=== PATIENT | female | born 1940 | race Caucasian/White ===

== ENCOUNTER 2016-06-07 08:44 | Emergency (ER) | payer MEDICARE, BC ==
[2016-06-07 08:53] VITALS: BP 198/69
[2016-06-07] MEDS ORDERED: HYDROmorphone 1 MG/ML Syringe IM ONE (09:35)
[2016-06-07] MEDS ORDERED: Albuterol/Ipratropium 3.0-0.5 MG/3 ML Neb Soln NEB ONE (09:35)
--- NOTE | 2016-06-07 10:24 | CR ---
Chest: Two views of the chest were obtained. Comparison: Previous chest x-ray of 03/21/16. Heart size has a slight left ventricular configuration. Mild tortuosity of the thoracic aorta is seen. Lungs are clear with no acute infiltrates. Mild degenerative change is noted within the spine. Surgical clips are seen from prior cholecystectomy. Previous right shoulder surgery is seen. Impression: 1. Incidental findings as described above. Nothing acute is identified on two-view chest x-ray. Diagnostic code #2
--- NOTE | 2016-06-07 10:25 | EDM.PDOC ---
ED HISTORY OF PRESENT ILLNESS - General Chief Complaint: Respiratory Problem Stated Complaint: CHEST PAIN/TROUBLE BREATHING Time Seen by Provider: 06/07/16 09:27 Source of Information: Reports: Patient History Limitations: Reports: No limitations - History of Present Illness INITIAL COMMENTS - FREE TEXT/NARRATIVE: The patient presents with shortness of breath and some chest pain. The patient has had shortness of breath for about 3 weeks and burning chest pain. Dixie Olsen did a CT angio of her chest and there was no PE but she did have some signs of asbestosis exposure. She had an older sister that of asbestos and cancer. She is worried this may be the case. They grew up in the same house that had it. She denies any fever or cough. She has no abdominal pain. She does have some nausea at times. She is scheduled to see the cutting machine offbearer next week on the . Timing/Duration: Reports: Week(s): Severity: moderate Location, General: Reports: chest Quality: Reports: Burning Improves with: Reports: None Worsens with: Reports: None Context, General: Reports: Activity Associated Symptoms (General): Reports: chest pain, nausea/vomiting, shortness of breath. Denies: cough, fever/chills - Related Data Allergies/ADRs: Allergies Allergy/AdvReac Type Severity Reaction Status Date / Time cephalexin monohydrate Allergy Hives Verified 06/07/16 08:53 [From Keflex] doxycycline Allergy Hives Verified 06/07/16 08:53 fluconazole Allergy Hives Verified 06/07/16 08:53 hyoscyamine Allergy Vaginitis Verified 06/07/16 08:53 levofloxacin [From Levaquin] Allergy Hives Verified 06/07/16 08:53 sulfamethoxazole Allergy Hives Verified 06/07/16 08:53 amlodipine AdvReac Body Aches Verified 06/07/16 08:53 atorvastatin calcium AdvReac Muscle Verified 06/07/16 08:53 [From Lipitor] Aches bupropion HCl AdvReac Other Verified 06/07/16 08:53 [From Wellbutrin] colesevelam HCl AdvReac Muscle Verified 06/07/16 08:53 [From WelChol] Aches ezetimibe [From Zetia] AdvReac Muscle Verified 06/07/16 08:53 Aches gabapentin AdvReac Blurred Verified 06/07/16 08:53 Vision ibandronate sodium AdvReac Shortness Verified 06/07/16 08:53 [From Boniva] of Breath levothyroxine sodium AdvReac Other Verified 06/07/16 08:53 lisinopril AdvReac Cough Verified 06/07/16 08:53 mannitol [From Reclast] AdvReac Confusion Verified 06/07/16 08:53 metoclopramide HCl AdvReac Tremors Verified 06/07/16 08:53 [From Reglan] morphine AdvReac Other Verified 06/07/16 08:53 niacin AdvReac Muscle Verified 06/07/16 08:53 Aches phenobarbital AdvReac Other Verified 06/07/16 08:53 pravastatin sodium AdvReac Muscle Verified 06/07/16 08:53 [From Pravachol] Aches prochlorperazine edisylate AdvReac Tremors Verified 06/07/16 08:53 [From Compazine] prochlorperazine maleate AdvReac Tremors Verified 06/07/16 08:53 [From Compazine] promethazine HCl AdvReac Other Verified 06/07/16 08:53 [From Phenergan] rosuvastatin calcium AdvReac Body Aches Verified 06/07/16 08:53 [From Crestor] sertraline HCl [From Zoloft] AdvReac Other Verified 06/07/16 08:53 simvastatin [From Zocor] AdvReac Muscle Verified 06/07/16 08:53 Aches trazodone AdvReac Other Verified 06/07/16 08:53 water for injection,sterile AdvReac Confusion Verified 06/07/16 08:53 [From Reclast] zoledronic acid AdvReac Confusion Verified 06/07/16 08:53 [From Reclast] zolpidem tartrate AdvReac Other Verified 06/07/16 08:53 [From Ambien] Home Meds: Home Meds Krill/[place]-3/Dha/Epa/Lipids [Krill Oil 300 mg Softgel] 300 mg PO DAILY [History] Levothyroxine Sodium [Synthroid] 112 mcg PO DAILY 01/30/14 [History] Nitroglycerin 0.4 mg SL TID PRN 01/30/14 [History] Dextran 70/Hypromellose [Artificial Tears] 1 drop EYEBOTH BEDTIME PRN 05/05/14 [ History] HYDROmorphone HCl [Dilaudid] 4 mg PO Q4HR PRN 02/23/15 [History] Furosemide 20 mg PO DAILY PRN 03/27/15 [History] quiNINE Sulfate [Quinine Sulfate] 324 mg PO BID PRN 03/27/15 [History] Carvedilol [Coreg] 25 mg PO BID 03/17/16 [History] Cholecalciferol (Vitamin D3) [Vitamin D3] 1,000 unit PO DAILY 03/17/16 [History] Hydrochlorothiazide 12.5 mg PO DAILY 03/17/16 [History] Potassium Chloride [Klor-Con 10] 10 meq PO DAILY 03/17/16 [History] Temazepam [Restoril] 15 mg PO BEDTIME PRN 03/17/16 [History] Ipratropium/Albuterol Sulfate [Combivent Respimat Inhal Darling] 2 inh IH Q6HR PRN #1 aer.w.adap 06/07/16 [Rx] Past Medical History HEENT History: Reports: Impaired vision Other HEENT History: Wears glasses Cardiovascular History: Reports: High cholesterol, Hypertension, Stents, Other ( see below) Other Cardiovascular 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 Patient reported No. 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: Musculoskeletal History: Reports: Osteoporosis Other Musculoskeletal History: polymyalgia Neurological History: Reports: Concussion, Seizure Endocrine/Metabolic History: Reports: Hypothyroidism Hematologic History: Reports: Other (see below) Other Hematologic History: Vitamin D deficiency Oncologic (Cancer) History: Reports: None - Infectious Disease History Infectious Disease History: Reports: Chicken pox - Past Surgical History HEENT Surgical History: Reports: Cataract surgery GI Surgical History: Reports: Appendectomy, Cholecystectomy, Colonoscopy, EGD, Lysis of adhesions Female Surgical History: Reports: Breast reduction, D&C, Hysterectomy, Tubal ligation Neurological Surgical History: Reports: Laminectomy Other Musculoskeletal Surgeries/Procedures:: Foot surgery, lumbar laminectomy, spinal fusion Oncologic Surgical History: Reports: None, Other (see below) Other Oncologic Surgeries/Procedures: BACK WINDER inquired if Patient had PMHx of Cancer /Radiation or Chemotherapy: Patient reported None. Social & Family History - Family History Family Medical History: Noncontributory Cardiac: Reports: ND Other Cardiac Family History: [place], Bro, Bro - Heart disease Neurological: Reports: Alzheimers disease Oncologic: Reports: Lung Other Oncologic Family History: FA - Cancer, Sis - lung cancer - Tobacco Use Smoking Status *Q: Never Smoker Second Hand Smoke Exposure: No - Caffeine Use Caffeine Use: Reports: None - Alcohol Use Days Per Week of Alcohol Use: 0 Number of Drinks Per Day: 0 Total Drinks Per Week: 0 - Recreational Drug Use Recreational Drug Use: No Drug Use in Last 12 Months: No - Living Situation & Occupation Living situation: Reports: single Occupation: retired ED ROS GENERAL - Review of Systems Review Of Systems: See Below Constitutional: Reports: no symptoms HEENT: Reports: No symptoms Respiratory: Reports: Shortness of Breath Cardiovascular: Reports: Chest pain Endocrine: Reports: no symptoms GI/Abdominal: Reports: Nausea. Denies: Abdominal pain, Vomiting : Reports: no symptoms Musculoskeletal: Reports: no symptoms Skin: Reports: no symptoms ED EXAM, GENERAL - Physical Exam Exam: See Below Exam Limited By: No limitations General Appearance: alert, no apparent distress Ears: normal external exam Nose: normal inspection Head: atraumatic, normocephalic Neck: normal inspection Respiratory/Chest: no respiratory distress, lungs clear, normal breath sounds Cardiovascular: regular rate, rhythm, no edema, no murmur GI/Abdominal: soft, non tender, no organomegaly, no mass Back Exam: normal inspection Extremities: normal inspection Neurological: alert, oriented, no motor/sensory deficits EKG INTERPRETATION EKG Date: 06/07/16 Time: 08:48 Rhythm: other (sinus bradycardia) Rate (beats/min): 59 [place]: LAD-left axis deviation P-wave: present QRS: normal ST-T: normal QT: normal DC/PQ Interval: 1st degree HB Course - Vital Signs Last Recorded V/S: Last Vital Signs Temp 97.8 F 06/07/16 08:50 Pulse 57 L 06/07/16 08:50 Resp 20 06/07/16 08:50 BP 198/69 H 06/07/16 08:50 Pulse Ox 99 06/07/16 09:35 - Orders/Labs/Meds Orders: Active Orders 24 hr Category Date Time Status EKG 12 Lead [EKG Documentation Completion] [RC] STAT Care 06/07/16 09:34 Active RT Aerosol Therapy [RC] ASDIRECTED Care 06/07/16 09:35 Active Labs: Laboratory Tests 06/07/16 06/07/16 Range/Units 09:55 09:55 WBC 9.40 (3.98-10.04) K/mm3 RBC 4.38 (3.98-5.22) M/mm3 Hgb 13.5 (11.2-15.7) gm/L Hct 39.9 (34.1-44.9) % MCV 91.1 (79.4-94.8) fl MCH 30.8 (25.6-32.2) pg MCHC 33.8 (32.2-35.5) g/dl RDW Std Deviation 42.0 (36.4-46.3) fL Plt Count 189 (182-369) K/mm3 MPV 9.2 L (9.4-12.3) fl Neutrophils % (Manual) 81 H (40-60) % Band Neutrophils % 0 (0-10) % Lymphocytes % (Manual) 15 L (20-40) % Atypical Lymphs % 0 % Monocytes % (Manual) 4 (2-10) % Eosinophils % (Manual) 0 L (0.7-5.8) % Basophils % (Manual) 0 L (0.1-1.2) Platelet Estimate Adequate RBC Morph Comment Normal Sodium 140 (136-145) mEq/L Potassium 3.9 (3.5-5.1) mEq/L Chloride 105 (98-107) mEq/L Carbon Dioxide 24 (21-32) mEq/L Anion Gap 14.9 (5-15) BUN 13 (7-18) mg/dL Creatinine 0.7 (0.55-1.02) mg/dL Est Cr Clr Drug Dosing TNP Estimated GFR (MDRD) > 60 (>60) mL/min BUN/Creatinine Ratio 18.6 H (14-18) Glucose 105 (83-115) mg/dL Calcium 9.4 (8.5-10.1) mg/dL Total Bilirubin 0.6 (0.2-1.0) mg/dL AST 23 (15-37) U/L ALT 35 (14-59) U/L Alkaline Phosphatase 110 (46-116) U/L Troponin I < 0.017 (0.00-0.056) ng/mL Total Protein 7.1 (6.4-8.2) g/dl Albumin 3.6 (3.4-5.0) g/dl Globulin 3.5 gm/dL Albumin/Globulin Ratio 1.0 (1-2) Meds: Medications Discontinued Medications Generic Name Dose Route Start Last Admin Trade Name Litzy PRN Reason Stop Dose Admin Albuterol/Ipratropium 3 ml 06/07/16 09:35 06/07/16 09:54 Duoneb 3.0-0.5 Mg/3 Ml NEB 06/07/16 09:36 3 ml ONETIME ONE Administration Hydromorphone HCl 1 mg 06/07/16 09:35 06/07/16 09:50 Dilaudid IM 06/07/16 09:36 1 mg ONETIME ONE Administration - Re-Assessments/Exams Free Text/Narrative Re-Assessment/Exam: 06/07/16 10:31 I ordered an EKG that showed a 1st degree HB with no acute changes. Her CXR looks good. I ordered a duoneb and dilaudid 1mg IM and labs. Her CBC is back and it looks good. I am waiting on the CMP and troponin. 06/07/16 10:39 She is still having some pain so I ordered some fentanyl 100mcg IM and her CMP and troponin are negative. She said the duoneb treatment did help with her breathing so I will send a prescription to her pharmacy. Departure - Departure Time of Disposition: 10:40 Disposition: Home, Self-Care 01 Clinical Impression: Shortness of breath Chest pain Qualifiers: Chest pain type: unspecified Qualified Code(s): R07.9 - Chest pain, unspecified Prescriptions: Ipratropium/Albuterol Sulfate [Combivent Respimat Inhal Darling] 2 inh IH Q6HR PRN #1 aer.w.adap PRN Reason: Shortness Of Breath Referrals: Kathryn Olsen NP [Primary Care Provider] - Forms: ED Department Discharge Additional Instructions: Take your other medication as prescribed. Use the inhaler 2 puffs every 6 hours as needed for shortness of breath. Follow up with your cutting machine offbearer. Please return if you are worse. - My Orders Last 24 Hours: My Active Orders 06/07/16 09:34 EKG 12 Lead [EKG Documentation Completion] [RC] STAT 06/07/16 09:35 RT Aerosol Therapy [RC] ASDIRECTED - Assessment/Plan Last 24 Hours: My Active Orders 06/07/16 09:34 EKG 12 Lead [EKG Documentation Completion] [RC] STAT 06/07/16 09:35 RT Aerosol Therapy [RC] ASDIRECTED
[2016-06-07] MEDS ORDERED: fentaNYL 100 MCG/2 ML SDV IM ONE (10:40)
== END 2016-06-07 11:00 | disposition home or self-care (01) ==
LOC: JD.ED 08:44
DX: R07.9 Chest pain, unspecified (principal); I10 Essential (primary) hypertension; E78.00 Pure hypercholesterolemia, unspecified; M81.0 Age-related osteoporosis without current pathological fracture; E03.9 Hypothyroidism, unspecified; Z98.49 Cataract extraction status, unspecified eye; Z90.710 Acquired absence of both cervix and uterus; Z98.890 Other specified postprocedural states; Z79.899 Other long term (current) drug therapy; Z88.1 Allergy status to other antibiotic agents; Z88.2 Allergy status to sulfonamides; Z88.5 Allergy status to narcotic agent; Z88.8 Allergy status to other drugs, medicaments and biological substances
CPT/HCPCS: 36415; 71020; 80053; 84484; 85025; 93005; 94664; 96372; 99285; J1170; J3010

== ENCOUNTER 2016-10-06 11:40 | Emergency (ER) | payer MEDICARE, BC ==
[2016-10-06] MEDS ORDERED: Sodium Chloride 0.9% 10 ML Syringe FLUSH PRN (11:48)
[2016-10-06 11:57] VITALS: BP 179/84
[2016-10-06] MEDS ORDERED: Ondansetron 4 MG/2 ML SDV IVPUSH ONE (12:01)
[2016-10-06] MEDS ORDERED: LORazepam 2 MG/ML MDV IVPUSH ONE (12:01)
[2016-10-06] MEDS ORDERED: Sodium Chloride 0.9% 1,000 ML IV SCH (12:15)
--- NOTE | 2016-10-06 13:43 | CR ---
Chest: Frontal view of the chest was obtained. Comparison: Previous chest x-ray 06/07/16 and 06/18/15. Heart size appears within normal limits. Tortuous thoracic aorta is seen. Slightly prominent paratracheal soft tissues are noted which appear stable. Lungs are clear. Bony structures are grossly intact. Previous lumbar spine surgery is noted as well as right shoulder surgery. Previous gallbladder surgery is also noted. Impression: 1. Incidental findings. Nothing acute is appreciated on frontal chest x-ray. Diagnostic code #2
--- NOTE | 2016-10-06 14:03 | EDM.PDOC ---
ED HPI GENERAL MEDICAL PROBLEM - General Chief Complaint: Chest Pain Stated Complaint: CHEST PAIN Time Seen by Provider: 10/06/16 11:48 Source of Information: Reports: Patient, RN Notes Reviewed - History of Present Illness INITIAL COMMENTS - FREE TEXT/NARRATIVE: 76-year-old lady comes in with anterior chest discomfort with radiation to left shoulder and left arm. So does have pain radiating to her back, she had onset this discomfort about 5 AM this past morning about 6 hours ago. She does feel mildly short of breath. She's not been coughing. No recent fever or chills. She does have some mild upper mid abdominal discomfort as well. Slight nausea, no vomiting. She does have history of hypertension. She does have history of polymyalgia rheumatica. Today she does feel "achy all over". Treatments HEALTH INFORMATICS SPECIALIST: Reports: Aspirin, Other (see below) Other Treatments HEALTH INFORMATICS SPECIALIST: dilaudid 4 mg Chest Pain Score (Numeric/FACES): 10 - Related Data Allergies Allergy/AdvReac Type Severity Reaction Status Date / Time cephalexin monohydrate Allergy Hives Verified 10/06/16 11:57 [From Keflex] doxycycline Allergy Hives Verified 10/06/16 11:57 fluconazole Allergy Hives Verified 10/06/16 11:57 hyoscyamine Allergy Vaginitis Verified 10/06/16 11:57 levofloxacin [From Levaquin] Allergy Hives Verified 10/06/16 11:57 sulfamethoxazole Allergy Hives Verified 10/06/16 11:57 amlodipine AdvReac Body Aches Verified 10/06/16 11:57 atorvastatin calcium AdvReac Muscle Verified 10/06/16 11:57 [From Lipitor] Aches bupropion HCl AdvReac Other Verified 10/06/16 11:57 [From Wellbutrin] colesevelam HCl AdvReac Muscle Verified 10/06/16 11:57 [From WelChol] Aches ezetimibe [From Zetia] AdvReac Muscle Verified 10/06/16 11:57 Aches gabapentin AdvReac Blurred Verified 10/06/16 11:57 Vision ibandronate sodium AdvReac Shortness Verified 10/06/16 11:57 [From Boniva] of Breath levothyroxine sodium AdvReac Other Verified 10/06/16 11:57 lisinopril AdvReac Cough Verified 10/06/16 11:57 mannitol [From Reclast] AdvReac Confusion Verified 10/06/16 11:57 metoclopramide HCl AdvReac Tremors Verified 10/06/16 11:57 [From Reglan] morphine AdvReac Other Verified 10/06/16 11:57 niacin AdvReac Muscle Verified 10/06/16 11:57 Aches phenobarbital AdvReac Other Verified 10/06/16 11:57 pravastatin sodium AdvReac Muscle Verified 10/06/16 11:57 [From Pravachol] Aches prochlorperazine edisylate AdvReac Tremors Verified 10/06/16 11:57 [From Compazine] prochlorperazine maleate AdvReac Tremors Verified 10/06/16 11:57 [From Compazine] promethazine HCl AdvReac Other Verified 10/06/16 11:57 [From Phenergan] rosuvastatin calcium AdvReac Body Aches Verified 10/06/16 11:57 [From Crestor] sertraline HCl [From Zoloft] AdvReac Other Verified 10/06/16 11:57 simvastatin [From Zocor] AdvReac Muscle Verified 10/06/16 11:57 Aches trazodone AdvReac Other Verified 10/06/16 11:57 water for injection,sterile AdvReac Confusion Verified 10/06/16 11:57 [From Reclast] zoledronic acid AdvReac Confusion Verified 10/06/16 11:57 [From Reclast] zolpidem tartrate AdvReac Other Verified 10/06/16 11:57 [From Ambien] Home Meds: Home Meds Krill/Viburnum-3/Dha/Epa/Lipids [Krill Oil 300 mg Softgel] 300 mg PO DAILY [History] Levothyroxine Sodium [Synthroid] 112 mcg PO DAILY 01/30/14 [History] Nitroglycerin 0.4 mg SL TID PRN 01/30/14 [History] Dextran 70/Hypromellose [Artificial Tears] 1 drop EYEBOTH BEDTIME PRN 05/05/14 [ History] HYDROmorphone HCl [Dilaudid] 4 mg PO Q4HR PRN 02/23/15 [History] Furosemide 20 mg PO DAILY PRN 03/27/15 [History] quiNINE Sulfate [Quinine Sulfate] 324 mg PO BID PRN 03/27/15 [History] Carvedilol [Coreg] 25 mg PO BID 03/17/16 [History] Cholecalciferol (Vitamin D3) [Vitamin D3] 1,000 unit PO DAILY 03/17/16 [History] Hydrochlorothiazide 12.5 mg PO DAILY 03/17/16 [History] Potassium Chloride [Klor-Con 10] 10 meq PO DAILY 03/17/16 [History] Temazepam [Restoril] 15 mg PO BEDTIME PRN 03/17/16 [History] Ipratropium/Albuterol Sulfate [Combivent Respimat Inhal [place]] 2 inh IH Q6HR PRN #1 aer.w.adap 06/07/16 [Rx] Past Medical History HEENT History: Reports: Impaired Vision Other HEENT History: Wears glasses Cardiovascular History: Reports: High Cholesterol, Hypertension, Stents, Other ( See Below) Other Cardiovascular History: [employer]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 Patient reported No. Respiratory History: Reports: Pneumonia, Recurrent Gastrointestinal History: Reports: Bowel Obstruction, Colon Polyp Other Gastrointestinal History: states esophagus doesn't work like it normally should Genitourinary History: Reports: Pyelonephritis, UTI, Recurrent COMPANY ACCOUNTANT History: Reports: Musculoskeletal History: Reports: Osteoporosis Other Musculoskeletal History: polymyalgia Neurological History: Reports: Concussion, Seizure Psychiatric History: Reports: Anxiety Endocrine/Metabolic History: Reports: Hypothyroidism Hematologic History: Reports: Other (See Below) Other Hematologic History: Vitamin D deficiency Oncologic (Cancer) History: Reports: None - Infectious Disease History Infectious Disease History: Reports: Chicken Pox - Past Surgical History HEENT Surgical History: Reports: Cataract Surgery Cardiovascular Surgical History: Reports: Coronary Artery Stent GI Surgical History: Reports: Appendectomy, Cholecystectomy, Colonoscopy, EGD, Lysis of Adhesions Female Surgical History: Reports: Breast Reduction, D&C, Hysterectomy, Tubal Ligation Neurological Surgical History: Reports: Laminectomy Musculoskeletal Surgical History: Reports: Other (See Below) Oncologic Surgical History: Reports: None, Other (See Below) Social & Family History - Family History Family Medical History: Noncontributory Cardiac: Reports: [place] Other Cardiac Family History: [place], Bro, Bro - Heart disease Neurological: Reports: Alzheimers Disease Oncologic: Reports: Lung Other Oncologic Family History: FA - Cancer, Sis - lung cancer - Tobacco Use Smoking Status *Q: Never Smoker Second Hand Smoke Exposure: No - Caffeine Use Caffeine Use: Reports: Coffee - Alcohol Use Days Per Week of Alcohol Use: 0 Number of Drinks Per Day: 0 Total Drinks Per Week: 0 - Recreational Drug Use Recreational Drug Use: No Drug Use in Last 12 Months: No - Living Situation & Occupation Living situation: Reports: Single Occupation: Retired ED ROS GENERAL - Review of Systems Review Of Systems: See Below Constitutional: Denies: Fever, Chills, Diaphoresis HEENT: Reports: No Symptoms. Denies: Throat Pain Respiratory: Reports: Shortness of Breath. Denies: Pleuritic Chest Pain Cardiovascular: Reports: Chest Pain, Lightheadedness Endocrine: Reports: Fatigue GI/Abdominal: Reports: Abdominal Pain, Nausea. Denies: Diarrhea, Vomiting Musculoskeletal: Reports: Shoulder Pain, Arm Pain Neurological: Reports: Dizziness. Denies: Numbness, Tingling, Trouble Speaking ED EXAM, GENERAL - Physical Exam Exam: See Below Exam Limited By: No Limitations General Appearance: Alert, Anxious, Mild Distress Eye Exam: Bilateral Eye: PERRL Throat/Mouth: Normal Inspection, Normal Oropharynx Head: Atraumatic Neck: Supple Respiratory/Chest: No Respiratory Distress, Lungs Clear, Normal Breath Sounds Cardiovascular: Regular Rate, Rhythm GI/Abdominal: Soft, Non-Tender Back Exam: No: CVA Tenderness (L), CVA Tenderness (R) Extremities: Normal Inspection. No: Pedal Edema, Leg Pain Neurological: Alert, Oriented, No Motor/Sensory Deficits Skin Exam: Warm, Dry, Normal Color EKG INTERPRETATION EKG Date: 10/06/16 Rhythm: NSR Conde: Normal P-Wave: Present ST-T: Depressed (T-wave inversion V2) Course - Vital Signs Last Recorded V/S: Last Vital Signs Temp 97.0 F 10/06/16 11:53 Pulse 73 10/06/16 11:53 Resp 16 10/06/16 11:53 BP 179/84 H 10/06/16 11:53 Pulse Ox 97 10/06/16 11:53 - Orders/Labs/Meds Orders: Active Orders 24 hr Category Date Time Status EKG 12 Lead [EKG Documentation Completion] [RC] STAT Care 10/06/16 11:49 Active Peripheral IV Care [RC] . DIRECTED Care 10/06/16 11:49 Active Sodium Chloride 0.9% [Normal Saline] 1,000 ml Med 10/06/16 12:15 Active IV ASDIRECTED Sodium Chloride 0.9% [Saline Flush] Med 10/06/16 11:48 Active 10 ml FLUSH ASDIRECTED PRN Peripheral IV Insertion Adult [OM.PC] Stat Oth 10/06/16 11:49 Ordered Medication Orders Sodium Chloride (Normal Saline) 1,000 mls @ 75 mls/hr IV ASDIRECTED IRVIN Last Admin: 10/06/16 12:22 Dose: 75 mls/hr Sodium Chloride (Saline Flush) 10 ml FLUSH ASDIRECTED PRN PRN Reason: Keep Vein Open Last Admin: 10/06/16 12:23 Dose: 10 ml Labs: Laboratory Tests 10/06/16 10/06/16 10/06/16 Range/Units 12:17 12:17 14:25 WBC 9.82 (3.98-10.04) K/mm3 RBC 4.02 (3.98-5.22) M/mm3 Hgb 12.6 (11.2-15.7) gm/L Hct 37.1 (34.1-44.9) % MCV 92.3 (79.4-94.8) fl MCH 31.3 (25.6-32.2) pg MCHC 34.0 (32.2-35.5) g/dl RDW Std Deviation 42.7 (36.4-46.3) fL Plt Count 246 (182-369) K/mm3 MPV 9.0 L (9.4-12.3) fl Neut % (Auto) 72.9 H (34.0-71.1) % Lymph % (Auto) 20.7 (19.3-51.7) % [place] % (Auto) 5.7 (4.7-12.5) % Eos % (Auto) 0.3 L (0.7-5.8) Baso % (Auto) 0.2 (0.1-1.2) % Neut # (Auto) 7.16 H (1.56-6.13) K/mm3 Lymph # (Auto) 2.03 (1.18-3.74) K/mm3 Titus # (Auto) 0.56 H (0.24-0.36) K/mm3 Eos # (Auto) 0.03 L (0.04-0.36) K/mm3 Baso # (Auto) 0.02 (0.01-0.08) K/mm3 Sodium 140 (136-145) mEq/L Potassium 3.0 L (3.5-5.1) mEq/L Chloride 102 (98-107) mEq/L Carbon Dioxide 27 (21-32) mEq/L Anion Gap 14.0 (5-15) BUN 13 (7-18) mg/dL Creatinine 0.9 (0.55-1.02) mg/dL Est Cr Clr Drug Dosing 38.87 mL/min Estimated GFR (MDRD) > 60 (>60) mL/min BUN/Creatinine Ratio 14.4 (14-18) Glucose 126 H (83-115) mg/dL Calcium 9.9 (8.5-10.1) mg/dL Total Bilirubin 0.4 (0.2-1.0) mg/dL AST 16 (15-37) U/L ALT 20 (14-59) U/L Alkaline Phosphatase 81 (46-116) U/L Troponin I < 0.017 < 0.017 (0.00-0.056) ng/mL Total Protein 7.7 (6.4-8.2) g/dl Albumin 4.0 (3.4-5.0) g/dl Globulin 3.7 gm/dL Albumin/Globulin Ratio 1.1 (1-2) Meds: Medications Generic Name Dose Route Start Last Admin Trade Name Freq PRN Reason Stop Dose Admin Sodium Chloride 1,000 mls @ 75 mls/hr 10/06/16 12:15 10/06/16 12:22 Normal Saline IV 75 mls/hr ASDIRECTED IRVIN Administration Sodium Chloride 10 ml 10/06/16 11:48 10/06/16 12:23 Saline Flush FLUSH 10 ml ASDIRECTED PRN Administration Keep Vein Open Discontinued Medications Generic Name Dose Route Start Last Admin Trade Name Freq PRN Reason Stop Dose Admin Lorazepam 0.5 mg 10/06/16 12:01 10/06/16 12:22 Ativan IVPUSH 10/06/16 12:02 0.5 mg ONETIME ONE Administration Ondansetron HCl 4 mg 10/06/16 12:01 10/06/16 12:22 Zofran IVPUSH 10/06/16 12:02 4 mg ONETIME ONE Administration Potassium Chloride 40 meq 10/06/16 14:12 10/06/16 14:32 Klor-Con M20 PO 10/06/16 14:13 40 meq ONETIME ONE Administration - Re-Assessments/Exams Free Text/Narrative Re-Assessment/Exam: 10/06/16 14:16. Patient was sleeping when I checked on her short time ago. He is awake, feels much better after Ativan 0.5 mg IV. Take an oral Dilaudid prior to arrival. She states her chest discomfort is gone. Potassium is come back low at 3.0. We'll give a dose of oral potassium. Troponin was normal. We'll do a repeat 2+ hour troponin to make sure that does not start going up. Chest x-ray was normal. 10/06/16 15:15. Repeat troponin did come back negative. Discharge instructions as documented Departure - Departure Time of Disposition: 15:15 Disposition: Home, Self-Care 01 Clinical Impression: Chest pain, atypical, Hypokalemia Referrals: Kathryn Olsen NP [Primary Care Provider] - Forms: ED Department Discharge Additional Instructions: Increase potassium to your prescribed dose each twice daily for 5 days and then go back to once daily, bananas, fruit and vegetables which are all a good source of potassium prednisone as prescribed. Continue other medications as prescribed. Follow up clinic as needed. Return to ED if symptoms worsening in any way - My Orders Last 24 Hours: My Active Orders 10/06/16 11:48 Sodium Chloride 0.9% [Saline Flush] 10 ml FLUSH ASDIRECTED PRN 10/06/16 11:49 EKG 12 Lead [EKG Documentation Completion] [RC] STAT Peripheral IV Care [RC] . DIRECTED Peripheral IV Insertion Adult [OM.PC] Stat 10/06/16 12:15 Sodium Chloride 0.9% [Normal Saline] 1,000 ml IV ASDIRECTED - Assessment/Plan Last 24 Hours: My Active Orders 10/06/16 11:48 Sodium Chloride 0.9% [Saline Flush] 10 ml FLUSH ASDIRECTED PRN 10/06/16 11:49 EKG 12 Lead [EKG Documentation Completion] [RC] STAT Peripheral IV Care [RC] . DIRECTED Peripheral IV Insertion Adult [OM.PC] Stat 10/06/16 12:15 Sodium Chloride 0.9% [Normal Saline] 1,000 ml IV ASDIRECTED
[2016-10-06] MEDS ORDERED: Potassium Chloride 20 MEQ Tab.ER PO ONE (14:12)
== END 2016-10-06 15:48 | disposition home or self-care (01) ==
LOC: JD.ED 11:40
DX: R07.89 Other chest pain (principal); E87.6 Hypokalemia; E78.00 Pure hypercholesterolemia, unspecified; I10 Essential (primary) hypertension; E03.9 Hypothyroidism, unspecified; F41.9 Anxiety disorder, unspecified; Z98.49 Cataract extraction status, unspecified eye; Z88.1 Allergy status to other antibiotic agents; Z88.6 Allergy status to analgesic agent; Z88.8 Allergy status to other drugs, medicaments and biological substances; Z88.5 Allergy status to narcotic agent; Z87.01 Personal history of pneumonia (recurrent); Z79.899 Other long term (current) drug therapy; Z87.440 Personal history of urinary (tract) infections; Z90.49 Acquired absence of other specified parts of digestive tract; Z90.710 Acquired absence of both cervix and uterus
CPT/HCPCS: 36415; 71010; 80053; 84484; 85025; 93005; 96361; 96374; 96375; 99285; A9270; J2060; J2405; J7040; J7050

== ENCOUNTER 2017-01-23 15:34 | Emergency (ER) | payer MEDICARE, BC ==
[2017-01-23 15:58] VITALS: BP 149/48
[2017-01-23] MEDS ORDERED: methylPREDNISolone Sodium Succinate 125 MG/2 ML SDV IVPUSH ONE (16:12)
[2017-01-23] MEDS ORDERED: Sodium Chloride 0.9% 10 ML Syringe FLUSH PRN (16:12)
[2017-01-23] MEDS ORDERED: Ondansetron 4 MG/2 ML SDV IVPUSH ONE (16:12)
[2017-01-23] MEDS ORDERED: LORazepam 2 MG/ML MDV IVPUSH ONE (16:12)
[2017-01-23] MEDS ORDERED: Sodium Chloride 0.9% 1,000 ML IV SCH (17:00)
[2017-01-23] MEDS ORDERED: Meclizine 12.5 MG Tab PO ONE (17:39)
--- NOTE | 2017-01-23 17:49 | EDM.PDOC ---
ED HPI GENERAL MEDICAL PROBLEM - General Chief Complaint: Gastrointestinal Problem Stated Complaint: DIZZY SPELLS W/NAUSEA AND DIARRHEA Time Seen by Provider: 01/23/17 15:52 Source of Information: Reports: Patient, RN Notes Reviewed - History of Present Illness INITIAL COMMENTS - FREE TEXT/NARRATIVE: 76-year-old female is been having difficulty with intermittent vertigo for several months. This has been more severe the last 2 or 3 days. The vertigo is worse with any type of sudden motion of her head. She also does feel somewhat weak, lightheaded and dizzy when standing or walking. She's had no chest pain or difficulty breathing. No abdominal pain or cramping. she has had some nausea but no vomiting. She also did have one episode of what started out as constipation and then turned into diarrhea earlier today. No headache or visual difficulty. - Related Data Allergies Allergy/AdvReac Type Severity Reaction Status Date / Time cephalexin monohydrate Allergy Hives Verified 10/06/16 11:57 [From Keflex] doxycycline Allergy Hives Verified 10/06/16 11:57 fluconazole Allergy Hives Verified 10/06/16 11:57 hyoscyamine Allergy Vaginitis Verified 10/06/16 11:57 levofloxacin [From Levaquin] Allergy Hives Verified 10/06/16 11:57 sulfamethoxazole Allergy Hives Verified 10/06/16 11:57 amlodipine AdvReac Body Aches Verified 10/06/16 11:57 atorvastatin calcium AdvReac Muscle Verified 10/06/16 11:57 [From Lipitor] Aches bupropion HCl AdvReac Other Verified 10/06/16 11:57 [From Wellbutrin] colesevelam HCl AdvReac Muscle Verified 10/06/16 11:57 [From WelChol] Aches ezetimibe [From Zetia] AdvReac Muscle Verified 10/06/16 11:57 Aches gabapentin AdvReac Blurred Verified 10/06/16 11:57 Vision ibandronate sodium AdvReac Shortness Verified 10/06/16 11:57 [From Boniva] of Breath levothyroxine sodium AdvReac Other Verified 10/06/16 11:57 lisinopril AdvReac Cough Verified 10/06/16 11:57 mannitol [From Reclast] AdvReac Confusion Verified 10/06/16 11:57 metoclopramide HCl AdvReac Tremors Verified 10/06/16 11:57 [From Reglan] morphine AdvReac Other Verified 10/06/16 11:57 niacin AdvReac Muscle Verified 10/06/16 11:57 Aches phenobarbital AdvReac Other Verified 10/06/16 11:57 pravastatin sodium AdvReac Muscle Verified 10/06/16 11:57 [From Pravachol] Aches prochlorperazine edisylate AdvReac Tremors Verified 10/06/16 11:57 [From Compazine] prochlorperazine maleate AdvReac Tremors Verified 10/06/16 11:57 [From Compazine] promethazine HCl AdvReac Other Verified 10/06/16 11:57 [From Phenergan] rosuvastatin calcium AdvReac Body Aches Verified 10/06/16 11:57 [From Crestor] sertraline HCl [From Zoloft] AdvReac Other Verified 10/06/16 11:57 simvastatin [From Zocor] AdvReac Muscle Verified 10/06/16 11:57 Aches trazodone AdvReac Other Verified 10/06/16 11:57 water for injection,sterile AdvReac Confusion Verified 10/06/16 11:57 [From Reclast] zoledronic acid AdvReac Confusion Verified 10/06/16 11:57 [From Reclast] zolpidem tartrate AdvReac Other Verified 10/06/16 11:57 [From Ambien] Home Meds: Home Meds Krill/[place]-3/Dha/Epa/Lipids [Krill Oil 300 mg Softgel] 300 mg PO DAILY [History] Levothyroxine Sodium [Synthroid] 112 mcg PO DAILY 01/30/14 [History] Nitroglycerin 0.4 mg SL TID PRN 01/30/14 [History] Dextran 70/Hypromellose [Artificial Tears] 1 drop EYEBOTH BEDTIME PRN 05/05/14 [ History] HYDROmorphone HCl [Dilaudid] 4 mg PO Q4HR PRN 02/23/15 [History] Furosemide 20 mg PO DAILY PRN 03/27/15 [History] quiNINE Sulfate [Quinine Sulfate] 324 mg PO BID PRN 03/27/15 [History] Carvedilol [Coreg] 25 mg PO BID 03/17/16 [History] Cholecalciferol (Vitamin D3) [Vitamin D3] 1,000 unit PO DAILY 03/17/16 [History] Hydrochlorothiazide 12.5 mg PO DAILY 03/17/16 [History] Potassium Chloride [Klor-Con 10] 10 meq PO DAILY 03/17/16 [History] Temazepam [Restoril] 15 mg PO BEDTIME PRN 03/17/16 [History] Ipratropium/Albuterol Sulfate [Combivent Respimat Inhal [place]] 2 inh IH Q6HR PRN #1 aer.w.adap 06/07/16 [Rx] Nitrofurantoin Monohyd/M-Cryst [Macrobid 100 mg Capsule] 100 mg PO Q12HR #14 capsule 01/23/17 [Rx] Past Medical History HEENT History: Reports: Impaired Vision Other HEENT History: Wears glasses Cardiovascular History: Reports: High Cholesterol, Hypertension, Stents, Other ( See Below) Other Cardiovascular History: [employer] inquired if Patient has PMHx of pacemaker/ afibrillation. Patient reported No. Respiratory History: Reports: Pneumonia, Recurrent Gastrointestinal History: Reports: Bowel Obstruction, Colon Polyp Other Gastrointestinal History: states esophagus doesn't work like it normally should Genitourinary History: Reports: Pyelonephritis, UTI, Recurrent [employer]ENTICE History: Reports: Musculoskeletal History: Reports: Osteoporosis Other Musculoskeletal History: polymyalgia Neurological History: Reports: Concussion, Seizure Psychiatric History: Reports: Anxiety Endocrine/Metabolic History: Reports: Hypothyroidism Hematologic History: Reports: Other (See Below) Other Hematologic History: Vitamin D deficiency Oncologic (Cancer) History: Reports: None - Infectious Disease History Infectious Disease History: Reports: Chicken Pox - Past Surgical History HEENT Surgical History: Reports: Cataract Surgery Cardiovascular Surgical History: Reports: Coronary Artery Stent GI Surgical History: Reports: Appendectomy, Cholecystectomy, Colonoscopy, EGD, Lysis of Adhesions Female Surgical History: Reports: Breast Reduction, D&C, Hysterectomy, Tubal Ligation Neurological Surgical History: Reports: Laminectomy Musculoskeletal Surgical History: Reports: Other (See Below) Oncologic Surgical History: Reports: None, Other (See Below) Social & Family History - Family History Family Medical History: Noncontributory Cardiac: Reports: [place] Other Cardiac Family History: [place], Bro, Bro - Heart disease Neurological: Reports: Alzheimers Disease Oncologic: Reports: Lung Other Oncologic Family History: FA - Cancer, Sis - lung cancer - Tobacco Use Smoking Status *Q: Never Smoker Second Hand Smoke Exposure: No - Caffeine Use Caffeine Use: Reports: Coffee - Alcohol Use Days Per Week of Alcohol Use: 0 Number of Drinks Per Day: 0 Total Drinks Per Week: 0 - Recreational Drug Use Recreational Drug Use: No Drug Use in Last 12 Months: No - Living Situation & Occupation Living situation: Reports: Single Occupation: Retired ED ROS GENERAL - Review of Systems Review Of Systems: See Below Constitutional: Denies: Fever, Chills, Diaphoresis HEENT: Denies: Sinus Problem, Throat Pain Respiratory: Denies: Shortness of Breath, Pleuritic Chest Pain Cardiovascular: Denies: Chest Pain GI/Abdominal: Reports: Nausea. Denies: Abdominal Pain, Vomiting : Reports: Frequency (Mild) Musculoskeletal: Reports: Other (There has been some generalized achiness) Skin: Reports: No Symptoms Neurological: Reports: Dizziness (Vertigo type dizziness worse with motion as well as lightheadedness when standing and walking), Weakness. Denies: Headache , Numbness, Tingling, Trouble Speaking (Mild generalized) ED EXAM, DIZZINESS - Physical Exam Exam: See Below General Appearance: Alert, Anxious (Mild) Eye Exam: Bilateral Eye: PERRL Ears: Normal External Exam, Normal Canal Nose: Normal Inspection Throat/Mouth: Normal Inspection, Normal Oropharynx Head Exam: Atraumatic. No: Facial Swelling Vertigo: reproducible Neck: Supple, Full Range of Motion Respiratory/Chest: No Respiratory Distress, Lungs Clear, Normal Breath Sounds Cardiovascular: Regular Rate, Rhythm GI/Abdominal: Soft, Non-Tender. No: Guarding Neurological: Alert, No Motor/Sensory Deficits, Oriented x 3, Other (Finger to nose testing normal) Extremities: Normal Inspection, Normal Range of Motion Psychiatric: Normal Affect, Normal Mood Skin Exam: Warm, Dry, Normal Color, No Rash EKG INTERPRETATION EKG Date: 01/23/17 Rhythm: NSR [place]: Normal QRS: Normal ST-T: Normal Course - Vital Signs Last Recorded V/S: Last Vital Signs Temp 97.8 F 01/23/17 15:56 Pulse 68 01/23/17 15:56 Resp 22 H 01/23/17 15:56 BP 149/48 H 01/23/17 15:56 Pulse Ox 99 01/23/17 15:56 - Orders/Labs/Meds Orders: Active Orders 24 hr Category Date Time Status Peripheral IV Care [RC] . DIRECTED Care 01/23/17 16:12 Active CULTURE URINE [RM] Stat Lab 01/23/17 18:59 Uncollected Sodium Chloride 0.9% [Normal Saline] 1,000 ml Med 01/23/17 17:00 Active IV ASDIRECTED Sodium Chloride 0.9% [Saline Flush] Med 01/23/17 16:12 Active 10 ml FLUSH ASDIRECTED PRN Peripheral IV Insertion Adult [OM.PC] Stat Oth 01/23/17 16:12 Ordered Medication Orders Sodium Chloride (Normal Saline) 1,000 mls @ 150 mls/hr IV ASDIRECTED IRVIN Last Admin: 01/23/17 17:05 Dose: 150 mls/hr Sodium Chloride (Saline Flush) 10 ml FLUSH ASDIRECTED PRN PRN Reason: Keep Vein Open Last Admin: 01/23/17 16:36 Dose: 10 ml Labs: Laboratory Tests 01/23/17 01/23/17 01/23/17 Range/Units 16:55 17:24 17:24 WBC 6.31 (3.98-10.04) K/mm3 RBC 4.13 (3.98-5.22) M/mm3 Hgb 13.0 (11.2-15.7) gm/L Hct 39.3 (34.1-44.9) % MCV 95.2 H (79.4-94.8) fl MCH 31.5 (25.6-32.2) pg MCHC 33.1 (32.2-35.5) g/dl RDW Std Deviation 43.1 (36.4-46.3) fL Plt Count 65 L (182-369) K/mm3 MPV 9.9 (9.4-12.3) fl Neut % (Auto) 72.0 H (34.0-71.1) % Lymph % (Auto) 20.0 (19.3-51.7) % [place] % (Auto) 4.3 L (4.7-12.5) % Eos % (Auto) 3.0 (0.7-5.8) Baso % (Auto) 0.2 (0.1-1.2) % Neut # (Auto) 4.55 (1.56-6.13) K/mm3 Lymph # (Auto) 1.26 (1.18-3.74) K/mm3 [place] # (Auto) 0.27 (0.24-0.36) K/mm3 Eos # (Auto) 0.19 (0.04-0.36) K/mm3 Baso # (Auto) 0.01 (0.01-0.08) K/mm3 Manual Slide Review Abnormal smear Sodium 138 (136-145) mEq/L Potassium 4.1 (3.5-5.1) mEq/L Chloride 103 (98-107) mEq/L Carbon Dioxide 27 (21-32) mEq/L Anion Gap 12.1 (5-15) BUN 14 (7-18) mg/dL Creatinine 0.8 (0.55-1.02) mg/dL Est Cr Clr Drug Dosing 45.84 mL/min Estimated GFR (MDRD) > 60 (>60) mL/min BUN/Creatinine Ratio 17.5 (14-18) Glucose 135 H (83-115) mg/dL Calcium 9.5 (8.5-10.1) mg/dL Total Bilirubin 0.6 (0.2-1.0) mg/dL AST 15 (15-37) U/L ALT 20 (14-59) U/L Alkaline Phosphatase 81 (46-116) U/L Total Protein 7.3 (6.4-8.2) g/dl Albumin 3.6 (3.4-5.0) g/dl Globulin 3.7 gm/dL Albumin/Globulin Ratio 1.0 (1-2) Urine Color Yellow (Yellow) Urine Appearance Clear (Clear) Urine pH 7.0 (5.0-8.0) Ur Specific [place] 1.015 (1.005-1.030) Urine Protein Negative (Negative) Urine Glucose (UA) Negative (Negative) Urine Ketones Negative (Negative) Urine Occult Blood 1+ H (Negative) Urine Nitrite Positive H (Negative) Urine Bilirubin Negative (Negative) Urine Urobilinogen 0.2 (0.2-1.0) Ur Leukocyte Esterase Trace H (Negative) Urine RBC 0-5 (0-5) /hpf Urine WBC 0-5 (0-5) /hpf Ur Epithelial Cells 0-5 (0-5) /hpf Urine Bacteria Many H (FEW) /hpf Urine Mucus Few (FEW) /hpf Meds: Medications Generic Name Dose Route Start Last Admin Trade Name Freq PRN Reason Stop Dose Admin Sodium Chloride 1,000 mls @ 150 mls/hr 01/23/17 17:00 01/23/17 17:05 Normal Saline IV 150 mls/hr ASDIRECTED IRVIN Administration Sodium Chloride 10 ml 01/23/17 16:12 01/23/17 16:36 Saline Flush FLUSH 10 ml ASDIRECTED PRN Administration Keep Vein Open Discontinued Medications Generic Name Dose Route Start Last Admin Trade Name Freq PRN Reason Stop Dose Admin Lorazepam 0.25 mg 01/23/17 16:12 01/23/17 16:36 Ativan IVPUSH 01/23/17 16:13 0.25 mg ONETIME ONE Administration Meclizine HCl 12.5 mg 01/23/17 17:39 01/23/17 17:57 Antivert PO 01/23/17 17:40 12.5 mg ONETIME ONE Administration Methylprednisolone Sodium Succinate 125 mg 01/23/17 16:12 01/23/17 16:34 Solu-Medrol IVPUSH 01/23/17 16:13 125 mg ONETIME ONE Administration Nitrofurantoin Macrocrystals 100 mg 01/23/17 19:03 01/23/17 19:50 Macrobid PO 01/23/17 19:04 100 mg ONETIME ONE Administration Ondansetron HCl 4 mg 01/23/17 16:12 01/23/17 16:30 Zofran IVPUSH 01/23/17 16:13 4 mg ONETIME ONE Administration - Re-Assessments/Exams Free Text/Narrative Re-Assessment/Exam: 01/23/17 18:35. Feeling better after IV meds and fluid, she does have a UTI, first dose macrobid given here in the ED, urine culture ordered, she also does have labyrinthitis, discharge instr. as documented. Departure - Departure Time of Disposition: 19:07 Disposition: Home, Self-Care 01 Condition: Fair Clinical Impression: UTI, Urinary tract infectious disease Labyrinthitis Qualifiers: Laterality: unspecified laterality Qualified Code(s): H83.09 - Labyrinthitis, unspecified ear - Discharge Information Prescriptions: Nitrofurantoin Monohyd/M-Cryst [Macrobid 100 mg Capsule] 100 mg PO Q12HR #14 capsule Instructions: Labyrinthitis, [id number], Urinary Tract Infection, Adult, Easy -to-Read Referrals: Kathryn Olsen NP [Primary Care Provider] - Forms: ED Department Discharge Additional Instructions: Rest, drink plenty of water to maintain hydration, moves slowly and carefully, macrobid antibiotic, 100 mg twice daily for 1 week, you have been given your first dose here in the ED, next dose tomorrow morning. Continue that twice daily until gone. Antivert 12.5 mg or one half of a 25 mg tablet twice daily for the next 3 days or until vertigo gets much better, then take that in the future if needed for severe vertigo. Follow-up clinic in about one week for recheck, call in the morning for appointment. Return to ED as needed if symptoms worsening in any way. - My Orders Last 24 Hours: My Active Orders 01/23/17 16:12 Peripheral IV Care [RC] . DIRECTED Sodium Chloride 0.9% [Saline Flush] 10 ml FLUSH ASDIRECTED PRN Peripheral IV Insertion Adult [OM.PC] Stat 01/23/17 17:00 Sodium Chloride 0.9% [Normal Saline] 1,000 ml IV ASDIRECTED 01/23/17 18:59 CULTURE URINE [RM] Stat - Assessment/Plan Last 24 Hours: My Active Orders 01/23/17 16:12 Peripheral IV Care [RC] . DIRECTED Sodium Chloride 0.9% [Saline Flush] 10 ml FLUSH ASDIRECTED PRN Peripheral IV Insertion Adult [OM.PC] Stat 01/23/17 17:00 Sodium Chloride 0.9% [Normal Saline] 1,000 ml IV ASDIRECTED 01/23/17 18:59 CULTURE URINE [RM] Stat
[2017-01-23] MEDS ORDERED: Nitrofurantoin Monohydrate/Macrocrystalline 100 MG Cap PO ONE (19:03)
== END 2017-01-23 19:55 | disposition home or self-care (01) ==
LOC: JD.ED 15:34
DX: H83.09 Labyrinthitis, unspecified ear (principal); N39.0 Urinary tract infection, site not specified; I10 Essential (primary) hypertension; E78.00 Pure hypercholesterolemia, unspecified; E03.9 Hypothyroidism, unspecified; Z79.899 Other long term (current) drug therapy; Z88.1 Allergy status to other antibiotic agents; Z88.2 Allergy status to sulfonamides; Z88.8 Allergy status to other drugs, medicaments and biological substances
CPT/HCPCS: 36415; 80053; 81001; 85025; 87086; 96361; 96374; 96375; 99284; A9270; J2060; J2405; J2930; J7040; J7050; 87088; 87186; 93010

== ENCOUNTER 2018-02-16 20:57 | Emergency (ER) | payer MEDICARE, BC ==
[2018-02-16 21:12] VITALS: BP 167/101
--- NOTE | 2018-02-16 22:22 | EDM.PDOC ---
ED HPI GENERAL MEDICAL PROBLEM - General Chief Complaint: Cardiovascular Problem Stated Complaint: BP UP/HEART BEATING FAST Time Seen by Provider: 02/16/18 21:44 Source of Information: Reports: Patient, RN Notes Reviewed History Limitations: Reports: No Limitations - History of Present Illness INITIAL COMMENTS - FREE TEXT/NARRATIVE: The patient states that she developed dyspnea around 17:00 this evening. She took a single inhalation of her Combivent. She then checked her blood pressure four times around 18:00, finding it to be elevated, and the machine told her that her heart rate was irregular. After the machine told her that, the patient states that she developed the sensation of a "fluttering" sensation in her chest , dyspnea, and dizziness. She took 4 mg oral Dilaudid around 18:30, because, she states, that often calms her down, then her usual dose of hydralazine 5 mg and Coreg 25 mg, around 19:00. When she continued to feel poorly, she came to the ED. The patient states that she has had similar symptoms in the past, but they are brief, nonsustained. Here in the ED, the patient states that she feels fine, so long as she remains supine. She reports feeling chest pressure and dyspneic if she is upright. The patient oxygen saturation is 99% on 3 L. The patient states that she takes supplemental oxygen, 3 L continuously. She states that she has a history of asbestos exposure, but that her Tallow Maker, Dr. Vikram Downey, did not put her on oxygen, rather, that was ordered by her PCP, Kathryn Olsen, for shortness of breath. - Related Data Allergies Allergy/AdvReac Type Severity Reaction Status Date / Time cephalexin monohydrate Allergy Hives Verified 01/23/18 13:09 [From Keflex] doxycycline Allergy Hives Verified 01/23/18 13:09 fluconazole Allergy Hives Verified 01/23/18 13:09 hyoscyamine Allergy Vaginitis Verified 01/23/18 13:09 levofloxacin [From Levaquin] Allergy Hives Verified 01/23/18 13:09 sulfamethoxazole Allergy Hives Verified 01/23/18 13:09 amlodipine AdvReac Body Aches Verified 01/23/18 13:09 atorvastatin calcium AdvReac Muscle Verified 01/23/18 13:09 [From Lipitor] Aches bupropion HCl AdvReac Other Verified 01/23/18 13:09 [From Wellbutrin] colesevelam HCl AdvReac Muscle Verified 01/23/18 13:09 [From WelChol] Aches ezetimibe [From Zetia] AdvReac Muscle Verified 01/23/18 13:09 Aches gabapentin AdvReac Blurred Verified 01/23/18 13:09 Vision ibandronate sodium AdvReac Shortness Verified 01/23/18 13:09 [From Boniva] of Breath levothyroxine sodium AdvReac Other Verified 01/23/18 13:09 lisinopril AdvReac Cough Verified 01/23/18 13:09 mannitol [From Reclast] AdvReac Confusion Verified 01/23/18 13:09 metoclopramide HCl AdvReac Tremors Verified 01/23/18 13:09 [From Reglan] morphine AdvReac Other Verified 01/23/18 13:09 niacin AdvReac Muscle Verified 01/23/18 13:09 Aches phenobarbital AdvReac Other Verified 01/23/18 13:09 pravastatin sodium AdvReac Muscle Verified 01/23/18 13:09 [From Pravachol] Aches prochlorperazine edisylate AdvReac Tremors Verified 01/23/18 13:09 [From Compazine] prochlorperazine maleate AdvReac Tremors Verified 01/23/18 13:09 [From Compazine] promethazine HCl AdvReac Other Verified 01/23/18 13:09 [From Phenergan] rosuvastatin calcium AdvReac Body Aches Verified 01/23/18 13:09 [From Crestor] sertraline HCl [From Zoloft] AdvReac Other Verified 01/23/18 13:09 simvastatin [From Zocor] AdvReac Muscle Verified 01/23/18 13:09 Aches trazodone AdvReac Other Verified 01/23/18 13:09 water for injection,sterile AdvReac Confusion Verified 01/23/18 13:09 [From Reclast] zoledronic acid AdvReac Confusion Verified 01/23/18 13:09 [From Reclast] zolpidem tartrate AdvReac Other Verified 01/23/18 13:09 [From Ambien] Home Meds: Home Meds Krill/Mulberry-3/Dha/Epa/Lipids [Krill Oil 300 mg Softgel] 300 mg PO DAILY [History] Levothyroxine Sodium [Synthroid] 112 mcg PO DAILY 01/30/14 [History] Nitroglycerin 0.4 mg SL TID PRN 01/30/14 [History] Dextran 70/Hypromellose [Artificial Tears] 1 drop EYEBOTH BEDTIME PRN 05/05/14 [ History] HYDROmorphone HCl [Dilaudid] 4 mg PO Q4HR PRN 02/23/15 [History] Furosemide 40 mg PO DAILY PRN 03/27/15 [History] quiNINE sulfate [Quinine Sulfate] 324 mg PO BID PRN 03/27/15 [History] Carvedilol [Coreg] 25 mg PO BID 03/17/16 [History] Potassium Chloride [Klor-Con 10] 10 meq PO DAILY 03/17/16 [History] Temazepam [Restoril] 15 mg PO BEDTIME PRN 03/17/16 [History] hydroCHLOROthiazide [Hydrochlorothiazide] 12.5 mg PO DAILY 03/17/16 [History] Ipratropium/Albuterol Sulfate [Combivent Respimat Inhal [place]] 2 inh IH Q6HR PRN #1 aer.w.adap 06/07/16 [Rx] hydrALAZINE HCl [Hydralazine HCl] 5 mg PO Q8H PRN 02/16/18 [History] Past Medical History HEENT History: Reports: Impaired Vision Other HEENT History: Wears glasses Cardiovascular History: Reports: CAD, High Cholesterol, Hypertension. 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: Musculoskeletal History: Reports: Arthritis, Osteoporosis Neurological History: Reports: Seizure (prior to age 12) Psychiatric History: Reports: Anxiety, Depression, Other (See Below) ( Fibromyalgia) Endocrine/Metabolic History: Reports: Hypothyroidism, Vitamin D Deficiency - Infectious Disease History Infectious Disease History: Reports: Chicken Pox - Past Surgical History HEENT Surgical History: Reports: Cataract Surgery, Oral Surgery (wisdom teeth extraction), Other (See Below) (Right salivary gland removal) Cardiovascular Surgical History: Reports: Coronary Artery Stent (x 2) GI Surgical History: Reports: Appendectomy, Cholecystectomy (1981), Colonoscopy , EGD, Lysis of Adhesions (x around 5) Female Surgical History: Reports: Breast Reduction, D&C, Hysterectomy, Salpingo-Oophorectomy, Tubal Ligation Neurological Surgical History: Reports: Lumbar Spine (3 laminectomies, 2 fusions ) Musculoskeletal Surgical History: Reports: Shoulder Surgery (right, open), Other (See Below) (Right foot surgery x 2) Oncologic Surgical History: Reports: None, Other (See Below) Social & Family History - Family History Family Medical History: Noncontributory Cardiac: Reports: [place] Other Cardiac Family History: [place], Bro, Bro - Heart disease Neurological: Reports: Alzheimers Disease Oncologic: Reports: Lung Other Oncologic Family History: FA - Cancer, Sis - lung cancer - Tobacco Use Smoking Status *Q: Never Smoker - Caffeine Use Caffeine Use: Reports: None - Alcohol Use Alcohol Use History: No - Recreational Drug Use Recreational Drug Use: No - Living Situation & Occupation Living situation: Reports: , Alone Occupation: Retired ED ROS GENERAL - Review of Systems Review Of Systems: ROS reveals no pertinent complaints other than HPI. ED EXAM, GENERAL - Physical Exam Exam: See Below Exam Limited By: No Limitations General Appearance: Alert, WD/WN, No Apparent Distress Eye Exam: Bilateral Eye: EOMI, Normal Inspection Ears: Normal External Exam Nose: Normal Inspection Throat/Mouth: Normal Inspection, Normal Lips, Normal Voice, No Airway Compromise Head: Atraumatic, Normocephalic Neck: Normal Inspection Respiratory/Chest: No Respiratory Distress, Lungs Clear, Normal Breath Sounds, No Accessory Muscle Use Cardiovascular: Normal Peripheral Pulses, Regular Rate, Rhythm, No Gallop, No JVD, No Murmur, No Rub Peripheral Pulses: 4+: Radial (L), Radial (R) GI/Abdominal: Normal Bowel Sounds, Soft, Non-Tender, No Organomegaly, No Distention, No Abnormal Bruit, No Mass (Female) Exam: Deferred Rectal (Female) Exam: Deferred Back Exam: Normal Inspection, Full Range of Motion, NT Extremities: Normal Inspection, Normal Range of Motion, Normal Capillary Refill Neurological: Alert, Oriented, Normal Cognition, No Motor/Sensory Deficits Psychiatric: Anxious Skin Exam: Warm, Dry, Intact, Normal Color, No Rash EKG INTERPRETATION EKG Date: 02/16/18 Time: 21:07 Rhythm: NSR (with several PVCs) Rate (Beats/Min): 83 [place]: Normal P-Wave: Present QRS: Normal ST-T: Normal (Late transition) QT: Normal Comparison: No Change (other than PVCs, from 01/23/2018) Course - Vital Signs Last Recorded V/S: Last Vital Signs Temp 36.0 C 02/16/18 21:03 Pulse 85 02/16/18 21:03 Resp 18 02/16/18 21:03 BP 167/101 H 02/16/18 21:03 Pulse Ox 99 02/16/18 21:03 - Orders/Labs/Meds Orders: Active Orders 24 hr Category Date Time Status EKG Documentation Completion [RC] STAT Care 02/16/18 22:16 Active Chest 2V [CR] Stat Exams 02/16/18 22:16 Taken Labs: Laboratory Tests 02/16/18 02/16/18 02/16/18 Range/Units 22:35 22:35 22:35 WBC 7.89 (3.98-10.04) K/mm3 RBC 4.26 (3.98-5.22) M/mm3 Hgb 13.3 (11.2-15.7) gm/L Hct 39.8 (34.1-44.9) % MCV 93.4 (79.4-94.8) fl MCH 31.2 (25.6-32.2) pg MCHC 33.4 (32.2-35.5) g/dl RDW Std Deviation 42.5 (36.4-46.3) fL Plt Count 217 (182-369) K/mm3 MPV 9.3 L (9.4-12.3) fl Neutrophils % (Manual) 71 H (40-60) % Band Neutrophils % 0 (0-10) % Lymphocytes % (Manual) 26 (20-40) % Atypical Lymphs % 0 % Monocytes % (Manual) 3 (2-10) % Eosinophils % (Manual) 0 L (0.7-5.8) % Basophils % (Manual) 0 L (0.1-1.2) Toxic Granulation 1+ slight Platelet Estimate Adequate Plt Morphology Comment Normal RBC Morph Comment Normal D-Dimer, Quantitative 0.32 (0.19-0.50) mg/L Sodium 140 (136-145) mEq/L Potassium 4.0 (3.5-5.1) mEq/L Chloride 102 (98-107) mEq/L Carbon Dioxide 26 (21-32) mEq/L Anion Gap 16.0 H (5-15) BUN 15 (7-18) mg/dL Creatinine 0.8 (0.55-1.02) mg/dL Est Cr Clr Drug Dosing 43.03 mL/min Estimated GFR (MDRD) > 60 (>60) mL/min BUN/Creatinine Ratio 18.8 H (14-18) Glucose 116 H (83-115) mg/dL Calcium 9.6 (8.5-10.1) mg/dL Magnesium 2.0 (1.8-2.4) mg/dl Total Bilirubin 0.3 (0.2-1.0) mg/dL AST 17 (15-37) U/L ALT 23 (14-59) U/L Alkaline Phosphatase 82 (46-116) U/L Troponin I < 0.017 (0.00-0.056) ng/mL Total Protein 7.6 (6.4-8.2) g/dl Albumin 3.9 (3.4-5.0) g/dl Globulin 3.7 gm/dL Albumin/Globulin Ratio 1.1 (1-2) - Re-Assessments/Exams Free Text/Narrative Re-Assessment/Exam: 02/16/18 22:21 As above, the patient did not actually feel palpitations until after her blood pressure machine told her that her heartbeat was irregular. It appears that most of the patient's symptoms are due to anxiety. Her oxygen saturation is 99% on 3 L per nasal canula. I turned her oxygen off, and she continues to saturate 96-98% on room air. The patient's ECG demonstrates several PVCs, but no ischemic changes. I have ordered a workup that includes bloodwork and a chest x- ray. 02/16/18 22:57 2-view chest radiograph reviewed. The cardiac silhouette is within normal limits. No pulmonary vascular congestion. No pleural effusions. No focal infiltrate. No pneumothorax. 3 surgical anchors noted in the head of the right humerus. 2 surgical clips noted in the right upper quadrant. Fusion hardware noted in the lumbar spine. Formal read per the Radiologist pending. 02/16/18 23:23 Test results discussed with the patient. Other than PVCs noted on the patient's ECG, haleigh's workup is entirely unremarkable. The troponin, drawn four-and-a- half hours after the onset of her symptoms, is negative, and her ECG shows no ischemic changes, indicating that she has not suffered recent cardiac damage. 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 The patient may safely be discharged home. Departure - Departure Time of Disposition: 23:26 Disposition: Home, Self-Care 01 Condition: Good Clinical Impression: Heart palpitations, PVCs (premature ventricular contractions) - Discharge Information *PRESCRIPTION DRUG MONITORING PROGRAM REVIEWED*: Not Applicable *COPY OF PRESCRIPTION DRUG MONITORING REPORT IN PATIENT EMMETT: Not Applicable Instructions: Premature Ventricular Contraction, Palpitations, [id number] Referrals: Kathryn Olsen MICROSYSTEMS ENGINEER [Primary Care Provider] - Forms: ED Department Discharge Additional Instructions: You were seen in the emergency room for the sensation of "fluttering" in your chest, and chest pressure. Workup in the ER included blood work, a chest x-ray, and an ECG. Your ECG showed several PVCs = premature ventricular contractions. While abnormal, these are common, and not dangerous. Current guidelines do not recommend treatment of PVCs themselves. The remainder of your workup was unremarkable. You are not anemic. You do not have pneumonia. Your electrolytes were within normal limits. You have not suffered a heart attack. You do not have a blood clot in your lungs. Follow-up with your PCP, Kathryn Olsen, as needed. If any other problems, please do not hesitate to return to the ER. - My Orders Last 24 Hours: My Active Orders 02/16/18 22:16 EKG Documentation Completion [RC] STAT Chest 2V [CR] Stat - Assessment/Plan Last 24 Hours: My Active Orders 02/16/18 22:16 EKG Documentation Completion [RC] STAT Chest 2V [CR] Stat
--- NOTE | 2018-02-17 14:34 | CR ---
Chest: Two views of the chest were obtained. Comparison: Prior chest x-ray of 01/23/18. Heart size is normal. Tortuous thoracic aorta is seen. Lungs are clear with no acute parenchymal change. Minimal degenerative change is scattered within the spine. Previous lumbar spine surgery is noted. Surgical clips are seen from prior cholecystectomy. Previous right shoulder surgery is also noted. Impression: 1. Incidental findings. Nothing acute is seen. Diagnostic code #2
== END 2018-02-16 23:36 | disposition home or self-care (01) ==
LOC: JD.ED 20:57
DX: I49.3 Ventricular premature depolarization (principal); R00.2 Palpitations; I10 Essential (primary) hypertension; Z88.8 Allergy status to other drugs, medicaments and biological substances; Z88.1 Allergy status to other antibiotic agents; Z79.899 Other long term (current) drug therapy
CPT/HCPCS: 36415; 71046; 71046-26; 80053; 83735; 84484; 85007; 85027; 85379; 93005; 99285-25

== ENCOUNTER 2018-02-27 08:18 | Emergency (ER) | payer MEDICARE, BC ==
[2018-02-27] MEDS ORDERED: Ondansetron 4 MG/2 ML SDV IVPUSH ONE (08:53)
[2018-02-27] MEDS ORDERED: Sodium Chloride 0.9% 1,000 ML IV SCH (09:00)
--- NOTE | 2018-02-27 09:07 | EDM.PDOC ---
ED HPI GENERAL MEDICAL PROBLEM - General Chief Complaint: Chest Pain Stated Complaint: HEART PALPITATIONS/NAUSEA Time Seen by Provider: 02/27/18 08:30 Source of Information: Reports: Patient, RN Notes Reviewed History Limitations: Reports: No Limitations - History of Present Illness INITIAL COMMENTS - FREE TEXT/NARRATIVE: The patient states that she develops a fluttering sensation in her chest any time she does anything physical, including walking. She states that the sensation resolves if she sits or lies down. She states that this has been going on for a "long time". She is also complaining of a left-sided headache, burning in character, all day yesterday. She has generalized abdominal cramps that are chronic for many years, but worse over the past 2 days, and made worse whenever she has a bowel movement. She has had nausea, but no emesis, today. She also reports a pinching pain to her left scapular area on and off for years. She states that she felt generally weak this morning. She was diaphoretic this morning. She states that she has been feeling dyspneic ever since her last emergency department visit on 02/16/2018. No recent fever. No recent chest pain or urinary symptoms. The patient states that she called her PCP, Kathryn Olsen, and was instructed to go to the ER. Chest Pain Score (Numeric/FACES): 5 - Related Data Allergies Allergy/AdvReac Type Severity Reaction Status Date / Time cephalexin monohydrate Allergy Hives Verified 02/27/18 08:29 [From Keflex] doxycycline Allergy Hives Verified 02/27/18 08:29 fluconazole Allergy Hives Verified 02/27/18 08:29 hyoscyamine Allergy Vaginitis Verified 02/27/18 08:29 levofloxacin [From Levaquin] Allergy Hives Verified 02/27/18 08:29 sulfamethoxazole Allergy Hives Verified 02/27/18 08:29 amlodipine AdvReac Body Aches Verified 02/27/18 08:29 atorvastatin calcium AdvReac Muscle Verified 02/27/18 08:29 [From Lipitor] Aches bupropion HCl AdvReac Other Verified 02/27/18 08:29 [From Wellbutrin] colesevelam HCl AdvReac Muscle Verified 02/27/18 08:29 [From WelChol] Aches ezetimibe [From Zetia] AdvReac Muscle Verified 02/27/18 08:29 Aches gabapentin AdvReac Blurred Verified 02/27/18 08:29 Vision ibandronate sodium AdvReac Shortness Verified 02/27/18 08:29 [From Boniva] of Breath levothyroxine sodium AdvReac Other Verified 02/27/18 08:29 lisinopril AdvReac Cough Verified 02/27/18 08:29 mannitol [From Reclast] AdvReac Confusion Verified 02/27/18 08:29 metoclopramide HCl AdvReac Tremors Verified 02/27/18 08:29 [From Reglan] morphine AdvReac Other Verified 02/27/18 08:29 niacin AdvReac Muscle Verified 02/27/18 08:29 Aches phenobarbital AdvReac Other Verified 02/27/18 08:29 pravastatin sodium AdvReac Muscle Verified 02/27/18 08:29 [From Pravachol] Aches prochlorperazine edisylate AdvReac Tremors Verified 02/27/18 08:29 [From Compazine] prochlorperazine maleate AdvReac Tremors Verified 02/27/18 08:29 [From Compazine] promethazine HCl AdvReac Other Verified 02/27/18 08:29 [From Phenergan] rosuvastatin calcium AdvReac Body Aches Verified 02/27/18 08:29 [From Crestor] sertraline HCl [From Zoloft] AdvReac Other Verified 02/27/18 08:29 simvastatin [From Zocor] AdvReac Muscle Verified 02/27/18 08:29 Aches trazodone AdvReac Other Verified 02/27/18 08:29 water for injection,sterile AdvReac Confusion Verified 02/27/18 08:29 [From Reclast] zoledronic acid AdvReac Confusion Verified 02/27/18 08:29 [From Reclast] zolpidem tartrate AdvReac Other Verified 02/27/18 08:29 [From Ambien] Home Meds: Home Meds Krill/[place]-3/Dha/Epa/Lipids [Krill Oil 300 mg Softgel] 300 mg PO DAILY [History] Levothyroxine Sodium [Synthroid] 112 mcg PO DAILY 01/30/14 [History] Nitroglycerin 0.4 mg SL ASDIRECTED PRN 01/30/14 [History] Dextran 70/Hypromellose [Artificial Tears] 1 drop EYEBOTH BEDTIME PRN 05/05/14 [ History] HYDROmorphone HCl [Dilaudid] 4 mg PO Q4HR PRN 02/23/15 [History] Furosemide 40 mg PO DAILY 03/27/15 [History] quiNINE sulfate [Quinine Sulfate] 324 mg PO DAILY PRN 03/27/15 [History] Carvedilol [Coreg] 25 mg PO BID 03/17/16 [History] Potassium Chloride [Klor-Con 10] 10 meq PO BID 03/17/16 [History] Albuterol/Ipratropium [DuoNeb 3.0-0.5 MG/3 ML] 1 unit NEB BID 02/27/18 [History] Aspirin [Halfprin] 81 mg PO DAILY 02/27/18 [History] Famotidine 20 mg PO BID 02/27/18 [History] LORazepam [Ativan] 0.5 mg PO BEDTIME PRN 02/27/18 [History] Ondansetron HCl [Zofran] 8 mg PO TID PRN 02/27/18 [History] Polyethylene Glycol 3350 [MiraLAX] 1 scoop PO DAILY PRN 02/27/18 [History] Trimethoprim 100 mg PO DAILY 02/27/18 [History] Zolpidem Tartrate [Ambien] 5 mg PO BEDTIME PRN 02/27/18 [History] Past Medical History HEENT History: Reports: Impaired Vision Other HEENT History: Wears glasses Cardiovascular History: Reports: CAD, High Cholesterol, Hypertension Respiratory History: Reports: Other (See Below) (Asbestos exposure) Gastrointestinal History: Reports: Bowel Obstruction (x around 8), 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: Musculoskeletal History: Reports: Arthritis, Osteoporosis Neurological History: Reports: Seizure (prior to age 12) Psychiatric History: Reports: Anxiety (untreated), Depression (untreated), Other (See Below) (Fibromyalgia, untreated) Endocrine/Metabolic History: Reports: Hypothyroidism, Vitamin D Deficiency - Infectious Disease History Infectious Disease History: Reports: Chicken Pox - Past Surgical History HEENT Surgical History: Reports: Cataract Surgery, Oral Surgery (wisdom teeth extraction), Other (See Below) (Right salivary gland removal) Cardiovascular Surgical History: Reports: Coronary Artery Stent (x 2) GI Surgical History: Reports: Appendectomy, Cholecystectomy (1981), Colonoscopy , EGD, Lysis of Adhesions (x around 3) Female Surgical History: Reports: Breast Reduction, D&C, Hysterectomy, Salpingo-Oophorectomy, Tubal Ligation Neurological Surgical History: Reports: Lumbar Spine (3 laminectomies, 2 fusions ) Musculoskeletal Surgical History: Reports: Shoulder Surgery (right, open), Other (See Below) (Right foot surgery x 2) Social & Family History - Family History Family Medical History: Noncontributory Cardiac: Reports: OR Other Cardiac Family History: MO, Bro, Bro - Heart disease Neurological: Reports: Alzheimers Disease Oncologic: Reports: Lung Other Oncologic Family History: FA - Cancer, Sis - lung cancer - Tobacco Use Smoking Status *Q: Never Smoker Second Hand Smoke Exposure: No - Caffeine Use Caffeine Use: Reports: None - Alcohol Use Alcohol Use History: No - Recreational Drug Use Recreational Drug Use: No - Living Situation & Occupation Living situation: Reports: , Alone Occupation: Retired ED ROS GENERAL - Review of Systems Review Of Systems: ROS reveals no pertinent complaints other than HPI. ED EXAM, GENERAL - Physical Exam Exam: See Below Exam Limited By: No Limitations General Appearance: Alert, WD/WN, No Apparent Distress, Anxious Eye Exam: Bilateral Eye: EOMI, Normal Inspection Ears: Normal External Exam, Hearing Grossly Normal Nose: Normal Inspection Throat/Mouth: Normal Inspection, Normal Lips, Normal Voice, No Airway Compromise Head: Atraumatic, Normocephalic Neck: Normal Inspection, Full Range of Motion Respiratory/Chest: No Respiratory Distress, Lungs Clear, Normal Breath Sounds, No Accessory Muscle Use Cardiovascular: Normal Peripheral Pulses, Regular Rate, Rhythm, No Gallop, No JVD, No Murmur, No Rub Peripheral Pulses: 4+: Radial (L), Radial (R) GI/Abdominal: Normal Bowel Sounds, Soft, No Organomegaly, No Distention, No Abnormal Bruit, No Mass, Tender (Generalized, non-focal), Other (Obese) (Female) Exam: Deferred Rectal (Female) Exam: Deferred Back Exam: Normal Inspection, Full Range of Motion, NT Extremities: Normal Inspection, Normal Range of Motion, Normal Capillary Refill , Pedal Edema (trace bilaterally) Neurological: Alert, Oriented, Normal Cognition, No Motor/Sensory Deficits Psychiatric: Anxious Skin Exam: Warm, Dry, Intact, Normal Color, No Rash EKG INTERPRETATION EKG Date: 02/27/18 Time: 08:25 Rhythm: NSR Rate (Beats/Min): 76 [place]: Normal P-Wave: Present (LAE) QRS: Normal (Late transition) ST-T: Normal QT: Normal Comparison: No Change (02/16/2018) Course - Vital Signs Last Recorded V/S: Last Vital Signs Temp 36.5 C 02/27/18 12:30 Pulse 80 02/27/18 12:30 Resp 16 02/27/18 12:30 BP 160/69 H 02/27/18 12:30 Pulse Ox 99 02/27/18 12:30 Orthostatic Blood Pressure [ 143/69 Standing] Orthostatic Blood Pressure [ 160/60 Sitting] Orthostatic Blood Pressure [ 149/54 Supine] - Orders/Labs/Meds Labs: Laboratory Tests 02/27/18 02/27/18 02/27/18 Range/Units 09:26 09:26 09:26 WBC 7.60 (3.98-10.04) K/mm3 RBC 4.31 (3.98-5.22) M/mm3 Hgb 13.5 (11.2-15.7) gm/L Hct 39.4 (34.1-44.9) % MCV 91.4 (79.4-94.8) fl MCH 31.3 (25.6-32.2) pg MCHC 34.3 (32.2-35.5) g/dl RDW Std Deviation 41.3 (36.4-46.3) fL Plt Count 216 (182-369) K/mm3 MPV 9.5 (9.4-12.3) fl Neutrophils % (Manual) 70 H (40-60) % Band Neutrophils % 1 (0-10) % Lymphocytes % (Manual) 23 (20-40) % Atypical Lymphs % 0 % Monocytes % (Manual) 4 (2-10) % Eosinophils % (Manual) 2 (0.7-5.8) % Basophils % (Manual) 0 L (0.1-1.2) Platelet Estimate Adequate RBC Morph Comment Normal D-Dimer, Quantitative 0.71 H (0.19-0.50) mg/L Puncture Site ABG pH (7.35-7.45) ABG pCO2 (35.0-45.0) mmHg ABG pO2 (80.0-100.0) mmHg ABG HCO3 (22.0-26.0) meq/L ABG O2 Saturation (96.0-97.0) % ABG Base Excess (-2-2.0) Mauriec Test A-a Gradient mmHg Oxygen Flow Rate FiO2 (21.00-100.00) % Sodium (136-145) mEq/L Potassium (3.5-5.1) mEq/L Chloride (98-107) mEq/L Carbon Dioxide (21-32) mEq/L Anion Gap (5-15) BUN (7-18) mg/dL Creatinine (0.55-1.02) mg/dL Est Cr Clr Drug Dosing mL/min Estimated GFR (MDRD) (>60) mL/min BUN/Creatinine Ratio (14-18) Glucose (83-115) mg/dL Lactic Acid 1.6 (0.4-2.0) mmol/L Calcium (8.5-10.1) mg/dL Magnesium (1.8-2.4) mg/dl Total Bilirubin (0.2-1.0) mg/dL AST (15-37) U/L ALT (14-59) U/L Alkaline Phosphatase (46-116) U/L Troponin I (0.00-0.056) ng/mL Total Protein (6.4-8.2) g/dl Albumin (3.4-5.0) g/dl Globulin gm/dL Albumin/Globulin Ratio (1-2) Lipase (73-393) U/L TSH 3rd Generation (0.358-3.74) uIU/mL Urine Color (Yellow) Urine Appearance (Clear) Urine pH (5.0-8.0) Ur Specific [place] (1.005-1.030) Urine Protein (Negative) Urine Glucose (UA) (Negative) Urine Ketones (Negative) Urine Occult Blood (Negative) Urine Nitrite (Negative) Urine Bilirubin (Negative) Urine Urobilinogen (0.2-1.0) Ur Leukocyte Esterase (Negative) Urine RBC (0-5) /hpf Urine WBC (0-5) /hpf Ur Epithelial Cells (0-5) /hpf Urine Bacteria (FEW) /hpf Urine Mucus (FEW) /hpf 02/27/18 02/27/18 02/27/18 Range/Units 09:55 10:31 11:00 WBC (3.98-10.04) K/mm3 RBC (3.98-5.22) M/mm3 Hgb (11.2-15.7) gm/L Hct (34.1-44.9) % MCV (79.4-94.8) fl MCH (25.6-32.2) pg MCHC (32.2-35.5) g/dl RDW Std Deviation (36.4-46.3) fL Plt Count (182-369) K/mm3 MPV (9.4-12.3) fl Neutrophils % (Manual) (40-60) % Band Neutrophils % (0-10) % Lymphocytes % (Manual) (20-40) % Atypical Lymphs % % Monocytes % (Manual) (2-10) % Eosinophils % (Manual) (0.7-5.8) % Basophils % (Manual) (0.1-1.2) Platelet Estimate RBC Morph Comment D-Dimer, Quantitative (0.19-0.50) mg/L Puncture Site Rt radial ABG pH 7.40 (7.35-7.45) ABG pCO2 36.5 (35.0-45.0) mmHg ABG pO2 82.0 (80.0-100.0) mmHg ABG HCO3 22.2 (22.0-26.0) meq/L ABG O2 Saturation 96.8 (96.0-97.0) % ABG Base Excess -1.6 (-2-2.0) Maurice Test Positive A-a Gradient 7 mmHg Oxygen Flow Rate 0.0 FiO2 0.00 L (21.00-100.00) % Sodium 140 (136-145) mEq/L Potassium 4.0 (3.5-5.1) mEq/L Chloride 105 (98-107) mEq/L Carbon Dioxide 24 (21-32) mEq/L Anion Gap 15.0 (5-15) BUN 14 (7-18) mg/dL Creatinine 0.7 (0.55-1.02) mg/dL Est Cr Clr Drug Dosing 49.18 mL/min Estimated GFR (MDRD) > 60 (>60) mL/min BUN/Creatinine Ratio 20.0 H (14-18) Glucose 108 (83-115) mg/dL Lactic Acid (0.4-2.0) mmol/L Calcium 9.6 (8.5-10.1) mg/dL Magnesium 1.9 (1.8-2.4) mg/dl Total Bilirubin 0.6 (0.2-1.0) mg/dL AST 25 (15-37) U/L ALT 26 (14-59) U/L Alkaline Phosphatase 88 (46-116) U/L Troponin I < 0.017 (0.00-0.056) ng/mL Total Protein 7.5 (6.4-8.2) g/dl Albumin 3.6 (3.4-5.0) g/dl Globulin 3.9 gm/dL Albumin/Globulin Ratio 0.9 L (1-2) Lipase 100 (73-393) U/L TSH 3rd Generation 2.649 (0.358-3.74) uIU/mL Urine Color Yellow (Yellow) Urine Appearance Slt cloudy H (Clear) Urine pH 7.0 (5.0-8.0) Ur Specific [place] 1.025 (1.005-1.030) Urine Protein Negative (Negative) Urine Glucose (UA) Negative (Negative) Urine Ketones Negative (Negative) Urine Occult Blood Trace-lysed H (Negative) Urine Nitrite Positive H (Negative) Urine Bilirubin Negative (Negative) Urine Urobilinogen 0.2 (0.2-1.0) Ur Leukocyte Esterase Negative (Negative) Urine RBC 0-5 (0-5) /hpf Urine WBC 0-5 (0-5) /hpf Ur Epithelial Cells 0-5 (0-5) /hpf Urine Bacteria Many H (FEW) /hpf Urine Mucus Few (FEW) /hpf Meds: Medications Discontinued Medications Generic Name Dose Route Start Last Admin Trade Name Freq PRN Reason Stop Dose Admin Sodium Chloride 1,000 mls @ 100 mls/hr 02/27/18 09:00 02/27/18 09:32 Normal Saline IV 100 mls/hr ASDIRECTED IRVIN Administration Ondansetron HCl 4 mg 02/27/18 08:53 02/27/18 09:29 Zofran IVPUSH 02/27/18 08:54 4 mg ONETIME ONE Administration - Re-Assessments/Exams Free Text/Narrative Re-Assessment/Exam: 02/27/18 09:03 The patient reports a fluttering sensation in her chest any time she exerts herself. 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 As the patient was preparing to do this, she stated that she needed her oxygen. It should be noted that the patient's oxygen saturation is 100% on room air, and the patient stated that she was aware of that, but that her PCP, Kathryn Olsen, told her that she still needs oxygen, because the asbestos that she was exposed to filters out the oxygen and does not let it get to her heart. Of course, the oxygen saturation is that of arterial blood, already in the bloodstream, past the lungs and past whatever asbestos she may have previously inhaled. Clearly, the patient is quite anxious, and I suspect that most, if not all of her symptoms are related to that, however, in order to rule out a physiologic cause of her symptoms, I have ordered an extensive workup that includes a troponin, lipase, D-dimer, magnesium level, TSH level, lactic acid level, an ABG , and an upright abdominal film, in addition to other tests. 02/27/18 09:16 No telemetry abnormalities developed when the patient walked the halls with Nadege AGRAWAL, without oxygen. 02/27/18 09:33 2-view chest radiograph appears to be grossly normal. The cardiac silhouette is within normal limits. No pulmonary vascular congestion. Pleural effusions. No focal infiltrate. No pneumothorax. Lumbar fusion hardware incidentally noted. Right shoulder arthroscopic anchor incidentally noted. Surgical clips in the right upper quadrant incidentally noted. Formal read per the Radiologist pending. Single view upright abdomen radiograph appears to demonstrate a nonspecific bowel gas pattern. Stool in the rectum. No free air. L4-S1 fusion hardware incidentally noted. Surgical clips in the right upper quadrant incidentally noted. Formal read per the Radiologist pending. 02/27/18 10:46 The patient is not orthostatic. The patient's urinalysis, obtained by quick catheter, is somewhat unusual. It is nitrite positive with many bacteria, but leukocyte esterase negative and 0-5 WBCs. As per the history of present illness, the patient denies urinary symptoms. Current guidelines do not recommend treatment of asymptomatic bacteriuria in an elderly woman who is not septic, however, I have sent a urine sample for culture, and if positive, treatment might be considered at that time. The patient's D-dimer is mildly elevated at 0.71, consistent with her age, and not consistent with a pulmonary embolus. I do not believe a CT angiogram of the chest is indicated. 02/27/18 11:20 The patient's ABG is essentially normal, with no acid-base derangement, and normal oxygenation on room air. 02/27/18 11:59 Test results discussed with the patient. As above, with the exception of her D- dimer being slightly elevated at 0.71, and bacteruria being found without pyuria , her workup today is entirely unremarkable. Based on her history, physical examination, and ER tests, I strongly suspect that the majority of her symptoms are due to anxiety. Initially, the patient argued against this diagnosis, however, her son then came into the examination room and immediately agreed that her symptoms are due to anxiety. He cited numerous examples of when she was overwhelmed with anxiety, and he noted that the patient is notoriously noncompliant with her medications. The patient stated that she has tried numerous antianxiety and antidepressant medications, which is true, but the patient's son notes that she will often quit taking them after just a few days, citing an allergic or adverse reaction, without giving the medications a chance to work. He noted that she does that with most of her medications, including her blood pressure and heart medications. The patient's son also noted that her symptoms tend to worsen around November or December, the anniversary of her 's , and he stated that every year they seem to go through the same thing, with the patient's anxiety increasing, her going to numerous specialists , always with a negative workup. For today's purposes, I recommended that the patient follow-up with her PCP, and that the patient's son accompany her, so that he can explain her situation from his perspective. In addition, I see no medical indication for the patient to be on supplemental oxygen, and I am recommending that she discontinue it. Departure - Departure Time of Disposition: 12:04 Disposition: Home, Self-Care 01 Condition: Good Clinical Impression: Anxiety - Discharge Information *PRESCRIPTION DRUG MONITORING PROGRAM REVIEWED*: Not Applicable *COPY OF PRESCRIPTION DRUG MONITORING REPORT IN PATIENT EMMETT: Not Applicable Instructions: Generalized Anxiety Disorder, Adult Referrals: Kathryn Olsen NP [Primary Care Provider] - Forms: ED Department Discharge Additional Instructions: You were seen in the emergency room for numerous symptoms, including a fluttering sensation in her chest, left sided headache, generalized abdominal cramps, nausea, a pinching pain in your left scapula, general weakness, and intermittent sweatiness. Workup in the ER included blood work, 2 sets of blood cultures, an arterial blood gas, a urinalysis, a chest x-ray, and x-ray of your abdomen, positional blood pressure checks, and an ECG. Your D-dimer was found to be slightly elevated at 0.71, consistent with your age , and your urinalysis showed some bacteria in your urine, but no white blood cells. A sample of your urine was sent for culture, but no antibiotics are recommended at this time. The remainder of your workup was entirely unremarkable. You are not anemic. There is no sign that you have an infection. Your electrolytes were normal. Your kidney function and liver function are normal. You do not have pancreatitis. You have not had a heart attack. Your thyroid level is normal. You are not dehydrated. You do not have pneumonia or collapsed lung. No abnormal rhythms were found on your ECG or telemetry. Based on your history, physical examination, and ER tests, the cause of your symptoms is most likely due to untreated anxiety. We strongly recommend that you follow-up with your PCP, Kathryn Olsen, to discuss treatment options for anxiety, and that you take your son with you. Be aware that you need to be patient with these medicines - they often take 3-4 weeks before becoming effective. If any other problems, please do not hesitate to return to the ER.
--- NOTE | 2018-02-27 11:15 | CR ---
Abdomen: Upright view of the abdomen was obtained. Comparison: Prior abdominal x-ray of 02/23/15. Prior lumbar spine surgery is noted. Surgical clips are seen from prior cholecystectomy. Dystrophic calcifications are seen within both buttocks. Bowel gas pattern is normal. No free air is seen. Impression: 1. Incidental findings. Nothing acute is definitely appreciated on upright abdominal x-ray. Diagnostic code #2
--- NOTE | 2018-02-27 11:15 | CR ---
Chest: Two views of the chest were obtained. Comparison: Prior chest x-ray of 02/16/18. Heart size and mediastinum are within normal limits. Mild tortuosity of the thoracic aorta is seen. Mild degenerative change is noted within the spine. Previous lumbar spine surgery is noted. Lungs are clear with no acute parenchymal change. Previous cholecystectomy is noted as well as previous right shoulder surgery. Impression: 1. Incidental findings as noted above. Nothing acute is seen. Diagnostic code #2
[2018-02-27 13:32] VITALS: BP 160/69
== END 2018-02-27 12:40 | disposition home or self-care (01) ==
LOC: JD.ED 08:18
DX: F41.9 Anxiety disorder, unspecified (principal); I10 Essential (primary) hypertension; I25.10 Atherosclerotic heart disease of native coronary artery without angina pectoris; F32.9 Major depressive disorder, single episode, unspecified; E03.9 Hypothyroidism, unspecified; E78.00 Pure hypercholesterolemia, unspecified; Z88.1 Allergy status to other antibiotic agents; Z88.8 Allergy status to other drugs, medicaments and biological substances; Z88.5 Allergy status to narcotic agent; Z88.2 Allergy status to sulfonamides; Z79.899 Other long term (current) drug therapy
CPT/HCPCS: 36415; 36600; 71046; 74018; 80053; 81001; 82803; 83605; 83690; 83735; 84443; 84484; 85007; 85027; 85379; 87040; 87086; 87088; 87186; 93005; 96361; 96374; 99285; J2405; J7040

== ENCOUNTER 2018-11-10 01:09 | Inpatient (IN) | payer MEDICARE, BC ==
[2018-11-10] MEDS ORDERED: Ondansetron 4 MG/2 ML SDV IVPUSH ONE (01:22)
[2018-11-10] MEDS ORDERED: HYDROmorphone 1 MG/ML Syringe IVPUSH ONE ×2 (01:22→02:14)
--- NOTE | 2018-11-10 01:28 | EDM.PDOC ---
ED HPI GENERAL MEDICAL PROBLEM - General Chief Complaint: Gastrointestinal Problem Stated Complaint: [facility] Time Seen by Provider: 11/10/18 01:10 Source of Information: Reports: Patient History Limitations: Reports: No Limitations - History of Present Illness INITIAL COMMENTS - FREE TEXT/NARRATIVE: This is an 78-year-old female. Onset with abdominal pain generalized around 10 PM this evening. It is progressively worsened and she took a Dilaudid 4 mg tablets just before midnight but it didn't seem to help and she started having some nausea and vomiting. She comes to the ER complaining of severe abdominal pain. She has a history of having a cholecystectomy appendectomy and hysterectomy and she tells me 10 adhesion surgeries due to small bowel obstruction. Her last abdominal surgery from a small bowel obstruction was back in 2011. She states it feels like a small bowel obstruction this evening. She denies any fever or chills. She denies any other acute symptoms. Since this occurrence she has not passed any stool or gas. She is not vomiting any feces smelling vomitus at this time. Her last bowel movement was yesterday morning as well as her last gas. Nothing since that time despite trying an enema and a suppository. She feels like her abdomen is very swollen and distended. Left Abdominal Pain Score (Numeric/FACES): 10 - Related Data Allergies Allergy/AdvReac Type Severity Reaction Status Date / Time cephalexin monohydrate Allergy Hives Verified 11/10/18 01:16 [From Keflex] doxycycline Allergy Hives Verified 11/10/18 01:16 fluconazole Allergy Hives Verified 11/10/18 01:16 hyoscyamine Allergy Vaginitis Verified 11/10/18 01:16 levofloxacin [From Levaquin] Allergy Hives Verified 11/10/18 01:16 sulfamethoxazole Allergy Hives Verified 11/10/18 01:16 amlodipine AdvReac Body Aches Verified 11/10/18 01:16 atorvastatin calcium AdvReac Muscle Verified 11/10/18 01:16 [From Lipitor] Aches bupropion HCl AdvReac Other Verified 11/10/18 01:16 [From Wellbutrin] colesevelam HCl AdvReac Muscle Verified 11/10/18 01:16 [From WelChol] Aches ezetimibe [From Zetia] AdvReac Muscle Verified 11/10/18 01:16 Aches gabapentin AdvReac Blurred Verified 11/10/18 01:16 Vision ibandronate sodium AdvReac Shortness Verified 11/10/18 01:16 [From Boniva] of Breath levothyroxine sodium AdvReac Other Verified 11/10/18 01:16 lisinopril AdvReac Cough Verified 11/10/18 01:16 mannitol [From Reclast] AdvReac Confusion Verified 11/10/18 01:16 metoclopramide HCl AdvReac Tremors Verified 11/10/18 01:16 [From Reglan] morphine AdvReac Other Verified 11/10/18 01:16 niacin AdvReac Muscle Verified 11/10/18 01:16 Aches phenobarbital AdvReac Other Verified 11/10/18 01:16 pravastatin sodium AdvReac Muscle Verified 11/10/18 01:16 [From Pravachol] Aches prochlorperazine edisylate AdvReac Tremors Verified 11/10/18 01:16 [From Compazine] prochlorperazine maleate AdvReac Tremors Verified 11/10/18 01:16 [From Compazine] promethazine HCl AdvReac Other Verified 11/10/18 01:16 [From Phenergan] rosuvastatin calcium AdvReac Body Aches Verified 11/10/18 01:16 [From Crestor] sertraline HCl [From Zoloft] AdvReac Other Verified 11/10/18 01:16 simvastatin [From Zocor] AdvReac Muscle Verified 11/10/18 01:16 Aches trazodone AdvReac Other Verified 11/10/18 01:16 water for injection,sterile AdvReac Confusion Verified 11/10/18 01:16 [From Reclast] zoledronic acid AdvReac Confusion Verified 11/10/18 01:16 [From Reclast] zolpidem tartrate AdvReac Other Verified 11/10/18 01:16 [From Ambien] Home Meds: Home Meds Nitroglycerin 0.4 mg SL ASDIRECTED PRN 01/30/14 [History] Dextran 70/Hypromellose [Artificial Tears] 1 drop EYEBOTH BEDTIME PRN 05/05/14 [ History] Furosemide 40 mg PO DAILY 03/27/15 [History] Carvedilol [Coreg] 25 mg PO BID 03/17/16 [History] Potassium Chloride [Klor-Con 10] 10 meq PO BID 03/17/16 [History] Albuterol/Ipratropium [DuoNeb 3.0-0.5 MG/3 ML] 1 unit NEB Q4HR PRN 02/27/18 [ History] Ondansetron HCl [Zofran] 8 mg PO TID PRN 02/27/18 [History] Polyethylene Glycol 3350 [MiraLAX] 1 scoop PO ASDIRECTED PRN 02/27/18 [History] Zolpidem Tartrate [Ambien] 5 mg PO BEDTIME PRN 02/27/18 [History] Budesonide [Pulmicort] 1 dose PO BID 11/10/18 [History] Clobetasol [Clobetasol Propionate 0.05% Cream] 1 applic .ROUTE BID 11/10/18 [ History] Colchicine 0.6 mg PO DAILY 11/10/18 [History] Escitalopram [Lexapro] 10 mg PO DAILY 11/10/18 [History] HYDROmorphone [Dilaudid] 4 mg PO Q4H PRN 11/10/18 [History] Levalbuterol HCl [Xopenex] 1 dose PO TID 11/10/18 [History] Levothyroxine 112 mcg PO DAILY 11/10/18 [History] Nystatin 1 applic TOP BID 11/10/18 [History] Omeprazole Magnesium [Prilosec Otc] 20 mg PO BEDTIME 11/10/18 [History] Triamcinolone Acetonide [Triamcinolone Acetonide 0.1% Crm] 1 each TOP BID [History] fluvoxaMINE 25 mg PO BEDTIME 11/10/18 [History] predniSONE [Deltasone] 20 mg PO DAILY 11/10/18 [History] Past Medical History HEENT History: Reports: Impaired Vision Other HEENT History: Wears glasses Cardiovascular History: Reports: CAD, High Cholesterol, Hypertension Other Cardiovascular History: TECHNOLOGY MANAGER inquired if Patient has PMHx of pacemaker/ afibrillation. Patient reported No. 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 Gastrointestinal History: Reports: Bowel Obstruction, Colon Polyp Other Gastrointestinal History: states esophagus doesn't work like it normally should Genitourinary History: Reports: Pyelonephritis, UTI, Recurrent MANAGER MARKETING SALES History: Reports: Musculoskeletal History: Reports: Arthritis, Osteoporosis Other Musculoskeletal History: polymyalgia Neurological History: Reports: Seizure Psychiatric History: Reports: Anxiety, Depression, Other (See Below) Endocrine/Metabolic History: Reports: Hypothyroidism, Vitamin D Deficiency Hematologic History: Reports: Other (See Below) Other Hematologic History: Vitamin D deficiency Oncologic (Cancer) History: Reports: None - Infectious Disease History Infectious Disease History: Reports: Chicken Pox - Past Surgical History HEENT Surgical History: Reports: Cataract Surgery, Oral Surgery, Other (See Below) Cardiovascular Surgical History: Reports: Coronary Artery Stent GI Surgical History: Reports: Appendectomy, Cholecystectomy, Colonoscopy, EGD, Lysis of Adhesions Female Surgical History: Reports: Breast Reduction, D&C, Hysterectomy, Salpingo-Oophorectomy, Tubal Ligation Neurological Surgical History: Reports: Lumbar Spine Musculoskeletal Surgical History: Reports: Shoulder Surgery, Other (See Below) Oncologic Surgical History: Reports: None, Other (See Below) Social & Family History - Family History Family Medical History: Noncontributory Cardiac: Reports: [place] Other Cardiac Family History: [place], Bro, Bro - Heart disease Neurological: Reports: Alzheimers Disease Oncologic: Reports: Lung Other Oncologic Family History: FA - Cancer, Sis - lung cancer - Tobacco Use Smoking Status *Q: Never Smoker Second Hand Smoke Exposure: No - Caffeine Use Caffeine Use: Reports: None - Recreational Drug Use Recreational Drug Use: No - Living Situation & Occupation Living situation: Reports: , Alone Occupation: Retired ED ROS GENERAL - Review of Systems Review Of Systems: See Below Constitutional: Denies: Fever, Chills HEENT: Reports: No Symptoms Respiratory: Denies: Shortness of Breath, Cough Cardiovascular: Denies: Chest Pain Endocrine: Reports: No Symptoms GI/Abdominal: Reports: Abdominal Pain, Distension, Nausea, Vomiting. Denies: Constipation, Diarrhea, Flatus : Reports: No Symptoms Musculoskeletal: Reports: Other (Generalized arthralgias) Skin: Reports: No Symptoms Neurological: Reports: No Symptoms Psychiatric: Reports: Anxiety Hematologic/Lymphatic: Reports: No Symptoms ED EXAM, GI/ABD - Physical Exam Exam: See Below Exam Limited By: No Limitations General Appearance: Alert, WD/WN, Moderate Distress Eyes: Bilateral: Normal Appearance Ears: Normal External Exam Nose: Normal Inspection Throat/Mouth: Normal Inspection, Normal Lips, Normal Voice, No Airway Compromise Head: Normocephalic Neck: Supple Respiratory/Chest: No Respiratory Distress, Lungs Clear, Normal Breath Sounds Cardiovascular: Regular Rate, Rhythm, No Murmur GI/Abdominal Exam: Distended, Tender, Abnormal Bowel Sounds, Other (Bowel sounds are rare but they are higher pitched). No: Guarding, Rigid, Rebound Back Exam: Decreased Range of Motion Extremities: Normal Inspection, Normal Range of Motion. No: Pedal Edema Neurological: Alert, Oriented Psychiatric: Anxious Skin Exam: Warm, Dry Course - Vital Signs Last Recorded V/S: Last Vital Signs Temp 97.1 F 11/10/18 01:12 Pulse 71 11/10/18 01:12 Resp 14 11/10/18 01:12 BP 188/79 H 11/10/18 01:12 Pulse Ox 97 11/10/18 01:12 - Orders/Labs/Meds Orders: Active Orders 24 hr Category Date Time Status Abdomen Pelvis w Cont [CT] Stat Exams 11/10/18 01:21 Taken CULTURE URINE [RM] Stat Lab 11/10/18 02:05 Received Labs: Laboratory Tests 11/10/18 11/10/18 11/10/18 Range/Units 01:18 01:18 02:05 WBC 8.41 (3.98-10.04) K/mm3 RBC 4.19 (3.98-5.22) M/mm3 Hgb 13.0 (11.2-15.7) gm/dl Hct 38.5 (34.1-44.9) % MCV 91.9 (79.4-94.8) fl MCH 31.0 (25.6-32.2) pg MCHC 33.8 (32.2-35.5) g/dl RDW Std Deviation 41.6 (36.4-46.3) fL Plt Count 185 (182-369) K/mm3 MPV 9.0 L (9.4-12.3) fl Neut % (Auto) 64.1 (34.0-71.1) % Lymph % (Auto) 26.3 (19.3-51.7) % [place] % (Auto) 6.9 (4.7-12.5) % Eos % (Auto) 2.1 (0.7-5.8) Baso % (Auto) 0.5 (0.1-1.2) % Neut # (Auto) 5.39 (1.56-6.13) K/mm3 Lymph # (Auto) 2.21 (1.18-3.74) K/mm3 [place] # (Auto) 0.58 H (0.24-0.36) K/mm3 Eos # (Auto) 0.18 (0.04-0.36) K/mm3 Baso # (Auto) 0.04 (0.01-0.08) K/mm3 Sodium 137 (136-145) mEq/L Potassium 4.3 (3.5-5.1) mEq/L Chloride 103 (98-107) mEq/L Carbon Dioxide 27 (21-32) mEq/L Anion Gap 11.3 (5-15) BUN 17 (7-18) mg/dL Creatinine 0.8 (0.55-1.02) mg/dL Est Cr Clr Drug Dosing 44.36 mL/min Estimated GFR (MDRD) > 60 (>60) mL/min BUN/Creatinine Ratio 21.3 H (14-18) Glucose 106 (83-115) mg/dL Calcium 9.5 (8.5-10.1) mg/dL Total Bilirubin 0.3 (0.2-1.0) mg/dL AST 40 H (15-37) U/L ALT 45 (14-59) U/L Alkaline Phosphatase 98 (46-116) U/L Total Protein 7.3 (6.4-8.2) g/dl Albumin 3.7 (3.4-5.0) g/dl Globulin 3.6 gm/dL Albumin/Globulin Ratio 1.0 (1-2) Urine Color Yellow (Yellow) Urine Appearance Slt cloudy H (Clear) Urine pH 6.0 (5.0-8.0) Ur Specific [place] 1.020 (1.005-1.030) Urine Protein Negative (Negative) Urine Glucose (UA) Negative (Negative) Urine Ketones Negative (Negative) Urine Occult Blood 1+ H (Negative) Urine Nitrite Positive H (Negative) Urine Bilirubin Negative (Negative) Urine Urobilinogen 0.2 (0.2-1.0) Ur Leukocyte Esterase Trace H (Negative) Urine RBC 5-10 H (0-5) /hpf Urine WBC 10-20 H (0-5) /hpf Urine WBC Clumps Rare (NOT SEEN) /hpf Ur Squamous Epith Cells 5-10 H (0-5) /hpf Urine Bacteria Many H (FEW) /hpf Hyaline Casts 0-5 (0-5) /lpf Urine Mucus Moderate H (FEW) /hpf Meds: Medications Discontinued Medications Generic Name Dose Route Start Last Admin Trade Name Henryq PRN Reason Stop Dose Admin Hydromorphone HCl 1 mg 11/10/18 01:22 11/10/18 01:32 Dilaudid IVPUSH 11/10/18 01:23 1 mg ONETIME ONE Administration Hydromorphone HCl 1 mg 11/10/18 02:14 11/10/18 02:19 Dilaudid IVPUSH 11/10/18 02:15 1 mg ONETIME ONE Administration Hydromorphone HCl 0.5 mg 11/10/18 03:13 11/10/18 03:17 Dilaudid IVPUSH 11/10/18 03:14 0.5 mg ONETIME ONE Administration Iopamidol 100 ml 11/10/18 01:45 11/10/18 01:48 Isovue-300 (61%) IVPUSH 11/10/18 01:46 100 ml ONETIME ONE Administration Lidocaine HCl Confirm 11/10/18 04:01 Xylocaine 2% Jelly Administered 11/10/18 04:02 Dose 10 ml .ROUTE .STK-MED ONE Ondansetron HCl 4 mg 11/10/18 01:22 11/10/18 01:31 Zofran IVPUSH 11/10/18 01:23 4 mg ONETIME ONE Administration - Radiology Interpretation Free Text/Narrative:: CT scan shows a low grade or partial small bowel disruption. - Re-Assessments/Exams Free Text/Narrative Re-Assessment/Exam: 11/10/18 03:43 Spoke to the patient regarding the partial small bowel obstruction and I gave her the option to go down to [facility] to her surgeon Dr. Cruz but she would really prefer to stay here and get an NG tube and see if a wall resolve on its own like it has in the past with the NG tube. Therefore I spoke to Dr. Damon who is willing to follow the patient and also spoke to the hospitalist Dr. López and he agrees to put her on his service and have the surgeon follow her for resolution of this partial small bowel obstruction. The patient does indicate that if it doesn't resolve on its own then she be willing to go down to [facility] to see Dr. Cruz. 11/10/18 04:06 The NG tube was successfully started in the emergency room. Patient will be admitted for further evaluation and treatment with Dr. López is being the hospitalist and Dr. Damon being the consulting surgeon. Departure - Departure Time of Disposition: 03:45 Disposition: Admitted As Inpatient 64 Condition: Poor Clinical Impression: Partial small bowel obstruction, Continuous severe abdominal pain Nausea and vomiting Qualifiers: Vomiting type: unspecified Vomiting Intractability: non-intractable Qualified Code(s): R11.2 - Nausea with vomiting, unspecified - Discharge Information Referrals: PCP,Unknown [Primary Care Provider] - Forms: ED Department Discharge ED Communication - ED Communication Date/Time Date: 11/10/18 Time Called: 03:46 - Discussed Case With (1) Discussed Case With (1): Admitting Provider, Inpatient Property Management Bookkeeper Person/s Notified (1): Josh Malik III (He agrees to admit the patient for further evaluation and treatment) Person/s Notified (2): Gregory Damon (He agrees to consult as the surgeon) - My Orders Last 24 Hours: My Active Orders 11/10/18 01:21 Abdomen Pelvis w Cont [CT] Stat 11/10/18 02:05 CULTURE URINE [RM] Stat - Assessment/Plan Last 24 Hours: My Active Orders 11/10/18 01:21 Abdomen Pelvis w Cont [CT] Stat 11/10/18 02:05 CULTURE URINE [RM] Stat
[2018-11-10] MEDS ORDERED: Iopamidol 612 MG/ML 100 ML Bottle IVPUSH ONE (01:45)
[2018-11-10] MEDS ORDERED: HYDROmorphone 0.5 MG/0.5 ML Syringe IVPUSH ONE (03:13)
[2018-11-10] MEDS ORDERED: Lidocaine 2% Jelly 10 ML Urojet ONE (04:01)
[2018-11-10] MEDS ORDERED: Albuterol/Ipratropium 3.0-0.5 MG/3 ML Neb Soln NEB PRN (04:53)
[2018-11-10] MEDS ORDERED: Ondansetron 4 MG/2 ML SDV IVPUSH PRN (04:53)
[2018-11-10] MEDS ORDERED: Sodium Chloride 0.9% 1,000 ML IV SCH (05:00)
[2018-11-10] MEDS: HYDROmorphone 0.5 MG/0.5 ML Syringe IVPUSH PRN ×2 (05:40→08:03)
[2018-11-10] MEDS ORDERED: Budesonide 0.5 MG/2 ML Neb Susp NEB PRN (06:46)
[2018-11-10] MEDS ORDERED: Albuterol 6.7 GM Inhaler INH PRN (06:46)
[2018-11-10] MEDS ORDERED: Polyvinyl Alcohol 1.4% Ophth Soln 15 ML Bottle EYEBOTH PRN (06:46)
[2018-11-10] MEDS ORDERED: ALPRAZolam 0.25 MG Tab PO PRN (06:46)
[2018-11-10] MEDS ORDERED: Levothyroxine 112 MCG Tab PO SCH (07:00)
[2018-11-10] MEDS ORDERED: Carboxymethylcellulose Sodium 1% Ophth Gel 15 ML Bottle EYEBOTH PRN (08:45)
[2018-11-10] MEDS ORDERED: Formoterol/Mometasone 200-5 MCG 8.8 GM Inhaler IH SCH (09:00)
[2018-11-10] MEDS ORDERED: Citalopram 20 MG Tab PO SCH (09:00)
[2018-11-10] MEDS ORDERED: Carvedilol 6.25 MG Tab PO SCH (09:00)
[2018-11-10 09:09] VITALS: BP 135/63
[2018-11-10 09:11] VITALS: PULSE 78
[2018-11-10] MEDS: HYDROmorphone 1 MG/ML Syringe IVPUSH PRN ×2 (09:18→10:57)
[2018-11-10] MEDS ORDERED: Promethazine 12.5 MG in Sodium Chloride 0.9% 50 ML IV PRN (09:19)
--- NOTE | 2018-11-10 09:27 | PCM.CONSN ---
- General Info Date of Service: 11/10/18 - Patient Data Vitals - Most Recent: Last Vital Signs Temp 98.1 F 11/10/18 09:09 Pulse 78 11/10/18 09:09 Resp 16 11/10/18 09:09 BP 135/63 11/10/18 09:07 Pulse Ox 97 11/10/18 09:09 Weight - Most Recent: 73.482 kg Lab Results Last 24 Hours: Laboratory Results - last 24 hr 11/10/18 11/10/18 11/10/18 Range/Units 01:18 01:18 02:05 WBC 8.41 (3.98-10.04) K/mm3 RBC 4.19 (3.98-5.22) M/mm3 Hgb 13.0 (11.2-15.7) gm/dl Hct 38.5 (34.1-44.9) % MCV 91.9 (79.4-94.8) fl MCH 31.0 (25.6-32.2) pg MCHC 33.8 (32.2-35.5) g/dl RDW Std Deviation 41.6 (36.4-46.3) fL Plt Count 185 (182-369) K/mm3 MPV 9.0 L (9.4-12.3) fl Neut % (Auto) 64.1 (34.0-71.1) % Lymph % (Auto) 26.3 (19.3-51.7) % [place] % (Auto) 6.9 (4.7-12.5) % Eos % (Auto) 2.1 (0.7-5.8) Baso % (Auto) 0.5 (0.1-1.2) % Neut # (Auto) 5.39 (1.56-6.13) K/mm3 Lymph # (Auto) 2.21 (1.18-3.74) K/mm3 [place] # (Auto) 0.58 H (0.24-0.36) K/mm3 Eos # (Auto) 0.18 (0.04-0.36) K/mm3 Baso # (Auto) 0.04 (0.01-0.08) K/mm3 Neutrophils % (Manual) (40-60) % Band Neutrophils % (0-10) % Lymphocytes % (Manual) (20-40) % Atypical Lymphs % % Monocytes % (Manual) (2-10) % Eosinophils % (Manual) (0.7-5.8) % Basophils % (Manual) (0.1-1.2) Platelet Estimate RBC Morph Comment Sodium 137 (136-145) mEq/L Potassium 4.3 (3.5-5.1) mEq/L Chloride 103 (98-107) mEq/L Carbon Dioxide 27 (21-32) mEq/L Anion Gap 11.3 (5-15) BUN 17 (7-18) mg/dL Creatinine 0.8 (0.55-1.02) mg/dL Est Cr Clr Drug Dosing 44.36 mL/min Estimated GFR (MDRD) > 60 (>60) mL/min BUN/Creatinine Ratio 21.3 H (14-18) Glucose 106 (83-115) mg/dL Calcium 9.5 (8.5-10.1) mg/dL Total Bilirubin 0.3 (0.2-1.0) mg/dL AST 40 H (15-37) U/L ALT 45 (14-59) U/L Alkaline Phosphatase 98 (46-116) U/L Total Protein 7.3 (6.4-8.2) g/dl Albumin 3.7 (3.4-5.0) g/dl Globulin 3.6 gm/dL Albumin/Globulin Ratio 1.0 (1-2) Urine Color Yellow (Yellow) Urine Appearance Slt cloudy H (Clear) Urine pH 6.0 (5.0-8.0) Ur Specific [place] 1.020 (1.005-1.030) Urine Protein Negative (Negative) Urine Glucose (UA) Negative (Negative) Urine Ketones Negative (Negative) Urine Occult Blood 1+ H (Negative) Urine Nitrite Positive H (Negative) Urine Bilirubin Negative (Negative) Urine Urobilinogen 0.2 (0.2-1.0) Ur Leukocyte Esterase Trace H (Negative) Urine RBC 5-10 H (0-5) /hpf Urine WBC 10-20 H (0-5) /hpf Urine WBC Clumps Rare (NOT SEEN) /hpf Ur Squamous Epith Cells 5-10 H (0-5) /hpf Urine Bacteria Many H (FEW) /hpf Hyaline Casts 0-5 (0-5) /lpf Urine Mucus Moderate H (FEW) /hpf 11/10/18 11/10/18 Range/Units 07:00 07:00 WBC 9.05 (3.98-10.04) K/mm3 RBC 4.29 (3.98-5.22) M/mm3 Hgb 13.4 (11.2-15.7) gm/dl Hct 39.5 (34.1-44.9) % MCV 92.1 (79.4-94.8) fl MCH 31.2 (25.6-32.2) pg MCHC 33.9 (32.2-35.5) g/dl RDW Std Deviation 41.7 (36.4-46.3) fL Plt Count 158 L (182-369) K/mm3 MPV 9.7 (9.4-12.3) fl Neut % (Auto) (34.0-71.1) % Lymph % (Auto) (19.3-51.7) % [place] % (Auto) (4.7-12.5) % Eos % (Auto) (0.7-5.8) Baso % (Auto) (0.1-1.2) % Neut # (Auto) (1.56-6.13) K/mm3 Lymph # (Auto) (1.18-3.74) K/mm3 [place] # (Auto) (0.24-0.36) K/mm3 Eos # (Auto) (0.04-0.36) K/mm3 Baso # (Auto) (0.01-0.08) K/mm3 Neutrophils % (Manual) 85 H (40-60) % Band Neutrophils % 0 (0-10) % Lymphocytes % (Manual) 7 L (20-40) % Atypical Lymphs % 0 % Monocytes % (Manual) 6 (2-10) % Eosinophils % (Manual) 2 (0.7-5.8) % Basophils % (Manual) 0 L (0.1-1.2) Platelet Estimate Adequate RBC Morph Comment Normal Sodium 137 (136-145) mEq/L Potassium 4.1 (3.5-5.1) mEq/L Chloride 100 (98-107) mEq/L Carbon Dioxide 27 (21-32) mEq/L Anion Gap 14.1 (5-15) BUN 17 (7-18) mg/dL Creatinine 0.8 (0.55-1.02) mg/dL Est Cr Clr Drug Dosing 40.29 mL/min Estimated GFR (MDRD) > 60 (>60) mL/min BUN/Creatinine Ratio 21.3 H (14-18) Glucose 110 (83-115) mg/dL Calcium 9.6 (8.5-10.1) mg/dL Total Bilirubin (0.2-1.0) mg/dL AST (15-37) U/L ALT (14-59) U/L Alkaline Phosphatase (46-116) U/L Total Protein (6.4-8.2) g/dl Albumin (3.4-5.0) g/dl Globulin gm/dL Albumin/Globulin Ratio (1-2) Urine Color (Yellow) Urine Appearance (Clear) Urine pH (5.0-8.0) Ur Specific [place] (1.005-1.030) Urine Protein (Negative) Urine Glucose (UA) (Negative) Urine Ketones (Negative) Urine Occult Blood (Negative) Urine Nitrite (Negative) Urine Bilirubin (Negative) Urine Urobilinogen (0.2-1.0) Ur Leukocyte Esterase (Negative) Urine RBC (0-5) /hpf Urine WBC (0-5) /hpf Urine WBC Clumps (NOT SEEN) /hpf Ur Squamous Epith Cells (0-5) /hpf Urine Bacteria (FEW) /hpf Hyaline Casts (0-5) /lpf Urine Mucus (FEW) /hpf Med Orders - Current: Current Medications Albuterol (Proventil Hfa) 0 gm INH QID PRN PRN Reason: Shortness of Breath Albuterol/Ipratropium (Duoneb 3.0-0.5 Mg/3 Ml) 3 ml NEB Q6HRRT PRN PRN Reason: Shortness of Breath Alprazolam (Xanax) 0.0625 mg PO BID PRN PRN Reason: Anxiety Artificial Tears (Refresh Liquigel 1%) 0 ml EYEBOTH BEDTIME PRN PRN Reason: dry eyes Budesonide (Pulmicort) 0.5 mg NEB BID PRN PRN Reason: Shortness of Breath Carvedilol (Coreg) 25 mg PO BID [facility] Last Admin: 11/10/18 09:11 Dose: Not Given Citalopram Hydrobromide (Celexa) 20 mg PO DAILY [facility] Last Admin: 11/10/18 09:10 Dose: Not Given Hydromorphone HCl (Dilaudid) 1 mg IVPUSH Q1H PRN PRN Reason: Abdominal Pain Last Admin: 11/10/18 09:18 Dose: 1 mg Sodium Chloride (Normal Saline) 1,000 mls @ 100 mls/hr IV ASDIRECTED IRVIN Last Admin: 11/10/18 05:25 Dose: 100 mls/hr Promethazine HCl 12.5 mg/ (Sodium Chloride) 50.5 mls @ 100 mls/hr IV Q6H PRN PRN Reason: Nausea/Vomiting Levothyroxine Sodium (Levothyroxine) 112 mcg PO ACBREAKFAST IRVIN Last Admin: 11/10/18 09:10 Dose: Not Given Mometasone Furoate/Formoterol Fumar (Dulera 200-5 Mcg) 0 puff IH BID IRVIN Last Admin: 11/10/18 08:30 Dose: 2 puff Ondansetron HCl (Zofran) 4 mg IVPUSH Q6H PRN PRN Reason: Nausea Last Admin: 11/10/18 08:12 Dose: 4 mg Pantoprazole Sodium (Protonix) 40 mg PO BEDTIME IRVIN Discontinued Medications Artificial Tears (Liquitears 1.4% Ophth Soln) 0 ml EYEBOTH BEDTIME PRN PRN Reason: dry eyes Hydromorphone HCl (Dilaudid) 1 mg IVPUSH ONETIME ONE Stop: 11/10/18 01:23 Last Admin: 11/10/18 01:32 Dose: 1 mg Hydromorphone HCl (Dilaudid) 1 mg IVPUSH ONETIME ONE Stop: 11/10/18 02:15 Last Admin: 11/10/18 02:19 Dose: 1 mg Hydromorphone HCl (Dilaudid) 0.5 mg IVPUSH ONETIME ONE Stop: 11/10/18 03:14 Last Admin: 11/10/18 03:17 Dose: 0.5 mg Hydromorphone HCl (Dilaudid) 0.5 mg IVPUSH Q1H PRN PRN Reason: Pain Last Admin: 11/10/18 08:03 Dose: 0.5 mg Iopamidol (Isovue-300 (61%)) 100 ml IVPUSH ONETIME ONE Stop: 11/10/18 01:46 Last Admin: 11/10/18 01:48 Dose: 100 ml Lidocaine HCl (Xylocaine 2% Jelly) Confirm Administered Dose 10 ml .ROUTE .STK- MED ONE Stop: 11/10/18 04:02 Last Admin: 11/10/18 08:17 Dose: Not Given Ondansetron HCl (Zofran) 4 mg IVPUSH ONETIME ONE Stop: 11/10/18 01:23 Last Admin: 11/10/18 01:31 Dose: 4 mg Consult PN Assessment/Plan Procedures: Procedures AGENT NOS ASSAY W/OPTIC (07/24/13) ANTINUCLEAR ANTIBODIES (07/23/13) ARTHROSCOP ROTATOR CUFF REPR (05/29/14) ARTHROSCOPY OF JOINT (05/29/14) ASSAY OF AMYLASE (05/05/14) ASSAY OF BLOOD/URIC ACID (09/16/18) ASSAY OF CK (CPK) (07/23/13) ASSAY OF FREE THYROXINE (03/21/16) ASSAY OF LACTIC ACID (02/27/18) ASSAY OF LIPASE (02/27/18) ASSAY OF MAGNESIUM (02/27/18) ASSAY OF NATRIURETIC PEPTIDE (01/23/18) ASSAY OF TROPONIN QUANT (02/27/18) ASSAY THYROID STIM HORMONE (02/27/18) BL SMEAR W/DIFF WBC COUNT (02/27/18) BLOOD CULTURE FOR BACTERIA (02/27/18) BLOOD GASES ANY COMBINATION (02/27/18) BONE IMAGING WHOLE BODY (08/22/17) C DIFF AMPLIFIED PROBE (07/24/13) C-REACTIVE PROTEIN (09/16/18) CARDIOVASCULAR STRESS TEST (06/25/18) CHEST X-RAY 1 VIEW FRONTAL (10/06/16) CHEST X-RAY 2VW FRONTAL&LATL (06/07/16) CO/MEMBANE DIFFUSE CAPACITY (11/09/16) COMPLETE CBC AUTOMATED (02/27/18) COMPLETE CBC W/AUTO DIFF WBC (09/16/18) COMPREHEN METABOLIC PANEL (09/16/18) CREATINE MB FRACTION (03/21/16) CRYPTOSPORIDIUM AG IA (07/24/13) CT ABD & PELV W/CONTRAST (07/01/15) CT ANGIOGRAPHY CHEST (11/10/16) CT HEAD/BRAIN W/O DYE (03/27/15) CT LUMBAR SPINE W/O DYE (09/28/17) CULTURE AEROBIC IDENTIFY (11/27/13) ELECTROCARDIOGRAM TRACING (02/27/18) EMERGENCY DEPT VISIT (09/16/18) EMERGENCY DEPT VISIT (02/27/18) EMERGENCY DEPT VISIT (01/23/17) EMERGENCY DEPT VISIT (10/06/16) EMERGENCY DEPT VISIT (03/17/16) EMERGENCY DEPT VISIT (03/30/15) EMERGENCY DEPT VISIT (05/05/14) EMERGENCY DEPT VISIT (01/30/14) EVALUATE PT USE OF INHALER (06/07/16) EVALUATE SWALLOWING FUNCTION (08/19/15) EVALUATION OF WHEEZING (11/09/16) FIBRIN DEGRADATION QUANT (02/27/18) GIARDIA AG IA (07/24/13) HPYLORI STOOL IA (07/24/13) HT MUSCLE IMAGE SPECT MULT (06/25/18) HYDRATE IV INFUSION ADD-ON (02/27/18) LEUKOCYTE ASSESSMENT FECAL (07/24/13) LIPID PANEL (03/21/16) MANUAL THERAPY 1/> REGIONS (06/11/15) MASSAGE THERAPY (06/11/15) MEASURE BLOOD OXYGEN LEVEL (02/28/18) METABOLIC PANEL TOTAL CA (03/21/16) MICROBE SUSCEPTIBLE GLORIA (02/27/18) MR-STAPH DNA AMP PROBE (05/29/14) MRI JNT OF LWR EXTRE W/O DYE (09/28/17) MRI JOINT UPR EXTREM W/O DYE (05/13/14) NEUROMUSCULAR REEDUCATION (11/16/17) OFFICE/OUTPATIENT VISIT EST (09/25/14) POLYSOM 6/> YRS 4/> ASHLIE (10/26/14) PROTHROMBIN TIME (06/18/15) PT EVAL HIGH COMPLEX 45 MIN (08/09/17) PT EVALUATION (06/11/15) RBC SED RATE AUTOMATED (09/25/17) ROUTINE VENIPUNCTURE (09/16/18) SHOULDER ARTHROSCOPY/SURGERY (05/29/14) SHOULDER ARTHROSCOPY/SURGERY (05/29/14) STOOL CULTR AEROBIC BACT EA (07/24/13) THER/PROPH/DIAG INJ IV PUSH (02/27/18) THER/PROPH/DIAG INJ SC/IM (06/07/16) THERAPEUTIC ACTIVITIES (11/16/17) THERAPEUTIC EXERCISES (06/11/15) TX/PRO/DX INJ NEW DRUG ADDON (01/23/17) TX/PRO/DX INJ SAME DRUG OUTREACH LIAISON (03/21/16) ULTRASOUND THERAPY (01/14/15) URINALYSIS AUTO W/SCOPE (02/27/18) URINE BACTERIA CULTURE (02/27/18) URINE CULTURE/COLONY COUNT (02/27/18) VANOMYCIN DNA AMP PROBE (07/24/13) WITHDRAWAL OF ARTERIAL BLOOD (02/27/18) X-RAY EXAM ABDOMEN 1 VIEW (02/27/18) X-RAY EXAM CHEST 1 VIEW (01/23/18) X-RAY EXAM CHEST 2 VIEWS (02/27/18) X-RAY EXAM HIP UNI 2-3 VIEWS (08/09/17) X-RAY EXAM L-S SPINE 2/3 VWS (10/03/17) X-RAY EXAM OF ABDOMEN (02/23/15) X-RAY EXAM OF ANKLE (08/09/17) X-RAY EXAM OF FOOT (09/16/18) X-RAY EXAM OF HAND (07/23/13) X-RAY EXAM OF NECK (12/26/15) X-RAY EXAM OF PELVIS (10/03/17) X-RAY EXAM OF SHOULDER (08/24/15) Problem List Initiated/Reviewed/Updated: Yes My Orders Last 24 Hours: My Active Orders 11/10/18 08:56 LIPASE [CHEM] Routine 11/10/18 08:57 Abdomen 2V AP Flat Upright [CR] Urgent 11/10/18 09:19 Promethazine [Phenergan] 12.5 mg Sodium Chloride 0.9% [Normal Saline] 50 ml IV Q6H Plan: surgical consult dictated ECHO
--- NOTE | 2018-11-10 09:34 | PCM.HP.2 ---
H&P History of Present Illness - General Date of Service: 11/10/18 Admit Problem/Dx: Admission Diagnosis/Problem Admission Diagnosis/Problem Obstruction of colon - History of Present Illness Initial Comments - Free Text/Narative: 78-year-old female that has a history of tender 12 different episodes of small bowel obstruction, last in 2011 when she had surgery and was in the hospital for over 60 days, presented to the emergency room late last night, early this morning. At 2200 last night she developed abdominal pain with minimal nausea. She presented to the emergency room with multiple bouts of pain and vomiting. CT the abdomen did show partial small bowel obstruction. In the emergency room at NG tube was placed, she was given fluid, and a limited for further evaluation. Dr. Kent was consultative in surgery. Patient told Dr. Kent that she does have chest pain with exertion and she does have a history of hypertension. There was concern that if she needs surgery we would not be able to do it at this facility. Dr. Kent recommended transfer to [place] for higher level of care. Labs: CBC 9.0, hemoglobin 13.4, platelets 158, sodium 137, potassium 4.1, chloride 100, BUN 17, creatinine 0.8, glucose 110, calcium 9.6, total bilirubin 0.3, AST 40, ALT 45, alkaline phosphatase 98, albumin 3.7. UA showed 10-20 WBCs , but 5-10 epithelial cells. Nitrites were positive. Left Abdominal Pain Score (Numeric/FACES): 10 - Related Data Allergies/Adverse Reactions: Allergies Allergy/AdvReac Type Severity Reaction Status Date / Time cephalexin monohydrate Allergy Hives Verified 11/10/18 01:16 [From Keflex] doxycycline Allergy Hives Verified 11/10/18 01:16 fluconazole Allergy Hives Verified 11/10/18 01:16 hyoscyamine Allergy Vaginitis Verified 11/10/18 01:16 levofloxacin [From Levaquin] Allergy Hives Verified 11/10/18 01:16 sulfamethoxazole Allergy Hives Verified 11/10/18 01:16 amlodipine AdvReac Body Aches Verified 11/10/18 01:16 atorvastatin calcium AdvReac Muscle Verified 11/10/18 01:16 [From Lipitor] Aches bupropion HCl AdvReac Other Verified 11/10/18 01:16 [From Wellbutrin] colesevelam HCl AdvReac Muscle Verified 11/10/18 01:16 [From WelChol] Aches ezetimibe [From Zetia] AdvReac Muscle Verified 11/10/18 01:16 Aches gabapentin AdvReac Blurred Verified 11/10/18 01:16 Vision ibandronate sodium AdvReac Shortness Verified 11/10/18 01:16 [From Boniva] of Breath levothyroxine sodium AdvReac Other Verified 11/10/18 01:16 lisinopril AdvReac Cough Verified 11/10/18 01:16 mannitol [From Reclast] AdvReac Confusion Verified 11/10/18 01:16 metoclopramide HCl AdvReac Tremors Verified 11/10/18 01:16 [From Reglan] morphine AdvReac Other Verified 11/10/18 01:16 niacin AdvReac Muscle Verified 11/10/18 01:16 Aches phenobarbital AdvReac Other Verified 11/10/18 01:16 pravastatin sodium AdvReac Muscle Verified 11/10/18 01:16 [From Pravachol] Aches prochlorperazine edisylate AdvReac Tremors Verified 11/10/18 01:16 [From Compazine] prochlorperazine maleate AdvReac Tremors Verified 11/10/18 01:16 [From Compazine] promethazine HCl AdvReac Other Verified 11/10/18 01:16 [From Phenergan] rosuvastatin calcium AdvReac Body Aches Verified 11/10/18 01:16 [From Crestor] sertraline HCl [From Zoloft] AdvReac Other Verified 11/10/18 01:16 simvastatin [From Zocor] AdvReac Muscle Verified 11/10/18 01:16 Aches trazodone AdvReac Other Verified 11/10/18 01:16 water for injection,sterile AdvReac Confusion Verified 11/10/18 01:16 [From Reclast] zoledronic acid AdvReac Confusion Verified 11/10/18 01:16 [From Reclast] zolpidem tartrate AdvReac Other Verified 11/10/18 01:16 [From Ambien] Home Medications: Home Meds Nitroglycerin 0.4 mg SL ASDIRECTED PRN 01/30/14 [History] Dextran 70/Hypromellose [Artificial Tears] 1 drop EYEBOTH BEDTIME PRN 05/05/14 [ History] Furosemide 40 mg PO DAILY PRN 03/27/15 [History] Carvedilol [Coreg] 25 mg PO BID 03/17/16 [History] Potassium Chloride [Klor-Con 10] 10 meq PO ASDIRECTED 03/17/16 [History] Ondansetron HCl [Zofran] 8 mg PO TID PRN 02/27/18 [History] Polyethylene Glycol 3350 [MiraLAX] 1 scoop PO Q48H PRN 02/27/18 [History] ALPRAZolam [Xanax] 0.0625 mg PO BID PRN 11/10/18 [History] Albuterol/Ipratropium [Combivent Respimat] 1 inh INH QID PRN 11/10/18 [History] Budesonide [Pulmicort] 1 dose NEB BID PRN 11/10/18 [History] Budesonide/Formoterol Fumarate [Symbicort 160-4.5 Mcg Inhaler] 2 inh PO BID [History] Clobetasol [Clobetasol Propionate 0.05% Cream] 1 applic TOP BID PRN 11/10/18 [ History] Colchicine 0.6 mg PO DAILY PRN 11/10/18 [History] Escitalopram [Lexapro] 10 mg PO DAILY 11/10/18 [History] HYDROmorphone [Dilaudid] 4 mg PO Q4H PRN 11/10/18 [History] Levothyroxine Sodium [Synthroid] 112 mcg PO ACBREAKFAST 11/10/18 [History] Omeprazole Magnesium [Prilosec Otc] 20 mg PO BEDTIME 11/10/18 [History] Triamcinolone Acetonide [Triamcinolone Acetonide 0.1% Crm] 1 each TOP BID PRN [History] Past Medical History HEENT History: Reports: Impaired Vision Other HEENT History: Wears glasses Cardiovascular History: Reports: CAD, High Cholesterol, Hypertension Other Cardiovascular History: CERTIFIED [place] inquired if Patient has PMHx of pacemaker/ afibrillation. Patient reported No. 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 Gastrointestinal History: Reports: Bowel Obstruction, Colon Polyp, Hiatal Hernia Other Gastrointestinal History: states esophagus doesn't work like it normally should. x10 bowel obstructions in the past. 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: Musculoskeletal History: Reports: Arthritis, Fibromyalgia, Osteoporosis Other Musculoskeletal History: polymyalgia Neurological History: Reports: Seizure Other Neuro History: as a child Psychiatric History: Reports: Anxiety, Panic Attack Endocrine/Metabolic History: Reports: Hypothyroidism, Vitamin D Deficiency Hematologic History: Reports: Other (See Below) Other Hematologic History: Vitamin D deficiency Oncologic (Cancer) History: Reports: None - Infectious Disease History Infectious Disease History: Reports: Chicken Pox - Past Surgical History HEENT Surgical History: Reports: Cataract Surgery, Oral Surgery, Other (See Below) Other HEENT Surgeries/Procedures: removed right Saliva gland. Cardiovascular Surgical History: Reports: Coronary Artery Stent GI Surgical History: Reports: Appendectomy, Cholecystectomy, Colonoscopy, EGD, Lysis of Adhesions Female Surgical History: Reports: Breast Reduction, D&C, Hysterectomy, Salpingo-Oophorectomy, Tubal Ligation Neurological Surgical History: Reports: Lumbar Spine Musculoskeletal Surgical History: Reports: Shoulder Surgery, Other (See Below) Other Musculoskeletal Surgeries/Procedures:: Right shoulder Oncologic Surgical History: Reports: None Social & Family History - Family History Family Medical History: Noncontributory Cardiac: Reports: NC Other Cardiac Family History: MO, Bro, Bro - Heart disease Neurological: Reports: Alzheimers Disease Oncologic: Reports: Lung Other Oncologic Family History: FA - Cancer, Sis - lung cancer - Tobacco Use Smoking Status *Q: Never Smoker Second Hand Smoke Exposure: No - Caffeine Use Caffeine Use: Reports: None - Recreational Drug Use Recreational Drug Use: No - Living Situation & Occupation Living situation: Reports: , Alone Occupation: Retired H&P Review of Systems - Review of Systems: Review Of Systems: ROS reveals no pertinent complaints other than HPI. Exam - Exam Exam: See Below - Vital Signs Vital Signs: Last Vital Signs Temp 98.1 F 11/10/18 09:09 Pulse 78 11/10/18 09:09 Resp 16 11/10/18 09:09 BP 135/63 11/10/18 09:07 Pulse Ox 97 11/10/18 09:09 Weight: 162 lb - Exam General: Alert, Oriented, 4 HEENT: Conjunctiva Clear, EACs Clear, EOMI, Hearing Intact, Mucosa Moist & [place] Neck: Supple, Trachea Midline, 2 Lungs: Clear to Auscultation, Normal Respiratory Effort Cardiovascular: Regular Rate, Regular Rhythm GI/Abdominal Exam: Distended, Guarding, Tender (Point tenderness in the left lower quadrant), Abnormal Bowel Sounds - Patient Data Lab Results Last 24 hrs: Laboratory Results - last 24 hr 11/10/18 11/10/18 11/10/18 Range/Units 01:18 01:18 02:05 WBC 8.41 (3.98-10.04) K/mm3 RBC 4.19 (3.98-5.22) M/mm3 Hgb 13.0 (11.2-15.7) gm/dl Hct 38.5 (34.1-44.9) % MCV 91.9 (79.4-94.8) fl MCH 31.0 (25.6-32.2) pg MCHC 33.8 (32.2-35.5) g/dl RDW Std Deviation 41.6 (36.4-46.3) fL Plt Count 185 (182-369) K/mm3 MPV 9.0 L (9.4-12.3) fl Neut % (Auto) 64.1 (34.0-71.1) % Lymph % (Auto) 26.3 (19.3-51.7) % Mccormick % (Auto) 6.9 (4.7-12.5) % Eos % (Auto) 2.1 (0.7-5.8) Baso % (Auto) 0.5 (0.1-1.2) % Neut # (Auto) 5.39 (1.56-6.13) K/mm3 Lymph # (Auto) 2.21 (1.18-3.74) K/mm3 Mccormick # (Auto) 0.58 H (0.24-0.36) K/mm3 Eos # (Auto) 0.18 (0.04-0.36) K/mm3 Baso # (Auto) 0.04 (0.01-0.08) K/mm3 Neutrophils % (Manual) (40-60) % Band Neutrophils % (0-10) % Lymphocytes % (Manual) (20-40) % Atypical Lymphs % % Monocytes % (Manual) (2-10) % Eosinophils % (Manual) (0.7-5.8) % Basophils % (Manual) (0.1-1.2) Platelet Estimate RBC Morph Comment Sodium 137 (136-145) mEq/L Potassium 4.3 (3.5-5.1) mEq/L Chloride 103 (98-107) mEq/L Carbon Dioxide 27 (21-32) mEq/L Anion Gap 11.3 (5-15) BUN 17 (7-18) mg/dL Creatinine 0.8 (0.55-1.02) mg/dL Est Cr Clr Drug Dosing 44.36 mL/min Estimated GFR (MDRD) > 60 (>60) mL/min BUN/Creatinine Ratio 21.3 H (14-18) Glucose 106 (83-115) mg/dL Calcium 9.5 (8.5-10.1) mg/dL Total Bilirubin 0.3 (0.2-1.0) mg/dL AST 40 H (15-37) U/L ALT 45 (14-59) U/L Alkaline Phosphatase 98 (46-116) U/L Total Protein 7.3 (6.4-8.2) g/dl Albumin 3.7 (3.4-5.0) g/dl Globulin 3.6 gm/dL Albumin/Globulin Ratio 1.0 (1-2) Urine Color Yellow (Yellow) Urine Appearance Slt cloudy H (Clear) Urine pH 6.0 (5.0-8.0) Ur Specific [place] 1.020 (1.005-1.030) Urine Protein Negative (Negative) Urine Glucose (UA) Negative (Negative) Urine Ketones Negative (Negative) Urine Occult Blood 1+ H (Negative) Urine Nitrite Positive H (Negative) Urine Bilirubin Negative (Negative) Urine Urobilinogen 0.2 (0.2-1.0) Ur Leukocyte Esterase Trace H (Negative) Urine RBC 5-10 H (0-5) /hpf Urine WBC 10-20 H (0-5) /hpf Urine WBC Clumps Rare (NOT SEEN) /hpf Ur Squamous Epith Cells 5-10 H (0-5) /hpf Urine Bacteria Many H (FEW) /hpf Hyaline Casts 0-5 (0-5) /lpf Urine Mucus Moderate H (FEW) /hpf 11/10/18 11/10/18 Range/Units 07:00 07:00 WBC 9.05 (3.98-10.04) K/mm3 RBC 4.29 (3.98-5.22) M/mm3 Hgb 13.4 (11.2-15.7) gm/dl Hct 39.5 (34.1-44.9) % MCV 92.1 (79.4-94.8) fl MCH 31.2 (25.6-32.2) pg MCHC 33.9 (32.2-35.5) g/dl RDW Std Deviation 41.7 (36.4-46.3) fL Plt Count 158 L (182-369) K/mm3 MPV 9.7 (9.4-12.3) fl Neut % (Auto) (34.0-71.1) % Lymph % (Auto) (19.3-51.7) % Mccormick % (Auto) (4.7-12.5) % Eos % (Auto) (0.7-5.8) Baso % (Auto) (0.1-1.2) % Neut # (Auto) (1.56-6.13) K/mm3 Lymph # (Auto) (1.18-3.74) K/mm3 Mccormick # (Auto) (0.24-0.36) K/mm3 Eos # (Auto) (0.04-0.36) K/mm3 Baso # (Auto) (0.01-0.08) K/mm3 Neutrophils % (Manual) 85 H (40-60) % Band Neutrophils % 0 (0-10) % Lymphocytes % (Manual) 7 L (20-40) % Atypical Lymphs % 0 % Monocytes % (Manual) 6 (2-10) % Eosinophils % (Manual) 2 (0.7-5.8) % Basophils % (Manual) 0 L (0.1-1.2) Platelet Estimate Adequate RBC Morph Comment Normal Sodium 137 (136-145) mEq/L Potassium 4.1 (3.5-5.1) mEq/L Chloride 100 (98-107) mEq/L Carbon Dioxide 27 (21-32) mEq/L Anion Gap 14.1 (5-15) BUN 17 (7-18) mg/dL Creatinine 0.8 (0.55-1.02) mg/dL Est Cr Clr Drug Dosing 40.29 mL/min Estimated GFR (MDRD) > 60 (>60) mL/min BUN/Creatinine Ratio 21.3 H (14-18) Glucose 110 (83-115) mg/dL Calcium 9.6 (8.5-10.1) mg/dL Total Bilirubin (0.2-1.0) mg/dL AST (15-37) U/L ALT (14-59) U/L Alkaline Phosphatase (46-116) U/L Total Protein (6.4-8.2) g/dl Albumin (3.4-5.0) g/dl Globulin gm/dL Albumin/Globulin Ratio (1-2) Urine Color (Yellow) Urine Appearance (Clear) Urine pH (5.0-8.0) Ur Specific [place] (1.005-1.030) Urine Protein (Negative) Urine Glucose (UA) (Negative) Urine Ketones (Negative) Urine Occult Blood (Negative) Urine Nitrite (Negative) Urine Bilirubin (Negative) Urine Urobilinogen (0.2-1.0) Ur Leukocyte Esterase (Negative) Urine RBC (0-5) /hpf Urine WBC (0-5) /hpf Urine WBC Clumps (NOT SEEN) /hpf Ur Squamous Epith Cells (0-5) /hpf Urine Bacteria (FEW) /hpf Hyaline Casts (0-5) /lpf Urine Mucus (FEW) /hpf Result Diagrams: 11/10/18 07:00 11/10/18 07:00 Problem List Initiated/Reviewed/Updated: Yes Orders Last 24hrs: Active Orders 24 hr Category Date Time Status Admission Status [Patient Status] [ADT] Routine ADT 11/10/18 04:11 Active NG [Gastrointestinal Tube Mgmt] [RC] ASDIRECTED Care 11/10/18 04:53 Active Notify Provider Consults [RC] ASDIRECTED Care 11/10/18 04:56 Active RT Aerosol Therapy [RC] ASDIRECTED Care 11/10/18 04:54 Active Up With Assistance [RC] ASDIRECTED Care 11/10/18 05:04 Active Consult to Physician [CONS] Routine Cons 11/10/18 04:53 Active Nothing Per Oral Diet [DIET] Diet 11/10/18 Breakfast Active Abdomen 2V AP Flat Upright [CR] Urgent Exams 11/10/18 08:57 Ordered Abdomen Pelvis w Cont [CT] Stat Exams 11/10/18 01:21 Taken CULTURE URINE [RM] Stat Lab 11/10/18 02:05 Received LIPASE [CHEM] Routine Lab 11/10/18 01:18 Received ALPRAZolam [Xanax] Med 11/10/18 06:46 Active 0.0625 mg PO BID PRN Albuterol [Proventil HFA] Med 11/10/18 06:46 Active 0 gm INH QID PRN Albuterol/Ipratropium [DuoNeb 3.0-0.5 MG/3 ML] Med 11/10/18 04:53 Active 3 ml NEB Q6HRRT PRN Budesonide [Pulmicort] Med 11/10/18 06:46 Active 0.5 mg NEB BID PRN Carboxymethylcellulose Sodium [Refresh Liquigel 1%] Med 11/10/18 08:45 Active 0 ml EYEBOTH BEDTIME PRN Carvedilol [Coreg] Med 11/10/18 09:00 Active 25 mg PO BID Citalopram [Celexa] Med 11/10/18 09:00 Active 20 mg PO DAILY HYDROmorphone [Dilaudid] Med 11/10/18 09:02 Active 1 mg IVPUSH Q1H PRN Levothyroxine Med 11/10/18 07:00 Active 112 mcg PO ACBREAKFAST Mometasone/Formoterol [Dulera 200-5 MCG] Med 11/10/18 09:00 Active 0 puff IH BID Ondansetron [Zofran] Med 11/10/18 04:53 Active 4 mg IVPUSH Q6H PRN Pantoprazole [ProTONIX] Med 11/10/18 21:00 Active 40 mg PO BEDTIME Promethazine [Phenergan] 12.5 mg Med 11/10/18 09:19 Active Sodium Chloride 0.9% [Normal Saline] 50 ml IV Q6H Sodium Chloride 0.9% [Normal Saline] 1,000 ml Med 11/10/18 05:00 Active IV ASDIRECTED Nasogastric Orogastric Tube Insertion [OM.PC] Routine Oth 11/10/18 04:06 Ordered Resuscitation Status Routine Resus Stat 11/10/18 04:58 Ordered Medication Orders Albuterol (Proventil Hfa) 0 gm INH QID PRN PRN Reason: Shortness of Breath Albuterol/Ipratropium (Duoneb 3.0-0.5 Mg/3 Ml) 3 ml NEB Q6HRRT PRN PRN Reason: Shortness of Breath Alprazolam (Xanax) 0.0625 mg PO BID PRN PRN Reason: Anxiety Artificial Tears (Refresh Liquigel 1%) 0 ml EYEBOTH BEDTIME PRN PRN Reason: dry eyes Budesonide (Pulmicort) 0.5 mg NEB BID PRN PRN Reason: Shortness of Breath Carvedilol (Coreg) 25 mg PO BID [facility] Last Admin: 11/10/18 09:11 Dose: Citalopram Hydrobromide (Celexa) 20 mg PO DAILY [facility] Last Admin: 11/10/18 09:10 Dose: Hydromorphone HCl (Dilaudid) 1 mg IVPUSH Q1H PRN PRN Reason: Abdominal Pain Last Admin: 11/10/18 09:18 Dose: 1 mg Sodium Chloride (Normal Saline) 1,000 mls @ 100 mls/hr IV ASDIRECTED [facility] Last Admin: 11/10/18 05:25 Dose: 100 mls/hr Promethazine HCl 12.5 mg/ (Sodium Chloride) 50.5 mls @ 100 mls/hr IV Q6H PRN PRN Reason: Nausea/Vomiting Levothyroxine Sodium (Levothyroxine) 112 mcg PO ACBREAKFAST [facility] Last Admin: 11/10/18 09:10 Dose: Mometasone Furoate/Formoterol Fumar (Dulera 200-5 Mcg) 0 puff IH BID [facility] Last Admin: 11/10/18 08:30 Dose: 2 puff Ondansetron HCl (Zofran) 4 mg IVPUSH Q6H PRN PRN Reason: Nausea Last Admin: 11/10/18 08:12 Dose: 4 mg Pantoprazole Sodium (Protonix) 40 mg PO BEDTIME [facility] Assessment/Plan Comment:: Assessment * 6-year-old female with history of recurrent small bowel obstructions, hypertension and exertional chest pain since to the emergency room with abdominal pain, nausea, and vomiting with small bowel obstruction on CT. * UTI Plan * Patient was admitted overnight and arrangements for transfer to [place] were made this morning. IV fluids and pain medicines have been given. Dr. Kent consultative Dr. Phoenix, the on-call hospitalist, and surgery and they accepted patient for transfer. * Rocephin 1 g IV. Patient has a history of hives with cephalexin, but she also has multiple antibiotic allergies. We will assess for allergic reaction and treat appropriately if she develops hives. * Continue NG tube. * IV Lopressor when necessary for hypertension or tachycardia. * Patient be transferred via EMS. - Mortality Measure Prognosis:: Poor
--- NOTE | 2018-11-10 09:54 | PCM.DCSUM1 ---
Discharge Summary - Hospital Course HPI Initial Comments: 78-year-old female that has a history of tender 12 different episodes of small bowel obstruction, last in 2011 when she had surgery and was in the hospital for over 60 days, presented to the emergency room late last night, early this morning. At 2200 last night she developed abdominal pain with minimal nausea. She presented to the emergency room with multiple bouts of pain and vomiting. CT the abdomen did show partial small bowel obstruction. In the emergency room at NG tube was placed, she was given fluid, and a limited for further evaluation. Dr. Kent was consultative in surgery. Patient told Dr. Kent that she does have chest pain with exertion and she does have a history of hypertension. There was concern that if she needs surgery we would not be able to do it at this facility. Dr. Kent recommended transfer to [place] for higher level of care. Labs: CBC 9.0, hemoglobin 13.4, platelets 158, sodium 137, potassium 4.1, chloride 100, BUN 17, creatinine 0.8, glucose 110, calcium 9.6, total bilirubin 0.3, AST 40, ALT 45, alkaline phosphatase 98, albumin 3.7. UA showed 10-20 WBCs , but 5-10 epithelial cells. Nitrites were positive. Diagnosis: Stroke: No - Discharge Data Discharge Date: 11/10/18 Discharge Disposition: DC/Tfer to Acute Hospital 02 Condition: Good - Referral to Home Health Primary Care Physician: PCP Unknown - Patient Summary/Data Consults: Consultations 11/10/18 04:53 Consult to Physician [CONS] Routine - Patient Instructions Diet: NPO Activity: Bedrest - Discharge Plan *PRESCRIPTION DRUG MONITORING PROGRAM REVIEWED*: No *COPY OF PRESCRIPTION DRUG MONITORING REPORT IN PATIENT EMMETT: No Home Medications: Home Meds Nitroglycerin 0.4 mg SL ASDIRECTED PRN 01/30/14 [History] Dextran 70/Hypromellose [Artificial Tears] 1 drop EYEBOTH BEDTIME PRN 05/05/14 [ History] Furosemide 40 mg PO DAILY PRN 03/27/15 [History] Carvedilol [Coreg] 25 mg PO BID 03/17/16 [History] Potassium Chloride [Klor-Con 10] 10 meq PO ASDIRECTED 03/17/16 [History] Ondansetron HCl [Zofran] 8 mg PO TID PRN 02/27/18 [History] Polyethylene Glycol 3350 [MiraLAX] 1 scoop PO Q48H PRN 02/27/18 [History] ALPRAZolam [Xanax] 0.0625 mg PO BID PRN 11/10/18 [History] Albuterol/Ipratropium [Combivent Respimat] 1 inh INH QID PRN 11/10/18 [History] Budesonide [Pulmicort] 1 dose NEB BID PRN 11/10/18 [History] Budesonide/Formoterol Fumarate [Symbicort 160-4.5 Mcg Inhaler] 2 inh PO BID [History] Clobetasol [Clobetasol Propionate 0.05% Cream] 1 applic TOP BID PRN 11/10/18 [ History] Colchicine 0.6 mg PO DAILY PRN 11/10/18 [History] Escitalopram [Lexapro] 10 mg PO DAILY 11/10/18 [History] HYDROmorphone [Dilaudid] 4 mg PO Q4H PRN 11/10/18 [History] Levothyroxine Sodium [Synthroid] 112 mcg PO ACBREAKFAST 11/10/18 [History] Omeprazole Magnesium [Prilosec Otc] 20 mg PO BEDTIME 11/10/18 [History] Triamcinolone Acetonide [Triamcinolone Acetonide 0.1% Crm] 1 each TOP BID PRN [History] Oxygen Therapy Mode: Room Air Maintain SpO2% greater than: 92 Referrals: PCP,Unknown [Primary Care Provider] - - Discharge Summary/Plan Comment DC Time >30 min.: Yes Discharge Summary/Plan Comment: Assessment * 6-year-old female with history of recurrent small bowel obstructions, hypertension and exertional chest pain since to the emergency room with abdominal pain, nausea, and vomiting with small bowel obstruction on CT. * UTI Plan * Patient was admitted overnight and arrangements for transfer to [place] were made this morning. IV fluids and pain medicines have been given. Dr. Kent consultative Dr. Phoenix, the on-call hospitalist, and surgery and they accepted patient for transfer. * Rocephin 1 g IV. Patient has a history of hives with cephalexin, but she also has multiple antibiotic allergies. We will assess for allergic reaction and treat appropriately if she develops hives. * Continue NG tube. * IV Lopressor when necessary for hypertension or tachycardia. * Patient be transferred via EMS. - Patient Data Vitals - Most Recent: Last Vital Signs Temp 98.1 F 11/10/18 09:09 Pulse 78 11/10/18 09:09 Resp 16 11/10/18 09:09 BP 135/63 11/10/18 09:07 Pulse Ox 97 11/10/18 09:09 Weight - Most Recent: 162 lb Lab Results - Last 24 hrs: Laboratory Results - last 24 hr 11/10/18 11/10/18 11/10/18 Range/Units 01:18 01:18 02:05 WBC 8.41 (3.98-10.04) K/mm3 RBC 4.19 (3.98-5.22) M/mm3 Hgb 13.0 (11.2-15.7) gm/dl Hct 38.5 (34.1-44.9) % MCV 91.9 (79.4-94.8) fl MCH 31.0 (25.6-32.2) pg MCHC 33.8 (32.2-35.5) g/dl RDW Std Deviation 41.6 (36.4-46.3) fL Plt Count 185 (182-369) K/mm3 MPV 9.0 L (9.4-12.3) fl Neut % (Auto) 64.1 (34.0-71.1) % Lymph % (Auto) 26.3 (19.3-51.7) % Jerome % (Auto) 6.9 (4.7-12.5) % Eos % (Auto) 2.1 (0.7-5.8) Baso % (Auto) 0.5 (0.1-1.2) % Neut # (Auto) 5.39 (1.56-6.13) K/mm3 Lymph # (Auto) 2.21 (1.18-3.74) K/mm3 Jerome # (Auto) 0.58 H (0.24-0.36) K/mm3 Eos # (Auto) 0.18 (0.04-0.36) K/mm3 Baso # (Auto) 0.04 (0.01-0.08) K/mm3 Neutrophils % (Manual) (40-60) % Band Neutrophils % (0-10) % Lymphocytes % (Manual) (20-40) % Atypical Lymphs % % Monocytes % (Manual) (2-10) % Eosinophils % (Manual) (0.7-5.8) % Basophils % (Manual) (0.1-1.2) Platelet Estimate RBC Morph Comment Sodium 137 (136-145) mEq/L Potassium 4.3 (3.5-5.1) mEq/L Chloride 103 (98-107) mEq/L Carbon Dioxide 27 (21-32) mEq/L Anion Gap 11.3 (5-15) BUN 17 (7-18) mg/dL Creatinine 0.8 (0.55-1.02) mg/dL Est Cr Clr Drug Dosing 44.36 mL/min Estimated GFR (MDRD) > 60 (>60) mL/min BUN/Creatinine Ratio 21.3 H (14-18) Glucose 106 (83-115) mg/dL Calcium 9.5 (8.5-10.1) mg/dL Total Bilirubin 0.3 (0.2-1.0) mg/dL AST 40 H (15-37) U/L ALT 45 (14-59) U/L Alkaline Phosphatase 98 (46-116) U/L Total Protein 7.3 (6.4-8.2) g/dl Albumin 3.7 (3.4-5.0) g/dl Globulin 3.6 gm/dL Albumin/Globulin Ratio 1.0 (1-2) Urine Color Yellow (Yellow) Urine Appearance Slt cloudy H (Clear) Urine pH 6.0 (5.0-8.0) Ur Specific [place] 1.020 (1.005-1.030) Urine Protein Negative (Negative) Urine Glucose (UA) Negative (Negative) Urine Ketones Negative (Negative) Urine Occult Blood 1+ H (Negative) Urine Nitrite Positive H (Negative) Urine Bilirubin Negative (Negative) Urine Urobilinogen 0.2 (0.2-1.0) Ur Leukocyte Esterase Trace H (Negative) Urine RBC 5-10 H (0-5) /hpf Urine WBC 10-20 H (0-5) /hpf Urine WBC Clumps Rare (NOT SEEN) /hpf Ur Squamous Epith Cells 5-10 H (0-5) /hpf Urine Bacteria Many H (FEW) /hpf Hyaline Casts 0-5 (0-5) /lpf Urine Mucus Moderate H (FEW) /hpf 11/10/18 11/10/18 Range/Units 07:00 07:00 WBC 9.05 (3.98-10.04) K/mm3 RBC 4.29 (3.98-5.22) M/mm3 Hgb 13.4 (11.2-15.7) gm/dl Hct 39.5 (34.1-44.9) % MCV 92.1 (79.4-94.8) fl MCH 31.2 (25.6-32.2) pg MCHC 33.9 (32.2-35.5) g/dl RDW Std Deviation 41.7 (36.4-46.3) fL Plt Count 158 L (182-369) K/mm3 MPV 9.7 (9.4-12.3) fl Neut % (Auto) (34.0-71.1) % Lymph % (Auto) (19.3-51.7) % Jerome % (Auto) (4.7-12.5) % Eos % (Auto) (0.7-5.8) Baso % (Auto) (0.1-1.2) % Neut # (Auto) (1.56-6.13) K/mm3 Lymph # (Auto) (1.18-3.74) K/mm3 Jerome # (Auto) (0.24-0.36) K/mm3 Eos # (Auto) (0.04-0.36) K/mm3 Baso # (Auto) (0.01-0.08) K/mm3 Neutrophils % (Manual) 85 H (40-60) % Band Neutrophils % 0 (0-10) % Lymphocytes % (Manual) 7 L (20-40) % Atypical Lymphs % 0 % Monocytes % (Manual) 6 (2-10) % Eosinophils % (Manual) 2 (0.7-5.8) % Basophils % (Manual) 0 L (0.1-1.2) Platelet Estimate Adequate RBC Morph Comment Normal Sodium 137 (136-145) mEq/L Potassium 4.1 (3.5-5.1) mEq/L Chloride 100 (98-107) mEq/L Carbon Dioxide 27 (21-32) mEq/L Anion Gap 14.1 (5-15) BUN 17 (7-18) mg/dL Creatinine 0.8 (0.55-1.02) mg/dL Est Cr Clr Drug Dosing 40.29 mL/min Estimated GFR (MDRD) > 60 (>60) mL/min BUN/Creatinine Ratio 21.3 H (14-18) Glucose 110 (83-115) mg/dL Calcium 9.6 (8.5-10.1) mg/dL Total Bilirubin (0.2-1.0) mg/dL AST (15-37) U/L ALT (14-59) U/L Alkaline Phosphatase (46-116) U/L Total Protein (6.4-8.2) g/dl Albumin (3.4-5.0) g/dl Globulin gm/dL Albumin/Globulin Ratio (1-2) Urine Color (Yellow) Urine Appearance (Clear) Urine pH (5.0-8.0) Ur Specific [place] (1.005-1.030) Urine Protein (Negative) Urine Glucose (UA) (Negative) Urine Ketones (Negative) Urine Occult Blood (Negative) Urine Nitrite (Negative) Urine Bilirubin (Negative) Urine Urobilinogen (0.2-1.0) Ur Leukocyte Esterase (Negative) Urine RBC (0-5) /hpf Urine WBC (0-5) /hpf Urine WBC Clumps (NOT SEEN) /hpf Ur Squamous Epith Cells (0-5) /hpf Urine Bacteria (FEW) /hpf Hyaline Casts (0-5) /lpf Urine Mucus (FEW) /hpf Med Orders - Current: Current Medications Albuterol (Proventil Hfa) 0 gm INH QID PRN PRN Reason: Shortness of Breath Albuterol/Ipratropium (Duoneb 3.0-0.5 Mg/3 Ml) 3 ml NEB Q6HRRT PRN PRN Reason: Shortness of Breath Alprazolam (Xanax) 0.0625 mg PO BID PRN PRN Reason: Anxiety Artificial Tears (Refresh Liquigel 1%) 0 ml EYEBOTH BEDTIME PRN PRN Reason: dry eyes Budesonide (Pulmicort) 0.5 mg NEB BID PRN PRN Reason: Shortness of Breath Carvedilol (Coreg) 25 mg PO BID IRVIN Last Admin: 11/10/18 09:11 Dose: Not Given Citalopram Hydrobromide (Celexa) 20 mg PO DAILY [facility] Last Admin: 11/10/18 09:10 Dose: Not Given Hydromorphone HCl (Dilaudid) 1 mg IVPUSH Q1H PRN PRN Reason: Abdominal Pain Last Admin: 11/10/18 09:18 Dose: 1 mg Sodium Chloride (Normal Saline) 1,000 mls @ 100 mls/hr IV ASDIRECTED [facility] Last Admin: 11/10/18 05:25 Dose: 100 mls/hr Promethazine HCl 12.5 mg/ (Sodium Chloride) 50.5 mls @ 100 mls/hr IV Q6H PRN PRN Reason: Nausea/Vomiting Levothyroxine Sodium (Levothyroxine) 112 mcg PO ACBREAKFAST [facility] Last Admin: 11/10/18 09:10 Dose: Not Given Mometasone Furoate/Formoterol Fumar (Dulera 200-5 Mcg) 0 puff IH BID [facility] Last Admin: 11/10/18 08:30 Dose: 2 puff Ondansetron HCl (Zofran) 4 mg IVPUSH Q6H PRN PRN Reason: Nausea Last Admin: 11/10/18 08:12 Dose: 4 mg Pantoprazole Sodium (Protonix) 40 mg PO BEDTIME [facility] Discontinued Medications Artificial Tears (Liquitears 1.4% Ophth Soln) 0 ml EYEBOTH BEDTIME PRN PRN Reason: dry eyes Hydromorphone HCl (Dilaudid) 1 mg IVPUSH ONETIME ONE Stop: 11/10/18 01:23 Last Admin: 11/10/18 01:32 Dose: 1 mg Hydromorphone HCl (Dilaudid) 1 mg IVPUSH ONETIME ONE Stop: 11/10/18 02:15 Last Admin: 11/10/18 02:19 Dose: 1 mg Hydromorphone HCl (Dilaudid) 0.5 mg IVPUSH ONETIME ONE Stop: 11/10/18 03:14 Last Admin: 11/10/18 03:17 Dose: 0.5 mg Hydromorphone HCl (Dilaudid) 0.5 mg IVPUSH Q1H PRN PRN Reason: Pain Last Admin: 11/10/18 08:03 Dose: 0.5 mg Iopamidol (Isovue-300 (61%)) 100 ml IVPUSH ONETIME ONE Stop: 11/10/18 01:46 Last Admin: 11/10/18 01:48 Dose: 100 ml Lidocaine HCl (Xylocaine 2% Jelly) Confirm Administered Dose 10 ml .ROUTE .STK- MED ONE Stop: 11/10/18 04:02 Last Admin: 11/10/18 08:17 Dose: Not Given Ondansetron HCl (Zofran) 4 mg IVPUSH ONETIME ONE Stop: 11/10/18 01:23 Last Admin: 11/10/18 01:31 Dose: 4 mg
[2018-11-10] MEDS ORDERED: cefTRIAXone 1 GM in Sodium Chloride 0.9% 100 ML IV ONE (09:59)
--- NOTE | 2018-11-10 10:49 | CR ---
Abdomen: Supine and upright views of the abdomen were obtained. Comparison: Prior abdominal x-ray of 02/27/[address] abdomen and pelvis exam performed earlier on the same day (1:42 AM). Nasogastric tube is seen. Tip lies within the distal stomach. 2 surgical clips are identified prior cholecystectomy. Previous lumbar spine surgery is noted. Prolapse bladder is identified. Contrast is noted within the bladder from recent CT exam. Mild increased stool noted within the right colon. Air-fluid levels are noted on the upright view within slightly prominent small bowel loops. No free air is seen. Impression: 1. Findings compatible with mild mid to distal partial small bowel obstruction. 2. Prolapse of the bladder. 3. Satisfactory position of nasogastric tube. Diagnostic code #3
[2018-11-10] MEDS ORDERED: Pantoprazole 40 MG Tab.CR PO SCH (21:00)
--- NOTE | 2018-11-11 10:58 | CT ---
CT abdomen and pelvis Technique: Multiple axial sections were obtained from above the dome of the diaphragm inferiorly through the pubic symphysis. Intravenous contrast was given. No oral contrast has been utilized. Comparison: Previous CT abdomen and pelvis exam of 07/01/15. Findings: Visualized lung bases show nothing acute. Liver contains no focal abnormality. Minimal intrahepatic biliary duct dilatation is seen likely residual from prior cholecystectomy. Spleen appears within normal limits. Small nodule medial to the spleen compatible with accessory splenic tissue. Pancreas shows no abnormality. Adrenal glands show no nodule. Kidneys show symmetric contrast enhancement without hydronephrosis or mass. Aorta shows atherosclerotic calcification which continues into the iliac vessels. No aneurysm is seen. Artifact is noted from previous lumbar spine surgery which occurs from L3-S1. No retroperitoneal adenopathy or mesenteric abnormalities are seen. No pelvic mass or adenopathy is seen. Slight increased stool is noted within the right colon. Mildly dilated small bowel loops are seen within the mid and distal abdomen. Findings are felt compatible with mild mild partial small bowel obstruction. Point of transition is within the distal ileum which is most likely due to adhesion. Anastomotic sutures are seen within bowel. No free fluid is seen. No inflammatory change is seen. Appendix not visualized with certainty. Delayed images show contrast excretion into both ureters and within the bladder. Impression: 1. Findings compatible with partial distal small bowel obstruction which is most likely due to adhesions. 2. Increased stool within the right colon. 3. Other findings as described above believed to be incidental and nonacute. Diagnostic code #3 I agree with preliminary report from [facility], finalized on 11/10/18, 4:03 AM Central Time
--- NOTE | 2018-11-12 07:48 | CONS ---
CONSULTING PHYSICIAN: Gregory Damon MD DATE OF CONSULTATION: 11/10/2018 HISTORY OF PRESENT ILLNESS: This is an 78-year-old female I was asked to consult concerning a bowel obstruction. Generalized abdominal pain began about 10 p.m. yesterday evening, progressively worse. She took a little Dilaudid home tablet just before midnight, but continued to have pain, and then had some nausea and vomiting. She presented to the ER giving a history of this abdominal pain plus a history of having 10 adhesive surgeries due to small bowel obstruction; her last [place] in [address] Cruz. The patient states that the pain feels similar to this. She has had surgeries of hysterectomy, cholecystectomy, and appendectomy. She has not had any passage of stool or gas. Her last bowel movement was yesterday morning and has had a poor appetite. The patient was placed in the hospital on medical service, surgical consultation obtained, NG tube placed. The patient continued to have abdominal pain, requiring Dilaudid. PAST MEDICAL HISTORY: Elevated cholesterol. She states a history of asbestos exposure, some COPD. She is on oxygen 1 L at night. She has some polymyalgias, anxiety and depression treated, hypothyroidism, vitamin D deficiency. REVIEW OF SYSTEMS: Has some chest pain she says if she exerts herself. Has some nausea and vomiting as stated above and abdominal pain. No smoking history. No drug use. No fever or chills. PHYSICAL EXAMINATION: VITAL SIGNS: Temperature 97, pulse 71, respirations 12 to 14, blood pressure 134/70, pulse oximeter 99 on 1 L. GENERAL: The patient's chief complaint is abdominal pain. HEENT: Eyes unremarkable. NECK: Supple. LUNGS: No respiratory distress, rales, or rhonchi. HEART: Tones regular rate. EXTREMITIES: Upper and lower extremities, no angulation deformities. NEUROLOGIC: Normal. PSYCHIATRIC: Anxious. SKIN: Warm and dry. ABDOMEN: Shows number of surgical incisions. No inguinal hernias appreciated or femoral hernias. No ventral hernias noted. Tenderness is mild throughout the abdomen, but point tenderness in the left lower quadrant with some guarding, which is a change from her admission. Bowel sounds are occasional. LABORATORY DATA: Reviewed. CT scan demonstrates a dilated small bowel leading up to anastomosis with deflated bowel after the anastomosis. MEDICATIONS: Reviewed. ASSESSMENT: Small bowel obstruction; chronic obstructive pulmonary disease; asbestos exposure, on oxygen; history of chest pain; coronary artery disease. RECOMMENDATIONS: Because of the patient's medical problems and high possibility needs, she should be transferred. I have called [facility] and Dr. Shaw and Dr. Sanchez has graciously accepted her in transfer. MEGAN /[id number]
== END 2018-11-10 11:35 | DRG 389 ==
LOC: JD.ED 01:09 → JD.MS 04:11
PROVIDERS: ADMIT Emergency Medicine; ATTEND Family Medicine
DX: K56.600 Partial intestinal obstruction, unspecified as to cause (principal); R10.84 Generalized abdominal pain; N39.0 Urinary tract infection, site not specified; I10 Essential (primary) hypertension; R07.9 Chest pain, unspecified; H54.7 Unspecified visual loss; I25.10 Atherosclerotic heart disease of native coronary artery without angina pectoris; E78.00 Pure hypercholesterolemia, unspecified; M19.90 Unspecified osteoarthritis, unspecified site; Z99.81 Dependence on supplemental oxygen; M79.7 Fibromyalgia; M81.0 Age-related osteoporosis without current pathological fracture; M35.3 Polymyalgia rheumatica; F41.9 Anxiety disorder, unspecified; E03.9 Hypothyroidism, unspecified; E55.9 Vitamin D deficiency, unspecified; J44.9 Chronic obstructive pulmonary disease, unspecified; Z77.090 Contact with and (suspected) exposure to asbestos; Z98.49 Cataract extraction status, unspecified eye; Z95.5 Presence of coronary angioplasty implant and graft; Z90.49 Acquired absence of other specified parts of digestive tract; Z79.899 Other long term (current) drug therapy; Z88.1 Allergy status to other antibiotic agents; Z88.8 Allergy status to other drugs, medicaments and biological substances; Z88.2 Allergy status to sulfonamides; Z95.0 Presence of cardiac pacemaker; Z86.010 Personal history of colon polyps; Z88.5 Allergy status to narcotic agent; Z90.710 Acquired absence of both cervix and uterus
CPT/HCPCS: 36415; 74177; 80053; 81001; 83690; 85025; 87086; 87088; 87186; 96374; 96375; 96376; 99285; J1170 ×3; J2405; Q9967; 74019; 74019-26; 80048; 85007; 85027; 94640; 94760; A9270-GY; J0696; J7030; J7040

== ENCOUNTER 2019-01-07 06:55 | Day surgery (SDC) | payer MEDICARE, BC ==
[~2019-01-07 06:55] MED LIST: Albuterol 0.083% 2.5 MG/3 ML Neb Soln NEB SCH; Lactated Ringers 1,000 ML IV SCH; Lidocaine 1%/Sod Bicarbonate in NS 8.4% 1 ML Syringe IDERM PRN; Sodium Chloride 0.9% 10 ML Syringe FLUSH PRN
[2019-01-07] MEDS ORDERED: Propofol 200 MG/20 ML SDV ONE (07:20)
--- NOTE | 2019-01-07 07:34 | PCM.PREANE ---
Preanesthetic Assessment - Anesthesia/Transfusion/Family Hx Anesthesia History: Prior Anesthesia Without Reaction Family History of Anesthesia Reaction: No Transfusion History: Prior Transfusion Without Reaction - Review of Systems General: No Symptoms Pulmonary: Shortness of Breath (pulmonary asbestosis, O2 at night at 2 liters) Cardiovascular: Chest Pain (used nitrostat on 01/02 with no success, pt felt like it was more stomache issues), Palpitations, Dyspnea on Exertion Gastrointestinal: Abdominal Pain (takes narcotics on daily basis for abd pain), Constipation, Other (hiatal hernia) Neurological: No Symptoms Other: Reports: None, Thyroid Problems - Physical Assessment NPO Status Date: 01/06/19 NPO Status Time: 22:00 Weight: 67.4 kg ASA Class: 3 Mental Status: Alert & Oriented x3 Dentition: Reports: Dentures (upper) Thyro-Mental Finger Breadths: 3 Mouth Opening Finger Breadths: 3 ROM/Head Extension: Full Lungs: Clear to Auscultation, Normal Respiratory Effort Cardiovascular: Regular Rate, Regular Rhythm - Imaging/EKG Impressions: echo 2017-EF 70% EKG SR with borderline LAD - Allergies Allergies/Adverse Reactions: Allergies Allergy/AdvReac Type Severity Reaction Status Date / Time aspirin Allergy bloody Verified 01/04/19 13:30 noses candesartan [From Atacand] Allergy Shortness Verified 01/04/19 13:30 of Breath cephalexin monohydrate Allergy Hives Verified 01/04/19 13:30 [From Keflex] diltiazem [From Cardizem] Allergy Confusion Verified 01/04/19 13:30 doxycycline Allergy Hives Verified 01/04/19 13:30 duloxetine [From Cymbalta] Allergy difficultly Verified 01/04/19 13:30 walking evolocumab Allergy Muscle Verified 01/04/19 13:30 [From Repatha Pushtronex] Aches fluvoxamine [From Luvox] Allergy Headache Verified 01/04/19 13:30 hydralazine Allergy Nausea Verified 01/04/19 13:30 hydrochlorothiazide Allergy Headache Verified 01/04/19 13:30 hyoscyamine Allergy Vaginitis Verified 01/04/19 13:30 levofloxacin [From Levaquin] Allergy Hives Verified 01/04/19 13:30 losartan Allergy Headache Verified 01/04/19 13:30 pitavastatin [From Livalo] Allergy Cannot Verified 01/04/19 13:30 Remember sertraline Allergy nightmares Verified 01/04/19 13:30 sulfamethoxazole Allergy Hives Verified 01/04/19 13:30 amlodipine AdvReac Body Aches Verified 01/04/19 13:30 atorvastatin calcium AdvReac Muscle Verified 01/04/19 13:30 [From Lipitor] Aches bupropion HCl AdvReac Other Verified 01/04/19 13:30 [From Wellbutrin] colesevelam HCl AdvReac Muscle Verified 01/04/19 13:30 [From WelChol] Aches ezetimibe [From Zetia] AdvReac Muscle Verified 01/04/19 13:30 Aches gabapentin AdvReac Blurred Verified 01/04/19 13:30 Vision ibandronate sodium AdvReac Shortness Verified 01/04/19 13:30 [From Boniva] of Breath levothyroxine sodium AdvReac Other Verified 01/04/19 13:30 lisinopril AdvReac Cough Verified 01/04/19 13:30 mannitol [From Reclast] AdvReac Confusion Verified 01/04/19 13:30 morphine AdvReac Other Verified 01/04/19 13:30 niacin AdvReac Muscle Verified 01/04/19 13:30 Aches phenobarbital AdvReac Other Verified 01/04/19 13:30 pravastatin sodium AdvReac Muscle Verified 01/04/19 13:30 [From Pravachol] Aches prochlorperazine edisylate AdvReac Tremors Verified 01/04/19 13:30 [From Compazine] prochlorperazine maleate AdvReac Tremors Verified 01/04/19 13:30 [From Compazine] promethazine HCl AdvReac Other Verified 01/04/19 13:30 [From Phenergan] rosuvastatin calcium AdvReac Body Aches Verified 01/04/19 13:30 [From Crestor] sertraline HCl [From Zoloft] AdvReac Other Verified 01/04/19 13:30 simvastatin [From Zocor] AdvReac Muscle Verified 01/04/19 13:30 Aches trazodone AdvReac Other Verified 01/04/19 13:30 water for injection,sterile AdvReac Confusion Verified 01/04/19 13:30 [From Reclast] zoledronic acid AdvReac Confusion Verified 01/04/19 13:30 [From Reclast] zolpidem tartrate AdvReac Other Verified 01/04/19 13:30 [From Ambien] - Blood Blood Available: No Product(s) Available: None - Anesthesia Plan Pre-Op Medication Ordered: None Beta Vickey: Carvedilol Med Last Dose Date: 01/07/19 Med Last Dose Time: 05:30 - Acknowledgements Anesthesia Type Planned: MAC Pt an Appropriate Candidate for the Planned Anesthesia: Yes Alternatives and Risks of Anesthesia Discussed w Pt/Guardian: Yes Pt/Guardian Understands and Agrees with Anesthesia Plan: Yes PreAnesthesia Questionnaire HEENT History: Reports: Impaired Vision Other HEENT History: Wears glasses Cardiovascular History: Reports: CAD, High Cholesterol, Hypertension Other Cardiovascular History: temporal arteritis Respiratory History: Reports: Other (See Below) Other Respiratory History: pulmonary asbestosis, respiratory failure with hypoxia, oxygen at 2-3L via nasal canula. Gastrointestinal History: Reports: Bowel Obstruction, Colon Polyp, Hiatal Hernia Other Gastrointestinal History: states esophagus doesn't work like it normally should. x10 bowel obstructions in the past with surgical intervention. 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: Musculoskeletal History: Reports: Arthritis, Fibromyalgia, Osteoporosis Other Musculoskeletal History: polymyalgia rhuematica, fibromyalgia, osteoporosis, hip pain Neurological History: Reports: Seizure Other Neuro History: as a child Psychiatric History: Reports: Anxiety, Depression, Panic Attack, Other (See Below) Other Psychiatric History: insomnia, opiod dependence, abnormal dreams Endocrine/Metabolic History: Reports: Hypothyroidism, Vitamin D Deficiency Hematologic History: Reports: Other (See Below) Other Hematologic History: Vitamin D deficiency Immunologic History: Reports: None Oncologic (Cancer) History: Reports: None Dermatologic History: Reports: Other (See Below) Other Dermatologic History: plantar wart x 2 - Infectious Disease History Infectious Disease History: Reports: Chicken Pox - Past Surgical History HEENT Surgical History: Reports: Cataract Surgery, Oral Surgery, Other (See Below) Other HEENT Surgeries/Procedures: removed right Saliva gland. 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), multiple operations for SBO, repair rectocele and cystocele Female Surgical History: Reports: Breast Reduction, D&C, Hysterectomy, Salpingo-Oophorectomy, Tubal Ligation Other Female Surgeries/Procedures: bladder and rectal repair Endocrine Surgical History: Reports: None Neurological Surgical History: Reports: Laminectomy, Lumbar Spine Musculoskeletal Surgical History: Reports: Shoulder Surgery, Other (See Below) Other Musculoskeletal Surgeries/Procedures:: Right shoulder, foot surgery x2 Oncologic Surgical History: Reports: None Other Oncologic Surgeries/Procedures: PUBLICATION MANAGER inquired if Patient had PMHx of Cancer /Radiation or Chemotherapy: Patient reported None. Dermatological Surgical History: Reports: None - SUBSTANCE USE Smoking Status *Q: Never Smoker Recreational Drug Use History: No - HOME MEDS Home Medications: Home Meds Nitroglycerin 0.4 mg SL ASDIRECTED PRN 01/30/14 [History] Dextran 70/Hypromellose [Artificial Tears] 1 drop EYEBOTH BEDTIME PRN 05/05/14 [ History] Furosemide 40 mg PO DAILY PRN 03/27/15 [History] Carvedilol [Coreg] 25 mg PO BID 03/17/16 [History] Potassium Chloride [Klor-Con 10] 20 meq PO DAILY 03/17/16 [History] Ondansetron HCl [Zofran] 8 mg PO TID PRN 02/27/18 [History] Polyethylene Glycol 3350 [MiraLAX] 1 scoop PO DAILY PRN 02/27/18 [History] ALPRAZolam [Xanax] 0.25 mg PO Q8H PRN 11/10/18 [History] Albuterol/Ipratropium [Combivent Respimat] 1 inh INH Q4H PRN 11/10/18 [History] Budesonide/Formoterol Fumarate [Symbicort 160-4.5 Mcg Inhaler] 2 inh PO BID [History] Colchicine 0.6 mg PO DAILY PRN 11/10/18 [History] HYDROmorphone [Dilaudid] 4 mg PO Q4H PRN 11/10/18 [History] Levothyroxine Sodium [Synthroid] 112 mcg PO ACBREAKFAST 11/10/18 [History] Omeprazole Magnesium [Prilosec Otc] 20 mg PO BEDTIME 11/10/18 [History] Triamcinolone Acetonide [Triamcinolone Acetonide 0.1% Crm] 1 each TOP BID PRN [History] Acetaminophen [Tylenol] 650 g PO Q4H PRN 01/04/19 [History] Diazepam [Valium] 5 mg PO BEDTIME 01/04/19 [History] Docusate Sodium/Sennosides [Senokot-S] 2 tab PO BID PRN 01/04/19 [History] - CURRENT (IN HOUSE) MEDS Current Meds: Current Medications Albuterol (Proventil Neb Soln) 2.5 mg NEB ONETIME IRVIN Stop: 01/07/19 18:00 Lactated Ringer's (Ringers, Lactated) 1,000 mls @ 125 mls/hr IV ASDIRECTED IRVIN Stop: 01/07/19 23:00 Lidocaine/Sodium Bicarbonate (Buffered Lidocaine 1% In Ns 8.4%) 0.25 ml IDERM ONETIME PRN PRN Reason: Prior to IV Start Stop: 01/07/19 18:00 Sodium Chloride (Saline Flush) 10 ml FLUSH ASDIRECTED PRN PRN Reason: Keep Vein Open Stop: 01/07/19 18:00 Discontinued Medications Propofol (Diprivan 20 Ml) Confirm Administered Dose 200 mg .ROUTE .STK-MED ONE Stop: 01/07/19 07:21
--- NOTE | 2019-01-07 08:26 | PCM48HPAN ---
Post Anesthesia Note - EVALUATION WITHIN 48HRS OF ANESTHETIC Vital Signs in Normal Range: Yes Patient Participated in Evaluation: Yes Respiratory Function Stable: Yes Airway Patent: Yes Cardiovascular Function Stable: Yes Hydration Status Stable: Yes Pain Control Satisfactory: Yes Nausea and Vomiting Control Satisfactory: Yes Mental Status Recovered: Yes Vital Signs: Last Vital Signs Temp Pulse Resp BP Pulse Ox 98 01/07/19 07:51
--- NOTE | 2019-01-07 08:58 | PROC ---
DATE OF OPERATION: 01/07/2019 SURGEON: Dc Ramirez MD PREOPERATIVE DIAGNOSIS: Left upper quadrant pain. POSTOPERATIVE DIAGNOSES: 1. Gastritis. 2. Small hiatal hernia. 3. Esophageal varices. OPERATION PERFORMED: Esophagogastroduodenoscopy. ESTIMATED BLOOD LOSS: Minimal. ANESTHESIA: Monitored anesthesia care. INDICATION AND CONSENT: Ms. Sun is an 78-year-old female who has been having left upper quadrant pain. The patient had history of prior upper GI bleeding, but not currently. She was recently hospitalized for small bowel obstruction, but continued to have this epigastric and left upper quadrant pain. Therefore, she was evaluated in the clinic and recommended that she undergoes an EGD to rule out any stomach problems. The patient agreed to proceed with the procedure. Informed consent was obtained. DETAILS OF PROCEDURE: The patient was taken to the procedure room, placed in the left lateral decubitus position. Following induction of monitored anesthesia care, formal time-out was performed and then procedure began. EGD scope was advanced through the mouth down the esophagus. At this time, we observed several engorged veins consistent with esophageal varices in the mid esophagus. The scope was advanced down to the GE junction. The Z-line was regular. The GE junction appeared to be normal mucosa and at around 36 cm from the incisors. The scope was wedged into the stomach. There were areas of localized erythema and irritation of the stomach consistent with gastritis. There were no ulcers that were observed in this exam. The scope was advanced all the way to the 2nd portion of duodenum. The duodenum appeared normal. On withdrawal, we biopsied the antrum for H. pylori and stomach and body for histologic examination and then on retroflexion, we observed a small hiatal hernia without any Davin ulcers. The cardia appeared to be normal. The biopsies were taken with regular cold forceps. EBL was minimal. The scope was once again slowly withdrawn. No new findings were noted at this time, and the stomach was desufflated. The scope was removed. No immediate complication. The patient was taken to the PACU for recovery. We recommend the patient will be discharged home today. The patient will continue to take PPIs and will see Jennifer in 2 weeks for postop followup. MMODAL /[id number] [facility]
[2019-01-07 09:05] VITALS: BP 117/67; PULSE 56
== END 2019-01-07 09:15 | disposition home or self-care (01) ==
LOC: JD.SDS 06:55
PROVIDERS: ATTEND Surgery
DX: K29.31 Chronic superficial gastritis with bleeding (principal); K44.9 Diaphragmatic hernia without obstruction or gangrene; I85.00 Esophageal varices without bleeding; I25.10 Atherosclerotic heart disease of native coronary artery without angina pectoris; I10 Essential (primary) hypertension; E03.9 Hypothyroidism, unspecified; E78.5 Hyperlipidemia, unspecified; E78.00 Pure hypercholesterolemia, unspecified; M19.90 Unspecified osteoarthritis, unspecified site; M81.0 Age-related osteoporosis without current pathological fracture; F32.9 Major depressive disorder, single episode, unspecified; F41.0 Panic disorder [episodic paroxysmal anxiety]; Z88.8 Allergy status to other drugs, medicaments and biological substances; Z88.1 Allergy status to other antibiotic agents; Z88.2 Allergy status to sulfonamides; Z88.6 Allergy status to analgesic agent; Z88.5 Allergy status to narcotic agent; Z79.899 Other long term (current) drug therapy; Z95.5 Presence of coronary angioplasty implant and graft
CPT/HCPCS: 43239; 94640; J2704; J7120

== ENCOUNTER 2019-02-17 17:30 | Emergency (ER) | payer MEDICARE, BC ==
[2019-02-17 17:45] VITALS: BP 189/70; PULSE 70
--- NOTE | 2019-02-17 17:51 | EDM.PDOC ---
<Gabby Castano Eliza - Last Filed: 02/17/19 22:56> ED HPI GENERAL MEDICAL PROBLEM - General Chief Complaint: Abdominal Pain Stated Complaint: ABDOMINAL PAIN HX OF BOWEL OBSTRUCTION Time Seen by Provider: 02/17/19 17:41 Source of Information: Reports: Patient, RN Notes Reviewed History Limitations: Reports: No Limitations - History of Present Illness INITIAL COMMENTS - FREE TEXT/NARRATIVE: Patient is an 78-year-old female who presents to the ED for the evaluation of upper abdominal pain. The patient notes that this started roughly 2 hours ago. She notes that she has an extensive history of bowel obstructions, and states that she has had 10 previous surgeries on her bowel. She states that her most recent bowel obstruction was in October or November, and this resulted in a 13- day stay at [facility] [place] [facility]. Patient notes that she does take Colace daily for prophylaxis, and she also took milk of magnesia this morning. She states that her last bowel movement was on Monday, and this was normal for her. She states that she is having pain so much so that it feels like her whole insides are being torn apart. She states that the pain feels very similar to instances in the past where she has had small bowel obstructions. She is not had any nausea or vomiting, she states that she is urinating okay so she does not have any dysuria, frequency or urgency. Her primary care provider is Kathryn Olsen. Upper Abdominal Pain Score (Numeric/FACES): 10 - Related Data Allergies Allergy/AdvReac Type Severity Reaction Status Date / Time aspirin Allergy bloody Verified 01/04/19 13:30 noses candesartan [From Atacand] Allergy Shortness Verified 01/04/19 13:30 of Breath cephalexin monohydrate Allergy Hives Verified 01/04/19 13:30 [From Keflex] diltiazem [From Cardizem] Allergy Confusion Verified 01/04/19 13:30 doxycycline Allergy Hives Verified 01/04/19 13:30 duloxetine [From Cymbalta] Allergy difficultly Verified 01/04/19 13:30 walking evolocumab Allergy Muscle Verified 01/04/19 13:30 [From Repatha Pushtronex] Aches fluvoxamine [From Luvox] Allergy Headache Verified 01/04/19 13:30 hydralazine Allergy Nausea Verified 01/04/19 13:30 hydrochlorothiazide Allergy Headache Verified 01/04/19 13:30 hyoscyamine Allergy Vaginitis Verified 01/04/19 13:30 levofloxacin [From Levaquin] Allergy Hives Verified 01/04/19 13:30 losartan Allergy Headache Verified 01/04/19 13:30 pitavastatin [From Livalo] Allergy Cannot Verified 01/04/19 13:30 Remember sertraline Allergy nightmares Verified 01/04/19 13:30 sulfamethoxazole Allergy Hives Verified 01/04/19 13:30 amlodipine AdvReac Body Aches Verified 01/04/19 13:30 atorvastatin calcium AdvReac Muscle Verified 01/04/19 13:30 [From Lipitor] Aches bupropion HCl AdvReac Other Verified 01/04/19 13:30 [From Wellbutrin] colesevelam HCl AdvReac Muscle Verified 01/04/19 13:30 [From WelChol] Aches ezetimibe [From Zetia] AdvReac Muscle Verified 01/04/19 13:30 Aches gabapentin AdvReac Blurred Verified 01/04/19 13:30 Vision ibandronate sodium AdvReac Shortness Verified 01/04/19 13:30 [From Boniva] of Breath levothyroxine sodium AdvReac Other Verified 01/04/19 13:30 lisinopril AdvReac Cough Verified 01/04/19 13:30 mannitol [From Reclast] AdvReac Confusion Verified 01/04/19 13:30 morphine AdvReac Other Verified 01/04/19 13:30 niacin AdvReac Muscle Verified 01/04/19 13:30 Aches phenobarbital AdvReac Other Verified 01/04/19 13:30 pravastatin sodium AdvReac Muscle Verified 01/04/19 13:30 [From Pravachol] Aches prochlorperazine edisylate AdvReac Tremors Verified 01/04/19 13:30 [From Compazine] prochlorperazine maleate AdvReac Tremors Verified 01/04/19 13:30 [From Compazine] promethazine HCl AdvReac Other Verified 01/04/19 13:30 [From Phenergan] rosuvastatin calcium AdvReac Body Aches Verified 01/04/19 13:30 [From Crestor] sertraline HCl [From Zoloft] AdvReac Other Verified 01/04/19 13:30 simvastatin [From Zocor] AdvReac Muscle Verified 01/04/19 13:30 Aches trazodone AdvReac Other Verified 01/04/19 13:30 water for injection,sterile AdvReac Confusion Verified 01/04/19 13:30 [From Reclast] zoledronic acid AdvReac Confusion Verified 01/04/19 13:30 [From Reclast] zolpidem tartrate AdvReac Other Verified 01/04/19 13:30 [From Ambien] Home Meds: Home Meds Nitroglycerin 0.4 mg SL ASDIRECTED PRN 01/30/14 [History] Dextran 70/Hypromellose [Artificial Tears] 1 drop EYEBOTH BEDTIME PRN 05/05/14 [ History] Furosemide 40 mg PO DAILY 03/27/15 [History] Carvedilol [Coreg] 25 mg PO BID 03/17/16 [History] Potassium Chloride [Klor-Con 10] 20 meq PO BID 03/17/16 [History] Ondansetron HCl [Zofran] 8 mg PO TID PRN 02/27/18 [History] Polyethylene Glycol 3350 [MiraLAX] 1 scoop PO DAILY PRN 02/27/18 [History] ALPRAZolam [Xanax] 0.25 mg PO Q8H PRN 11/10/18 [History] Albuterol/Ipratropium [Combivent Respimat] 1 inh INH Q4H PRN 11/10/18 [History] Budesonide/Formoterol Fumarate [Symbicort 160-4.5 Mcg Inhaler] 2 inh PO BID [History] Colchicine 0.6 mg PO DAILY PRN 11/10/18 [History] HYDROmorphone [Dilaudid] 4 mg PO Q4H PRN 11/10/18 [History] Levothyroxine Sodium [Synthroid] 112 mcg PO ACBREAKFAST 11/10/18 [History] Omeprazole Magnesium [Prilosec Otc] 20 mg PO BID 11/10/18 [History] Triamcinolone Acetonide [Triamcinolone Acetonide 0.1% Crm] 1 each TOP BID PRN [History] Acetaminophen [Tylenol] 650 mg PO Q4H PRN 01/04/19 [History] Docusate Sodium/Sennosides [Senokot-S] 2 tab PO BID PRN 01/04/19 [History] Nitrofurantoin Macrocrystal [Nitrofurantoin] 1 cap PO Q12H #9 capsule 02/17/19 [ Rx] Past Medical History HEENT History: Reports: Impaired Vision Other HEENT History: Wears glasses, pt was dx with "eagles syndrome" Cardiovascular History: Reports: CAD, High Cholesterol, Hypertension Other Cardiovascular History: temporal arteritis Respiratory History: Reports: Other (See Below) Other Respiratory History: pulmonary asbestosis, respiratory failure with hypoxia, oxygen at 2-3L via nasal canula. Gastrointestinal History: Reports: Bowel Obstruction, Colon Polyp, Hiatal Hernia , Other (See Below) Other Gastrointestinal History: states esophagus doesn't work like it normally should. x10 bowel obstructions in the past with surgical intervention. herniation of rectum into vagina, diaphragmatic hernia, hiatal hernia, protein calorie malnutrition, polyp Genitourinary History: Reports: Pyelonephritis, UTI, Recurrent, Other (See Below ) Other Genitourinary History: dysuria [employer] SALES History: Reports: Musculoskeletal History: Reports: Arthritis, Fibromyalgia, Osteoporosis Other Musculoskeletal History: polymyalgia rhuematica, fibromyalgia, osteoporosis, hip pain Neurological History: Reports: Seizure Other Neuro History: as a child Psychiatric History: Reports: Anxiety, Depression, Panic Attack, Other (See Below) Other Psychiatric History: insomnia, opiod dependence, abnormal dreams Endocrine/Metabolic History: Reports: Hypothyroidism, Vitamin D Deficiency Hematologic History: Reports: Other (See Below) Other Hematologic History: Vitamin D deficiency Immunologic History: Reports: None Oncologic (Cancer) History: Reports: None Dermatologic History: Reports: Other (See Below) Other Dermatologic History: plantar wart x 2 - Infectious Disease History Infectious Disease History: Reports: Chicken Pox - Past Surgical History HEENT Surgical History: Reports: Cataract Surgery, Oral Surgery, Other (See Below) Other HEENT Surgeries/Procedures: removed right Saliva gland. 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), multiple operations for SBO, repair rectocele and cystocele Female Surgical History: Reports: Breast Reduction, D&C, Hysterectomy, Salpingo-Oophorectomy, Tubal Ligation Other Female Surgeries/Procedures: bladder and rectal repair Endocrine Surgical History: Reports: None Neurological Surgical History: Reports: Laminectomy, Lumbar Spine Musculoskeletal Surgical History: Reports: Shoulder Surgery, Other (See Below) Other Musculoskeletal Surgeries/Procedures:: Right shoulder, foot surgery x2 Oncologic Surgical History: Reports: None Other Oncologic Surgeries/Procedures: 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 Dermatological Surgical History: Reports: None Social & Family History - Family History Family Medical History: Noncontributory Cardiac: Reports: OR Other Cardiac Family History: MO, Bro, Bro - Heart disease Neurological: Reports: Alzheimers Disease Oncologic: Reports: Lung Other Oncologic Family History: FA - Cancer, Sis - lung cancer - Tobacco Use Smoking Status *Q: Never Smoker - Caffeine Use Caffeine Use: Reports: None - Living Situation & Occupation Living situation: Reports: , Alone Occupation: Retired ED ROS GENERAL - Review of Systems Review Of Systems: See Below Constitutional: Denies: Fever, Chills Respiratory: Denies: Shortness of Breath Cardiovascular: Denies: Chest Pain GI/Abdominal: Reports: Abdominal Pain (Upper abd pain), Constipation (last BM monday, was normal herself). Denies: Diarrhea, Nausea, Vomiting ED EXAM, GI/ABD - Physical Exam Exam: See Below Exam Limited By: No Limitations General Appearance: Alert, WD/WN, No Apparent Distress Eyes: Bilateral: Normal Appearance Throat/Mouth: Normal Inspection, Normal Lips, Normal Teeth, Normal Gums, Normal Oropharynx, Normal Voice, No Airway Compromise Head: Atraumatic, Normocephalic Respiratory/Chest: No Respiratory Distress, Lungs Clear, Normal Breath Sounds, No Accessory Muscle Use, Chest Non-Tender Cardiovascular: Normal Peripheral Pulses, Regular Rate, Rhythm, No Edema, No Murmur GI/Abdominal Exam: Soft, No Organomegaly, No Distention, No Mass, Tender (upper abd), Abnormal Bowel Sounds (hypoactive bowel tones in lower quadrants, high pitch tinkling in upper.). No: Rigid, Rebound Neurological: Alert, Oriented, Normal Cognition, No Motor/Sensory Deficits Psychiatric: Normal Affect, Normal Mood Skin Exam: Warm, Dry, Intact, Normal Color, No Rash Course - Vital Signs Last Recorded V/S: Last Vital Signs Temp 37.1 C 02/17/19 17:41 Pulse 70 02/17/19 17:41 Resp 18 02/17/19 17:41 BP 189/70 H 02/17/19 17:41 Pulse Ox 99 02/17/19 17:41 - Orders/Labs/Meds Orders: Active Orders 24 hr Category Date Time Status Peripheral IV Care [RC] . DIRECTED Care 02/17/19 18:00 Active Abdomen 2V AP Flat Upright [CR] Stat Exams 02/17/19 17:51 Taken Abdomen Pelvis w Cont [CT] Stat Exams 02/17/19 20:21 Taken CULTURE URINE [RM] Stat Lab 02/17/19 23:46 Ordered Nitrofurantoin Harmon/Macrocryst [Macrobid] Med 02/17/19 23:47 Stat 100 mg PO ONETIME STA Sodium Chloride 0.9% [Saline Flush] Med 02/17/19 17:59 Active 10 ml FLUSH ASDIRECTED PRN Peripheral IV Insertion Adult [OM.PC] Routine Oth 02/17/19 17:59 Ordered Medication Orders Nitrofurantoin Macrocrystals (Macrobid) 100 mg PO ONETIME STA Stop: 02/17/19 23:48 Sodium Chloride (Saline Flush) 10 ml FLUSH ASDIRECTED PRN PRN Reason: Keep Vein Open Last Admin: 02/17/19 21:58 Dose: 10 ml Labs: Laboratory Tests 02/17/19 02/17/19 02/17/19 Range/Units 19:25 19:25 23:00 WBC 6.07 (3.98-10.04) K/mm3 RBC 3.86 L (3.98-5.22) M/mm3 Hgb 12.0 (11.2-15.7) gm/dl Hct 34.8 (34.1-44.9) % MCV 90.2 (79.4-94.8) fl MCH 31.1 (25.6-32.2) pg MCHC 34.5 (32.2-35.5) g/dl RDW Std Deviation 41.5 (36.4-46.3) fL Plt Count 118 L (182-369) K/mm3 MPV 9.5 (9.4-12.3) fl Neut % (Auto) 58.8 (34.0-71.1) % Lymph % (Auto) 29.8 (19.3-51.7) % Harmon % (Auto) 8.4 (4.7-12.5) % Eos % (Auto) 2.5 (0.7-5.8) Baso % (Auto) 0.3 (0.1-1.2) % Neut # (Auto) 3.57 (1.56-6.13) K/mm3 Lymph # (Auto) 1.81 (1.18-3.74) K/mm3 Harmon # (Auto) 0.51 H (0.24-0.36) K/mm3 Eos # (Auto) 0.15 (0.04-0.36) K/mm3 Baso # (Auto) 0.02 (0.01-0.08) K/mm3 Sodium 136 (136-145) mEq/L Potassium 4.1 (3.5-5.1) mEq/L Chloride 98 (98-107) mEq/L Carbon Dioxide 29 (21-32) mEq/L Anion Gap 13.1 (5-15) BUN 10 (7-18) mg/dL Creatinine 0.6 (0.55-1.02) mg/dL Est Cr Clr Drug Dosing 56.43 mL/min Estimated GFR (MDRD) > 60 (>60) mL/min BUN/Creatinine Ratio 16.7 (14-18) Glucose 101 (83-115) mg/dL Calcium 9.2 (8.5-10.1) mg/dL Total Bilirubin 0.5 (0.2-1.0) mg/dL AST 36 (15-37) U/L ALT 31 (14-59) U/L Alkaline Phosphatase 99 (46-116) U/L Total Protein 7.0 (6.4-8.2) g/dl Albumin 3.6 (3.4-5.0) g/dl Globulin 3.4 gm/dL Albumin/Globulin Ratio 1.1 (1-2) Lipase 136 (73-393) U/L Urine Color Yellow (Yellow) Urine Appearance Slt cloudy H (Clear) Urine pH 8.0 (5.0-8.0) Ur Specific Dearing 1.020 (1.005-1.030) Urine Protein Negative (Negative) Urine Glucose (UA) Negative (Negative) Urine Ketones Negative (Negative) Urine Occult Blood Trace-intact H (Negative) Urine Nitrite Positive H (Negative) Urine Bilirubin Negative (Negative) Urine Urobilinogen 0.2 (0.2-1.0) Ur Leukocyte Esterase Trace H (Negative) Urine RBC 0-5 (0-5) /hpf Urine WBC 10-20 H (0-5) /hpf Ur Squamous Epith Cells 5-10 H (0-5) /hpf Urine Bacteria Many H (FEW) /hpf Urine Mucus Few (FEW) /hpf Meds: Medications Generic Name Dose Route Start Last Admin Trade Name Freq PRN Reason Stop Dose Admin Nitrofurantoin Macrocrystals 100 mg 02/17/19 23:47 Macrobid PO 02/17/19 23:48 ONETIME STA Sodium Chloride 10 ml 02/17/19 17:59 02/17/19 21:58 Saline Flush FLUSH 10 ml ASDIRECTED PRN Administration Keep Vein Open Discontinued Medications Generic Name Dose Route Start Last Admin Trade Name Freq PRN Reason Stop Dose Admin Diatrizoate Meglum/Diatrizoate Sod 60 ml 02/17/19 20:28 02/17/19 21:58 Gastrografin 37% PO 02/17/19 20:29 60 ml ONETIME ONE Administration Hydromorphone HCl 1 mg 02/17/19 18:01 Dilaudid IVPUSH 02/17/19 18:02 ONETIME ONE Hydromorphone HCl 1 mg 02/17/19 18:53 Dilaudid IM 02/17/19 18:54 ONETIME ONE Hydromorphone HCl 1 mg 02/17/19 19:32 02/17/19 19:50 Dilaudid IM 02/17/19 19:33 1 mg ONETIME ONE Administration Hydromorphone HCl 1 mg 02/17/19 22:21 02/17/19 22:26 Dilaudid IVPUSH 02/17/19 22:22 1 mg ONETIME ONE Administration Iopamidol 100 ml 02/17/19 20:28 02/17/19 21:58 Isovue-300 (61%) IVPUSH 02/17/19 20:29 100 ml ONETIME ONE Administration Ondansetron HCl 4 mg 02/17/19 20:21 02/17/19 20:36 Zofran Odt PO 02/17/19 20:22 4 mg ONETIME ONE Administration - Re-Assessments/Exams Free Text/Narrative Re-Assessment/Exam: 02/17/19 18:11 Patient presents to the ED for abdominal pain and possible bowel obstruction. Did order IV to be placed with 1 mg IV Dilaudid, flat and upright abdomen x-ray , CBC, CMP and a lipase for initial evaluation. Patient's history/presentation is suspicious for a bowel obstruction in nature. 02/17/19 22:56 Abdominal x-rays did not demonstrate any sign of obstruction, there were no visible air fluid levels. CT of the abdomen pelvis with IV and oral contrast was obtained to make sure there was indeed no obstruction due to the patient's extensive abdominal surgery history. The CT is read as follows 1. Mild focal distention with fecalized contents in the distal ileum that may suggest a focal adynamic ileus. 2. There are postsurgical changes in the small bowel in the central abdomen. Stable patulous appearance of the small bowel in this area that is likely postsurgical in nature. Redemonstration of fecalized contents in the small bowel in this area which may suggest an area of poor motility. 3. Small amount of air in the bladder, this may be iatrogenic related to recent catheterization, if this is not the case, then cystitis would be a consideration. Recommend clinical correlation. 4. Scattered diverticula with in the sigmoid colon, no diverticulitis. 5. Increased fecal content in the colon. 6. Incidental/nonacute findings are listed in the report. At this time it does not appear that the patient is having any sort of bowel obstruction, but does have increased stool throughout her colon with what appears to be decreased motility, which is probably causing most of her issues. I did order a urinalysis at this time to rule out cystitis. Departure - Departure Time of Disposition: 23:01 Disposition: Home, Self-Care 01 Condition: Fair Clinical Impression: Constipation by delayed colonic transit UTI (urinary tract infection) Qualifiers: Urinary tract infection type: site unspecified Hematuria presence: without hematuria Qualified Code(s): N39.0 - Urinary tract infection, site not specified - Discharge Information *PRESCRIPTION DRUG MONITORING PROGRAM REVIEWED*: No *COPY OF PRESCRIPTION DRUG MONITORING REPORT IN PATIENT EMMETT: No Instructions: Constipation, Adult, [id number] Referrals: Kathryn Olsen NP [Primary Care Provider] - Forms: ED Department Discharge Additional Instructions: You were evaluated in the ER today regarding your abdominal pain. You had abdominal x-rays, a CT, and some labs done today. The abdominal x-rays and CTs did not demonstrate any sort of bowel obstruction at marieight's visit. It did however show a quite a bit of stool throughout your colon, which is suggestive of constipation, you may continue to take your stool softeners as directed. Your urinalysis indicates that you have a urinary tract infection. You have been started on the antibiotic nitrofurantoin (Macrobid), and a prescription for nitrofurantoin has been sent to the [facility]. Take one tablet of nitrofurantoin every 12 hours, starting tomorrow morning, 02/18/2019, as prescribed. Finish the entire prescription unless told otherwise by your PCP. We recommend that you increase your oral fluid intake, to help prevent instances of constipation. We recommend that you follow-up with your PCP, Kathryn Olsen NP, this coming 02/20/2019, to check on your urine culture results, to make sure that you are on the correct antibiotic. Please return to the ER at any time if your symptoms change or worsen. Sepsis Event Note - Evaluation Sepsis Screening Result: No Definite Risk - Focused Exam Vital Signs: Vital Signs Temp Pulse Resp BP Pulse Ox 02/17/19 17:41 37.1 C 70 18 189/70 H 99 Date Exam was Performed: 02/17/19 Time Exam was Performed: 22:56 - My Orders Last 24 Hours: My Active Orders 02/17/19 23:46 CULTURE URINE [RM] Stat 02/17/19 23:47 Nitrofurantoin Harmon/Macrocryst [Macrobid] 100 mg PO ONETIME STA - Assessment/Plan Last 24 Hours: My Active Orders 02/17/19 23:46 CULTURE URINE [RM] Stat 02/17/19 23:47 Nitrofurantoin Harmon/Macrocryst [Macrobid] 100 mg PO ONETIME STA <Hermilo Aguilar - Last Filed: 02/17/19 23:58> Course - Re-Assessments/Exams Free Text/Narrative Re-Assessment/Exam: 02/17/19 23:48 The patient's urinalysis by quick catheter is remarkable for trace occult blood with 0-5 RBCs, trace leukocyte esterase with 10-20 WBCs, nitrite positive with many bacteria, and 5-10 squamous epithelial cells. The patient's urinalysis is consistent with a UTI. I have ordered a urine culture and will start the patient on nitrofurantoin. I will prescribe a 5-day course, and I would like the patient to follow-up with her PCP in 3 days to check on the urine culture results, to make sure that she is on the correct antibiotic. Departure - Departure Time of Disposition: 23:53 Condition: Good Sepsis Event Note - Focused Exam Date Exam was Performed: 02/17/19 Time Exam was Performed: 23:48
[2019-02-17] MEDS ORDERED: Sodium Chloride 0.9% 10 ML Syringe FLUSH PRN (17:59)
[2019-02-17] MEDS ORDERED: HYDROmorphone 1 MG/ML Syringe IVPUSH ONE ×2 (18:01→22:21)
[2019-02-17] MEDS ORDERED: HYDROmorphone 1 MG/ML Syringe IM ONE ×2 (18:53→19:32)
[2019-02-17] MEDS ORDERED: Ondansetron 4 MG Tab.DIS PO ONE (20:21)
[2019-02-17] MEDS ORDERED: Diatrizoate Meglumine/Diatrizoate Sodium 37% 120 ML Bottle PO ONE (20:28)
[2019-02-17] MEDS ORDERED: Iopamidol 612 MG/ML 100 ML Bottle IVPUSH ONE (20:28)
[2019-02-17] MEDS ORDERED: Nitrofurantoin Monohydrate/Macrocrystalline 100 MG Cap PO STA (23:47)
--- NOTE | 2019-02-18 07:08 | CR ---
Abdomen: Supine and upright views of the abdomen were obtained. Comparison: Previous abdominal x-ray of 11/10/18. Previous lumbar spine surgery is noted. Mild degenerative change is noted within the right hip. Surgical clips are seen from prior cholecystectomy. Bowel gas pattern appears normal. No free air is seen. No discrete soft tissue abnormality is seen. Dystrophic calcifications are noted within both buttocks. These are felt to be incidental. Impression: 1. Findings as noted above. 2. Nothing acute is suspected. Diagnostic code #2 This report was dictated in [place] Standard Time
--- NOTE | 2019-02-18 07:22 | CT ---
CT abdomen and pelvis Technique: Multiple axial sections were obtained from above the dome of the diaphragm inferiorly through the pubic symphysis. Intravenous and oral contrast was utilized. Delayed images were also obtained through the abdomen. Comparison: Previous CT abdomen and pelvis exam of 11/10/18 and abdominal x-ray performed earlier on the same day (7:40 PM). Findings: Visualized lung bases show nothing acute. Liver contains no focal abnormality. Spleen appears within normal limits. Adrenal glands show no nodule. Kidneys show symmetric contrast enhancement without hydronephrosis or mass. Aorta shows no aneurysm. No retroperitoneal adenopathy is seen. Pancreas shows no discrete abnormality. No pelvic mass or adenopathy is seen. No free fluid or inflammatory change is seen. Appendix not definitely visualized. Increased stool is noted within the colon particularly on the right side. Patulous stool containing loop of bowel noted within the mid lower abdomen within distal small bowel with surrounding anastomotic sutures. This presumably is postsurgical. Stool is also noted within portions of the distal ileum. Delayed images show contrast within the bladder. Bone window settings were reviewed show prior lumbar spine surgery. Impression: 1. Patulous area of bowel containing stool within the mid lower abdomen. This appears fairly similar to previous study and shows surrounding anastomotic sutures. This finding presumably is postsurgical in etiology since it is stable. 2. Mild increased stool within the distal ileum suggesting poor motility. 3. Mild increased stool within the colon. 4. No other acute finding is appreciated. Diagnostic code #3 This report was dictated in [place] Standard Time I agree with preliminary report from [facility], finalized on 02/17/19, 11:51 PM Central Time
== END 2019-02-18 00:09 | disposition home or self-care (01) ==
LOC: JD.ED 17:30
DX: K59.01 Slow transit constipation (principal); N39.0 Urinary tract infection, site not specified; F41.9 Anxiety disorder, unspecified; I10 Essential (primary) hypertension; E03.9 Hypothyroidism, unspecified; F32.9 Major depressive disorder, single episode, unspecified; Z88.8 Allergy status to other drugs, medicaments and biological substances; Z88.2 Allergy status to sulfonamides; Z88.1 Allergy status to other antibiotic agents; Z88.5 Allergy status to narcotic agent; Z79.899 Other long term (current) drug therapy; Z79.51 Long term (current) use of inhaled steroids
CPT/HCPCS: 36415; 74019; 74177; 80053; 81001; 83690; 85025; 87086; 87088; 87186; 96372; 96374; 99284; A9270; J1170; Q9963; Q9967; 99283

== ENCOUNTER 2019-06-12 08:52 | Emergency (ER) | payer MEDICARE, BC ==
[2019-06-12 09:15] VITALS: BP 170/58; PULSE 62
--- NOTE | 2019-06-12 09:22 | EDM.PDOC ---
ED HPI GENERAL MEDICAL PROBLEM - General Chief Complaint: Genitourinary Problem Stated Complaint: UNABEL TO VOID/VAGINAL BURN/RIGHT KNEE PAIN Time Seen by Provider: 06/12/19 09:02 Source of Information: Reports: Patient History Limitations: Reports: No Limitations - History of Present Illness INITIAL COMMENTS - FREE TEXT/NARRATIVE: TRIAGE NOTE -- For past 3 days has been voiding hourly and has a history of UTIs. Today unable to void. Went to clinic today and was sent to the ER. Upon leaving clinic tripped on curb and fell landing on the right knee. Has abrasions and redness to knee. As above. She she last voided last night. She is uncomfortable. No bridger pain on voiding. No history of neurogenic bladder. She has had frequent treatments for UTIs. Last apparently 8 weeks ago and treated with Macrobid. No fever or other symptoms of acute medical illness. She has not taken any medication or tried any other measure to moderate her symptoms. No readily identified risk factors other than history of urinary tract infections. She says she is seen 3 urologist in the past. Says she has had 2 bladder surgeries "to take care of this problem." Last maybe 3 or 4 years ago. Does not recall any of the names. As far as the fall earlier today. She was leaving the clinic tripped over a curb and fell to her right knee. No syncope involved. Did not hit her head. Was not a hard fall. She is noted to be oxygen dependent at home. - Related Data Allergies Allergy/AdvReac Type Severity Reaction Status Date / Time aspirin Allergy bloody Verified 06/12/19 09:07 noses candesartan [From Atacand] Allergy Shortness Verified 06/12/19 09:07 of Breath cephalexin monohydrate Allergy Hives Verified 06/12/19 09:07 [From Keflex] diltiazem [From Cardizem] Allergy Confusion Verified 06/12/19 09:07 doxycycline Allergy Hives Verified 06/12/19 09:07 duloxetine [From Cymbalta] Allergy difficultly Verified 06/12/19 09:07 walking evolocumab Allergy Muscle Verified 06/12/19 09:07 [From Repatha Pushtronex] Aches fluvoxamine [From Luvox] Allergy Headache Verified 06/12/19 09:07 hydralazine Allergy Nausea Verified 06/12/19 09:07 hydrochlorothiazide Allergy Headache Verified 06/12/19 09:07 hyoscyamine Allergy Vaginitis Verified 06/12/19 09:07 levofloxacin [From Levaquin] Allergy Hives Verified 06/12/19 09:07 losartan Allergy Headache Verified 06/12/19 09:07 pitavastatin [From Livalo] Allergy Cannot Verified 06/12/19 09:07 Remember sertraline Allergy nightmares Verified 06/12/19 09:07 sulfamethoxazole Allergy Hives Verified 06/12/19 09:07 amlodipine AdvReac Body Aches Verified 06/12/19 09:07 atorvastatin calcium AdvReac Muscle Verified 06/12/19 09:07 [From Lipitor] Aches bupropion HCl AdvReac Other Verified 06/12/19 09:07 [From Wellbutrin] colesevelam HCl AdvReac Muscle Verified 06/12/19 09:07 [From WelChol] Aches ezetimibe [From Zetia] AdvReac Muscle Verified 06/12/19 09:07 Aches gabapentin AdvReac Blurred Verified 06/12/19 09:07 Vision ibandronate sodium AdvReac Shortness Verified 06/12/19 09:07 [From Boniva] of Breath levothyroxine sodium AdvReac Other Verified 06/12/19 09:07 lisinopril AdvReac Cough Verified 06/12/19 09:07 mannitol [From Reclast] AdvReac Confusion Verified 06/12/19 09:07 morphine AdvReac Other Verified 06/12/19 09:07 niacin AdvReac Muscle Verified 06/12/19 09:07 Aches phenobarbital AdvReac Other Verified 06/12/19 09:07 pravastatin sodium AdvReac Muscle Verified 06/12/19 09:07 [From Pravachol] Aches prochlorperazine edisylate AdvReac Tremors Verified 06/12/19 09:07 [From Compazine] prochlorperazine maleate AdvReac Tremors Verified 06/12/19 09:07 [From Compazine] promethazine HCl AdvReac Other Verified 06/12/19 09:07 [From Phenergan] rosuvastatin calcium AdvReac Body Aches Verified 06/12/19 09:07 [From Crestor] sertraline HCl [From Zoloft] AdvReac Other Verified 06/12/19 09:07 simvastatin [From Zocor] AdvReac Muscle Verified 06/12/19 09:07 Aches trazodone AdvReac Other Verified 06/12/19 09:07 water for injection,sterile AdvReac Confusion Verified 06/12/19 09:07 [From Reclast] zoledronic acid AdvReac Confusion Verified 06/12/19 09:07 [From Reclast] zolpidem tartrate AdvReac Other Verified 06/12/19 09:07 [From Ambien] Home Meds: Home Meds Nitroglycerin 0.4 mg SL ASDIRECTED PRN 01/30/14 [History] Dextran 70/Hypromellose [Artificial Tears] 1 drop EYEBOTH BEDTIME PRN 05/05/14 [ History] Furosemide 40 mg PO DAILY 03/27/15 [History] Potassium Chloride [Klor-Con 10] 20 meq PO BID 03/17/16 [History] carvediloL [Coreg] 25 mg PO BID 03/17/16 [History] ondansetron HCL [Zofran] 8 mg PO TID PRN 02/27/18 [History] polyethylene glycoL 3350 [MiraLAX] 1 scoop PO DAILY PRN 02/27/18 [History] ALPRAZolam [Xanax] 0.25 mg PO Q8H PRN 11/10/18 [History] Albuterol/Ipratropium [Combivent Respimat] 1 inh INH Q4H PRN 11/10/18 [History] Budesonide/Formoterol Fumarate [Symbicort 160-4.5 Mcg Inhaler] 2 inh PO BID [History] Colchicine 0.6 mg PO DAILY PRN 11/10/18 [History] HYDROmorphone [Dilaudid] 4 mg PO Q4H PRN 11/10/18 [History] Levothyroxine Sodium [Synthroid] 112 mcg PO ACBREAKFAST 11/10/18 [History] Omeprazole Magnesium [Prilosec Otc] 20 mg PO BID 11/10/18 [History] Triamcinolone Acetonide [Triamcinolone Acetonide 0.1% Crm] 1 each TOP BID PRN [History] Acetaminophen [Tylenol] 650 mg PO Q4H PRN 01/04/19 [History] Docusate Sodium/Sennosides [Senokot-S] 2 tab PO BID PRN 01/04/19 [History] nitrofurantoin macrocrystaL [Nitrofurantoin] 1 cap PO Q12H #9 capsule 02/17/19 [ Rx] Past Medical History HEENT History: Reports: Impaired Vision Other HEENT History: Wears glasses, pt was dx with "eagles syndrome" Cardiovascular History: Reports: CAD, High Cholesterol, Hypertension Other Cardiovascular History: temporal arteritis Respiratory History: Reports: Other (See Below) Other Respiratory History: pulmonary asbestosis, respiratory failure with hypoxia, oxygen at 2-3L via nasal canula. Gastrointestinal History: Reports: Bowel Obstruction, Colon Polyp, Hiatal Hernia , Other (See Below) Other Gastrointestinal History: states esophagus doesn't work like it normally should. x10 bowel obstructions in the past with surgical intervention. herniation of rectum into vagina, diaphragmatic hernia, hiatal hernia, protein calorie malnutrition, polyp Genitourinary History: Reports: Pyelonephritis, UTI, Recurrent, Other (See Below ) Other Genitourinary History: dysuria [employer] History: Reports: Musculoskeletal History: Reports: Arthritis, Fibromyalgia, Osteoporosis Other Musculoskeletal History: polymyalgia rhuematica, fibromyalgia, osteoporosis, hip pain Neurological History: Reports: Seizure Other Neuro History: as a child Psychiatric History: Reports: Anxiety, Depression, Panic Attack, Other (See Below) Other Psychiatric History: insomnia, opiod dependence, abnormal dreams Endocrine/Metabolic History: Reports: Hypothyroidism, Vitamin D Deficiency Hematologic History: Reports: Other (See Below) Other Hematologic History: Vitamin D deficiency Immunologic History: Reports: None Oncologic (Cancer) History: Reports: None Dermatologic History: Reports: Other (See Below) Other Dermatologic History: plantar wart x 2 - Infectious Disease History Infectious Disease History: Reports: Chicken Pox - Past Surgical History HEENT Surgical History: Reports: Cataract Surgery, Oral Surgery, Other (See Below) Other HEENT Surgeries/Procedures: removed right Saliva gland. 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), multiple operations for SBO, repair rectocele and cystocele Female Surgical History: Reports: Breast Reduction, D&C, Hysterectomy, Salpingo-Oophorectomy, Tubal Ligation Other Female Surgeries/Procedures: bladder and rectal repair Endocrine Surgical History: Reports: None Neurological Surgical History: Reports: Laminectomy, Lumbar Spine Musculoskeletal Surgical History: Reports: Shoulder Surgery, Other (See Below) Other Musculoskeletal Surgeries/Procedures:: Right shoulder, foot surgery x2 Oncologic Surgical History: Reports: None Other Oncologic Surgeries/Procedures: [employer]ATOR inquired if Patient had PMHx of Cancer /Radiation or Chemotherapy: Patient reported None. Dermatological Surgical History: Reports: None Social & Family History - Family History Family Medical History: Noncontributory Cardiac: Reports: [place] Other Cardiac Family History: [place], Bro, Bro - Heart disease Neurological: Reports: Alzheimers Disease Oncologic: Reports: Lung Other Oncologic Family History: FA - Cancer, Sis - lung cancer - Tobacco Use Smoking Status *Q: Never Smoker - Caffeine Use Caffeine Use: Reports: None - Living Situation & Occupation Living situation: Reports: , Alone Occupation: Retired ED ROS GENERAL - Review of Systems Review Of Systems: Comprehensive ROS is negative, except as noted in HPI. ED EXAM, RENAL/ - Physical Exam Exam: See Below Exam Limited By: No Limitations General Appearance: Alert, WD/WN, No Apparent Distress Eye Exam: Bilateral Eye: EOMI, PERRL Ears: Normal External Exam Nose: Normal Inspection Throat/Mouth: Normal Inspection Head: Atraumatic, Normocephalic Neck: Normal Inspection, Supple Respiratory/Chest: No Respiratory Distress, Lungs Clear, Normal Breath Sounds Cardiovascular: Regular Rate, Rhythm, No Edema GI/Abdominal: Soft, Non-Tender, Other (Array of old scars centrally lower abdomen) Back Exam: Normal Inspection Extremities: Normal Inspection (Except for slight bruising and superficial abrasion right knee. No deformity. No instability. Acceptable range of motion.), No Pedal Edema Neurological: Alert, Oriented, Normal Cognition, No Motor/Sensory Deficits Psychiatric: Normal Affect Skin Exam: Warm, Dry Course - Vital Signs Last Recorded V/S: Last Vital Signs Temp 36.2 C 06/12/19 09:08 Pulse 62 06/12/19 09:08 Resp 13 06/12/19 09:08 BP 170/58 H 06/12/19 09:08 Pulse Ox 100 06/12/19 09:08 - Orders/Labs/Meds Orders: Active Orders 24 hr Category Date Time Status CULTURE URINE [RM] Stat Lab 06/12/19 09:25 Received Labs: Laboratory Tests 06/12/19 06/12/19 06/12/19 Range/Units 09:25 09:33 09:33 WBC 6.09 (3.98-10.04) K/mm3 RBC 3.81 L (3.98-5.22) M/mm3 Hgb 11.9 (11.2-15.7) gm/dl Hct 35.3 (34.1-44.9) % MCV 92.7 (79.4-94.8) fl MCH 31.2 (25.6-32.2) pg MCHC 33.7 (32.2-35.5) g/dl RDW Std Deviation 41.0 (36.4-46.3) fL Plt Count 135 L (182-369) K/mm3 MPV 9.1 L (9.4-12.3) fl Neutrophils % (Manual) 62 H (40-60) % Band Neutrophils % 0 (0-10) % Lymphocytes % (Manual) 26 (20-40) % Atypical Lymphs % 0 % Monocytes % (Manual) 9 (2-10) % Eosinophils % (Manual) 3 (0.7-5.8) % Basophils % (Manual) 0 L (0.1-1.2) Platelet Estimate Adequate RBC Morph Comment Normal Sodium 134 L (136-145) mEq/L Potassium 4.1 (3.5-5.1) mEq/L Chloride 98 (98-107) mEq/L Carbon Dioxide 26 (21-32) mEq/L Anion Gap 14.1 (5-15) BUN 17 (7-18) mg/dL Creatinine 0.7 (0.55-1.02) mg/dL Est Cr Clr Drug Dosing 47.56 mL/min Estimated GFR (MDRD) > 60 (>60) mL/min BUN/Creatinine Ratio 24.3 H (14-18) Glucose 99 (83-115) mg/dL Calcium 9.6 (8.5-10.1) mg/dL Total Bilirubin 0.6 (0.2-1.0) mg/dL AST 16 (15-37) U/L ALT 19 (14-59) U/L Alkaline Phosphatase 75 (46-116) U/L Total Protein 7.4 (6.4-8.2) g/dl Albumin 3.9 (3.4-5.0) g/dl Globulin 3.5 gm/dL Albumin/Globulin Ratio 1.1 (1-2) Urine Color Yellow (Yellow) Urine Appearance Clear (Clear) Urine pH 7.0 (5.0-8.0) Ur Specific [place] 1.020 (1.005-1.030) Urine Protein Negative (Negative) Urine Glucose (UA) Negative (Negative) Urine Ketones Negative (Negative) Urine Occult Blood Negative (Negative) Urine Nitrite Positive H (Negative) Urine Bilirubin Negative (Negative) Urine Urobilinogen 0.2 (0.2-1.0) Ur Leukocyte Esterase Negative (Negative) Urine RBC 0-5 (0-5) /hpf Urine WBC 5-10 H (0-5) /hpf Ur Squamous Epith Cells 0-5 (0-5) /hpf Amorphous Sediment Moderate H (NOT SEEN) /hpf Urine Bacteria Many H (FEW) /hpf Urine Mucus Not seen (FEW) /hpf - Re-Assessments/Exams Free Text/Narrative Re-Assessment/Exam: 06/12/19 10:48 Early in the encounter the patient was scanned to determine bladder contents. The scan recorded about 95 mL. As the patient has had surgeries and there is a question of possible altered anatomy a Ba[place]a catheter was placed. Clear light- colored urine drained total of about 125 mL during the visit. There is been no fever. No elevated white count. Urine is not overwhelmingly suggestive of urinary tract infection. 5-10 WBCs per high-power field. Nitrite positive. Bacteria noted. BUN and creatinine normal. Call placed to the patient's primary SHERRI Quan. She is out until Monday. Discussed with Dr. Harinder Quinn at her clinic. Recommended taking out the [place]a and holding antibiotic treatment at this time. There appears to be only 1 oral antibiotic that she is not allergic to and would rather not start treatment at this point but have clear follow-up arranged and possibly urology consultation. She is to go to her clinic early tomorrow morning and she will be seen per Dr. Alamo. 06/12/19 10:54 As far as the fall, x-ray of the right knee is negative for acute problem. Patient is able to bear weight and get around without an assistive device. Departure - Departure Time of Disposition: 10:55 Disposition: Home, Self-Care 01 Condition: Good Clinical Impression: Unable to pass urine, Abnormal finding on urinalysis, Possible urinary tract infection, History of recurrent urinary tract infection, Abrasion, right knee, initial encounter - Discharge Information Referrals: Kathryn Olsen NP [Primary Care Provider] - Forms: ED Department Discharge Additional Instructions: You have been evaluated for possible urinary tract infection. Also for problems passing urine. As there was only a small amount of urine in your bladder it is not necessary to to go home with a catheter. Your urine did not show sufficient evidence of urinary tract infection to start an antibiotic at this time especially in light of your antibiotic allergies. Discussed with Dr. Quinn covering your clinic. Go to the clinic tomorrow morning and be seen. Further decisions regarding possible antibiotic urology consultation etc. to be made by your clinic doctors. Do not hesitate to return immediately to ER for fever any sign of acute illness or any troubling symptoms in the meantime. Sepsis Event Note - Evaluation Sepsis Screening Result: No Definite Risk - Focused Exam Vital Signs: Vital Signs Temp Pulse Resp BP Pulse Ox 06/12/19 09:08 36.2 C 62 13 170/58 H 100 Date Exam was Performed: 06/12/19 Time Exam was Performed: 10:44 - My Orders Last 24 Hours: My Active Orders 06/12/19 09:25 CULTURE URINE [RM] Stat - Assessment/Plan Last 24 Hours: My Active Orders 06/12/19 09:25 CULTURE URINE [RM] Stat
--- NOTE | 2019-06-12 10:03 | CR ---
Right knee: AP and lateral views of the right knee were obtained. Comparison: No prior knee exam is available. Soft tissue surgical clips are seen. Mild medial joint space narrowing is noted. Minimal chondrocalcinosis is noted within the lateral meniscus. No joint effusion is seen. Small spur noted at the attachment of the quadriceps tendon to the patella. Impression: 1. Mild degenerative change as noted above. 2. Nothing acute is appreciated on 2 view right knee exam. Diagnostic code #2 This report was dictated in MDT
== END 2019-06-12 11:05 | disposition home or self-care (01) ==
LOC: JD.ED 08:52
DX: S80.211A Abrasion, right knee, initial encounter (principal); R39.198 Other difficulties with micturition; Z87.440 Personal history of urinary (tract) infections; R82.90 Unspecified abnormal findings in urine; I10 Essential (primary) hypertension; E78.00 Pure hypercholesterolemia, unspecified; I25.10 Atherosclerotic heart disease of native coronary artery without angina pectoris; F32.9 Major depressive disorder, single episode, unspecified; F41.0 Panic disorder [episodic paroxysmal anxiety]; E03.9 Hypothyroidism, unspecified; Z88.6 Allergy status to analgesic agent; Z88.1 Allergy status to other antibiotic agents; Z88.8 Allergy status to other drugs, medicaments and biological substances; Z88.2 Allergy status to sulfonamides; Z88.5 Allergy status to narcotic agent; Z91.048 Other nonmedicinal substance allergy status; Z79.899 Other long term (current) drug therapy; W01.0XXA Fall on same level from slipping, tripping and stumbling without subsequent striking against object, initial encounter
CPT/HCPCS: 36415; 51702; 51798; 73560-26-RT; 73560-RT; 80053; 81001; 85007; 85027; 87086; 87186; 99283-25

== ENCOUNTER 2019-09-13 21:13 | Inpatient (IN) | payer MEDICARE, BC ==
[2019-09-13] MEDS ORDERED: HYDROmorphone 1 MG/ML Syringe IVPUSH STA (21:40)
[2019-09-13] MEDS ORDERED: Ondansetron 4 MG/2 ML SDV IVPUSH ONE (21:40)
[2019-09-13] MEDS ORDERED: Sodium Chloride 0.9% 1,000 ML IV SCH (21:45)
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
[2019-09-13] MEDS ORDERED: cefTRIAXone 1 GM in Sodium Chloride 0.9% 100 ML IV STA (22:30)
--- NOTE | 2019-09-13 23:29 | PCM.SN.2 ---
- Free Text/Narrative Note: 09/13/19 [id number] IV started 22 giage rogjt fppt after multiple failed attempts. Secured with opsite, tape and flushes well.Liss
[2019-09-13] MEDS ORDERED: Diatrizoate Meglumine/Diatrizoate Sodium 37% 120 ML Bottle PO ONE (23:32)
[2019-09-13] MEDS ORDERED: Sodium Chloride 0.9% 10 ML Syringe FLUSH PRN (23:32)
[2019-09-13] MEDS ORDERED: Iopamidol 612 MG/ML 100 ML Bottle IVPUSH ONE (23:32)
[2019-09-14] MEDS ORDERED: HYDROmorphone 0.5 MG/0.5 ML Syringe IVPUSH ONE (00:38)
[2019-09-14] MEDS: Benzocaine/Cetylpyridinium/Menthol Lozenge MUCMEM PRN ×3 (03:27→15:51)
[2019-09-14] MEDS: HYDROmorphone 0.5 MG/0.5 ML Syringe IVPUSH PRN ×7 (03:28→21:48)
[2019-09-14] MEDS: Acetaminophen 325 MG Tab PO PRN (05:13)
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
[2019-09-14] MEDS ORDERED: Nitroglycerin 0.4 MG Tab.SL SL PRN (08:27)
--- NOTE | 2019-09-14 08:53 | CT ---
CT abdomen and pelvis Technique: Multiple axial sections were obtained from above the dome of the diaphragm inferiorly through the pubic symphysis. Intravenous and oral contrast was utilized. Delayed images were obtained through the bladder. Comparison: Prior CT abdomen and pelvis exam of 02/17/19. Findings: Visualized lung bases show slight pleural thickening and calcification within both posterior sides of the chest. These findings appear to be chronic. Slight scarring is also noted within both lung bases. Small granuloma is noted within the left lung base. Liver contains no focal parenchymal abnormality. Spleen appears within normal limits. Adrenal glands show no nodule. Pancreas is within normal limits. Kidneys show symmetric contrast enhancement without hydronephrosis or mass. Aorta shows no aneurysm. No retroperitoneal adenopathy or mesenteric abnormalities are appreciated. Surgical clips are seen from prior cholecystectomy. Dilated small bowel loops are noted. Transitional point appears to be within the mid abdomen close to an area of anastomotic sutures. Ileal loops are not dilated. No pelvic mass or adenopathy is seen. No free fluid or inflammatory change is appreciated. Delayed images shows contrast within the distal ureters and within the bladder. Appendix not visualized with certainty. Bone window setting shows trans-pedicle screws from L3-S1. Mild degenerative change otherwise seen within the spine. Impression: 1. Findings felt compatible with mid small bowel obstruction most likely from adhesion close to the level of anastomotic sutures. 2. Other nonacute findings as described above. Diagnostic code #3 This report was dictated in MDT I agree with preliminary report from rafal, finalized on 09/14/19, 1:24 AM Central Daylight Time
[2019-09-14] MEDS ORDERED: NS + KCl 20mEq/L 1,000 ML IV SCH (09:15)
[2019-09-14] MEDS: SYNTHROID 112 MCG PO SCH (10:36)
[2019-09-14] MEDS: Carvedilol 12.5 MG Tab PO SCH ×2 (10:36→21:48)
[2019-09-14] MEDS: Enoxaparin 40 MG/0.4 ML Syringe SUBCUT SCH (10:38)
[2019-09-14] MEDS: Furosemide 20 MG/2 ML VIAL IVPUSH SCH (10:38)
[2019-09-14] MEDS: Pantoprazole 40 MG Vial IVPUSH SCH (12:03)
[2019-09-14] MEDS: Ondansetron 4 MG/2 ML SDV IVPUSH PRN (21:48)
[2019-09-14] MEDS: cefTRIAXone 1 GM in Sodium Chloride 0.9% 100 ML IV SCH (21:49)
[2019-09-14] MEDS: NS + KCl 20mEq/L 1,000 ML IV SCH (22:06)
[2019-09-15] MEDS: Benzocaine/Cetylpyridinium/Menthol Lozenge MUCMEM PRN ×3 (00:31→21:11)
[2019-09-15] MEDS: HYDROmorphone 0.5 MG/0.5 ML Syringe IVPUSH PRN ×7 (00:36→22:19)
[2019-09-15] MEDS ORDERED: Magnesium Hydroxide 400 MG/5 ML Susp 30 ML Cup PO PRN (07:49)
[2019-09-15] MEDS ORDERED: Magnesium Hydroxide 400 MG/5 ML Susp 30 ML Cup PO SCH (09:00)
[2019-09-15] MEDS: Carvedilol 12.5 MG Tab PO SCH ×2 (09:15→21:08)
[2019-09-15] MEDS: Enoxaparin 40 MG/0.4 ML Syringe SUBCUT SCH (09:15)
[2019-09-15] MEDS: Pantoprazole 40 MG Vial IVPUSH SCH (09:15)
[2019-09-15] MEDS: Furosemide 20 MG/2 ML VIAL IVPUSH SCH (09:15)
--- NOTE | 2019-09-15 10:59 | PCM.PN ---
- General Info Date of Service: 09/15/19 Admission Dx/Problem (Free Text): Admission Diagnosis/Problem Admission Diagnosis/Problem Small bowel obstruction Subjective Update: Patient is feeling much better this morning. She is had 3 bowel movement since admission and abdominal pain has improved. She states that she does not think she is ready yet to remove the NG tube. Last night we did have to replace the NG tube to a smaller size which was more comfortable. She had a small amount of blood in her first NG tube which was attributed to some mild epistaxis. Functional Status: Reports: Pain Controlled - Review of Systems General: Reports: No Symptoms HEENT: Reports: No Symptoms Pulmonary: Reports: No Symptoms Cardiovascular: Reports: No Symptoms Gastrointestinal: Denies: Abdominal Pain, Nausea, Vomiting Neurological: Reports: No Symptoms Psychiatric: Reports: No Symptoms - Patient Data Vitals - Most Recent: Last Vital Signs Temp 97.9 F 09/15/19 05:13 Pulse 69 09/15/19 09:15 Resp 16 09/15/19 05:13 BP 161/88 H 09/15/19 09:15 Pulse Ox 98 09/15/19 05:13 Weight - Most Recent: 71.305 kg I&O - Last 24 Hours: Intake & Output 09/14/19 09/15/19 09/15/19 22:59 06:59 14:59 Intake Total 845 1100 Output Total 700 700 Balance 145 400 Lab Results Last 24 Hours: Laboratory Results - last 24 hr 09/15/19 09/15/19 Range/Units 05:37 05:37 WBC 5.65 (3.98-10.04) K/mm3 RBC 3.51 L (3.98-5.22) M/mm3 Hgb 10.7 L (11.2-15.7) gm/dl Hct 33.6 L (34.1-44.9) % MCV 95.7 H (79.4-94.8) fl MCH 30.5 (25.6-32.2) pg MCHC 31.8 L (32.2-35.5) g/dl RDW Std Deviation 41.9 (36.4-46.3) fL Plt Count 116 L (182-369) K/mm3 MPV 9.6 (9.4-12.3) fl Neut % (Auto) 55.6 (34.0-71.1) % Lymph % (Auto) 34.0 (19.3-51.7) % Becker % (Auto) 6.9 (4.7-12.5) % Eos % (Auto) 3.0 (0.7-5.8) Baso % (Auto) 0.5 (0.1-1.2) % Neut # (Auto) 3.14 (1.56-6.13) K/mm3 Lymph # (Auto) 1.92 (1.18-3.74) K/mm3 [place] # (Auto) 0.39 H (0.24-0.36) K/mm3 Eos # (Auto) 0.17 (0.04-0.36) K/mm3 Baso # (Auto) 0.03 (0.01-0.08) K/mm3 Sodium 141 (136-145) mEq/L Potassium 4.1 (3.5-5.1) mEq/L Chloride 107 (98-107) mEq/L Carbon Dioxide 25 (21-32) mEq/L Anion Gap 13.1 (5-15) BUN 8 (7-18) mg/dL Creatinine 0.6 (0.55-1.02) mg/dL Est Cr Clr Drug Dosing 55.49 mL/min Estimated GFR (MDRD) > 60 (>60) mL/min BUN/Creatinine Ratio 13.3 L (14-18) Glucose 85 (83-115) mg/dL Calcium 8.2 L (8.5-10.1) mg/dL Magnesium 2.1 (1.8-2.4) mg/dl Med Orders - Current: Current Medications Acetaminophen (Tylenol) 650 mg PO Q4H PRN PRN Reason: Pain Last Admin: 09/14/19 05:13 Dose: 650 mg Documented by: Benzocaine/Menthol (Cepacol Sore Throat) 1 lozenge MUCMEM Q2HR PRN PRN Reason: Sore Throat Last Admin: 09/15/19 00:31 Dose: 1 lozenge Documented by: Carvedilol (Coreg) 25 mg PO BID [facility] Last Admin: 09/15/19 09:15 Dose: 25 mg Documented by: Enoxaparin Sodium (Lovenox) 40 mg SUBCUT DAILY [facility] Last Admin: 09/15/19 09:15 Dose: 40 mg Documented by: Furosemide (Lasix) 20 mg IVPUSH DAILY [facility] Last Admin: 09/15/19 09:15 Dose: 20 mg Documented by: Hydromorphone HCl (Dilaudid) 0.5 mg IVPUSH Q2H PRN PRN Reason: Pain Last Admin: 09/15/19 09:16 Dose: 0.5 mg Documented by: Ceftriaxone Sodium 1 gm/ (Sodium Chloride) 100 mls @ 200 mls/hr IV Q24H [facility] Stop: 09/16/19 22:01 Last Admin: 09/14/19 21:49 Dose: 200 mls/hr Documented by: Potassium Chloride/Sodium Chloride (Normal Saline With 20 Meq Kcl) 1,000 mls @ 75 mls/hr IV ASDIRECTED [facility] Last Admin: 09/14/19 22:06 Dose: 75 mls/hr Documented by: Levothyroxine Sodium (Levothyroxine) 112 mcg PO DAILY@1000 [facility] Last Admin: 09/14/19 10:36 Dose: Not Given Documented by: Magnesium Hydroxide (Milk Of Magnesia) 30 ml PO DAILY PRN PRN Reason: Constipation Nitroglycerin (Nitrostat) 0.4 mg SL ASDIRECTED PRN PRN Reason: Chest Pain Ondansetron HCl (Zofran) 4 mg IVPUSH Q6H PRN PRN Reason: Nausea Last Admin: 09/14/19 21:48 Dose: 4 mg Documented by: Pantoprazole Sodium (Protonix Iv) 40 mg IVPUSH DAILY [facility] Last Admin: 09/15/19 09:15 Dose: 40 mg Documented by: Sodium Chloride (Saline Flush) 10 ml FLUSH ONETIME PRN PRN Reason: Keep Vein Open Last Admin: 09/14/19 00:04 Dose: 10 ml Documented by: Discontinued Medications Diatrizoate Meglum/Diatrizoate Sod (Gastrografin 37%) 120 ml PO ONETIME ONE Stop: 09/13/19 23:33 Last Admin: 09/14/19 00:04 Dose: 120 ml Documented by: Hydromorphone HCl (Dilaudid) 0.5 mg IVPUSH ONETIME STA Stop: 09/13/19 21:41 Last Admin: 09/13/19 21:49 Dose: 0.5 mg Documented by: Hydromorphone HCl (Dilaudid) 0.5 mg IVPUSH ONETIME ONE Stop: 09/14/19 00:39 Last Admin: 09/14/19 00:51 Dose: 0.5 mg Documented by: Sodium Chloride (Normal Saline) 1,000 mls @ 100 mls/hr IV ASDIRECTED [facility] Last Admin: 09/13/19 21:49 Dose: 100 mls/hr Documented by: Ceftriaxone Sodium 1 gm/ (Sodium Chloride) 100 mls @ 200 mls/hr IV ONETIME STA Stop: 09/13/19 22:59 Last Admin: 09/13/19 23:32 Dose: 200 mls/hr Documented by: Potassium Chloride/Sodium Chloride (Normal Saline With 20 Meq Kcl) 1,000 mls @ 100 mls/hr IV ASDIRECTED [facility] Last Admin: 09/14/19 12:03 Dose: 100 mls/hr Documented by: Iopamidol (Isovue-300 (61%)) 100 ml IVPUSH ONETIME ONE Stop: 09/13/19 23:33 Last Admin: 09/14/19 00:04 Dose: 100 ml Documented by: Magnesium Hydroxide (Milk Of Magnesia) 30 ml PO DAILY [facility] Ondansetron HCl (Zofran) 4 mg IVPUSH ONETIME ONE Stop: 09/13/19 21:41 Last Admin: 09/13/19 21:49 Dose: 4 mg Documented by: - Exam Quality Assessment: No: Supplemental Oxygen General: Alert, Oriented HEENT: Pupils Equal, Mucous Membr. Moist/[place] Neck: Supple Lungs: Clear to Auscultation, Normal Respiratory Effort Cardiovascular: Regular Rate, Regular Rhythm GI/Abdominal Exam: Normal Bowel Sounds, Soft, No Organomegaly, No Distention, Tender (Mild left lower quadrant tenderness). No: Non-Tender Extremities: Normal Inspection, Normal Capillary Refill, Pedal Edema (Trace to 1+ lower extremity bilateral edema) Skin: Warm, Dry, Intact Neurological: No New Focal Deficit Psy/Mental Status: Alert, Normal Affect, Normal Mood Sepsis Event Note - Evaluation Sepsis Screening Result: No Definite Risk - Focused Exam Vital Signs: Vital Signs Temp Pulse Resp BP Pulse Ox 09/15/19 09:15 69 161/88 H 09/15/19 05:13 97.9 F 73 16 153/57 H 98 Date Exam was Performed: 09/15/19 Time Exam was Performed: 10:54 - Problem List Review Problem List Initiated/Reviewed/Updated: Yes - My Orders Last 24 Hours: My Active Orders 09/14/19 10:00 Levothyroxine 112 mcg PO DAILY@1000 09/14/19 11:45 Pantoprazole [ProTONIX IV] 40 mg IVPUSH DAILY 09/14/19 18:42 Chest 1V Frontal [CR] Routine 09/14/19 20:15 NS + KCl 20mEq/L [Normal Saline with 20 mEq KCl] 1,000 ml IV ASDIRECTED 09/14/19 22:00 cefTRIAXone [Rocephin] 1 gm Sodium Chloride 0.9% [Normal Saline] 100 ml IV Q24H 09/15/19 07:49 Magnesium Hydroxide [Milk of Magnesia] 30 ml PO DAILY PRN 09/16/19 05:11 BASIC METABOLIC PANEL,BMP [CHEM] AM MAGNESIUM [CHEM] AM 09/16/19 09:15 CBC WITH AUTO DIFF [HEME] DAILY 09/17/19 05:11 BASIC METABOLIC PANEL,BMP [CHEM] AM MAGNESIUM [CHEM] AM 09/17/19 09:15 CBC WITH AUTO DIFF [HEME] DAILY 09/18/19 05:11 BASIC METABOLIC PANEL,BMP [CHEM] AM MAGNESIUM [CHEM] AM 09/18/19 09:15 CBC WITH AUTO DIFF [HEME] DAILY 09/19/19 05:11 BASIC METABOLIC PANEL,BMP [CHEM] AM MAGNESIUM [CHEM] AM 09/19/19 09:15 CBC WITH AUTO DIFF [HEME] DAILY - Assessment Assessment:: Assessment September 14, 2019 -day of admission * 79-year-old female with a 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 * She request only Dr. Cruz to operate and he is not available until September 18, 2019 * NG tube to low intermittent suction started in the emergency department with good results * Normal white count 6.46 and afebrile * Difficult IV access * Patient required an IV in her dorsum of the right foot. * She may need central line venous access if she is has a prolonged hospitalization. * Hypertension * Initial blood pressure in the emergency department of 173/86 * Blood pressure improved after arriving at the floor * Last dose of carvedilol yesterday morning * Lower extremity edema * Patient states she takes 20 to 40 mg of Lasix in the morning depending on the amount of lower extremity edema she has. * She denies any history of heart failure. 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 * Lower extremity edema -improved. Receiving Lasix 20 mg IV in the morning * Bacteriuria -on second day of Rocephin. Culture still pending Chronic: Coronary artery disease, high cholesterol, osteoarthritis, osteoporosis, anxiety, depression, panic attacks, fibromyalgia, insomnia, hypothyroidism, vitamin D deficiency - Plan Plan:: Plan * Admit to medical floor * Continue NG tube to low intermittent suction * Continue home oral blood pressure and thyroid medications. Will clamp NG tube after taking oral medications. * Switch Lasix to IV * Rocephin 1 g daily x1 more days * Awaiting urine culture * Dilaudid for pain and Zofran for nausea * IV fluids: Normal saline with 20 mEq KCl per liter at 75 mL/h * Consider central venous access if hospitalization is prolonged or unable to obtain peripheral IV access * FiO2 to keep SPO2 greater than 92%. * CBC, CMP, mag in the morning * VTE prophylaxis with Lovenox * CODE STATUS: Full code * Length of stay likely at least 3 to 4 days. If patient is still requiring nasogastric suctioning on 09/18/[address] Cruz about transfer.
[2019-09-15] MEDS: SYNTHROID 112 MCG PO SCH (11:55)
[2019-09-15] MEDS: NS + KCl 20mEq/L 1,000 ML IV SCH (12:00)
--- NOTE | 2019-09-15 14:18 | CR ---
Chest: Portable view of the chest was obtained. Comparison: Prior chest x-ray of 02/27/18. Heart size is normal. Tortuous thoracic aorta is seen. Surgical clips are noted within the upper right abdomen from previous cholecystectomy. Prior lumbar spine surgery is noted. Lungs are clear with no acute parenchymal change. Surgical anchors are noted within the right shoulder. Nasogastric tube is seen within the proximal stomach. Impression: 1. Findings as noted above. 2. Nasogastric tube slightly within the proximal stomach. 3. Nothing acute is otherwise appreciated. Diagnostic code #2 This report was dictated in MDT I agree with preliminary report from [facility], finalized on 09/14/19, 8:40 PM Central Daylight Time
[2019-09-15] MEDS: cefTRIAXone 1 GM in Sodium Chloride 0.9% 100 ML IV SCH (21:00)
[2019-09-15] MEDS ORDERED: hydrALAZINE 20 MG/ML SDV IVPUSH PRN (21:49)
[2019-09-16] MEDS: Ondansetron 4 MG/2 ML SDV IVPUSH PRN ×2 (01:17→20:59)
[2019-09-16] MEDS: NS + KCl 20mEq/L 1,000 ML IV SCH (01:17)
[2019-09-16] MEDS: HYDROmorphone 0.5 MG/0.5 ML Syringe IVPUSH PRN ×6 (02:04→22:31)
[2019-09-16] MEDS ORDERED: 50% Dextrose in Water 50 ML Syringe IVPUSH PRN (06:11)
[2019-09-16] MEDS ORDERED: Potassium Chloride 20 MEQ in Dextrose 5% in Water 1,000 ML IV SCH ×2 (06:15)
[2019-09-16] MEDS ORDERED: D5 1/2 NS w/ 20 mEq/L KCl 1,000 ML IV SCH (07:00)
[2019-09-16] MEDS: Carvedilol 12.5 MG Tab PO SCH ×2 (08:10→20:59)
[2019-09-16] MEDS: Pantoprazole 40 MG Vial IVPUSH SCH (08:13)
[2019-09-16] MEDS: Furosemide 20 MG/2 ML VIAL IVPUSH SCH (08:13)
[2019-09-16] MEDS: Enoxaparin 40 MG/0.4 ML Syringe SUBCUT SCH (08:13)
[2019-09-16] MEDS: SYNTHROID 112 MCG PO SCH (11:25)
[2019-09-16] MEDS: Phenol 1.4% Oral Spray 177 ML Bottle MUCMEM PRN ×3 (14:04→22:32)
[2019-09-16] MEDS ORDERED: Spironolactone 25 MG Tab PO ONE (17:35)
--- NOTE | 2019-09-16 17:35 | PCM.PN ---
- General Info Date of Service: 09/16/19 Admission Dx/Problem (Free Text): Admission Diagnosis/Problem Admission Diagnosis/Problem Small bowel obstruction Subjective Update: Patient continues to feel better. She had another bowel movement this morning. She is having less abdominal pain this morning. She is requesting to try broth. Functional Status: Reports: Pain Controlled - Review of Systems General: Reports: No Symptoms HEENT: Reports: No Symptoms Pulmonary: Reports: No Symptoms Gastrointestinal: Reports: No Symptoms Musculoskeletal: Reports: No Symptoms Neurological: Reports: No Symptoms Psychiatric: Reports: No Symptoms - Patient Data Vitals - Most Recent: Last Vital Signs Temp 97.7 F 09/16/19 11:16 Pulse 68 09/16/19 11:16 Resp 20 09/16/19 11:16 BP 160/72 H 09/16/19 13:58 Pulse Ox 96 09/16/19 11:16 Weight - Most Recent: 70.715 kg I&O - Last 24 Hours: Intake & Output 09/16/19 09/16/19 09/16/19 06:59 14:59 22:59 Intake Total 971 100 Output Total 700 Balance 271 100 Lab Results Last 24 Hours: Laboratory Results - last 24 hr 09/16/19 09/16/19 09/16/19 Range/Units 06:08 06:09 06:09 WBC 5.80 (3.98-10.04) K/mm3 RBC 3.37 L (3.98-5.22) M/mm3 Hgb 10.6 L (11.2-15.7) gm/dl Hct 32.2 L (34.1-44.9) % MCV 95.5 H (79.4-94.8) fl MCH 31.5 (25.6-32.2) pg MCHC 32.9 (32.2-35.5) g/dl RDW Std Deviation 40.9 (36.4-46.3) fL Plt Count 98 L (182-369) K/mm3 MPV 9.7 (9.4-12.3) fl Neut % (Auto) 58.9 (34.0-71.1) % Lymph % (Auto) 31.7 (19.3-51.7) % [place] % (Auto) 6.6 (4.7-12.5) % Eos % (Auto) 2.1 (0.7-5.8) Baso % (Auto) 0.5 (0.1-1.2) % Neut # (Auto) 3.42 (1.56-6.13) K/mm3 Lymph # (Auto) 1.84 (1.18-3.74) K/mm3 [place] # (Auto) 0.38 H (0.24-0.36) K/mm3 Eos # (Auto) 0.12 (0.04-0.36) K/mm3 Baso # (Auto) 0.03 (0.01-0.08) K/mm3 Manual Slide Review Abnormal smear Sodium 141 (136-145) mEq/L Potassium 4.3 (3.5-5.1) mEq/L Chloride 106 (98-107) mEq/L Carbon Dioxide 22 (21-32) mEq/L Anion Gap 17.3 H (5-15) BUN 11 (7-18) mg/dL Creatinine 0.6 (0.55-1.02) mg/dL Est Cr Clr Drug Dosing 55.49 mL/min Estimated GFR (MDRD) > 60 (>60) mL/min BUN/Creatinine Ratio 18.3 H (14-18) Glucose 59 L (83-115) mg/dL POC Glucose 48 L (83-110) mg/dL Calcium 8.3 L (8.5-10.1) mg/dL Magnesium 1.9 (1.8-2.4) mg/dl 09/16/19 Range/Units 07:04 WBC (3.98-10.04) K/mm3 RBC (3.98-5.22) M/mm3 Hgb (11.2-15.7) gm/dl Hct (34.1-44.9) % MCV (79.4-94.8) fl MCH (25.6-32.2) pg MCHC (32.2-35.5) g/dl RDW Std Deviation (36.4-46.3) fL Plt Count (182-369) K/mm3 MPV (9.4-12.3) fl Neut % (Auto) (34.0-71.1) % Lymph % (Auto) (19.3-51.7) % [place] % (Auto) (4.7-12.5) % Eos % (Auto) (0.7-5.8) Baso % (Auto) (0.1-1.2) % Neut # (Auto) (1.56-6.13) K/mm3 Lymph # (Auto) (1.18-3.74) K/mm3 [place] # (Auto) (0.24-0.36) K/mm3 Eos # (Auto) (0.04-0.36) K/mm3 Baso # (Auto) (0.01-0.08) K/mm3 Manual Slide Review Sodium (136-145) mEq/L Potassium (3.5-5.1) mEq/L Chloride (98-107) mEq/L Carbon Dioxide (21-32) mEq/L Anion Gap (5-15) BUN (7-18) mg/dL Creatinine (0.55-1.02) mg/dL Est Cr Clr Drug Dosing mL/min Estimated GFR (MDRD) (>60) mL/min BUN/Creatinine Ratio (14-18) Glucose (83-115) mg/dL POC Glucose 181 H (83-110) mg/dL Calcium (8.5-10.1) mg/dL Magnesium (1.8-2.4) mg/dl [place] Results Last 24 Hours: Microbiology 09/13/19 22:34 Urine Culture - Final Urine, Quick Cath (In-Out) Med Orders - Current: Current Medications Acetaminophen (Tylenol) 650 mg PO Q4H PRN PRN Reason: Pain Last Admin: 09/14/19 05:13 Dose: 650 mg Documented by: Benzocaine/Menthol (Cepacol Sore Throat) 1 lozenge MUCMEM Q2HR PRN PRN Reason: Sore Throat Last Admin: 09/15/19 21:11 Dose: 1 lozenge Documented by: Carvedilol (Coreg) 25 mg PO BID [facility] Last Admin: 09/16/19 08:10 Dose: 25 mg Documented by: Dextrose/Water (Dextrose 50% In Water) 50 ml IVPUSH ASDIRECTED PRN PRN Reason: Hypoglycemia Last Admin: 09/16/19 06:30 Dose: 50 ml Documented by: Enoxaparin Sodium (Lovenox) 40 mg SUBCUT DAILY [facility] Last Admin: 09/16/19 08:13 Dose: 40 mg Documented by: Furosemide (Lasix) 20 mg IVPUSH DAILY [facility] Last Admin: 09/16/19 08:13 Dose: 20 mg Documented by: Hydralazine HCl (Apresoline) 10 mg IVPUSH Q4H PRN PRN Reason: Hypertension Hydromorphone HCl (Dilaudid) 0.5 mg IVPUSH Q2H PRN PRN Reason: Pain Last Admin: 09/16/19 15:48 Dose: 0.5 mg Documented by: Potassium Chloride/Dextrose/Sod Cl (D5 1/2 Ns W/ 20 Meq/L Kcl) 1,000 mls @ 75 mls/hr IV ASDIRECTED [facility] Last Admin: 09/16/19 06:59 Dose: 75 mls/hr Documented by: Levothyroxine Sodium (Levothyroxine) 112 mcg PO DAILY@1000 [facility] Last Admin: 09/16/19 11:25 Dose: Not Given Documented by: Magnesium Hydroxide (Milk Of Magnesia) 30 ml PO DAILY PRN PRN Reason: Constipation Nitroglycerin (Nitrostat) 0.4 mg SL ASDIRECTED PRN PRN Reason: Chest Pain Ondansetron HCl (Zofran) 4 mg IVPUSH Q6H PRN PRN Reason: Nausea Last Admin: 09/16/19 01:17 Dose: 4 mg Documented by: Pantoprazole Sodium (Protonix Iv) 40 mg IVPUSH DAILY [facility] Last Admin: 09/16/19 08:13 Dose: 40 mg Documented by: Phenol/Menthol (Chloraseptic Throat [place]) 0 ml MUCMEM Q2H PRN PRN Reason: Pain Last Admin: 09/16/19 16:14 Dose: 2 sprays Documented by: Sodium Chloride (Saline Flush) 10 ml FLUSH ONETIME PRN PRN Reason: Keep Vein Open Last Admin: 09/14/19 00:04 Dose: 10 ml Documented by: Discontinued Medications Diatrizoate Meglum/Diatrizoate Sod (Gastrografin 37%) 120 ml PO ONETIME ONE Stop: 09/13/19 23:33 Last Admin: 09/14/19 00:04 Dose: 120 ml Documented by: Hydromorphone HCl (Dilaudid) 0.5 mg IVPUSH ONETIME STA Stop: 09/13/19 21:41 Last Admin: 09/13/19 21:49 Dose: 0.5 mg Documented by: Hydromorphone HCl (Dilaudid) 0.5 mg IVPUSH ONETIME ONE Stop: 09/14/19 00:39 Last Admin: 09/14/19 00:51 Dose: 0.5 mg Documented by: Sodium Chloride (Normal Saline) 1,000 mls @ 100 mls/hr IV ASDIRECTED [facility] Last Admin: 09/13/19 21:49 Dose: 100 mls/hr Documented by: Ceftriaxone Sodium 1 gm/ (Sodium Chloride) 100 mls @ 200 mls/hr IV ONETIME STA Stop: 09/13/19 22:59 Last Admin: 09/13/19 23:32 Dose: 200 mls/hr Documented by: Potassium Chloride/Sodium Chloride (Normal Saline With 20 Meq Kcl) 1,000 mls @ 100 mls/hr IV ASDIRECTED [facility] Last Admin: 09/14/19 12:03 Dose: 100 mls/hr Documented by: Ceftriaxone Sodium 1 gm/ (Sodium Chloride) 100 mls @ 200 mls/hr IV Q24H [facility] Stop: 09/16/19 22:01 Last Admin: 09/15/19 21:00 Dose: 200 mls/hr Documented by: Potassium Chloride/Sodium Chloride (Normal Saline With 20 Meq Kcl) 1,000 mls @ 75 mls/hr IV ASDIRECTED [facility] Last Admin: 09/16/19 01:17 Dose: 75 mls/hr Documented by: Potassium Chloride 20 meq/ (Dextrose/Water) 1,010 mls @ 75.75 mls/hr IV ASDIRECTED [facility] Iopamidol (Isovue-300 (61%)) 100 ml IVPUSH ONETIME ONE Stop: 09/13/19 23:33 Last Admin: 09/14/19 00:04 Dose: 100 ml Documented by: Magnesium Hydroxide (Milk Of Magnesia) 30 ml PO DAILY [facility] Ondansetron HCl (Zofran) 4 mg IVPUSH ONETIME ONE Stop: 09/13/19 21:41 Last Admin: 09/13/19 21:49 Dose: 4 mg Documented by: - Exam Quality Assessment: Supplemental Oxygen General: Alert, Oriented HEENT: Pupils Equal, Mucous Membr. Moist/[place] Neck: Supple Lungs: Clear to Auscultation, Normal Respiratory Effort Cardiovascular: Regular Rate, Regular Rhythm GI/Abdominal Exam: Normal Bowel Sounds, Soft, No Organomegaly, No Distention, No Abnormal Bruit, Tender (Mild epigastric tenderness) Extremities: Normal Inspection, Normal Range of Motion, Non-Tender, No Pedal Edema, Normal Capillary Refill Skin: Warm, Dry, Intact Psy/Mental Status: Alert, Normal Affect, Normal Mood Sepsis Event Note - Evaluation Sepsis Screening Result: No Definite Risk - Focused Exam Vital Signs: Vital Signs Temp Pulse Resp BP Pulse Ox 09/16/19 13:58 160/72 H 09/16/19 11:16 97.7 F 68 20 184/75 H 96 09/16/19 08:10 69 155/50 H 09/16/19 07:21 97.9 F 69 20 155/50 H 96 Date Exam was Performed: 09/16/19 Time Exam was Performed: 17:39 - Problem List & Annotations (1) Small bowel obstruction due to adhesions SNOMED Code(s): 160588469 Code(s): K56.50 - INTESTNL ADHESIONS, UNSP TO PARTIAL VERSUS COMPLETE OBST Status: Acute Current Visit: Yes (2) Thrombocytopenia SNOMED Code(s): 677911707 Code(s): D69.6 - THROMBOCYTOPENIA, UNSPECIFIED Status: Acute Current Visit: Yes (3) HTN (hypertension) SNOMED Code(s): 23968432 Code(s): I10 - ESSENTIAL (PRIMARY) HYPERTENSION Status: Acute Current Visit: No Qualifiers: Hypertension type: essential hypertension Qualified Code(s): I10 - Essential (primary) hypertension - Problem List Review Problem List Initiated/Reviewed/Updated: Yes - My Orders Last 24 Hours: My Active Orders 09/15/19 21:49 hydrALAZINE [Apresoline] 10 mg IVPUSH Q4H PRN 09/16/19 06:00 Blood Glucose Check, Bedside [RC] Q6HR 09/16/19 06:11 Dextrose 50% in Water 50 ml IVPUSH ASDIRECTED PRN 09/16/19 07:00 D5 1/2 NS w/ 20 mEq/L KCl 1,000 ml IV ASDIRECTED 09/16/19 09:04 Phenol [Chloraseptic Throat [place]] See Dose Instructions MUCMEM Q2H PRN 09/16/19 10:03 OT Evaluation and Treatment [CONS] Routine PT Evaluation and Treatment [CONS] Routine 09/16/19 Lunch Clear Liquid Diet [DIET] 09/17/19 05:11 BASIC METABOLIC PANEL,BMP [CHEM] AM MAGNESIUM [CHEM] AM 09/17/19 09:15 CBC WITH AUTO DIFF [HEME] DAILY 09/18/19 05:11 BASIC METABOLIC PANEL,BMP [CHEM] AM MAGNESIUM [CHEM] AM 09/18/19 09:15 CBC WITH AUTO DIFF [HEME] DAILY 09/19/19 05:11 BASIC METABOLIC PANEL,BMP [CHEM] AM MAGNESIUM [CHEM] AM 09/19/19 09:15 CBC WITH AUTO DIFF [HEME] DAILY - Assessment Assessment:: Assessment September 14, 2019 -day of admission * 79-year-old female with a 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 * She request only Dr. Cruz to operate and he is not available until September 18, 2019 * NG tube to low intermittent suction started in the emergency department with good results * Normal white count 6.46 and afebrile * Difficult IV access * Patient required an IV in her dorsum of the right foot. * She may need central line venous access if she is has a prolonged hospitalization. * Hypertension * Initial blood pressure in the emergency department of 173/86 * Blood pressure improved after arriving at the floor * Last dose of carvedilol yesterday morning * Lower extremity edema * Patient states she takes 20 to 40 mg of Lasix in the morning depending on the amount of lower extremity edema she has. * She denies any history of heart failure. 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 * Lower extremity edema -improved. Receiving Lasix 20 mg IV in the morning * Bacteriuria -on second day of Rocephin. Culture still pending September 16, 2019 * Small bowel obstruction continuing to improve * 1 BM this morning. * Abdominal sounds more active * 200 mL out of NG tube over 24 hours * Patient is hungry and having less pain. * Difficult IV access * IV is on dorsum of right foot and still patent * Thrombocytopenia * Platelets 98,000 * Hypertension, uncontrolled * Systolic blood pressures still in the 160s to 180s * Patient has multiple allergies to multiple blood pressure medications making treatment difficult. 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 Chronic: Coronary artery disease, high cholesterol, osteoarthritis, osteoporosis, anxiety, depression, panic attacks, fibromyalgia, insomnia, hypothyroidism, vitamin D deficiency - Plan Plan:: Plan * Admit to medical floor * Continue NG tube to low intermittent suction * Continue home oral blood pressure and thyroid medications. Will clamp NG tube after taking oral medications. * Switch Lasix to IV * Add spironolactone 12.5 mg for resistant hypertension. * Stop Rocephin * Dilaudid for pain and Zofran for nausea * IV fluids: D5 half-normal saline at 100 mL/h * Consider central venous access if hospitalization is prolonged or unable to obtain peripheral IV access * FiO2 to keep SPO2 greater than 92%. * CBC, CMP, mag in the morning * VTE prophylaxis with Lovenox * CODE STATUS: Full code * Length of stay likely at least 3 to 4 days. If patient is still requiring nasogastric suctioning on 09/18/[address] Cruz about transfer.
[2019-09-16] MEDS ORDERED: Dextrose 5%-0.45% NaCl 1,000 ML IV SCH (17:45)
[2019-09-17] MEDS: HYDROmorphone 0.5 MG/0.5 ML Syringe IVPUSH PRN ×2 (02:36→04:49)
[2019-09-17] MEDS: Ondansetron 4 MG/2 ML SDV IVPUSH PRN (02:49)
[2019-09-17] MEDS: Phenol 1.4% Oral Spray 177 ML Bottle MUCMEM PRN ×3 (02:50→23:51)
[2019-09-17] MEDS ORDERED: Acetaminophen 1,000 MG in Premix Bag 1 BAG IV PRN (08:56)
[2019-09-17] MEDS: Spironolactone 25 MG Tab PO SCH (08:58)
[2019-09-17] MEDS: Carvedilol 12.5 MG Tab PO SCH ×2 (08:58→20:24)
[2019-09-17] MEDS: Pantoprazole 40 MG Vial IVPUSH SCH ×3 (08:59→14:23)
[2019-09-17] MEDS: Furosemide 20 MG/2 ML VIAL IVPUSH SCH (09:00)
[2019-09-17] MEDS: Enoxaparin 40 MG/0.4 ML Syringe SUBCUT SCH (09:00)
[2019-09-17] MEDS ORDERED: HYDROmorphone 0.5 MG/0.5 ML Syringe IVPUSH PRN (09:17)
[2019-09-17] MEDS ORDERED: Magnesium Sulfate/Water 2 GM in Premix Bag 1 BAG IV ONE (10:30)
[2019-09-17] MEDS: SYNTHROID 112 MCG PO SCH (11:55)
--- NOTE | 2019-09-17 11:59 | PCM.SN.2 ---
- Free Text/Narrative Note: IV insertion: Called for difficult IV insertion. 20 gauge IV inserted in right AC with single attempt per standard insertion protocol. Lidocaine to skin, chloraprep, good blood return, flushed well with 20 ml saline, transparent dressing applied with tape to secure saline lock. Reported insertion to nurse dischargeRN. Norris Chambers CRNA
[2019-09-17] MEDS ORDERED: Magnesium Oxide 400 MG Tab PO ONE (12:15)
[2019-09-17] MEDS ORDERED: Potassium Chloride 20 MEQ Tab.ER PO ONE (12:15)
[2019-09-17] MEDS ORDERED: hydrALAZINE 10 MG Tab PO PRN (12:28)
[2019-09-17] MEDS ORDERED: Potassium Chloride 10 MEQ in Premix Bag 1 BAG IV SCH (12:30)
[2019-09-17] MEDS: HYDROmorphone 2 MG Tab PO PRN ×3 (12:37→22:50)
[2019-09-17] MEDS: Pantoprazole 40 MG Tab.CR PO SCH (12:52)
--- NOTE | 2019-09-17 13:28 | PCM.PN ---
- General Info Date of Service: 09/17/19 - Review of Systems Systems Review Comment:: The patient was seen and examined by me. In bed at the time of my exam. still reports feelings of nausea, still reports abdominal discomfort. Yesterday was started on broth, but nursing reported the patient did not tolerate and has been refusing her juice. At time of my exam, about 50 ml of bile content noted. no reports of fevers or chills no chest pain. nursing staff did not report any other complaints. - Patient Data Vitals - Most Recent: Last Vital Signs Temp 97.5 F 09/17/19 07:46 Pulse 66 09/17/19 08:58 Resp 20 09/17/19 07:46 BP 124/94 H 09/17/19 08:58 Pulse Ox 95 09/17/19 07:46 Weight - Most Recent: 153 lb 4.8 oz I&O - Last 24 Hours: Intake & Output - Exam General: Alert, Oriented HEENT: Pupils Equal, Pupils Reactive, EOMI, Mucous Membr. Moist/[place] Neck: Supple Lungs: Clear to Auscultation, Normal Respiratory Effort Cardiovascular: Regular Rate, Regular Rhythm GI/Abdominal Exam: Normal Bowel Sounds (sluggish but present), Soft, Tender (slight tenderness in lUQ) Extremities: Normal Inspection, Pedal Edema (trace) Skin: Warm, Dry, Intact Neurological: No New Focal Deficit Psy/Mental Status: Alert, Normal Affect, Normal Mood Sepsis Event Note - Evaluation Sepsis Screening Result: No Definite Risk - Focused Exam Vital Signs: Vital Signs Temp Pulse Resp BP Pulse Ox 09/17/19 08:58 66 124/94 H 09/17/19 07:46 97.5 F 66 20 124/94 H 95 09/17/19 04:43 97.5 F 66 16 134/89 94 L Date Exam was Performed: 09/17/19 Time Exam was Performed: 13:16 - Problem List Review Problem List Initiated/Reviewed/Updated: Yes - My Orders Last 24 Hours: My Active Orders 09/17/19 13:04 KUB [Abdomen 1V Flat] [CR] Routine 09/18/19 05:11 CBC WITH AUTO DIFF [HEME] AM CMP [COMPREHENSIVE METABOLIC PN,CMP] [CHEM] AM MAGNESIUM (PHARM SOLN) [CHEM] DAILY - Assessment Assessment:: Assessment September 14, 2019 -day of admission * 79-year-old female with a 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 * She request only Dr. Cruz to operate and he is not available until September 18, 2019 * NG tube to low intermittent suction started in the emergency department with good results * Normal white count 6.46 and afebrile * Difficult IV access * Patient required an IV in her dorsum of the right foot. * She may need central line venous access if she is has a prolonged hospitalization. * Hypertension * Initial blood pressure in the emergency department of 173/86 * Blood pressure improved after arriving at the floor * Last dose of carvedilol yesterday morning * Lower extremity edema * Patient states she takes 20 to 40 mg of Lasix in the morning depending on the amount of lower extremity edema she has. * She denies any history of heart failure. 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 * Lower extremity edema -improved. Receiving Lasix 20 mg IV in the morning * Bacteriuria -on second day of Rocephin. Culture still pending September 16, 2019 * Small bowel obstruction continuing to improve * 1 BM this morning. * Abdominal sounds more active * 200 mL out of NG tube over 24 hours * Patient is hungry and having less pain. * Difficult IV access * IV is on dorsum of right foot and still patent * Thrombocytopenia * Platelets 98,000 * Hypertension, uncontrolled * Systolic blood pressures still in the 160s to 180s * Patient has multiple allergies to multiple blood pressure medications making treatment difficult. 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 Chronic: Coronary artery disease, high cholesterol, osteoarthritis, osteoporosis, anxiety, depression, panic attacks, fibromyalgia, insomnia, hypothyroidism, vitamin D deficiency September 17, 2019 Small Bowel obstruction: At the moment remains stable small BM yesterday. But still having nausea and reports pain (improving). Patient could not really tolerate broth/juice started yesterday. NG at time of my exam this am had about 50ml of bile content. Thrombocythopenia: Improving, today platelets 110, Electrolyte imbalance: potassium and magnesium low. Hypertension: Blood pressure at time of my exam, 124/94. Lower extremity Edema: Improving on Lasix. Hx of pulmonary fibrosis: Patient maintaining saturations on 2 L of oxygen. Chronic: Coronary artery disease, high cholesterol, osteoarthritis, osteoporosis, anxiety, depression, panic attacks, fibromyalgia, insomnia, hypothyroidism, vitamin D deficiency - Plan Plan:: Plan . Patient will remain on the floor * Continue NG tube to low intermittent suction, repeat KUB to reacess SBO and to make decison to remove NG-tube. * if tomorrow still having discomfort plan to talk with the patient's surgeon [facility] at [facility]. * Continue home oral blood pressure and thyroid medications. Will clamp NG tube after taking oral medications. * Add spironolactone 12.5 mg for resistant hypertension to be continued. * Dilaudid for pain and Zofran for nausea * IV fluids: D5 half-normal saline at 100 mL/h * FiO2 to keep SPO2 greater than 92%. * CBC, CMP, mag in the morning Prophylaxis: G.I: Continue PPI, DVT: Continue VTE prophylaxis with Lovenox Nausea: continue Zofran. CODE STATUS: Full code Prognosis: guarded. Disposition: The patient will remain in house. The patient will stay longer than 96hrs because she is still having abdominal pain and still not able to tolerate food yet.
--- NOTE | 2019-09-17 13:53 | CR ---
Abdomen: Supine view of the abdomen was obtained. Comparison: Prior abdominal x-ray of 02/17/19. Surgical clips are seen within the upper right abdomen. Nasogastric tube is seen with tip lying within the stomach. Prior lumbar spine surgery is noted. Bowel gas appears normal. Impression: 1. Nasogastric tube. 2. Other findings as noted above. 3. Nothing acute is appreciated. Diagnostic code #2 This report was dictated in MDT
[2019-09-17] MEDS: Acetaminophen 325 MG Tab PO PRN (20:19)
[2019-09-18] MEDS: Benzocaine/Cetylpyridinium/Menthol Lozenge MUCMEM PRN ×2 (02:14→04:49)
[2019-09-18] MEDS: Ondansetron 4 MG Tab.DIS PO PRN ×2 (04:49→13:31)
[2019-09-18] MEDS: HYDROmorphone 2 MG Tab PO PRN ×3 (04:49→15:20)
[2019-09-18] MEDS: Furosemide 20 MG Tab PO SCH (08:40)
[2019-09-18] MEDS: Pantoprazole 40 MG Tab.CR PO SCH (08:40)
[2019-09-18] MEDS: Carvedilol 12.5 MG Tab PO SCH ×2 (08:40→20:55)
[2019-09-18] MEDS: Spironolactone 25 MG Tab PO SCH (08:40)
[2019-09-18] MEDS: Enoxaparin 40 MG/0.4 ML Syringe SUBCUT SCH (08:41)
[2019-09-18] MEDS: SYNTHROID 112 MCG PO SCH ×2 (08:45→10:22)
[2019-09-18] MEDS ORDERED: Magnesium Oxide 400 MG Tab PO ONE ×2 (11:10→11:15)
[2019-09-18] MEDS ORDERED: Potassium Chloride 20 MEQ Tab.ER PO ONE (11:11)
[2019-09-18] MEDS ORDERED: Potassium Chloride 20 MEQ Tab.ER PO SCH (11:15)
[2019-09-18] MEDS: amLODIPine 5 MG Tab PO SCH (12:01)
--- NOTE | 2019-09-18 13:26 | PCM.PN ---
- General Info Date of Service: 09/18/19 - Review of Systems Systems Review Comment:: The reported some discomfort last night after diet was advanced. Morning patient tolerated full liquids without significant complaints. Patient has had multiple bowel movements. Reports Sore throat. no other complaints. - Patient Data Vitals - Most Recent: Last Vital Signs Temp 97.3 F 09/18/19 07:30 Pulse 68 09/18/19 11:11 Resp 20 09/18/19 11:11 BP 115/84 09/18/19 11:11 Pulse Ox 95 09/18/19 11:11 Weight - Most Recent: 151 lb 11.2 oz - Exam General: Alert, Oriented HEENT: Pupils Equal, Pupils Reactive, EOMI, Other (oral mucosa dry.) Neck: Supple Lungs: Clear to Auscultation, Normal Respiratory Effort Cardiovascular: Regular Rate, Regular Rhythm GI/Abdominal Exam: Normal Bowel Sounds, Soft, Non-Tender Extremities: Normal Inspection, Normal Range of Motion, Non-Tender, No Pedal Edema, Normal Capillary Refill Skin: Warm, Dry, Intact Neurological: No New Focal Deficit Psy/Mental Status: Alert, Normal Affect, Normal Mood Sepsis Event Note - Evaluation Sepsis Screening Result: No Definite Risk - Focused Exam Vital Signs: Vital Signs Temp Pulse Resp BP Pulse Ox 09/18/19 11:11 68 20 115/84 95 09/18/19 08:40 64 169/96 H 09/18/19 07:30 97.3 F 64 20 169/96 H 99 09/18/19 06:33 169/97 H 09/18/19 05:28 185/70 H 09/18/19 04:56 98.1 F 66 18 179/94 H 100 Date Exam was Performed: 09/23/19 Time Exam was Performed: 15:42 - Problem List & Annotations (1) Chronic respiratory failure SNOMED Code(s): 10495578 Code(s): J96.10 - CHRONIC RESPIRATORY FAILURE, UNSP W HYPOXIA OR HYPERCAPNIA Status: Acute - Problem List Review Problem List Initiated/Reviewed/Updated: Yes - Assessment Assessment:: Assessment September 14, 2019 -day of admission * 79-year-old female with a 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 * She request only Dr. Cruz to operate and he is not available until September 18, 2019 * NG tube to low intermittent suction started in the emergency department with good results * Normal white count 6.46 and afebrile * Difficult IV access * Patient required an IV in her dorsum of the right foot. * She may need central line venous access if she is has a prolonged hospitali zation. * Hypertension * Initial blood pressure in the emergency department of 173/86 * Blood pressure improved after arriving at the floor * Last dose of carvedilol yesterday morning * Lower extremity edema * Patient states she takes 20 to 40 mg of Lasix in the morning depending on the amount of lower extremity edema she has. * She denies any history of heart failure. 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 * Lower extremity edema -improved. Receiving Lasix 20 mg IV in the morning * Bacteriuria -on second day of Rocephin. Culture still pending September 16, 2019 * Small bowel obstruction continuing to improve * 1 BM this morning. * Abdominal sounds more active * 200 mL out of NG tube over 24 hours * Patient is hungry and having less pain. * Difficult IV access * IV is on dorsum of right foot and still patent * Thrombocytopenia * Platelets 98,000 * Hypertension, uncontrolled * Systolic blood pressures still in the 160s to 180s * Patient has multiple allergies to multiple blood pressure medications making treatment difficult. 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 Chronic: Coronary artery disease, high cholesterol, osteoarthritis, osteoporosis, anxiety, depression, panic attacks, fibromyalgia, insomnia, hypothyroidism, vitamin D deficiency September 17, 2019 Small Bowel obstruction: At the moment remains stable small BM yesterday. But still having nausea and reports pain (improving). Patient could not really tolerate broth/juice started yesterday. NG at time of my exam this am had about 50ml of bile content. Thrombocythopenia: Improving, today platelets 110, Electrolyte imbalance: potassium and magnesium low. Hypertension: Blood pressure at time of my exam, 124/94. Lower extremity Edema: Improving on Lasix. Hx of pulmonary fibrosis: Patient maintaining saturations on 2 L of oxygen. Chronic: Coronary artery disease, high cholesterol, osteoarthritis, osteoporosis, anxiety, depression, panic attacks, fibromyalgia, insomnia, hypothyroidism, vitamin D deficiency 09/18/2019 Vital signs - BP 185/70- 169/95 - Tmax 97.3 - HR 64' - SatO2 > 90% on RA and requiring 2 L Lab results -CBC: WBC 5.8, H&H 12.1/36.5 platelets 146 from 110 -Serum potassium 3.5 - Mg up from 1.8 from 1.7 - Glucose trend 116-221 No reports of nausea or abdominal pain. - Plan Plan:: Small bowel obstruction: Repeated KUB did not indicate any acute findings. Diet was advanced yesterday to full liquid the patient tolerated. Today advance diet to soft low irritant, remove NG tube. observe closely. Uncontrolled hypertension: Blood Pressure persistently elevated. Discontinue IV fluids. Continue spironolactone and coreg, start Norvasc 5 mg first dose now. Continue PRN hydralazine. Hypothyroidism: Continue Synthroid. Chronic pain syndrome: Continue home dose of p.o. Dilaudid. chronic Lower extremity edema: Continue Lasix. advice staff to elevate leg when in bed. Thrombocytopenia: improving. Today platelets 146 from 105 we will continue to monitor. Chronic respiratory failure: Patient uses 2 L of oxygen overnight continue supplemental oxygen. PRN nebs. Hypomagnesemia: resolved. Continue daily supplements. Prophylaxis: G.I: Continue PPI, DVT: Continue VTE prophylaxis with Lovenox Nausea: continue Zofran. Constipation: Start senna. CODE STATUS: Full code Prognosis: fair. Disposition: The patient will remain in-house. Advance diet, discontinue NG tube, start IV fluids control blood pressure, if patient condition of improvement expect discharge tomorrow home.
[2019-09-18] MEDS: Acetaminophen 325 MG Tab PO PRN ×2 (14:55→21:31)
[2019-09-19] MEDS: HYDROmorphone 2 MG Tab PO PRN ×3 (00:03→13:01)
[2019-09-19] MEDS ORDERED: SYNTHROID 112 MCG PO SCH (07:00)
[2019-09-19] MEDS ORDERED: Potassium Chloride 20 MEQ Tab.ER PO ONE (07:56)
[2019-09-19] MEDS: Spironolactone 25 MG Tab PO SCH (08:39)
[2019-09-19] MEDS: Furosemide 20 MG Tab PO SCH (08:39)
[2019-09-19] MEDS: amLODIPine 5 MG Tab PO SCH (08:40)
[2019-09-19] MEDS: Carvedilol 12.5 MG Tab PO SCH (08:42)
[2019-09-19] MEDS: Pantoprazole 40 MG Tab.CR PO SCH (08:43)
[2019-09-19] MEDS: Enoxaparin 40 MG/0.4 ML Syringe SUBCUT SCH (08:46)
[2019-09-19] MEDS ORDERED: Magnesium Oxide 400 MG Tab PO ONE (09:44)
[2019-09-19] MEDS: Acetaminophen 325 MG Tab PO PRN (10:27)
[2019-09-19 11:22] VITALS: BP 130/35; PULSE 64
--- NOTE | 2019-09-19 13:42 | PCM.DCSUM1 ---
Discharge Summary - Hospital Course Free Text/Narrative:: Mrs. Sun is a pleasant 79-year-old female with history of recurrent small bowel obstruction who was admitted to the hospital with chief complaint of generalized abdominal pain and cramp which started the night prior to admission. Patient who has significant history of multiple abdominal surgery with recurrent bowel obstruction presented with abdominal pain. At the same time, patient reported nausea and vomiting, without any obvious fevers or chills. On presentation in the ED, vital signs blood pressure 173/86, CT scan of abdomen and pelvis that was done to the patient, was consistent for small bowel obstruction. UA consistent for urinary tract infection. Given this presentation, the patient was admitted to the hospital with chief complaint abdominal pain secondary to small bowel obstruction and urinary tract infection. Patient was started on gentle hydration, kept n.p.o. NG tube was placed antibiotics was given to patient for urinary tract infection. Patient had a slow trend of improvement. But after placement of NG tube, patient started having relief of abdominal discomfort as well as nausea. On day 3 of admission, symptoms improved. Patient's abdominal pain improved as well as nausea and patient had multiple bowel movements. Given patient started improving diet was slowly advanced to clear liquid which initially she did not tolerate but slowly started improving. Diet was advanced to full liquid and subsequently to soft low irritant diet which the patient tolerated without any nausea vomiting no abdominal pain and is recommended to continue on discharge. On admission, patient was also found with elevated blood pressure. After patient was started on Norvasc 5 mg, patient's blood pressure was well controlled. Low potassium, magnesium and phosphorus were all replaced. On discharge, patient's abdominal pain resolved, blood pressure controlled electrolytes replaced patient is recommended to continue with soft low irritant diet. Was counseled about narcotic pain medications which can induce constipation as well as precipitate obstruction patient states she is aware. Patient is advised to follow-up with primary care provider in 1-2 weeks of discharge. Diagnosis: Stroke: No - Discharge Data Discharge Date: 09/19/19 Discharge Disposition: Home, Self-Care 01 Condition: Good - Referral to Home Health Primary Care Physician: Kathryn Olsen NP - Discharge Diagnosis/Problem(s) (1) Chronic respiratory failure SNOMED Code(s): 73045707 ICD Code: J96.10 - CHRONIC RESPIRATORY FAILURE, UNSP W HYPOXIA OR HYPERCAPNIA Status: Acute (2) Hypomagnesemia SNOMED Code(s): 674041005 ICD Code: E83.42 - HYPOMAGNESEMIA Status: Acute (3) Hypokalemia SNOMED Code(s): 87807953 ICD Code: E87.6 - HYPOKALEMIA Status: Acute (4) Small bowel obstruction due to adhesions SNOMED Code(s): 728898556 ICD Code: K56.50 - INTESTNL ADHESIONS, UNSP TO PARTIAL VERSUS COMPLETE OBST Status: Acute (5) Thrombocytopenia SNOMED Code(s): 080773982 ICD Code: D69.6 - THROMBOCYTOPENIA, UNSPECIFIED Status: Acute (6) UTI (urinary tract infection) SNOMED Code(s): 70017711 ICD Code: N39.0 - URINARY TRACT INFECTION, SITE NOT SPECIFIED Status: Acute Qualifiers: Urinary tract infection type: site unspecified Hematuria presence: without hematuria Qualified Code(s): N39.0 - Urinary tract infection, site not specified (7) Abdominal pain SNOMED Code(s): 74626415 ICD Code: R10.9 - UNSPECIFIED ABDOMINAL PAIN Status: Acute (8) Abnormal finding on urinalysis SNOMED Code(s): 884651153 ICD Code: R82.90 - UNSPECIFIED ABNORMAL FINDINGS IN URINE Status: Acute - Patient Summary/Data Consults: Consultations 09/16/19 10:03 OT Evaluation and Treatment [CONS] Routine PT Evaluation and Treatment [CONS] Routine - Patient Instructions Diet: Low Sodium (soft), GI Soft/Low Residue/Low Fiber Fluid Restriction: drink moderate amount of water daily Activity: As Tolerated Showering/Bathing: May Shower - Discharge Plan *PRESCRIPTION DRUG MONITORING PROGRAM REVIEWED*: Not Applicable *COPY OF PRESCRIPTION DRUG MONITORING REPORT IN PATIENT EMMETT: Not Applicable Prescriptions/Med Rec: carvediloL [Coreg] 25 mg PO BID #30 tablet amLODIPine [Norvasc] 5 mg PO DAILY #30 tablet Home Medications: Home Meds carvediloL [Coreg] 25 mg PO BID 03/17/16 [History] ondansetron HCL [Zofran] 8 mg PO TID PRN 02/27/18 [History] polyethylene glycoL 3350 [MiraLAX] 1 scoop PO DAILY PRN 02/27/18 [History] ALPRAZolam [Xanax] 0.125 mg PO Q8H PRN 11/10/18 [History] HYDROmorphone [Dilaudid] 4 mg PO Q4H PRN 11/10/18 [History] Levothyroxine Sodium [Synthroid] 112 mcg PO ACBREAKFAST 11/10/18 [History] Omeprazole Magnesium [Prilosec Otc] 20 mg PO DAILY 11/10/18 [History] Acetaminophen [Acetaminophen Extra Strength] 500 - 1,000 mg PO Q4HR PRN 09/14/19 [History] Furosemide [Lasix] 40 mg PO DAILY 09/14/19 [History] Magnesium Hydroxide [Milk of Magnesia] 30 ml PO DAILY PRN 09/14/19 [History] Potassium Chloride [Klor-Con 10] 10 meq PO ASDIRECTED 09/14/19 [History] Docusate Sodium/Sennosides [Senna Plus] 2 tab PO BEDTIME tablet 09/19/19 [Rx] Levothyroxine 112 mcg PO DAILY@0700 tablet 09/19/19 [Rx] amLODIPine [Norvasc] 5 mg PO DAILY #30 tablet 09/19/19 [Rx] carvediloL [Coreg] 25 mg PO BID #30 tablet 09/19/19 [Rx] Oxygen Therapy Mode: Nasal Cannula Oxygen Flow Rate (L/min): 2 (with walking and at night) Forms: ED Department Discharge Referrals: Joel Cruz MD [Ordering Only Provider] - Kathryn Olsen NP [Primary Care Provider] - 09/26/19 10:30 am (Please Follow-up with Elias Olsen on September 25 at 10:30 A.M.) Amos Hernandez MD [Ordering Only Provider] - Vikram Downey MD [Ordering Only Provider] - - Discharge Summary/Plan Comment DC Time >30 min.: Yes - Patient Data Vitals - Most Recent: Last Vital Signs Temp 97.5 F 09/19/19 11:04 Pulse 64 09/19/19 11:04 Resp 20 09/19/19 11:04 BP 130/35 L 09/19/19 11:04 Pulse Ox 96 09/19/19 11:04 Weight - Most Recent: 151 lb I&O - Last 24 hours: Intake & Output - Exam General: Reports: Alert, Oriented HEENT: Reports: Pupils Equal, Pupils Reactive, EOMI, Mucous Membr. Moist/[place] Neck: Reports: Supple Lungs: Reports: Clear to Auscultation, Normal Respiratory Effort Cardiovascular: Reports: Regular Rate, Regular Rhythm GI/Abdominal Exam: Normal Bowel Sounds, Soft, Non-Tender, No Organomegaly, No Distention, No Abnormal Bruit Back Exam: Reports: Normal Inspection, Full Range of Motion Extremities: Normal Inspection, Normal Range of Motion, Non-Tender, No Pedal Edema, Normal Capillary Refill Skin: Reports: Warm Neurological: Reports: No New Focal Deficit Psy/Mental Status: Reports: Alert, Normal Affect, Normal Mood
== END 2019-09-19 15:08 | disposition home or self-care (01) | DRG 389 ==
LOC: JD.ED 21:13 → JD.MS 09-14 01:05
PROVIDERS: ADMIT Family Medicine; ATTEND Family Medicine
DX: K56.609 Unspecified intestinal obstruction, unspecified as to partial versus complete obstruction (principal); K56.50 Intestinal adhesions [bands], unspecified as to partial versus complete obstruction; N39.0 Urinary tract infection, site not specified; J96.10 Chronic respiratory failure, unspecified whether with hypoxia or hypercapnia; D69.6 Thrombocytopenia, unspecified; Z20.828 Contact with and (suspected) exposure to other viral communicable diseases; E87.6 Hypokalemia; I25.10 Atherosclerotic heart disease of native coronary artery without angina pectoris; E78.00 Pure hypercholesterolemia, unspecified; Z98.0 Intestinal bypass and anastomosis status; I10 Essential (primary) hypertension; M81.0 Age-related osteoporosis without current pathological fracture; M19.90 Unspecified osteoarthritis, unspecified site; F41.0 Panic disorder [episodic paroxysmal anxiety]; F32.9 Major depressive disorder, single episode, unspecified; E55.9 Vitamin D deficiency, unspecified; G47.00 Insomnia, unspecified; M79.7 Fibromyalgia; T57.8X1A Toxic effect of other specified inorganic substances, accidental (unintentional), initial encounter; J68.4 Chronic respiratory conditions due to chemicals, gases, fumes and vapors; E03.9 Hypothyroidism, unspecified; G89.4 Chronic pain syndrome; E83.42 Hypomagnesemia; R82.71 Bacteriuria; Z88.1 Allergy status to other antibiotic agents; Z88.2 Allergy status to sulfonamides; Z88.5 Allergy status to narcotic agent; Z88.6 Allergy status to analgesic agent; Z88.8 Allergy status to other drugs, medicaments and biological substances; Z79.890 Hormone replacement therapy; Z79.899 Other long term (current) drug therapy; Z99.81 Dependence on supplemental oxygen; Z98.49 Cataract extraction status, unspecified eye; Z90.49 Acquired absence of other specified parts of digestive tract; Z90.710 Acquired absence of both cervix and uterus
CPT/HCPCS: 36415; 43752; 74177; 80053; 81001; 83690; 83735; 85007; 85027; 87086; 96361; 96365; 96375; 96376; 99285; J0696; J1170 ×2; J2405; J7030; J7050; Q9963; Q9967; 36410; 51701; 71045; 71045-26; 74018; 74018-26; 80048; 82962; 84100; 85025; 94760; 97161-GP; 97165-GO; 97530-GO; A9270-GY; C9113; J1650; J3480; U0002

== ENCOUNTER 2019-12-02 17:11 | Emergency (ER) | payer MEDICARE, BC ==
[2019-12-02] MEDS ORDERED: Sodium Chloride 0.9% 10 ML Syringe FLUSH PRN (18:23)
[2019-12-02] MEDS ORDERED: Furosemide 20 MG/2 ML VIAL IVPUSH ONE (18:25)
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
[2019-12-02 21:02] VITALS: BP 166/69; PULSE 57
== END 2019-12-02 20:59 | disposition home or self-care (01) ==
LOC: JD.ED 17:11
DX: I10 Essential (primary) hypertension (principal); E78.00 Pure hypercholesterolemia, unspecified; I25.10 Atherosclerotic heart disease of native coronary artery without angina pectoris; Z88.1 Allergy status to other antibiotic agents; Z88.8 Allergy status to other drugs, medicaments and biological substances; Z88.2 Allergy status to sulfonamides; Z88.5 Allergy status to narcotic agent; Z79.899 Other long term (current) drug therapy; Z95.5 Presence of coronary angioplasty implant and graft; Z98.51 Tubal ligation status; Z90.49 Acquired absence of other specified parts of digestive tract; Z90.710 Acquired absence of both cervix and uterus
CPT/HCPCS: 36415; 80053; 81001; 83880; 84484; 85025; 86140; 93005; 96374; 99283; J1940; 93010; 99284

== ENCOUNTER 2019-12-04 15:36 | Emergency (ER) | payer MEDICARE, BC ==
[2019-12-04] MEDS ORDERED: Sodium Chloride 0.9% 10 ML Syringe FLUSH PRN (16:11)
[2019-12-04] MEDS ORDERED: Alum Hydrox/Mag Hydrox/Simeth 30 ML, Lidocaine 2% 15 ML PO ONE ×2 (16:40)
--- NOTE | 2019-12-04 16:48 | EDM.PDOC ---
ED HPI GENERAL MEDICAL PROBLEM - General Chief Complaint: General Stated Complaint: [facility] Time Seen by Provider: 12/04/19 16:05 Source of Information: Reports: Patient, Old Records, RN Notes Reviewed History Limitations: Reports: No Limitations - History of Present Illness INITIAL COMMENTS - FREE TEXT/NARRATIVE: Patient is an 79-year-old female who presents to the ED via [facility] for the evaluation of her multiple symptoms. Patient notes she is having generalized chest pressure/discomfort, weakness, and epigastric discomfort that chronic comes and goes. She does have a history of acid reflux, small bowel obstruction in October 2019, and stents placed in her heart. She is not sure what would be causing some of the issues she is having today. She was most recently evaluated in the ER this last Monday for high blood pressure, given some Lasix and discharged home with general recommendations. She states that she did take her prescription for Dilaudid and half a tablet of Xanax today for management along with the Prilosec at noon, but she does not note that anything is really helped much. She also notes a remote history of a steroid injection by Dr. Sinha last week, and she states that she thinks her body had a reaction to this. She is mainly complaining of a generalized chest discomfort, she points to her epigastrium as the source of pain. She is not having any fevers or chills, cough or shortness of breath, or any vomiting or diarrhea. Patient notes that she had a bowel movement prior to calling the ambulance. She is havi ng generalized abdomen tenderness. Blood pressure at time of triage is 157/74, heart rate of 61 bpm, respiratory rate of 20 breaths/min, 97.5 F, and she is 98% on 2 L nasal cannula. She does wear home oxygen continuously. Epigastric Pain Score (Numeric/FACES): 10 - Related Data Allergies Allergy/AdvReac Type Severity Reaction Status Date / Time candesartan [From Atacand] Allergy Severe Shortness Verified 12/04/19 16:00 of Breath cephalexin monohydrate Allergy Severe Hives Verified 12/04/19 16:00 [From Keflex] doxycycline Allergy Severe Hives Verified 12/04/19 16:00 ibandronate sodium Allergy Severe Shortness Verified 12/04/19 16:00 [From Boniva] of Breath levofloxacin [From Levaquin] Allergy Severe Hives Verified 12/04/19 16:00 pitavastatin [From Livalo] Allergy Severe Cannot Verified 12/04/19 16:00 Remember sulfamethoxazole Allergy Severe Hives Verified 12/04/19 16:00 amlodipine AdvReac Severe Body Aches Verified 12/04/19 16:00 aspirin AdvReac Severe bloody Verified 12/04/19 16:00 noses atorvastatin calcium AdvReac Severe Muscle Verified 12/04/19 16:00 [From Lipitor] Aches bupropion HCl AdvReac Severe Other Verified 12/04/19 16:00 [From Wellbutrin] colesevelam HCl AdvReac Severe Muscle Verified 12/04/19 16:00 [From WelChol] Aches diltiazem [From Cardizem] AdvReac Severe Confusion Verified 12/04/19 16:00 duloxetine [From Cymbalta] AdvReac Severe difficultly Verified 12/04/19 16:00 walking evolocumab AdvReac Severe Muscle Verified 12/04/19 16:00 [From Repatha Pushtronex] Aches ezetimibe [From Zetia] AdvReac Severe Muscle Verified 12/04/19 16:00 Aches fluvoxamine [From Luvox] AdvReac Severe Headache Verified 12/04/19 16:00 gabapentin AdvReac Severe Blurred Verified 12/04/19 16:00 Vision hydralazine AdvReac Severe Nausea Verified 12/04/19 16:00 hydrochlorothiazide AdvReac Severe Headache Verified 12/04/19 16:00 hyoscyamine AdvReac Severe Vaginitis Verified 12/04/19 16:00 levothyroxine sodium AdvReac Severe Other Verified 12/04/19 16:00 lisinopril AdvReac Severe Cough Verified 12/04/19 16:00 losartan AdvReac Severe Headache Verified 12/04/19 16:00 mannitol [From Reclast] AdvReac Severe Confusion Verified 12/04/19 16:00 morphine AdvReac Severe Other Verified 12/04/19 16:00 niacin AdvReac Severe Muscle Verified 12/04/19 16:00 Aches phenobarbital AdvReac Severe Other Verified 12/04/19 16:00 pravastatin sodium AdvReac Mild Muscle Verified 12/04/19 16:52 [From Pravachol] Aches prochlorperazine edisylate AdvReac Mild Tremors Verified 12/04/19 16:52 [From Compazine] prochlorperazine maleate AdvReac Mild Tremors Verified 12/04/19 16:52 [From Compazine] promethazine HCl AdvReac Mild Other Verified 12/04/19 16:52 [From Phenergan] rosuvastatin calcium AdvReac Mild Body Aches Verified 12/04/19 16:52 [From Crestor] sertraline AdvReac Mild nightmares Verified 12/04/19 16:52 sertraline HCl [From Zoloft] AdvReac Mild Other Verified 12/04/19 16:52 simvastatin [From Zocor] AdvReac Mild Muscle Verified 12/04/19 16:52 Aches trazodone AdvReac Mild Other Verified 12/04/19 16:52 water for injection,sterile AdvReac Mild Confusion Verified 12/04/19 16:52 [From Reclast] zoledronic acid AdvReac Mild Confusion Verified 12/04/19 16:52 [From Reclast] zolpidem tartrate AdvReac Mild Other Verified 12/04/19 16:52 [From Ambien] Home Meds: Home Meds polyethylene glycoL 3350 [MiraLAX] 1 scoop PO DAILY PRN 02/27/18 [History] ALPRAZolam [Xanax] 0.125 mg PO Q8H PRN 11/10/18 [History] HYDROmorphone [Dilaudid] 4 mg PO Q4H PRN 11/10/18 [History] Levothyroxine Sodium [Synthroid] 112 mcg PO ACBREAKFAST 11/10/18 [History] Acetaminophen [Acetaminophen Extra Strength] 500 - 1,000 mg PO Q4HR PRN 09/14/19 [History] Furosemide [Lasix] 20 mg PO DAILY 09/14/19 [History] Potassium Chloride [Klor-Con 10] 10 meq PO ASDIRECTED 09/14/19 [History] Docusate Sodium/Sennosides [Senna Plus] 2 tab PO BEDTIME tablet 09/19/19 [Rx] carvediloL [Coreg] 25 mg PO BID #30 tablet 09/19/19 [Rx] Albuterol/Ipratropium [Combivent Respimat] 12/02/19 [History] Budesonide/Formoterol [Symbicort 160-4.5 MCG] 12/02/19 [History] Colchicine 0.6 mg PO 12/02/19 [History] Magnesium Chloride [Slow-Mag] 71.5 mg PO DAILY 12/02/19 [History] Trimethoprim 100 mg PO 12/02/19 [History] Zolpidem [Ambien] 12/02/19 [History] levalbuterol HCL [Xopenex] 1.25 mg INH Q6H PRN 12/02/19 [History] Nystatin [Nystatin Oral Syringe] 500,000 unit PO QID #28 syringe 12/04/19 [Rx] Past Medical History HEENT History: Reports: Impaired Vision Other HEENT History: Wears glasses, pt was dx with "eagles syndrome" Cardiovascular History: Reports: CAD, High Cholesterol, Hypertension Other Cardiovascular History: temporal arteritis Respiratory History: Reports: Pulmonary Fibrosis Other Respiratory History: pulmonary asbestosis, respiratory failure with hypoxia, oxygen at 2-3L via nasal canula. Gastrointestinal History: Reports: Bowel Obstruction, Colon Polyp, GERD, Hiatal Hernia Other Gastrointestinal History: states esophagus doesn't work like it normally should. x10 bowel obstructions in the past with surgical intervention. herniation of rectum into vagina, diaphragmatic hernia, hiatal hernia, protein calorie malnutrition, polyp Genitourinary History: Reports: UTI, Recurrent Other Genitourinary History: dysuria [employer] History: Reports: Musculoskeletal History: Reports: Osteoarthritis, Osteoporosis Other Musculoskeletal History: polymyalgia rhuematica, fibromyalgia, osteoporosis, hip pain Neurological History: Reports: Seizure Other Neuro History: as a child Psychiatric History: Reports: Anxiety, Depression, Panic Attack, Other (See Below) Other Psychiatric History: insomnia, opiod dependence, abnormal dreams Endocrine/Metabolic History: Reports: Hypothyroidism, Vitamin D Deficiency Hematologic History: Reports: Other (See Below) Other Hematologic History: Vitamin D deficiency Immunologic History: Reports: None Oncologic (Cancer) History: Reports: None Dermatologic History: Reports: Other (See Below) Other Dermatologic History: plantar wart x 2 - Infectious Disease History Infectious Disease History: Reports: Chicken Pox, Measles, Mumps - Past Surgical History HEENT Surgical History: Reports: Cataract Surgery, Oral Surgery Cardiovascular Surgical History: Reports: Coronary Artery Stent, Other (See Below) Other Cardiovascular Surgeries/Procedures: stab pheblectomy Respiratory Surgical History: Reports: None GI Surgical History: Reports: Appendectomy, Cholecystectomy, Colonoscopy, EGD, Lysis of Adhesions Female Surgical History: Reports: Breast Reduction, D&C, Hysterectomy, Tubal Ligation Neurological Surgical History: Reports: Lumbar Spine Musculoskeletal Surgical History: Reports: Shoulder Surgery Oncologic Surgical History: Reports: None Dermatological Surgical History: Reports: None Social & Family History - Family History Family Medical History: Noncontributory Cardiac: Reports: [place] Other Cardiac Family History: [place], Bro, Bro - Heart disease Neurological: Reports: Alzheimers Disease Oncologic: Reports: Lung Other Oncologic Family History: FA - Cancer, Sis - lung cancer - Tobacco Use Tobacco Use Status *Q: Never Tobacco User - Caffeine Use Caffeine Use: Reports: None - Recreational Drug Use Recreational Drug Use: No - Living Situation & Occupation Living situation: Reports: , Alone Occupation: Retired ED ROS GENERAL - Review of Systems Review Of Systems: Comprehensive ROS is negative, except as noted in HPI. ED EXAM, GENERAL - Physical Exam Exam: See Below Exam Limited By: No Limitations General Appearance: Alert, WD/WN, No Apparent Distress Respiratory/Chest: No Respiratory Distress, Lungs Clear, Normal Breath Sounds, No Accessory Muscle Use, Chest Non-Tender Cardiovascular: Normal Peripheral Pulses, Regular Rate, Rhythm, No Edema, No Murmur Peripheral Pulses: 2+: Radial (L), Radial (R) GI/Abdominal: Normal Bowel Sounds, Soft, No Distention, No Mass, Tender (generalized, but worse over epigastrium and suprapubic areas) Extremities: Normal Inspection, Normal Capillary Refill Neurological: Alert, Oriented, Normal Cognition, No Motor/Sensory Deficits Psychiatric: Normal Affect, Normal Mood Skin Exam: Warm, Dry, Intact, Normal Color, No Rash #1 Interpretation EKG Date: 12/04/19 Time: 17:45 Rhythm: NSR Rate (Beats/Min): 64 [place]: Normal P-Wave: Present QRS: Normal ST-T: Normal QT: Normal Comparison: No Change EKG Interpretation Comments: No obvious ischemia or acute ST changes noted, reviewed by myself and Dr. Hackett. Course - Vital Signs Last Recorded V/S: Last Vital Signs Temp 97.5 F 12/04/19 15:52 Pulse 64 12/04/19 18:30 Resp 16 12/04/19 18:30 BP 130/55 L 12/04/19 18:30 Pulse Ox 95 12/04/19 18:30 - Orders/Labs/Meds Orders: Active Orders 24 hr Category Date Time Status EKG Documentation Completion [RC] STAT Care 12/04/19 16:11 Active Influenza Vaccine Charge [RC] .DISCHARGE Care 12/04/19 16:04 Active Peripheral IV Care [RC] . DIRECTED Care 12/04/19 16:11 Active Abdomen 2V AP Flat Upright [CR] Stat Exams 12/04/19 16:39 Ordered Chest 2V [CR] Stat Exams 12/04/19 16:11 Taken CULTURE URINE [RM] Routine Lab 12/04/19 17:57 Ordered INR,PT,PROTHROMBIN TIME [COAG] Stat Lab 12/04/19 16:11 Ordered PTT,PARTIAL THROMBOPLSTIN TIME [COAG] Stat Lab 12/04/19 16:11 Ordered Sodium Chloride 0.9% [Saline Flush] Med 12/04/19 16:11 Active 10 ml FLUSH ASDIRECTED PRN Peripheral IV Insertion Adult [OM.PC] Stat Oth 12/04/19 16:11 Ordered Medication Orders Sodium Chloride (Saline Flush) 10 ml FLUSH ASDIRECTED PRN PRN Reason: Keep Vein Open Labs: Laboratory Tests 12/04/19 12/04/19 12/04/19 Range/Units 16:06 17:33 17:33 WBC 13.98 H (3.98-10.04) K/mm3 RBC 4.53 (3.98-5.22) M/mm3 Hgb 14.1 (11.2-15.7) gm/dl Hct 42.3 (34.1-44.9) % MCV 93.4 (79.4-94.8) fl MCH 31.1 (25.6-32.2) pg MCHC 33.3 (32.2-35.5) g/dl RDW Std Deviation 43.8 (36.4-46.3) fL Plt Count 248 (182-369) K/mm3 MPV 9.0 L (9.4-12.3) fl Neut % (Auto) 68.2 (34.0-71.1) % Lymph % (Auto) 22.4 (19.3-51.7) % [place] % (Auto) 7.8 (4.7-12.5) % Eos % (Auto) 1.1 (0.7-5.8) Baso % (Auto) 0.1 (0.1-1.2) % Neut # (Auto) 9.54 H (1.56-6.13) K/mm3 Lymph # (Auto) 3.13 (1.18-3.74) K/mm3 [place] # (Auto) 1.09 H (0.24-0.36) K/mm3 Eos # (Auto) 0.16 (0.04-0.36) K/mm3 Baso # (Auto) 0.01 (0.01-0.08) K/mm3 Manual Slide Review Normal smear PT 10.2 (9.7-11.7) SECONDS INR 0.95 Sodium (136-145) mEq/L Potassium (3.5-5.1) mEq/L Chloride (98-107) mEq/L Carbon Dioxide (21-32) mEq/L Anion Gap (5-15) BUN (7-18) mg/dL Creatinine (0.55-1.02) mg/dL Est Cr Clr Drug Dosing mL/min Estimated GFR (MDRD) (>60) mL/min BUN/Creatinine Ratio (14-18) Glucose (83-115) mg/dL Calcium (8.5-10.1) mg/dL Magnesium (1.8-2.4) mg/dl Total Bilirubin (0.2-1.0) mg/dL AST (15-37) U/L ALT (14-59) U/L Alkaline Phosphatase (46-116) U/L Troponin I (0.00-0.056) ng/mL NT-Pro-B Natriuret Pep (0-450) pg/mL Total Protein (6.4-8.2) g/dl Albumin (3.4-5.0) g/dl Globulin gm/dL Albumin/Globulin Ratio (1-2) Urine Color Yellow (Yellow) Urine Appearance Clear (Clear) Urine pH 7.0 (5.0-8.0) Ur Specific [place] 1.020 (1.005-1.030) Urine Protein Negative (Negative) Urine Glucose (UA) Negative (Negative) Urine Ketones Negative (Negative) Urine Occult Blood Trace-lysed H (Negative) Urine Nitrite Negative (Negative) Urine Bilirubin Negative (Negative) Urine Urobilinogen 0.2 (0.2-1.0) Ur Leukocyte Esterase 1+ H (Negative) U Hyaline Cast (Auto) 5-10 H (0-5) /lpf Urine RBC 0-5 (0-5) /hpf Urine WBC 5-10 H (0-5) /hpf Ur Squamous Epith Cells 0-5 (0-5) /hpf Urine Bacteria Few (FEW) /hpf Urine Mucus Few (FEW) /hpf 12/04/19 12/04/19 Range/Units 17:33 17:33 WBC (3.98-10.04) K/mm3 RBC (3.98-5.22) M/mm3 Hgb (11.2-15.7) gm/dl Hct (34.1-44.9) % MCV (79.4-94.8) fl MCH (25.6-32.2) pg MCHC (32.2-35.5) g/dl RDW Std Deviation (36.4-46.3) fL Plt Count (182-369) K/mm3 MPV (9.4-12.3) fl Neut % (Auto) (34.0-71.1) % Lymph % (Auto) (19.3-51.7) % [place] % (Auto) (4.7-12.5) % Eos % (Auto) (0.7-5.8) Baso % (Auto) (0.1-1.2) % Neut # (Auto) (1.56-6.13) K/mm3 Lymph # (Auto) (1.18-3.74) K/mm3 [place] # (Auto) (0.24-0.36) K/mm3 Eos # (Auto) (0.04-0.36) K/mm3 Baso # (Auto) (0.01-0.08) K/mm3 Manual Slide Review PT (9.7-11.7) SECONDS INR Sodium 137 (136-145) mEq/L Potassium 4.1 (3.5-5.1) mEq/L Chloride 98 (98-107) mEq/L Carbon Dioxide 27 (21-32) mEq/L Anion Gap 16.1 H (5-15) BUN 28 H (7-18) mg/dL Creatinine 0.9 (0.55-1.02) mg/dL Est Cr Clr Drug Dosing 36.99 mL/min Estimated GFR (MDRD) > 60 (>60) mL/min BUN/Creatinine Ratio 31.1 H (14-18) Glucose 124 H (83-115) mg/dL Calcium 9.2 (8.5-10.1) mg/dL Magnesium 2.1 (1.8-2.4) mg/dl Total Bilirubin 0.7 (0.2-1.0) mg/dL AST 16 (15-37) U/L ALT 19 (14-59) U/L Alkaline Phosphatase 78 (46-116) U/L Troponin I < 0.017 (0.00-0.056) ng/mL NT-Pro-B Natriuret Pep 48 (0-450) pg/mL Total Protein 7.8 (6.4-8.2) g/dl Albumin 4.0 (3.4-5.0) g/dl Globulin 3.8 gm/dL Albumin/Globulin Ratio 1.1 (1-2) Urine Color (Yellow) Urine Appearance (Clear) Urine pH (5.0-8.0) Ur Specific [place] (1.005-1.030) Urine Protein (Negative) Urine Glucose (UA) (Negative) Urine Ketones (Negative) Urine Occult Blood (Negative) Urine Nitrite (Negative) Urine Bilirubin (Negative) Urine Urobilinogen (0.2-1.0) Ur Leukocyte Esterase (Negative) U Hyaline Cast (Auto) (0-5) /lpf Urine RBC (0-5) /hpf Urine WBC (0-5) /hpf Ur Squamous Epith Cells (0-5) /hpf Urine Bacteria (FEW) /hpf Urine Mucus (FEW) /hpf Meds: Medications Generic Name Dose Route Start Last Admin Trade Name Freq PRN Reason Stop Dose Admin Sodium Chloride 10 ml 12/04/19 16:11 Saline Flush FLUSH ASDIRECTED PRN Keep Vein Open Discontinued Medications Generic Name Dose Route Start Last Admin Trade Name Freq PRN Reason Stop Dose Admin Al Hydroxide/Mg Hydroxide 30 0 ml 12/04/19 16:40 12/04/19 17:11 ml/ Lidocaine HCl 15 ml PO 12/04/19 16:41 45 ml ONETIME ONE Administration Influenza Virus Vaccine 240 mcg 12/04/19 17:00 12/04/19 17:11 Fluzone High-Dose Quad IM 12/04/19 17:01 240 mcg .ONCE ONE Administration - Re-Assessments/Exams Free Text/Narrative Re-Assessment/Exam: 12/04/19 16:46 Patient presents to the ED for the evaluation of her multiple symptoms. EKG has been performed, along with chest x-ray, flat and upright abdomen, and other labs for evaluation. She will be given a GI cocktail for further management at this time. 12/04/19 18:34 Labs are all unremarkable, x-rays are also without acute findings. EKG was okay. She notes she had a little bit relief from the GI cocktail. Her upper abdomen discomfort is likely due to her GERD. She was also complaining of some white residue on her mouth, which she thinks is a yeast infection from her inhalers, and she was requesting some sort of remedy for that. At this time we will give her nystatin swish and swallow, and have her follow-up with her regular care provider for other symptoms. Departure - Departure Time of Disposition: 18:37 Disposition: Home, Self-Care 01 Condition: Good Clinical Impression: Thrush, oral, Epigastric pain - Discharge Information *PRESCRIPTION DRUG MONITORING PROGRAM REVIEWED*: No *COPY OF PRESCRIPTION DRUG MONITORING REPORT IN PATIENT EMMETT: No Instructions: Oral Thrush, Adult, [id number], Abdominal Pain, Adult, [id number] Forms: ED Department Discharge Additional Instructions: You were evaluated in the ER today for your chest pain. Labs are resulted, and demonstrate no acute focal abnormalities. You did receive some relief from the GI cocktail that was given, which is suggestive of this being GERD type pain in nature. Please continue to take Prilosec daily. Your EKG was also within normal limits, and your chest x-ray and abdomen x-rays were unremarkable. You were given a prescription for nystatin, orally, please take as prescribed for the thrush in your mouth. I recommend that you follow-up with your regular care provider for further management, regarding other symptoms that arise. Please return to the ER at any time if symptoms change or worsen. Sepsis Event Note (ED) - Evaluation Sepsis Screening Result: No Definite Risk - Focused Exam Vital Signs: Vital Signs Temp Pulse Resp BP Pulse Ox 12/04/19 18:30 64 16 130/55 L 95 12/04/19 15:52 97.5 F 61 20 157/74 H 98 - My Orders Last 24 Hours: My Active Orders 12/04/19 16:04 Influenza Vaccine Charge [RC] .DISCHARGE 12/04/19 16:11 EKG Documentation Completion [RC] STAT Peripheral IV Care [RC] . DIRECTED Chest 2V [CR] Stat INR,PT,PROTHROMBIN TIME [COAG] Stat PTT,PARTIAL THROMBOPLSTIN TIME [COAG] Stat Sodium Chloride 0.9% [Saline Flush] 10 ml FLUSH ASDIRECTED PRN Peripheral IV Insertion Adult [OM.PC] Stat 12/04/19 16:39 Abdomen 2V AP Flat Upright [CR] Stat 12/04/19 17:57 CULTURE URINE [RM] Routine - Assessment/Plan Last 24 Hours: My Active Orders 12/04/19 16:04 Influenza Vaccine Charge [RC] .DISCHARGE 12/04/19 16:11 EKG Documentation Completion [RC] STAT Peripheral IV Care [RC] . DIRECTED Chest 2V [CR] Stat INR,PT,PROTHROMBIN TIME [COAG] Stat PTT,PARTIAL THROMBOPLSTIN TIME [COAG] Stat Sodium Chloride 0.9% [Saline Flush] 10 ml FLUSH ASDIRECTED PRN Peripheral IV Insertion Adult [OM.PC] Stat 12/04/19 16:39 Abdomen 2V AP Flat Upright [CR] Stat 12/04/19 17:57 CULTURE URINE [RM] Routine
[2019-12-04] MEDS ORDERED: FLU Vacc QV2020-21(65YR UP)/PF 240 MCG/0.7 ML Syringe IM ONE (17:00)
[2019-12-04 18:30] VITALS: BP 130/55; PULSE 64
== END 2019-12-04 18:58 | disposition home or self-care (01) ==
LOC: JD.ED 15:36
DX: B37.0 Candidal stomatitis (principal); R10.13 Epigastric pain; I25.10 Atherosclerotic heart disease of native coronary artery without angina pectoris; I10 Essential (primary) hypertension; E03.9 Hypothyroidism, unspecified; Z88.1 Allergy status to other antibiotic agents; Z88.8 Allergy status to other drugs, medicaments and biological substances; Z88.6 Allergy status to analgesic agent; Z91.048 Other nonmedicinal substance allergy status; Z88.5 Allergy status to narcotic agent; Z79.899 Other long term (current) drug therapy
CPT/HCPCS: 36415; 71046; 74019; 80053; 81001; 83735; 83880; 84484; 85025; 85610; 87086; 90662; 93005; 99285-25; A9270-GY; G0008

== ENCOUNTER 2020-02-14 13:11 | Emergency (ER) | payer MEDICARE, BC ==
[2020-02-14 13:35] VITALS: BP 143/69; PULSE 68
--- NOTE | 2020-02-14 13:37 | EDM.PDOC ---
ED HPI GENERAL MEDICAL PROBLEM - General Chief Complaint: Back Pain or Injury Stated Complaint: BACK PAIN Time Seen by Provider: 02/14/20 13:27 - History of Present Illness INITIAL COMMENTS - FREE TEXT/NARRATIVE: 79-year-old female presents the emergency room with back pain and burning with urination. The back pain started on Monday now 5 days ago. This started after reaching down to open a cabinet. She has had burning with urination but cannot recall exactly when this started but does not think is been going on too long. She has been using Pyridium for this. She is not had any associated fevers or chills. The patient had some relief taking one of her 4 mg Dilaudid and 2 regular Tylenol this morning when she could not sleep because of the back pain. Patient has had 5 back surgeries and is prescribed Dilaudid 4 mg every 4 hours as needed. The patient uses oxygen with activity at night she has had a lot of asbestos exposure. She does however deny mesothelioma. - Related Data Allergies Allergy/AdvReac Type Severity Reaction Status Date / Time candesartan [From Atacand] Allergy Severe Shortness Verified 12/04/19 16:00 of Breath cephalexin monohydrate Allergy Severe Hives Verified 12/04/19 16:00 [From Keflex] doxycycline Allergy Severe Hives Verified 12/04/19 16:00 ibandronate sodium Allergy Severe Shortness Verified 12/04/19 16:00 [From Boniva] of Breath levofloxacin [From Levaquin] Allergy Severe Hives Verified 12/04/19 16:00 pitavastatin [From Livalo] Allergy Severe Cannot Verified 12/04/19 16:00 Remember sulfamethoxazole Allergy Severe Hives Verified 12/04/19 16:00 amlodipine AdvReac Severe Body Aches Verified 12/04/19 16:00 aspirin AdvReac Severe bloody Verified 12/04/19 16:00 noses atorvastatin calcium AdvReac Severe Muscle Verified 12/04/19 16:00 [From Lipitor] Aches bupropion HCl AdvReac Severe Other Verified 12/04/19 16:00 [From Wellbutrin] colesevelam HCl AdvReac Severe Muscle Verified 12/04/19 16:00 [From WelChol] Aches diltiazem [From Cardizem] AdvReac Severe Confusion Verified 12/04/19 16:00 duloxetine [From Cymbalta] AdvReac Severe difficultly Verified 12/04/19 16:00 walking evolocumab AdvReac Severe Muscle Verified 12/04/19 16:00 [From Repatha Pushtronex] Aches ezetimibe [From Zetia] AdvReac Severe Muscle Verified 12/04/19 16:00 Aches fluvoxamine [From Luvox] AdvReac Severe Headache Verified 12/04/19 16:00 gabapentin AdvReac Severe Blurred Verified 12/04/19 16:00 Vision hydralazine AdvReac Severe Nausea Verified 12/04/19 16:00 hydrochlorothiazide AdvReac Severe Headache Verified 12/04/19 16:00 hyoscyamine AdvReac Severe Vaginitis Verified 12/04/19 16:00 levothyroxine sodium AdvReac Severe Other Verified 12/04/19 16:00 lisinopril AdvReac Severe Cough Verified 12/04/19 16:00 losartan AdvReac Severe Headache Verified 12/04/19 16:00 mannitol [From Reclast] AdvReac Severe Confusion Verified 12/04/19 16:00 morphine AdvReac Severe Other Verified 12/04/19 16:00 niacin AdvReac Severe Muscle Verified 12/04/19 16:00 Aches phenobarbital AdvReac Severe Other Verified 12/04/19 16:00 pravastatin sodium AdvReac Mild Muscle Verified 12/04/19 16:52 [From Pravachol] Aches prochlorperazine edisylate AdvReac Mild Tremors Verified 12/04/19 16:52 [From Compazine] prochlorperazine maleate AdvReac Mild Tremors Verified 12/04/19 16:52 [From Compazine] promethazine HCl AdvReac Mild Other Verified 12/04/19 16:52 [From Phenergan] rosuvastatin calcium AdvReac Mild Body Aches Verified 12/04/19 16:52 [From Crestor] sertraline AdvReac Mild nightmares Verified 12/04/19 16:52 sertraline HCl [From Zoloft] AdvReac Mild Other Verified 12/04/19 16:52 simvastatin [From Zocor] AdvReac Mild Muscle Verified 12/04/19 16:52 Aches trazodone AdvReac Mild Other Verified 12/04/19 16:52 water for injection,sterile AdvReac Mild Confusion Verified 12/04/19 16:52 [From Reclast] zoledronic acid AdvReac Mild Confusion Verified 12/04/19 16:52 [From Reclast] zolpidem tartrate AdvReac Mild Other Verified 12/04/19 16:52 [From Ambien] Home Meds: Home Meds polyethylene glycoL 3350 [MiraLAX] 1 scoop PO DAILY PRN 02/27/18 [History] ALPRAZolam [Xanax] 0.125 mg PO Q8H PRN 11/10/18 [History] HYDROmorphone [Dilaudid] 4 mg PO Q4H PRN 11/10/18 [History] Levothyroxine Sodium [Synthroid] 112 mcg PO ACBREAKFAST 11/10/18 [History] Acetaminophen [Acetaminophen Extra Strength] 500 - 1,000 mg PO Q4HR PRN 09/14/19 [History] Furosemide [Lasix] 20 mg PO DAILY 09/14/19 [History] Potassium Chloride [Klor-Con 10] 10 meq PO ASDIRECTED 09/14/19 [History] Docusate Sodium/Sennosides [Senna Plus] 2 tab PO BEDTIME tablet 09/19/19 [Rx] carvediloL [Coreg] 25 mg PO BID #30 tablet 09/19/19 [Rx] Albuterol/Ipratropium [Combivent Respimat] 12/02/19 [History] Budesonide/Formoterol [Symbicort 160-4.5 MCG] 12/02/19 [History] Colchicine 0.6 mg PO 12/02/19 [History] Magnesium Chloride [Slow-Mag] 71.5 mg PO DAILY 12/02/19 [History] Trimethoprim 100 mg PO 12/02/19 [History] Zolpidem [Ambien] 12/02/19 [History] levalbuterol HCL [Xopenex] 1.25 mg INH Q6H PRN 12/02/19 [History] Nystatin [Nystatin Oral Syringe] 500,000 unit PO QID #28 syringe 12/04/19 [Rx] Nitrofurantoin Monohyd/M-Cryst [Macrobid 100 mg Capsule] 100 mg PO BID #14 cap jose 02/14/20 [Rx] Past Medical History HEENT History: Reports: Impaired Vision Other HEENT History: Wears glasses, pt was dx with "eagles syndrome" Cardiovascular History: Reports: CAD, High Cholesterol, Hypertension Other Cardiovascular History: temporal arteritis Respiratory History: Reports: Pulmonary Fibrosis Other Respiratory History: pulmonary asbestosis, respiratory failure with hypoxia, oxygen at 2-3L via nasal canula. Gastrointestinal History: Reports: Bowel Obstruction, Colon Polyp, GERD, Hiatal Hernia Other Gastrointestinal History: states esophagus doesn't work like it normally should. x10 bowel obstructions in the past with surgical intervention. herniation of rectum into vagina, diaphragmatic hernia, hiatal hernia, protein calorie malnutrition, polyp Genitourinary History: Reports: UTI, Recurrent Other Genitourinary History: dysuria [employer] History: Reports: Musculoskeletal History: Reports: Osteoarthritis, Osteoporosis Other Musculoskeletal History: polymyalgia rhuematica, fibromyalgia, osteoporosis, hip pain Neurological History: Reports: Seizure Other Neuro History: as a child Psychiatric History: Reports: Anxiety, Depression, Panic Attack, Other (See Below) Other Psychiatric History: insomnia, opiod dependence, abnormal dreams Endocrine/Metabolic History: Reports: Hypothyroidism, Vitamin D Deficiency Hematologic History: Reports: Other (See Below) Other Hematologic History: Vitamin D deficiency Immunologic History: Reports: None Oncologic (Cancer) History: Reports: None Dermatologic History: Reports: Other (See Below) Other Dermatologic History: plantar wart x 2 - Infectious Disease History Infectious Disease History: Reports: Chicken Pox, Measles, Mumps - Past Surgical History HEENT Surgical History: Reports: Cataract Surgery, Oral Surgery Cardiovascular Surgical History: Reports: Coronary Artery Stent, Other (See [place]) Other Cardiovascular Surgeries/Procedures: stab pheblectomy Respiratory Surgical History: Reports: None GI Surgical History: Reports: Appendectomy, Cholecystectomy, Colonoscopy, EGD, Lysis of Adhesions Female Surgical History: Reports: Breast Reduction, D&C, Hysterectomy, Tubal Ligation Neurological Surgical History: Reports: Lumbar Spine Musculoskeletal Surgical History: Reports: Shoulder Surgery Oncologic Surgical History: Reports: None Dermatological Surgical History: Reports: None Social & Family History - Family History Family Medical History: No Pertinent Family History Cardiac: Reports: [place] Other Cardiac Family History: [place], Bro, Bro - Heart disease Neurological: Reports: Alzheimers Disease Oncologic: Reports: Lung Other Oncologic Family History: FA - Cancer, Sis - lung cancer - Caffeine Use Caffeine Use: Reports: None - Living Situation & Occupation Living situation: Reports: , Alone Occupation: Retired ED ROS GENERAL - Review of Systems Review Of Systems: See Below Constitutional: Reports: No Symptoms Respiratory: Reports: No Symptoms, Other (No worsening breathing or shortness of breath problems) Cardiovascular: Reports: No Symptoms Endocrine: Reports: No Symptoms GI/Abdominal: Reports: No Symptoms : Reports: No Symptoms, Dysuria Musculoskeletal: Reports: Back Pain Skin: Reports: No Symptoms Neurological: Reports: No Symptoms ED EXAM, GENERAL - Physical Exam Exam: See Below General Appearance: Alert, No Apparent Distress Head: Atraumatic, Normocephalic Neck: Normal Inspection, Supple, Non-Tender, Full Range of Motion Respiratory/Chest: No Respiratory Distress, Lungs Clear, Normal Breath Sounds Cardiovascular: Regular Rate, Rhythm, No Edema, No Murmur GI/Abdominal: Normal Bowel Sounds, Soft, Non-Tender Back Exam: Other (Assessment soft tissue discomfort over the left paraspinous muscles lateral aspect. She has no CVA discomfort no midline or vertebral tenderness noted) Neurological: Alert, Oriented, Normal Cognition Skin Exam: Warm, Dry, Intact Course - Vital Signs Last Recorded V/S: Last Vital Signs Temp 36.2 C 02/14/20 13:22 Pulse 68 02/14/20 13:22 Resp 16 02/14/20 13:22 BP 143/69 H 02/14/20 13:22 Pulse Ox 100 02/14/20 13:22 - Orders/Labs/Meds Orders: Active Orders 24 hr Category Date Time Status CULTURE URINE [RM] Stat Lab 02/14/20 13:40 Received Labs: Laboratory Tests 02/14/20 Range/Units 13:40 Urine Color Marilyn H (Yellow) Urine Appearance Cloudy H (Clear) Urine pH 5.5 (5.0-8.0) Ur Specific [place] > or = 1.030 (1.005-1.030) Urine Protein 1+ H (Negative) Urine Glucose (UA) Negative (Negative) Urine Ketones Negative (Negative) Urine Occult Blood Trace-intact H (Negative) Urine Nitrite Positive H (Negative) Urine Bilirubin 1+ H (Negative) Urine Urobilinogen 0.2 (0.2-1.0) Ur Leukocyte Esterase 1+ H (Negative) U Hyaline Cast (Auto) 0-5 (0-5) /lpf Urine RBC 5-10 H (0-5) /hpf Urine WBC >100 H (0-5) /hpf Ur Squamous Epith Cells 0-5 (0-5) /hpf Amorphous Sediment Few H (NOT SEEN) /hpf Urine Bacteria Many H (FEW) /hpf Urine Mucus Not seen (FEW) /hpf - Re-Assessments/Exams Free Text/Narrative Re-Assessment/Exam: 02/14/20 15:34 Patient here looks to have a urinary tract infection with positive leukocyte esterase and nitrates urine is tainted secondary to Pyridium. The patient just completed a dose of Macrobid several days ago Macrobid is the only antibiotic taken come up with based on her allergies so I will put her on another weeks worth of this and have her follow-up with her primary provider this next week she seen urology 3 times that could not offer any assistance according to the patient. With regards to her back pain patient will use Tylenol every 4 hours and supplement with her Dilaudid only as needed. Patient cannot take muscle relaxants some of her economic development specialist have mentioned this to her the patient has used Valium like medications in the past but this is caused her to become overly sedated. We will not introduce new medications at this time as she lives independently. Departure - Departure Time of Disposition: 15:37 Disposition: Home, Self-Care 01 Clinical Impression: Chronic back pain Urinary tract infection Qualifiers: Urinary tract infection type: site unspecified Hematuria presence: without hematuria Qualified Code(s): N39.0 - Urinary tract infection, site not specified - Discharge Information Referrals: Kathryn Olsen NP [Primary Care Provider] - Forms: ED Department Discharge Additional Instructions: Return to the emergency room with any questions problems or worsening symptoms. You have been restarted on Macrobid for urinary tract infection. It is essential you follow-up with your regular healthcare provider this next week for follow-up on this. Prescription went to [facility] pickup first thing in the morning For your back pain as we discussed use the Tylenol every 4-6 hours and supplement with the hydromorphone, or Dilaudid as needed. Sepsis Event Note (ED) - Focused Exam Vital Signs: Vital Signs Temp Pulse Resp BP Pulse Ox 02/14/20 13:22 36.2 C 68 16 143/69 H 100 - My Orders Last 24 Hours: My Active Orders 02/14/20 13:40 CULTURE URINE [RM] Stat - Assessment/Plan Last 24 Hours: My Active Orders 02/14/20 13:40 CULTURE URINE [RM] Stat
[2020-02-14] MEDS ORDERED: Nitrofurantoin Monohydrate/Macrocrystalline 100 MG Cap PO ONE (15:42)
== END 2020-02-14 16:10 | disposition home or self-care (01) ==
LOC: JD.ED 13:11
DX: N39.0 Urinary tract infection, site not specified (principal); M54.9 Dorsalgia, unspecified; G89.29 Other chronic pain; I25.10 Atherosclerotic heart disease of native coronary artery without angina pectoris; I10 Essential (primary) hypertension; E03.9 Hypothyroidism, unspecified; Z79.899 Other long term (current) drug therapy; Z88.8 Allergy status to other drugs, medicaments and biological substances; Z88.1 Allergy status to other antibiotic agents; Z88.2 Allergy status to sulfonamides; Z88.6 Allergy status to analgesic agent; Z88.5 Allergy status to narcotic agent; Z91.048 Other nonmedicinal substance allergy status
CPT/HCPCS: 81001; 87086; 87088; 87186; 99283; A9270

== ENCOUNTER 2020-06-02 18:55 | Observation (INO) | payer MEDICARE, BC ==
[2020-06-02] MEDS ORDERED: HYDROmorphone 0.5 MG/0.5 ML Syringe IVPUSH ONE ×2 (19:34→23:04)
[2020-06-02] MEDS ORDERED: Ondansetron 4 MG/2 ML SDV IVPUSH ONE (19:34)
--- NOTE | 2020-06-02 19:40 | EDM.PDOC ---
ED HPI GENERAL MEDICAL PROBLEM - General Chief Complaint: Chest Pain Stated Complaint: chest pain left arm numbness Time Seen by Provider: 06/02/20 19:11 Source of Information: Reports: Patient History Limitations: Reports: No Limitations - History of Present Illness INITIAL COMMENTS - FREE TEXT/NARRATIVE: Mrs. Sun is a very pleasant 80-year-old woman who now presents the ED with intermittent pain felt in her entire left upper extremity and between her scapula, that developed around 16:00 this afternoon, while she was sitting. She describes the pain as crampy, and that it is a severe pain, not a discomfort. It comes and goes, lasting about 15 seconds, then recurring about every 5 minutes - the patient experienced an episode during my evaluation, and appeared to be quite uncomfortable. Her pain is made worse if she moves her left upper extremity when the pain is present, although she has no pain if she moves her left upper extremity when the pain is not present. The patient states that she is chronically dyspneic, which is not worse when the pain is present. Similarly, she does not have associated nausea, diaphoresis, or sense of impending doom, although she states that the pain does make her feel dizzy. She denies prior similar symptoms, stating that her pain is different than prior episodes of angina, which is felt as a pain felt across her shoulders, but not involving her left upper extremity. The patient states that she took 325 mg of enteric-coated aspirin around 17:00. Here in the ED, the patient's initial BP is found to be elevated at 195/75, otherwise, she is hemodynamically stable, afebrile, saturating 99% on 2 L of oxygen per nasal cannula, 95% on room air. When the pain is not present, the patient appears to be comfortable. Prior to this afternoon, the patient denies having a recent fever, chills, sore throat, ear pain, nasal or sinus congestion, cough, dyspnea, chest pain, palpitations, nausea, vomiting, constipation, diarrhea, abdominal pain, urinary symptoms, recent weight gain or weight loss, recent bloody bowel movements or black bowel movements, recent joint aches, headaches, or rashes. The patient's PCP is Kathryn Olsen NP. Her cardiology midlevel is OUMAR Singh. Her Oyster Shucker is Dr. Amos Hernandez. Her Colorectal Surgeon is Dr. Joel Cruz. Her Warehouse Representative is Dr. Vikram Downey. Her Orthopedic Surgeon is Dr. Lexx Sinha. - Related Data Allergies Allergy/AdvReac Type Severity Reaction Status Date / Time candesartan [From Atacand] Allergy Severe Shortness Verified 06/02/20 19:08 of Breath cephalexin monohydrate Allergy Severe Hives Verified 06/02/20 19:08 [From Keflex] doxycycline Allergy Severe Hives Verified 06/02/20 19:08 ibandronate sodium Allergy Severe Shortness Verified 06/02/20 19:08 [From Boniva] of Breath levofloxacin [From Levaquin] Allergy Severe Hives Verified 06/02/20 19:08 pitavastatin [From Livalo] Allergy Severe Cannot Verified 06/02/20 19:08 Remember sulfamethoxazole Allergy Severe Hives Verified 06/02/20 19:08 amlodipine AdvReac Severe Body Aches Verified 06/02/20 19:08 aspirin AdvReac Severe bloody Verified 06/02/20 19:08 noses atorvastatin calcium AdvReac Severe Muscle Verified 06/02/20 19:08 [From Lipitor] Aches bupropion HCl AdvReac Severe Other Verified 06/02/20 19:08 [From Wellbutrin] colesevelam HCl AdvReac Severe Muscle Verified 06/02/20 19:08 [From WelChol] Aches diltiazem [From Cardizem] AdvReac Severe Confusion Verified 06/02/20 19:08 duloxetine [From Cymbalta] AdvReac Severe difficultly Verified 06/02/20 19:08 walking evolocumab AdvReac Severe Muscle Verified 06/02/20 19:08 [From Repatha Pushtronex] Aches ezetimibe [From Zetia] AdvReac Severe Muscle Verified 06/02/20 19:08 Aches fluvoxamine [From Luvox] AdvReac Severe Headache Verified 06/02/20 19:08 gabapentin AdvReac Severe Blurred Verified 06/02/20 19:08 Vision hydralazine AdvReac Severe Nausea Verified 06/02/20 19:08 hydrochlorothiazide AdvReac Severe Headache Verified 06/02/20 19:08 hyoscyamine AdvReac Severe Vaginitis Verified 06/02/20 19:08 levothyroxine sodium AdvReac Severe Other Verified 06/02/20 19:08 lisinopril AdvReac Severe Cough Verified 06/02/20 19:08 losartan AdvReac Severe Headache Verified 06/02/20 19:08 mannitol [From Reclast] AdvReac Severe Confusion Verified 06/02/20 19:08 morphine AdvReac Severe Other Verified 06/02/20 19:08 niacin AdvReac Severe Muscle Verified 06/02/20 19:08 Aches phenobarbital AdvReac Severe Other Verified 06/02/20 19:08 pravastatin sodium AdvReac Mild Muscle Verified 06/02/20 19:08 [From Pravachol] Aches prochlorperazine edisylate AdvReac Mild Tremors Verified 06/02/20 19:08 [From Compazine] prochlorperazine maleate AdvReac Mild Tremors Verified 06/02/20 19:08 [From Compazine] promethazine HCl AdvReac Mild Other Verified 06/02/20 19:08 [From Phenergan] rosuvastatin calcium AdvReac Mild Body Aches Verified 06/02/20 19:08 [From Crestor] sertraline AdvReac Mild nightmares Verified 06/02/20 19:08 sertraline HCl [From Zoloft] AdvReac Mild Other Verified 06/02/20 19:08 simvastatin [From Zocor] AdvReac Mild Muscle Verified 06/02/20 19:08 Aches trazodone AdvReac Mild Other Verified 06/02/20 19:08 water for injection,sterile AdvReac Mild Confusion Verified 06/02/20 19:08 [From Reclast] zoledronic acid AdvReac Mild Confusion Verified 06/02/20 19:08 [From Reclast] zolpidem tartrate AdvReac Mild Other Verified 06/02/20 19:08 [From Ambien] Home Meds: Home Meds polyethylene glycoL 3350 [MiraLAX] 1 scoop PO DAILY PRN 02/27/18 [History] ALPRAZolam [Xanax] 0.25 mg PO Q8H PRN 11/10/18 [History] HYDROmorphone [Dilaudid] 4 mg PO Q4H PRN 11/10/18 [History] Acetaminophen [Acetaminophen Extra Strength] 500 - 1,000 mg PO Q4HR PRN 09/14/19 [History] Furosemide [Lasix] 20 mg PO DAILY 09/14/19 [History] Potassium Chloride [Klor-Con 10] 10 meq PO BID 09/14/19 [History] Docusate Sodium/Sennosides [Senna Plus] 2 tab PO BEDTIME tablet 09/19/19 [Rx] carvediloL [Coreg] 25 mg PO BID #30 tablet 09/19/19 [Rx] Budesonide/Formoterol [Symbicort 160-4.5 MCG] 2 puff INH BID 12/02/19 [History] Colchicine 0.6 mg PO DAILY 12/02/19 [History] Magnesium Chloride [Slow-Mag] 2 tab PO BID 12/02/19 [History] Trimethoprim 100 mg PO DAILY 12/02/19 [History] Zolpidem [Ambien] 5 mg PO BEDTIME PRN 12/02/19 [History] levalbuterol HCL [Xopenex] 1.25 mg INH Q6H PRN 12/02/19 [History] Nitrofurantoin Monohyd/M-Cryst [Macrobid 100 mg Capsule] 100 mg PO BID #14 capsule 02/14/20 [Rx] Nitroglycerin [Nitrostat] 0.4 mg SL ASDIRECTED 06/02/20 [History] Ondansetron [Zofran ODT] 8 mg PO TID PRN 06/02/20 [History] Past Medical History HEENT History: Reports: Impaired Vision (wears glasss) Cardiovascular History: Reports: CAD, High Cholesterol, Hypertension, Other (See Below) (Giant cell arteritis) Respiratory History: Reports: Pulmonary Fibrosis (O2 2-3 L/min per NC continuously) Gastrointestinal History: Reports: Bowel Obstruction (many), Colon Polyp, GERD, Hiatal Hernia Musculoskeletal History: Reports: Osteoarthritis, Osteoporosis Neurological History: Reports: Seizure (as a child) Psychiatric History: Reports: Addiction (opioids), Anxiety, Depression, Panic Attack, Other (See Below) (Fibromyalgia, insomnia) Endocrine/Metabolic History: Reports: Hypothyroidism, Vitamin D Deficiency - Infectious Disease History Infectious Disease History: Reports: Chicken Pox, Measles, Mumps - Past Surgical History HEENT Surgical History: Reports: Cataract Surgery (bilateral), Oral Surgery (dental extractions), Other (See Below) (Right salivary gland excision) Cardiovascular Surgical History: Reports: Coronary Artery Stent (x 2) GI Surgical History: Reports: Appendectomy, Cholecystectomy (1982), Colonoscopy (x 5 or 6), EGD (x 5 or 6), Lysis of Adhesions (x 5) Female Surgical History: Reports: Breast Reduction, D&C (x 3 or 4), Hysterectomy (complete), Tubal Ligation, Other (See Below) (Rectocele and cystocele repair) Neurological Surgical History: Reports: Lumbar Spine (laminectomy x 3, fuson x 2) Musculoskeletal Surgical History: Reports: Shoulder Surgery (right, open), Other (See Below) (Right foot x 2) Social & Family History - Tobacco Use Tobacco Use Status *Q: Never Tobacco User - Caffeine Use Caffeine Use: Reports: None - Alcohol Use Alcohol Use History: No - Recreational Drug Use Recreational Drug Use: No - Living Situation & Occupation Living situation: Reports: , Alone Occupation: Retired ED ROS GENERAL - Review of Systems Review Of Systems: Comprehensive ROS is negative, except as noted in HPI. ED EXAM, GENERAL - Physical Exam Exam: See Below Exam Limited By: No Limitations General Appearance: Alert, WD/WN, Mild Distress (appeared to be in pain when an event occurred during my evaluation) Eye Exam: Bilateral Eye: EOMI, Normal Inspection Ears: Normal External Exam, Hearing Grossly Normal Nose: Normal Inspection Throat/Mouth: Normal Voice, No Airway Compromise, Other (wearing a mask) Head: Atraumatic, Normocephalic Neck: Normal Inspection, Supple, Non-Tender, Full Range of Motion Respiratory/Chest: No Respiratory Distress, Lungs Clear, Normal Breath Sounds, No Accessory Muscle Use, Chest Non-Tender Cardiovascular: Normal Peripheral Pulses, Regular Rate, Rhythm, No Edema, No Gallop, No JVD, No Murmur, No Rub Peripheral Pulses: 3+: Radial (L), Radial (R) GI/Abdominal: Normal Bowel Sounds, Soft, Non-Tender, No Organomegaly, No Distention, No Abnormal Bruit, No Mass Back Exam: Normal Inspection, Full Range of Motion, NT Extremities: Normal Inspection, Normal Range of Motion, No Pedal Edema, Normal Capillary Refill Neurological: Alert, Oriented, Normal Cognition, No Motor/Sensory Deficits Psychiatric: Normal Affect Skin Exam: Warm, Dry, Intact, Normal Color, No Rash #1 Interpretation EKG Date: 06/02/20 Time: 19:04 Rhythm: NSR Rate (Beats/Min): 82 [place]: Normal P-Wave: Enlarged (LAE. 1st degree AVB.) QRS: Other (Late transition) ST-T: Normal QT: Normal Comparison: No Change (12/04/2019) Course - Vital Signs Last Recorded V/S: Last Vital Signs Temp 36.8 C 06/02/20 19:02 Pulse 72 06/02/20 19:02 Resp 16 06/02/20 19:02 BP 195/75 H 06/02/20 19:02 Pulse Ox 99 06/02/20 19:02 - Orders/Labs/Meds Orders: Active Orders 24 hr Category Date Time Status EKG Documentation Completion [RC] STAT Care 06/02/20 19:32 Active Chest Abdomen Pelvis w Cont [CT] Stat Exams 06/02/20 19:33 Taken Sodium Chloride 0.9% [Normal Saline] 1,000 ml Med 06/02/20 19:45 Active IV ASDIRECTED Sodium Chloride 0.9% [Saline Flush] Med 06/02/20 20:30 Active 10 ml FLUSH ASDIRECTED Medication Orders Sodium Chloride (Normal Saline) 1,000 mls @ 100 mls/hr IV ASDIRECTED IRVIN Last Admin: 06/02/20 19:45 Dose: 100 mls/hr Documented by: TAMMI Sodium Chloride (Sodium Chloride 0.9% 10 Ml Syringe) 10 ml FLUSH ASDIRECTED IRVIN Labs: Laboratory Tests 06/02/20 06/02/20 06/02/20 Range/Units 19:15 19:15 19:48 WBC 5.77 (3.98-10.04) K/mm3 RBC 3.92 L (3.98-5.22) M/mm3 Hgb 12.2 D (11.2-15.7) gm/dl Hct 36.5 (34.1-44.9) % MCV 93.1 (79.4-94.8) fl MCH 31.1 (25.6-32.2) pg MCHC 33.4 (32.2-35.5) g/dl RDW Std Deviation 41.7 (36.4-46.3) fL Plt Count 189 (182-369) K/mm3 MPV 9.1 L (9.4-12.3) fl Neutrophils % (Manual) 50 (40-60) % Band Neutrophils % 0 (0-10) % Lymphocytes % (Manual) 46 H (20-40) % Atypical Lymphs % 0 % Monocytes % (Manual) 1 L (2-10) % Eosinophils % (Manual) 2 (0.7-5.8) % Basophils % (Manual) 1 (0.1-1.2) Platelet Estimate Adequate RBC Morph Comment Normal PT (9.7-12.0) SECONDS INR APTT (21.7-31.4) SECONDS Sodium 140 (136-145) mEq/L Potassium 3.7 (3.5-5.1) mEq/L Chloride 103 (98-107) mEq/L Carbon Dioxide 26 (21-32) mEq/L Anion Gap 14.7 (5-15) BUN 10 (7-18) mg/dL Creatinine 0.6 (0.55-1.02) mg/dL Est Cr Clr Drug Dosing TNP Estimated GFR (MDRD) > 60 (>60) mL/min BUN/Creatinine Ratio 16.7 (14-18) Glucose 103 (83-115) mg/dL Calcium 9.1 (8.5-10.1) mg/dL Magnesium 2.0 (1.8-2.4) mg/dl Total Bilirubin 0.3 (0.2-1.0) mg/dL AST 18 (15-37) U/L ALT 20 (14-59) U/L Alkaline Phosphatase 71 (46-116) U/L Troponin I < 0.017 (0.00-0.056) ng/mL Total Protein 7.3 (6.4-8.2) g/dl Albumin 3.7 (3.4-5.0) g/dl Globulin 3.6 gm/dL Albumin/Globulin Ratio 1.0 (1-2) SARS-CoV-2 RNA (JORDI) Negative (NEGATIVE) 06/02/20 Range/Units 19:51 WBC (3.98-10.04) K/mm3 RBC (3.98-5.22) M/mm3 Hgb (11.2-15.7) gm/dl Hct (34.1-44.9) % MCV (79.4-94.8) fl MCH (25.6-32.2) pg MCHC (32.2-35.5) g/dl RDW Std Deviation (36.4-46.3) fL Plt Count (182-369) K/mm3 MPV (9.4-12.3) fl Neutrophils % (Manual) (40-60) % Band Neutrophils % (0-10) % Lymphocytes % (Manual) (20-40) % Atypical Lymphs % % Monocytes % (Manual) (2-10) % Eosinophils % (Manual) (0.7-5.8) % Basophils % (Manual) (0.1-1.2) Platelet Estimate RBC Morph Comment PT 10.3 (9.7-12.0) SECONDS INR 0.96 APTT 25.9 (21.7-31.4) SECONDS Sodium (136-145) mEq/L Potassium (3.5-5.1) mEq/L Chloride (98-107) mEq/L Carbon Dioxide (21-32) mEq/L Anion Gap (5-15) BUN (7-18) mg/dL Creatinine (0.55-1.02) mg/dL Est Cr Clr Drug Dosing Estimated GFR (MDRD) (>60) mL/min BUN/Creatinine Ratio (14-18) Glucose (83-115) mg/dL Calcium (8.5-10.1) mg/dL Magnesium (1.8-2.4) mg/dl Total Bilirubin (0.2-1.0) mg/dL AST (15-37) U/L ALT (14-59) U/L Alkaline Phosphatase (46-116) U/L Troponin I (0.00-0.056) ng/mL Total Protein (6.4-8.2) g/dl Albumin (3.4-5.0) g/dl Globulin gm/dL Albumin/Globulin Ratio (1-2) SARS-CoV-2 RNA (JORDI) (NEGATIVE) Meds: Medications Generic Name Dose Route Start Last Admin Trade Name Freq PRN Reason Stop Dose Admin Sodium Chloride 1,000 mls @ 100 mls/hr 06/02/20 19:45 06/02/20 19:45 Normal Saline IV 100 mls/hr ASDIRECTED IRVIN Administration Sodium Chloride 10 ml 06/02/20 20:30 Sodium Chloride 0.9% 10 Ml Syringe FLUSH ASDIRECTED IRVIN Discontinued Medications Generic Name Dose Route Start Last Admin Trade Name Litzy PRN Reason Stop Dose Admin Hydromorphone HCl 0.5 mg 06/02/20 19:34 06/02/20 19:45 Hydromorphone 0.5 Mg/0.5 Ml Syringe IVPUSH 06/02/20 19:35 0.5 mg ONETIME ONE Administration Hydromorphone HCl 0.5 mg 06/02/20 23:04 Hydromorphone 0.5 Mg/0.5 Ml Syringe IVPUSH 06/02/20 23:05 ONETIME ONE Iopamidol 100 ml 06/02/20 20:19 Iopamidol 755 Mg/Ml 100 Ml Bottle IVPUSH 06/02/20 20:20 ONETIME ONE Ondansetron HCl 4 mg 06/02/20 19:34 06/02/20 19:45 Ondansetron 4 Mg/2 Ml Sdv IVPUSH 06/02/20 19:35 4 mg ONETIME ONE Administration - Re-Assessments/Exams Free Text/Narrative Re-Assessment/Exam: 06/02/20 19:35 As above, the patient developed intermittent pain felt in her entire left upper extremity, as well as between her scapulae, around 16:00 this afternoon, which has progressively gotten worse. When present, it lasts for about 15 seconds, and is made worse if she moves her left upper extremity, then recurs approximately every 5 minutes. She had one episode during my evaluation. No worsening of her chronic dyspnea, and no associated nausea, diaphoresis, or sense of impending doom. In contrast to the triage note, the patient denies that she has been experiencing any chest discomfort, and she also points out that this pain is different than her typical angina, which is felt as a pain across both of her shoulders, not involving her left upper extremity. Her physical exam is grossly unremarkable. An ECG, obtained at triage, does not show any ischemic changes. I have ordered a work-up that includes several blood tests, a CT of her chest to evaluate for an aortic dissection, and a swab for the SARS-CoV-2 virus, in the event that she needs to be admitted. In the meantime, the patient will be given IV Dilaudid, IV Zofran, and IV fluid. 06/02/20 21:24 The patient's CBC, CMP, magnesium level, troponin, coags, and swab for the SARS-CoV-2 virus are all within normal limits/negative. 06/02/20 23:05 CT angiogram of the chest is read by [facility] as "No active disease of the chest. No aortic dissection. 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 2. No abdominal aortic aneurysm or dissection. 3. Mild beading of the left renal artery. This can be seen with fibromuscular dysplasia. 06/02/20 23:10 As results discussed with the patient. As above, haleigh's work-up is entirely unremarkable, and does not explain the cause of the patient's pain. The patient states that she is still in considerable pain, and is afraid to go home. I will call the Hospitalist to see if they would agree to place her into observation. 06/02/20 23:[address] Bar at 23:11. He agreed to place the patient into observation on telemetry. I will write bridge orders. Departure - Departure Time of Disposition: 23:14 Disposition: Refer to Observation Condition: Good Clinical Impression: Left upper limb pain, Upper back pain - Discharge Information *PRESCRIPTION DRUG MONITORING PROGRAM REVIEWED*: Not Applicable *COPY OF PRESCRIPTION DRUG MONITORING REPORT IN PATIENT EMMETT: Not Applicable Referrals: Kathryn Olsen NP [Primary Care Provider] - Amos Hernandez MD [Ordering Only Provider] - Joel Cruz MD [Ordering Only Provider] - Vikram Downey MD [Ordering Only Provider] - Dawna Fay PA-C [Ordering Only Provider] - Lexx Sinha MD [Physician] - Forms: ED Department Discharge Sepsis Event Note (ED) - Evaluation Sepsis Screening Result: No Definite Risk - Focused Exam Vital Signs: Vital Signs Temp Pulse Resp BP Pulse Ox 06/02/20 19:02 36.8 C 72 16 195/75 H 99 - My Orders Last 24 Hours: My Active Orders 06/02/20 19:32 EKG Documentation Completion [RC] STAT 06/02/20 19:33 Chest Abdomen Pelvis w Cont [CT] Stat 06/02/20 19:45 Sodium Chloride 0.9% [Normal Saline] 1,000 ml IV ASDIRECTED 06/02/20 20:30 Sodium Chloride 0.9% [Saline Flush] 10 ml FLUSH ASDIRECTED - Assessment/Plan Last 24 Hours: My Active Orders 06/02/20 19:32 EKG Documentation Completion [RC] STAT 06/02/20 19:33 Chest Abdomen Pelvis w Cont [CT] Stat 06/02/20 19:45 Sodium Chloride 0.9% [Normal Saline] 1,000 ml IV ASDIRECTED 06/02/20 20:30 Sodium Chloride 0.9% [Saline Flush] 10 ml FLUSH ASDIRECTED
[2020-06-02] MEDS: Sodium Chloride 0.9% 1,000 ML IV SCH (19:45)
[2020-06-02] MEDS ORDERED: Iopamidol 755 Mg/ML 100 ML Bottle IVPUSH ONE (20:19)
[2020-06-02] MEDS ORDERED: Sodium Chloride 0.9% 10 ML Syringe FLUSH SCH (20:30)
[2020-06-03] MEDS: Acetaminophen 325 MG Tab PO PRN ×4 (00:31→18:55)
[2020-06-03] MEDS ORDERED: HYDROmorphone 0.5 MG/0.5 ML Syringe IVPUSH PRN (03:30)
[2020-06-03] MEDS ORDERED: Ondansetron 4 MG/2 ML SDV IVPUSH PRN (03:31)
[2020-06-03] MEDS: HYDROmorphone 0.5 MG/0.5 ML Syringe IVPUSH PRN ×5 (03:46→21:28)
--- NOTE | 2020-06-03 08:31 | CT ---
CT chest Technique: Multiple axial sections through the chest were obtained. Intravenous contrast was utilized. Reconstructed coronal and sagittal images were obtained. Comparison: Prior CT chest study of 11/10/16. Findings: Thoracic aorta shows mild atherosclerotic change without focal aneurysm or dissection. Visualized pulmonary arteries show no filling defects of pulmonary embolism. Atherosclerotic change is noted within the coronary arteries. No mediastinal or hilar adenopathy is seen. No pericardial thickening is appreciated. Scattered pleural thickening is noted posteriorly within the left lung base. Small granuloma is noted within the left lung. No acute lung abnormality is appreciated Bone window settings were reviewed which show scattered disc space narrowing and endplate spurring within the spine. No acute osseous abnormality is appreciated. Impression: 1. Findings as noted above. 2. Nothing acute is seen. No thoracic aortic aneurysm or dissection is seen. Diagnostic code #2 I agree with preliminary report from [facility], finalized on 06/02/20, 11:53 PM CDT, code #1 CT abdomen and pelvis Technique: Multiple axial sections were obtained from above the dome of the diaphragm inferiorly through the pelvis. Reconstructed coronal and sagittal images were obtained. Intravenous contrast was utilized. No oral contrast has been given. Comparison: Prior CT abdomen and pelvis study of 09/13/19. Findings: Liver contains no focal abnormality. Surgical clips are seen from prior cholecystectomy. Spleen appears within normal limits. Abdominal aorta shows mild atherosclerotic change with no aneurysm or dissection. Branch vessels of the abdominal aorta show no focal areas of stenosis. Mild atheromatous change seen within the branch vessels. Adrenal glands show no nodule. Both kidneys show symmetric contrast enhancement without hydronephrosis or mass. Pancreas is normal. No retroperitoneal adenopathy or mesenteric abnormalities are seen. No pelvic mass or adenopathy is noted. Prior hysterectomy is noted. Appendix is not definitely visualized. Prior lumbar spine surgery is seen. Impression: 1. Mild atheromatous change within the abdominal aorta. No focal aneurysm or dissection is seen. 2. Other findings as noted above which are felt to be chronic. Nothing acute is seen. Diagnostic code #2 I agree with preliminary report from [facility], finalized on 06/02/20, 11:53 PM CDT
[2020-06-03] MEDS: Sodium Chloride 0.9% 1,000 ML IV SCH (10:02)
--- NOTE | 2020-06-03 11:15 | PCM.HP.2 ---
H&P History of Present Illness - General Date of Service: 06/03/20 Admit Problem/Dx: Admission Diagnosis/Problem Admission Diagnosis/Problem Left Upper Extremity Pain 06/03/2020: Patient states that she has a history of fibromyalgia and also has stents placed in her heart Patient denies her current pain feeling like her chest pain and states that she carries nitro with her in her purse but didn't take it since it didn't feel like chest pain Patient states that her pain starts in her left shoulder and continues down her entire left arm Patient denies any accidents or injuries causing her left extremity pain and states that she was sitting on the couch watching TV when the pain started and wasn't going away Patient states that she is able to move her shoulder without decreased ROM but that movement makes her pain increase Patient also states that she has decreased strength in her left arm and hand compared to her right Denies any history of neck pain and denies any pain when she moves her neck Afebrile She is wearing her glasses She is eating well She has tenderness with palpitation to her left upper extremity but she has normal ROM Blood pressures this morning were 145/60 and 161/67 Pulse rates running 62-66 She wears O2 at 2 Liters during the night and only wears O2 during the day if she is feeling SOB Discussed getting an EKG Discussed getting labs with a NT BNP, Troponin, and D-dimer Discussed getting an ultrasound of her left upper extremity to look for any blood clots Source of Information: Patient, EMS Notes Reviewed History Limitations: Reports: No Limitations - History of Present Illness Initial Comments - Free Text/Narative: 06/02/2020: 80 year old female who presented to the ED with intermittent pain felt in her entire left upper extremity and between her scapula Patient stated in the ED that the pain developed around 16:00 this afternoon, while she was sitting. She describes the pain as crampy, and that it is a severe pain, not a discomfort. It comes and goes, lasting about 15 seconds, then recurring about every 5 minutes - the patient experienced an episode during my evaluation, and appeared to be quite uncomfortable. Her pain is made worse if she moves her left upper extremity when the pain is present, although she has no pain if she moves her left upper extremity when the pain is not present. The patient states that she is chronically dyspneic, which is not worse when the pain is present. Similarly, she does not have associated nausea, diaphoresis, or sense of impending doom, although she states that the pain does make her feel dizzy. She denies prior similar symptoms, stating that her pain is different than prior episodes of angina, which is felt as a pain felt across her shoulders, but not involving her left upper extremity. The patient states that she took 325 mg of enteric-coated aspirin around 17:00. Here in the ED, the patient's initial BP is found to be elevated at 195/75, otherwise, she is hemodynamically stable, afebrile, saturating 99% on 2 L of oxygen per nasal cannula, 95% on room air. When the pain is not present, the patient appears to be comfortable. Prior to this afternoon, the patient denies having a recent fever, chills, sore throat, ear pain, nasal or sinus congestion, cough, dyspnea, chest pain, palpitations, nausea, vomiting, constipation, diarrhea, abdominal pain, urinary symptoms, recent weight gain or weight loss, recent bloody bowel movements or black bowel movements, recent joint aches, headaches, or rashes. The patient's PCP is Kathryn Olsen NP. Her cardiology midlevel is OUMAR Singh. Her Radiology Services Manager is Dr. Amos Hernandez. Her Colorectal Surgeon is Dr. Joel Cruz. Her Maintenance Service Supervisor is Dr. Vikram Downey. Her Orthopedic Surgeon is Dr. Lexx Sinha Patient transferred from ED to be admitted to the floor for observation 06/03/2020: Patient states that she has a history of fibromyalgia and also has stents placed in her heart Patient denies her current pain feeling like her chest pain and states that she carries nitro with her in her purse but didn't take it since it didn't feel like chest pain Patient states that her pain starts in her left shoulder and continues down her entire left arm Patient denies any accidents or injuries causing her left extremity pain and states that she was sitting on the couch watching TV when the pain started and wasn't going away Patient states that she is able to move her shoulder without decreased ROM but that movement makes her pain increase Patient also states that she has decreased strength in her left arm and hand compared to her right Denies any history of neck pain and denies any pain when she moves her neck Afebrile She is wearing her glasses She is eating well She has tenderness with palpitation to her left upper extremity but she has normal ROM Blood pressures this morning were 145/60 and 161/67 Pulse rates running 62-66 She wears O2 at 2 Liters during the night and only wears O2 during the day if she is feeling SOB Discussed getting an EKG Discussed getting labs with a NT BNP, Troponin, and D-dimer Discussed getting an ultrasound of her left upper extremity to look for any blood clots Onset of Symptoms: Reports: Other (06/02/2020 around 4 in the afternoon) Symptom Onset Date: 06/02/20 Symptom Onset Time: 16:00 Location: Reports: Upper Extremity, Left Worsens with: Reports: Movement Associated Symptoms: Reports: Weakness (in left upper extremity) - Related Data Allergies/Adverse Reactions: Allergies Allergy/AdvReac Type Severity Reaction Status Date / Time candesartan [From Atacand] Allergy Severe Shortness Verified 06/02/20 19:08 of Breath cephalexin monohydrate Allergy Severe Hives Verified 06/02/20 19:08 [From Keflex] doxycycline Allergy Severe Hives Verified 06/02/20 19:08 ibandronate sodium Allergy Severe Shortness Verified 06/02/20 19:08 [From Boniva] of Breath levofloxacin [From Levaquin] Allergy Severe Hives Verified 06/02/20 19:08 pitavastatin [From Livalo] Allergy Severe Cannot Verified 06/02/20 19:08 Remember sulfamethoxazole Allergy Severe Hives Verified 06/02/20 19:08 amlodipine AdvReac Severe Body Aches Verified 06/02/20 19:08 aspirin AdvReac Severe bloody Verified 06/02/20 19:08 noses atorvastatin calcium AdvReac Severe Muscle Verified 06/02/20 19:08 [From Lipitor] Aches bupropion HCl AdvReac Severe Other Verified 06/02/20 19:08 [From Wellbutrin] colesevelam HCl AdvReac Severe Muscle Verified 06/02/20 19:08 [From WelChol] Aches diltiazem [From Cardizem] AdvReac Severe Confusion Verified 06/02/20 19:08 duloxetine [From Cymbalta] AdvReac Severe difficultly Verified 06/02/20 19:08 walking evolocumab AdvReac Severe Muscle Verified 06/02/20 19:08 [From Repatha Pushtronex] Aches ezetimibe [From Zetia] AdvReac Severe Muscle Verified 06/02/20 19:08 Aches fluvoxamine [From Luvox] AdvReac Severe Headache Verified 06/02/20 19:08 gabapentin AdvReac Severe Blurred Verified 06/02/20 19:08 Vision hydralazine AdvReac Severe Nausea Verified 06/02/20 19:08 hydrochlorothiazide AdvReac Severe Headache Verified 06/02/20 19:08 hyoscyamine AdvReac Severe Vaginitis Verified 06/02/20 19:08 levothyroxine sodium AdvReac Severe Other Verified 06/02/20 19:08 lisinopril AdvReac Severe Cough Verified 06/02/20 19:08 losartan AdvReac Severe Headache Verified 06/02/20 19:08 mannitol [From Reclast] AdvReac Severe Confusion Verified 06/02/20 19:08 morphine AdvReac Severe Other Verified 06/02/20 19:08 niacin AdvReac Severe Muscle Verified 06/02/20 19:08 Aches phenobarbital AdvReac Severe Other Verified 06/02/20 19:08 pravastatin sodium AdvReac Mild Muscle Verified 06/02/20 19:08 [From Pravachol] Aches prochlorperazine edisylate AdvReac Mild Tremors Verified 06/02/20 19:08 [From Compazine] prochlorperazine maleate AdvReac Mild Tremors Verified 06/02/20 19:08 [From Compazine] promethazine HCl AdvReac Mild Other Verified 06/02/20 19:08 [From Phenergan] rosuvastatin calcium AdvReac Mild Body Aches Verified 06/02/20 19:08 [From Crestor] sertraline AdvReac Mild nightmares Verified 06/02/20 19:08 sertraline HCl [From Zoloft] AdvReac Mild Other Verified 06/02/20 19:08 simvastatin [From Zocor] AdvReac Mild Muscle Verified 06/02/20 19:08 Aches trazodone AdvReac Mild Other Verified 06/02/20 19:08 water for injection,sterile AdvReac Mild Confusion Verified 06/02/20 19:08 [From Reclast] zoledronic acid AdvReac Mild Confusion Verified 06/02/20 19:08 [From Reclast] zolpidem tartrate AdvReac Mild Other Verified 06/02/20 19:08 [From Ambien] Home Medications: Home Meds polyethylene glycoL 3350 [MiraLAX] 1 scoop PO DAILY PRN 02/27/18 [History] ALPRAZolam [Xanax] 0.25 mg PO Q8H PRN 11/10/18 [History] HYDROmorphone [Dilaudid] 4 mg PO Q4H PRN 11/10/18 [History] Acetaminophen [Acetaminophen Extra Strength] 650 mg PO Q4HR PRN 09/14/19 [History] Furosemide [Lasix] 40 mg PO DAILY 09/14/19 [History] Potassium Chloride [Klor-Con 10] 20 meq PO BID 09/14/19 [History] Budesonide/Formoterol [Symbicort 160-4.5 MCG] 2 puff INH BID PRN 12/02/19 [History] Zolpidem [Ambien] 5 mg PO BEDTIME PRN 12/02/19 [History] levalbuterol HCL [Xopenex] 1.25 mg INH Q6H PRN 12/02/19 [History] Nitroglycerin [Nitrostat] 0.4 mg SL ASDIRECTED 06/02/20 [History] Ondansetron [Zofran ODT] 8 mg PO TID PRN 06/02/20 [History] Docusate Sodium/Sennosides [Senna Plus] 1 - 2 tab PO DAILY PRN 06/03/20 [History] Levothyroxine Sodium [Synthroid] 112 mcg PO ACBREAKFAST 06/03/20 [History] carvediloL [Coreg] 25 mg PO BIDMEALS 06/03/20 [History] Past Medical History HEENT History: Reports: Impaired Vision Other HEENT History: Wears glasses, pt was dx with "eagles syndrome" Cardiovascular History: Reports: CAD, High Cholesterol, Hypertension, Other (See Below) Other Cardiovascular History: temporal arteritis Respiratory History: Reports: Pulmonary Fibrosis Other Respiratory History: pulmonary asbestosis, respiratory failure with hypoxia, oxygen at 2-3L via nasal canula. Gastrointestinal History: Reports: Bowel Obstruction, Colon Polyp, GERD, Hiatal Hernia Other Gastrointestinal History: states esophagus doesn't work like it normally should. x10 bowel obstructions in the past with surgical intervention. 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: Musculoskeletal History: Reports: Back Pain, Chronic, Osteoarthritis, Osteoporosis Other Musculoskeletal History: polymyalgia rhuematica, fibromyalgia, osteoporosis, hip pain Neurological History: Reports: Seizure Other Neuro History: as a child Psychiatric History: Reports: Addiction, Anxiety, Depression, Panic Attack, Other (See Below) Other Psychiatric History: insomnia, opiod dependence, abnormal dreams Endocrine/Metabolic History: Reports: Hypothyroidism, Vitamin D Deficiency Hematologic History: Reports: Other (See Below) Other Hematologic History: Vitamin D deficiency Immunologic History: Reports: None Oncologic (Cancer) History: Reports: None Dermatologic History: Reports: Other (See Below) Other Dermatologic History: plantar wart x 2 - Infectious Disease History Infectious Disease History: Reports: Chicken Pox, Measles, Mumps - Past Surgical History HEENT Surgical History: Reports: Cataract Surgery, Oral Surgery, Other (See Below) Other HEENT Surgeries/Procedures: removed right Saliva gland. 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), multiple operations for SBO, repair rectocele and cystocele Female Surgical History: Reports: Breast Reduction, D&C, Hysterectomy, Tubal Ligation, Other (See Below) Other Female Surgeries/Procedures: bladder and rectal repair Endocrine Surgical History: Reports: None Neurological Surgical History: Reports: Lumbar Spine Musculoskeletal Surgical History: Reports: Shoulder Surgery, Other (See Below) Other Musculoskeletal Surgeries/Procedures:: Right shoulder, foot surgery x2 Oncologic Surgical History: Reports: None 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 Dermatological Surgical History: Reports: None Social & Family History - Family History Family Medical History: No Pertinent Family History Cardiac: Reports: [place] Other Cardiac Family History: [place], Bro, Bro - Heart disease Neurological: Reports: Alzheimers Disease Oncologic: Reports: Lung Other Oncologic Family History: FA - Cancer, Sis - lung cancer - Tobacco Use Tobacco Use Status *Q: Never Tobacco User Second Hand Smoke Exposure: No - Caffeine Use Caffeine Use: Reports: None - Recreational Drug Use Recreational Drug Use: No - Living Situation & Occupation Living situation: Reports: , Alone Occupation: Retired H&P Review of Systems - Review of Systems: Review Of Systems: See Below General: Reports: No Symptoms HEENT: Reports: No Symptoms, Glasses Pulmonary: Reports: No Symptoms Cardiovascular: Reports: No Symptoms Gastrointestinal: Reports: No Symptoms Genitourinary: Reports: No Symptoms Musculoskeletal: Reports: Shoulder Pain (left), Arm Pain (left) Skin: Reports: No Symptoms Psychiatric: Reports: No Symptoms Neurological: Reports: Weakness (left arm) Hematologic/Lymphatic: Reports: No Symptoms Immunologic: Reports: No Symptoms Exam - Exam Exam: See Below - Vital Signs Vital Signs: Last Vital Signs Temp 98.9 F 06/03/20 10:00 Pulse 66 06/03/20 10:05 Resp 16 06/03/20 10:05 BP 161/67 H 06/03/20 10:05 Pulse Ox 97 06/03/20 10:05 Weight: 68.946 kg - Exam General: Alert, Oriented, 4 HEENT: Conjunctiva Clear, EACs Clear, EOMI, Hearing Intact, Mucosa Moist & [place], Nares Patent, Normal Nasal Septum, Posterior Pharynx Clear, TMs Clear, Glasses, PERRLA Neck: Supple, Trachea Midline, 2 Lungs: Clear to Auscultation, Normal Respiratory Effort Cardiovascular: Regular Rate, Regular Rhythm GI/Abdominal Exam: Normal Bowel Sounds, Soft, Non-Tender, No Organomegaly, No Distention, No Abnormal Bruit, No Mass, Pelvis Stable (Female) Exam: Deferred Rectal (Female) Exam: Deferred Back Exam: Normal Inspection, Full Range of Motion, NT Extremities: Normal Range of Motion, No Pedal Edema, Normal Capillary Refill, Arm Pain Skin: Warm, Dry, Intact Neurological: Cranial Nerves Intact, Reflexes Equal Bilateral Neuro Extensive - Mental Status: Alert, Oriented x3, Normal Mood/Affect, Normal Cognition Neuro Extensive - Motor, Sensory, Reflexes: CN II-XII Intact, Normal Gait, Normal Reflexes Psychiatric: Alert, Normal Affect, Normal Mood - Patient Data Lab Results Last 24 hrs: Laboratory Results - last 24 hr 06/02/20 06/02/20 06/02/20 Range/Units 19:15 19:15 19:48 WBC 5.77 (3.98-10.04) K/mm3 RBC 3.92 L (3.98-5.22) M/mm3 Hgb 12.2 D (11.2-15.7) gm/dl Hct 36.5 (34.1-44.9) % MCV 93.1 (79.4-94.8) fl MCH 31.1 (25.6-32.2) pg MCHC 33.4 (32.2-35.5) g/dl RDW Std Deviation 41.7 (36.4-46.3) fL Plt Count 189 (182-369) K/mm3 MPV 9.1 L (9.4-12.3) fl Neut % (Auto) (34.0-71.1) % Lymph % (Auto) (19.3-51.7) % Amelia % (Auto) (4.7-12.5) % Eos % (Auto) (0.7-5.8) Baso % (Auto) (0.1-1.2) % Neut # (Auto) (1.56-6.13) K/mm3 Lymph # (Auto) (1.18-3.74) K/mm3 Amelia # (Auto) (0.24-0.36) K/mm3 Eos # (Auto) (0.04-0.36) K/mm3 Baso # (Auto) (0.01-0.08) K/mm3 Neutrophils % (Manual) 50 (40-60) % Band Neutrophils % 0 (0-10) % Lymphocytes % (Manual) 46 H (20-40) % Atypical Lymphs % 0 % Monocytes % (Manual) 1 L (2-10) % Eosinophils % (Manual) 2 (0.7-5.8) % Basophils % (Manual) 1 (0.1-1.2) Platelet Estimate Adequate RBC Morph Comment Normal PT (9.7-12.0) SECONDS INR APTT (21.7-31.4) SECONDS Sodium 140 (136-145) mEq/L Potassium 3.7 (3.5-5.1) mEq/L Chloride 103 (98-107) mEq/L Carbon Dioxide 26 (21-32) mEq/L Anion Gap 14.7 (5-15) BUN 10 (7-18) mg/dL Creatinine 0.6 (0.55-1.02) mg/dL Est Cr Clr Drug Dosing TNP Estimated GFR (MDRD) > 60 (>60) mL/min BUN/Creatinine Ratio 16.7 (14-18) Glucose 103 (83-115) mg/dL Calcium 9.1 (8.5-10.1) mg/dL Magnesium 2.0 (1.8-2.4) mg/dl Total Bilirubin 0.3 (0.2-1.0) mg/dL AST 18 (15-37) U/L ALT 20 (14-59) U/L Alkaline Phosphatase 71 (46-116) U/L Troponin I < 0.017 (0.00-0.056) ng/mL Total Protein 7.3 (6.4-8.2) g/dl Albumin 3.7 (3.4-5.0) g/dl Globulin 3.6 gm/dL Albumin/Globulin Ratio 1.0 (1-2) SARS-CoV-2 RNA (JORDI) Negative (NEGATIVE) 06/02/20 06/03/20 Range/Units 19:51 10:04 WBC 4.37 (3.98-10.04) K/mm3 RBC 3.67 L (3.98-5.22) M/mm3 Hgb 11.3 (11.2-15.7) gm/dl Hct 34.6 (34.1-44.9) % MCV 94.3 (79.4-94.8) fl MCH 30.8 (25.6-32.2) pg MCHC 32.7 (32.2-35.5) g/dl RDW Std Deviation 42.3 (36.4-46.3) fL Plt Count 160 L (182-369) K/mm3 MPV 9.0 L (9.4-12.3) fl Neut % (Auto) 45.2 (34.0-71.1) % Lymph % (Auto) 41.6 (19.3-51.7) % Amelia % (Auto) 7.3 (4.7-12.5) % Eos % (Auto) 4.8 (0.7-5.8) Baso % (Auto) 0.9 (0.1-1.2) % Neut # (Auto) 1.97 (1.56-6.13) K/mm3 Lymph # (Auto) 1.82 (1.18-3.74) K/mm3 Amelia # (Auto) 0.32 (0.24-0.36) K/mm3 Eos # (Auto) 0.21 (0.04-0.36) K/mm3 Baso # (Auto) 0.04 (0.01-0.08) K/mm3 Neutrophils % (Manual) (40-60) % Band Neutrophils % (0-10) % Lymphocytes % (Manual) (20-40) % Atypical Lymphs % % Monocytes % (Manual) (2-10) % Eosinophils % (Manual) (0.7-5.8) % Basophils % (Manual) (0.1-1.2) Platelet Estimate RBC Morph Comment PT 10.3 (9.7-12.0) SECONDS INR 0.96 APTT 25.9 (21.7-31.4) SECONDS Sodium (136-145) mEq/L Potassium (3.5-5.1) mEq/L Chloride (98-107) mEq/L Carbon Dioxide (21-32) mEq/L Anion Gap (5-15) BUN (7-18) mg/dL Creatinine (0.55-1.02) mg/dL Est Cr Clr Drug Dosing Estimated GFR (MDRD) (>60) mL/min BUN/Creatinine Ratio (14-18) Glucose (83-115) mg/dL Calcium (8.5-10.1) mg/dL Magnesium (1.8-2.4) mg/dl Total Bilirubin (0.2-1.0) mg/dL AST (15-37) U/L ALT (14-59) U/L Alkaline Phosphatase (46-116) U/L Troponin I (0.00-0.056) ng/mL Total Protein (6.4-8.2) g/dl Albumin (3.4-5.0) g/dl Globulin gm/dL Albumin/Globulin Ratio (1-2) SARS-CoV-2 RNA (JORDI) (NEGATIVE) Result Diagrams: 06/03/20 10:04 06/03/20 09:32 Sepsis Event Note - Evaluation Sepsis Screening Result: No Definite Risk - Focused Exam Vital Signs: Vital Signs Temp Temp Pulse Pulse Resp BP Pulse Ox 06/03/20 10:05 66 16 161/67 H 97 06/03/20 10:00 98.9 F 06/03/20 05:30 06/03/20 04:09 97.9 F 06/03/20 03:53 62 16 145/60 H 98 06/03/20 01:15 06/03/20 00:38 141/79 H 06/03/20 00:07 66 18 190/69 H 97 06/02/20 23:50 89 16 95 Pulse Ox 06/03/20 10:05 06/03/20 10:00 06/03/20 05:30 100 06/03/20 04:09 06/03/20 03:53 06/03/20 01:15 99 06/03/20 00:38 06/03/20 00:07 06/02/20 23:50 - Problem List (1) Left upper limb pain SNOMED Code(s): 525687131 ICD Code: M79.602 - PAIN IN LEFT ARM Status: Acute Priority: Medium Current Visit: Yes Onset Date: ~06/02/20 Problem List Initiated/Reviewed/Updated: Yes Orders Last 24hrs: Active Orders 24 hr Category Date Time Status Patient Status [ADT] Routine ADT 06/02/20 23:21 Active EKG 12 Lead [EKG Documentation Completion] [RC] ROUTINE Care 06/03/20 09:34 Active Oxygen Therapy Adult [Oxygen Therapy] [RC] ASDIRECTED Care 06/03/20 01:15 Active Up With Assistance [RC] ASDIRECTED Care 06/03/20 03:32 Active Regular Diet [DIET] Diet 06/03/20 Breakfast Active Ang Upper Extremity Lt [CT] Routine Exams 06/03/20 09:32 Ordered C-REACTIVE PROTEIN [CHEM] Routine Lab 06/03/20 09:32 Ordered COMPREHENSIVE METABOLIC PN,CMP [CHEM] Routine Lab 06/03/20 09:32 Ordered D-DIMER QUANTITATIVE [COAG] Routine Lab 06/03/20 09:32 Ordered PRO B-TYPE NATRIUR PEPT,BNPPRO [CHEM] Routine Lab 06/03/20 09:32 Ordered TROPONIN I [CHEM] Routine Lab 06/03/20 09:32 Ordered Acetaminophen [TylenoL] Med 06/03/20 00:14 Active 650 mg PO Q4H PRN HYDROmorphone [Dilaudid] Med 06/03/20 03:39 Active 0.5 mg IVPUSH Q2H PRN Ondansetron [Zofran] Med 06/03/20 03:31 Active 4 mg IVPUSH Q6H PRN Sodium Chloride 0.9% [Normal Saline] 1,000 ml Med 06/02/20 19:45 Active IV ASDIRECTED Sodium Chloride 0.9% [Saline Flush] Med 06/02/20 20:30 Active 10 ml FLUSH ASDIRECTED Resuscitation Status Routine Resus Stat 06/03/20 00:58 Ordered Medication Orders Acetaminophen (Acetaminophen 325 Mg Tab) 650 mg PO Q4H PRN PRN Reason: Pain Last Admin: 06/03/20 09:50 Dose: 650 mg Documented by: Admin: 06/03/20 05:14 Dose: 650 mg Documented by: Admin: 06/03/20 00:31 Dose: 650 mg Documented by: ZENAIDA Hydromorphone HCl (Hydromorphone 0.5 Mg/0.5 Ml Syringe) 0.5 mg IVPUSH Q2H PRN PRN Reason: Pain (severe 7-10) Last Admin: 06/03/20 09:51 Dose: 0.5 mg Documented by: Admin: 06/03/20 03:46 Dose: 0.5 mg Documented by: MERRICK Sodium Chloride (Normal Saline) 1,000 mls @ 100 mls/hr IV ASDIRECTED [facility] Last Admin: 06/03/20 10:02 Dose: 100 mls/hr Documented by: Infusion: 06/03/20 05:45 Dose: 100 mls/hr Documented by: Admin: 06/02/20 19:45 Dose: 100 mls/hr Documented by: TAMMI Ondansetron HCl (Ondansetron 4 Mg/2 Ml Sdv) 4 mg IVPUSH Q6H PRN PRN Reason: Nausea/Vomiting Sodium Chloride (Sodium Chloride 0.9% 10 Ml Syringe) 10 ml FLUSH ASDIRECTED [facility] Assessment/Plan Comment:: 06/02/2020: 80 year old female who presented to the ED with intermittent pain felt in her entire left upper extremity and between her scapula Patient stated in the ED that the pain developed around 16:00 this afternoon, while she was sitting. She describes the pain as crampy, and that it is a severe pain, not a discomfort. It comes and goes, lasting about 15 seconds, then recurring about every 5 minutes - the patient experienced an episode during my evaluation, and appeared to be quite uncomfortable. Her pain is made worse if she moves her left upper extremity when the pain is present, although she has no pain if she moves her left upper extremity when the pain is not present. The patient states that she is chronically dyspneic, which is not worse when the pain is present. Similarly, she does not have associated nausea, diaphoresis, or sense of impending doom, although she states that the pain does make her feel dizzy. She denies prior similar symptoms, stating that her pain is different than prior episodes of angina, which is felt as a pain felt across her shoulders, but not involving her left upper extremity. The patient states that she took 325 mg of enteric-coated aspirin around 17:00. Here in the ED, the patient's initial BP is found to be elevated at 195/75, otherwise, she is hemodynamically stable, afebrile, saturating 99% on 2 L of oxygen per nasal cannula, 95% on room air. When the pain is not present, the patient appears to be comfortable. Prior to this afternoon, the patient denies having a recent fever, chills, sore throat, ear pain, nasal or sinus congestion, cough, dyspnea, chest pain, palpitations, nausea, vomiting, constipation, diarrhea, abdominal pain, urinary symptoms, recent weight gain or weight loss, recent bloody bowel movements or black bowel movements, recent joint aches, headaches, or rashes. The patient's PCP is Kathryn Olsen NP. Her cardiology midlevel is OUMAR Singh. Her Radiology Services Manager is Dr. Amos Hernandez. Her Colorectal Surgeon is Dr. Joel Cruz. Her Maintenance Service Supervisor is Dr. Vikram Downey. Her Orthopedic Surgeon is Dr. Lexx Sinha Patient transferred from ED to be admitted to the floor for observation 06/03/2020: Patient states that she has a history of fibromyalgia and also has stents placed in her heart Patient denies her current pain feeling like her chest pain and states that she carries nitro with her in her purse but didn't take it since it didn't feel like chest pain Patient states that her pain starts in her left shoulder and continues down her entire left arm Patient denies any accidents or injuries causing her left extremity pain and states that she was sitting on the couch watching TV when the pain started and wasn't going away Patient states that she is able to move her shoulder without decreased ROM but that movement makes her pain increase Patient also states that she has decreased strength in her left arm and hand compared to her right Denies any history of neck pain and denies any pain when she moves her neck Afebrile She is wearing her glasses She is eating well She has tenderness with palpitation to her left upper extremity but she has normal ROM Blood pressures this morning were 145/60 and 161/67 Pulse rates running 62-66 She wears O2 at 2 Liters during the night and only wears O2 during the day if she is feeling SOB Discussed getting an EKG Discussed getting labs with a NT BNP, Troponin, and D-dimer Discussed getting an ultrasound of her left upper extremity to look for any blood clots. 06/03/20 patient seen and examined this am and persistant left arm and upper posterior back pain. no obvious etiorlogy and d dimer mildly elavated with hx of pulm disease. will get us and pulm angiogram of lungs to rule out atypical p.e. boh - Mortality Measure Prognosis:: Good
--- NOTE | 2020-06-03 13:17 | US ---
Upper extremity venous ultrasound: Multiple real-time and Doppler images were obtained of the left internal jugular, subclavian, axillary, brachial, basilic, radial and ulnar veins. Right internal jugular vein was also evaluated. Findings: Normal phasic flow, augmentation and compression is seen. Impression: 1. No findings of venous thrombosis within the left upper extremity or within the right internal jugular vein. Diagnostic code #1
[2020-06-03] MEDS ORDERED: ALPRAZolam 0.25 MG Tab PO PRN (18:50)
[2020-06-03] MEDS ORDERED: Formoterol/Mometasone 200-5 MCG 8.8 GM Inhaler IH PRN (18:50)
[2020-06-03] MEDS ORDERED: Levalbuterol HCl 1.25 MG/0.5 ML Neb INH PRN (18:50)
[2020-06-03] MEDS ORDERED: Zolpidem 5 MG Tab PO PRN (18:50)
[2020-06-03] MEDS ORDERED: Polyethylene Glycol 3350 Powder 17 GM Packet PO PRN (18:50)
[2020-06-03] MEDS ORDERED: Ondansetron 4 MG Tab.DIS PO PRN (18:50)
[2020-06-03] MEDS ORDERED: Nitroglycerin 0.4 MG Tab.SL SL SCH (19:00)
[2020-06-03] MEDS: Potassium Chloride 20 MEQ Tab.ER PO SCH (21:28)
[2020-06-03] MEDS: Carvedilol 12.5 MG Tab PO SCH (21:32)
[2020-06-04] MEDS: Acetaminophen 325 MG Tab PO PRN ×2 (00:07→10:41)
[2020-06-04] MEDS: HYDROmorphone 0.5 MG/0.5 ML Syringe IVPUSH PRN (00:14)
[2020-06-04] MEDS ORDERED: Levothyroxine 112 MCG Tab PO SCH (06:00)
[2020-06-04] MEDS ORDERED: Carvedilol 12.5 MG Tab PO SCH (07:00)
[2020-06-04] MEDS: Carvedilol 12.5 MG Tab PO SCH (07:59)
[2020-06-04] MEDS: Potassium Chloride 20 MEQ Tab.ER PO SCH (08:06)
[2020-06-04] MEDS ORDERED: Furosemide 40 MG Tab PO SCH (09:00)
[2020-06-04] MEDS ORDERED: HYDROmorphone 2 MG Tab PO PRN (09:06)
[2020-06-04] MEDS ORDERED: HYDROMORPHONE 4 MG PO PRN (10:24)
--- NOTE | 2020-06-04 10:53 | PCM.DCSUM1 ---
Discharge Summary - Hospital Course Free Text/Narrative:: 06/04/2020: Afebrile She is wearing her glasses She is eating well She wears O2 at 2 Liters during the night and only wears O2 during the day if she is feeling SOB She has continued to have tenderness with palpitation to her left upper extr emity but she has normal ROM so pain is believed to be musculoskeletal versus cardiovascular ideation Blood pressures this mornin/61 and 182/80,but she missed her meds yest. started on losartan. Pulse rate this morning running 58-62 Labs from 06/03/2020: D-Dimer 0.57, Glucose 122, Calcium 8.4, Platelet count 160, RBC 3.67 Start losartan 25 MG daily for hypertension Decrease potassium to taking once a day Discussed getting a MRI of the cervical spine and x-ray of the left shoulder done as outpatient for left upper extremity radiculopathy. she has impinged left shoulder exam with pain and weakness of deltoid Discussed having a left shoulder injection of Kenalog and lidocaine completed before discharge to help with left upper extremity pain Discussed getting labs of A1C, uric acid, iron, B12, and folate done today. multiple pos neck impingement maneuvers as well as chronic arhtritis symptoms . Discussed discharging today and recommend following up with Dr. Sinha in orthopedics regarding left upper extremity pain and radiculopathy HPI Initial Comments: Admission Diagnosis/Problem Admission Diagnosis/Problem Left Upper Extremity Pain 06/02/2020: 80 year old female who presented to the ED with intermittent pain felt in her entire left upper extremity and between her scapula Patient stated in the ED that the pain developed around 16:00 this afternoon, while she was sitting. She describes the pain as crampy, and that it is a severe pain, not a discomfort. It comes and goes, lasting about 15 seconds, then recurring about every 5 minutes - the patient experienced an episode during my evaluation, and appeared to be quite uncomfortable. Her pain is made worse if she moves her left upper extremity when the pain is present, although she has no pain if she moves her left upper extremity when the pain is not present. The patient states that she is chronically dyspneic, which is not worse when the pain is present. Similarly, she does not have associated nausea, diaphoresis, or sense of impending doom, although she states that the pain does make her feel dizzy. She denies prior similar symptoms, stating that her pain is different than prior episodes of angina, which is felt as a pain felt across her shoulders, but not involving her left upper extremity. The patient states that she took 325 mg of enteric-coated aspirin around 17:00. Here in the ED, the patient's initial BP is found to be elevated at 195/75, otherwise, she is hemodynamically stable, afebrile, saturating 99% on 2 L of oxygen per nasal cannula, 95% on room air. When the pain is not present, the patient appears to be comfortable. Prior to this afternoon, the patient denies having a recent fever, chills, sore throat, ear pain, nasal or sinus congestion, cough, dyspnea, chest pain, palpitations, nausea, vomiting, constipation, diarrhea, abdominal pain, urinary symptoms, recent weight gain or weight loss, recent bloody bowel movements or black bowel movements, recent joint aches, headaches, or rashes. The patient's PCP is Kathryn Olsen NP. Her cardiology midlevel is OUMAR Singh. Her Inclusion Special Education Teacher is Dr. Amos Hernandez. Her Colorectal Surgeon is Dr. Joel Cruz. Her Software Client Architect is Dr. Vikram Downey. Her Orthopedic Surgeon is Dr. Lexx Sinha Patient transferred from ED to be admitted to the floor for observation 06/03/2020: Patient states that she has a history of fibromyalgia and also has stents placed in her heart Patient denies her current pain feeling like her chest pain and states that she carries nitro with her in her purse but didn't take it since it didn't feel like chest pain Patient states that her pain starts in her left shoulder and continues down her entire left arm Patient denies any accidents or injuries causing her left extremity pain and states that she was sitting on the couch watching TV when the pain started and wasn't going away Patient states that she is able to move her shoulder without decreased ROM but that movement makes her pain increase Patient also states that she has decreased strength in her left arm and hand compared to her right Denies any history of neck pain and denies any pain when she moves her neck Afebrile She is wearing her glasses She is eating well She has tenderness with palpitation to her left upper extremity but she has normal ROM Blood pressures this morning were 145/60 and 161/67 Pulse rates running 62-66 She wears O2 at 2 Liters during the night and only wears O2 during the day if she is feeling SOB Discussed getting an EKG Discussed getting labs with a NT BNP, Troponin, and D-dimer Discussed getting an ultrasound of her left upper extremity to look for any blood clots 06/04/2020: Afebrile She is wearing her glasses She is eating well She wears O2 at 2 Liters during the night and only wears O2 during the day if she is feeling SOB She has continued to have tenderness with palpitation to her left upper extremity but she has normal ROM so pain is believed to be musculoskeletal versus cardiovascular ideation Blood pressures this mornin/61 and 182/80 Pulse rate this morning running 58-62 Labs from 06/03/2020: D-Dimer 0.57, Glucose 122, Calcium 8.4, Platelet count 160, RBC 3.67 Start losartan 50 MG daily for hypertension Decrease potassium to taking once a day Discussed getting a MRI of the cervical spine and x-ray of the left shoulder done as outpatient for left upper extremity radiculopathy Discussed having a left shoulder injection of Kenalog and lidocaine completed before discharge to help with left upper extremity pain Discussed getting labs of A1C, uric acid, iron, B12, and folate done today Discussed discharging today and recommend following up with Dr. Sinha in orthopedics regarding left upper extremity pain and radiculopathy - Discharge Data Discharge Date: 06/04/20 Discharge Disposition: Home, Self-Care 01 Condition: Good - Referral to Home Health Primary Care Physician: Kathryn Olsen NP - Discharge Diagnosis/Problem(s) (1) Left upper limb pain SNOMED Code(s): 545709423 ICD Code: M79.602 - PAIN IN LEFT ARM Status: Acute Priority: Medium Current Visit: Yes Onset Date: ~06/02/20 Problem Details: pain clearly now musculoskelatel and she has both neck impingment signs and rotator cuff signs. shoulder xrays as o.p ordereda nd will give a.c. bursal injection. she has neck impingment signs on left and may have c5/c6 impingment and needs mri and will send to o.p p.t. - Patient Summary/Data Consults: Consultations 06/03/20 10:56 PT Evaluation and Treatment [CONS] Routine - Patient Instructions Diet: Regular Diet as Tolerated Activity: As Tolerated Driving: May Drive Today Showering/Bathing: May Shower Notify Provider of: Fever, Increased Pain, Swelling and Redness, Nausea and/or Vomiting - Discharge Plan *PRESCRIPTION DRUG MONITORING PROGRAM REVIEWED*: Not Applicable *COPY OF PRESCRIPTION DRUG MONITORING REPORT IN PATIENT EMMETT: Not Applicable Home Medications: Home Meds polyethylene glycoL 3350 [MiraLAX] 1 scoop PO DAILY PRN 02/27/18 [History] ALPRAZolam [Xanax] 0.25 mg PO Q8H PRN 11/10/18 [History] HYDROmorphone [Dilaudid] 4 mg PO Q4H PRN 11/10/18 [History] Acetaminophen [Acetaminophen Extra Strength] 650 mg PO Q4HR PRN 09/14/19 [History] Furosemide [Lasix] 40 mg PO DAILY 09/14/19 [History] Potassium Chloride [Klor-Con 10] 20 meq PO BID 09/14/19 [History] Budesonide/Formoterol [Symbicort 160-4.5 MCG] 2 puff INH BID PRN 12/02/19 [History] Zolpidem [Ambien] 5 mg PO BEDTIME PRN 12/02/19 [History] levalbuterol HCL [Xopenex] 1.25 mg INH Q6H PRN 12/02/19 [History] Nitroglycerin [Nitrostat] 0.4 mg SL ASDIRECTED 06/02/20 [History] Ondansetron [Zofran ODT] 8 mg PO TID PRN 06/02/20 [History] Docusate Sodium/Sennosides [Senna Plus] 1 - 2 tab PO DAILY PRN 06/03/20 [History] Levothyroxine Sodium [Synthroid] 112 mcg PO ACBREAKFAST 06/03/20 [History] carvediloL [Coreg] 25 mg PO BIDMEALS 06/03/20 [History] Oxygen Therapy Mode: Room Air Patient Handouts: Home Oxygen Use, Adult Forms: ED Department Discharge Referrals: Joel Cruz MD [Ordering Only Provider] - (Follow up as needed) Lexx Sinha MD [Physician] - (Patient does not want me to make appt. with Dr. Sinha, she will make her own appt.) Kathryn Olsen NP [Primary Care Provider] - 06/10/20 10:15 am Dawna Fay PA-C [Ordering Only Provider] - (Follow up as needed) Amos Hernandez MD [Ordering Only Provider] - (Follow up as needed) Vikram Downey MD [Ordering Only Provider] - (Follow up as needed) - Discharge Summary/Plan Comment DC Time >30 min.: Yes - General Info Date of Service: 06/04/20 Admission Dx/Problem (Free Text: Admission Diagnosis/Problem Admission Diagnosis/Problem Left Upper Extremity Pain 06/02/2020: 80 year old female who presented to the ED with intermittent pain felt in her entire left upper extremity and between her scapula Patient stated in the ED that the pain developed around 16:00 this afternoon, while she was sitting. She describes the pain as crampy, and that it is a severe pain, not a discomfort. It comes and goes, lasting about 15 seconds, then recurring about every 5 minutes - the patient experienced an episode during my evaluation, and appeared to be quite uncomfortable. Her pain is made worse if she moves her left upper extremity when the pain is present, although she has no pain if she moves her left upper extremity when the pain is not present. The patient states that she is chronically dyspneic, which is not worse when the pain is present. Similarly, she does not have associated nausea, diaphoresis, or sense of impending doom, although she states that the pain does make her feel dizzy. She denies prior similar symptoms, stating that her pain is different than prior episodes of angina, which is felt as a pain felt across her shoulders, but not involving her left upper extremity. The patient states that she took 325 mg of enteric-coated aspirin around 17:00. Here in the ED, the patient's initial BP is found to be elevated at 195/75, otherwise, she is hemodynamically stable, afebrile, saturating 99% on 2 L of oxygen per nasal cannula, 95% on room air. When the pain is not present, the patient appears to be comfortable. Prior to this afternoon, the patient denies having a recent fever, chills, sore throat, ear pain, nasal or sinus congestion, cough, dyspnea, chest pain, palpitations, nausea, vomiting, constipation, diarrhea, abdominal pain, urinary symptoms, recent weight gain or weight loss, recent bloody bowel movements or black bowel movements, recent joint aches, headaches, or rashes. The patient's PCP is Kathryn Olsen NP. Her cardiology midlevel is OUMAR Singh. Her Inclusion Special Education Teacher is Dr. Amos Hernandez. Her Colorectal Surgeon is Dr. Joel Cruz. Her Software Client Architect is Dr. Vikram Downey. Her Orthopedic Surgeon is Dr. Lexx Sinha Patient transferred from ED to be admitted to the floor for observation 06/03/2020: Patient states that she has a history of fibromyalgia and also has stents placed in her heart Patient denies her current pain feeling like her chest pain and states that she carries nitro with her in her purse but didn't take it since it didn't feel like chest pain Patient states that her pain starts in her left shoulder and continues down her entire left arm Patient denies any accidents or injuries causing her left extremity pain and states that she was sitting on the couch watching TV when the pain started and wasn't going away Patient states that she is able to move her shoulder without decreased ROM but that movement makes her pain increase Patient also states that she has decreased strength in her left arm and hand compared to her right Denies any history of neck pain and denies any pain when she moves her neck Afebrile She is wearing her glasses She is eating well She has tenderness with palpitation to her left upper extremity but she has normal ROM Blood pressures this morning were 145/60 and 161/67 Pulse rates running 62-66 She wears O2 at 2 Liters during the night and only wears O2 during the day if she is feeling SOB Discussed getting an EKG Discussed getting labs with a NT BNP, Troponin, and D-dimer Discussed getting an ultrasound of her left upper extremity to look for any blood clots 06/04/2020: Afebrile She is wearing her glasses She is eating well She wears O2 at 2 Liters during the night and only wears O2 during the day if she is feeling SOB She has continued to have tenderness with palpitation to her left upper extremity but she has normal ROM so pain is believed to be musculoskeletal versus cardiovascular ideation Blood pressures this mornin/61 and 182/80 Pulse rate this morning running 58-62 Labs from 06/03/2020: D-Dimer 0.57, Glucose 122, Calcium 8.4, Platelet count 160, RBC 3.67 Start losartan 50 MG daily for hypertension Decrease potassium to taking once a day Discussed getting a MRI of the cervical spine and x-ray of the left shoulder done as outpatient for left upper extremity radiculopathy Discussed having a left shoulder injection of Kenalog and lidocaine completed before discharge to help with left upper extremity pain Discussed getting labs of A1C, uric acid, iron, B12, and folate done today Discussed discharging today and recommend following up with Dr. Sinha in orthopedics regarding left upper extremity pain and radiculopathy Subjective Update: 06/04/2020: Afebrile She is wearing her glasses She is eating well She wears O2 at 2 Liters during the night and only wears O2 during the day if she is feeling SOB She has continued to have tenderness with palpitation to her left upper extremity but she has normal ROM so pain is believed to be musculoskeletal versus cardiovascular ideation Blood pressures this mornin/61 and 182/80 Pulse rate this morning running 58-62 Labs from 06/03/2020: D-Dimer 0.57, Glucose 122, Calcium 8.4, Platelet count 160, RBC 3.67 Start losartan 50 MG daily for hypertension Decrease potassium to taking once a day Discussed getting a MRI of the cervical spine and x-ray of the left shoulder done as outpatient for left upper extremity radiculopathy Discussed having a left shoulder injection of Kenalog and lidocaine completed before discharge to help with left upper extremity pain Discussed getting labs of A1C, uric acid, iron, B12, and folate done today Discussed discharging today and recommend following up with Dr. Sinha in orthopedics regarding left upper extremity pain and radiculopathy Functional Status: Reports: Pain Controlled - Review of Systems General: Reports: No Symptoms HEENT: Reports: No Symptoms, Glasses Pulmonary: Reports: No Symptoms Cardiovascular: Reports: No Symptoms Gastrointestinal: Reports: No Symptoms Genitourinary: Reports: No Symptoms Musculoskeletal: Reports: Shoulder Pain (Left), Arm Pain (Left) Skin: Reports: No Symptoms Neurological: Reports: Numbness (of left upper extremity), Weakness (of left upper extremity) Psychiatric: Reports: No Symptoms - Patient Data Vitals - Most Recent: Last Vital Signs Temp 98.1 F 06/04/20 08:05 Pulse 58 L 06/04/20 08:05 Resp 12 04/22/21 08:05 BP 180/135 H 06/04/20 08:05 Pulse Ox 99 06/04/20 08:05 Weight - Most Recent: 70.125 kg I&O - Last 24 hours: Intake & Output 06/03/20 06/04/20 06/04/20 22:59 06:59 14:59 Intake Total 1120 800 Output Total 1150 1100 Balance -30 -300 Lab Results - Last 24 hrs: Laboratory Results - last 24 hr 06/03/20 06/03/20 06/03/20 Range/Units 09:32 09:32 10:04 WBC 4.37 (3.98-10.04) K/mm3 RBC 3.67 L (3.98-5.22) M/mm3 Hgb 11.3 (11.2-15.7) gm/dl Hct 34.6 (34.1-44.9) % MCV 94.3 (79.4-94.8) fl MCH 30.8 (25.6-32.2) pg MCHC 32.7 (32.2-35.5) g/dl RDW Std Deviation 42.3 (36.4-46.3) fL Plt Count 160 L (182-369) K/mm3 MPV 9.0 L (9.4-12.3) fl Neut % (Auto) 45.2 (34.0-71.1) % Lymph % (Auto) 41.6 (19.3-51.7) % Wright % (Auto) 7.3 (4.7-12.5) % Eos % (Auto) 4.8 (0.7-5.8) Baso % (Auto) 0.9 (0.1-1.2) % Neut # (Auto) 1.97 (1.56-6.13) K/mm3 Lymph # (Auto) 1.82 (1.18-3.74) K/mm3 Wright # (Auto) 0.32 (0.24-0.36) K/mm3 Eos # (Auto) 0.21 (0.04-0.36) K/mm3 Baso # (Auto) 0.04 (0.01-0.08) K/mm3 D-Dimer, Quantitative (0.19-0.50) mg/L Sodium 140 (136-145) mEq/L Potassium 3.5 (3.5-5.1) mEq/L Chloride 105 (98-107) mEq/L Carbon Dioxide 25 (21-32) mEq/L Anion Gap 13.5 (5-15) BUN 8 (7-18) mg/dL Creatinine 0.7 (0.55-1.02) mg/dL Est Cr Clr Drug Dosing 46.76 mL/min Estimated GFR (MDRD) > 60 (>60) mL/min BUN/Creatinine Ratio 11.4 L (14-18) Glucose 122 H (83-115) mg/dL Calcium 8.4 L (8.5-10.1) mg/dL Total Bilirubin 0.5 (0.2-1.0) mg/dL AST 22 (15-37) U/L ALT 19 (14-59) U/L Alkaline Phosphatase 57 (46-116) U/L Troponin I < 0.017 (0.00-0.056) ng/mL C-Reactive Protein 0.4 (<1.0) mg/dL NT-Pro-B Natriuret Pep 166 (0-450) pg/mL Total Protein 6.4 (6.4-8.2) g/dl Albumin 3.2 L (3.4-5.0) g/dl Globulin 3.2 gm/dL Albumin/Globulin Ratio 1.0 (1-2) / Range/Units 10:04 WBC (3.98-10.04) K/mm3 RBC (3.98-5.22) M/mm3 Hgb (11.2-15.7) gm/dl Hct (34.1-44.9) % MCV (79.4-94.8) fl MCH (25.6-32.2) pg MCHC (32.2-35.5) g/dl RDW Std Deviation (36.4-46.3) fL Plt Count (182-369) K/mm3 MPV (9.4-12.3) fl Neut % (Auto) (34.0-71.1) % Lymph % (Auto) (19.3-51.7) % Wright % (Auto) (4.7-12.5) % Eos % (Auto) (0.7-5.8) Baso % (Auto) (0.1-1.2) % Neut # (Auto) (1.56-6.13) K/mm3 Lymph # (Auto) (1.18-3.74) K/mm3 Wright # (Auto) (0.24-0.36) K/mm3 Eos # (Auto) (0.04-0.36) K/mm3 Baso # (Auto) (0.01-0.08) K/mm3 D-Dimer, Quantitative 0.57 H (0.19-0.50) mg/L Sodium (136-145) mEq/L Potassium (3.5-5.1) mEq/L Chloride (98-107) mEq/L Carbon Dioxide (21-32) mEq/L Anion Gap (5-15) BUN (7-18) mg/dL Creatinine (0.55-1.02) mg/dL Est Cr Clr Drug Dosing mL/min Estimated GFR (MDRD) (>60) mL/min BUN/Creatinine Ratio (14-18) Glucose (83-115) mg/dL Calcium (8.5-10.1) mg/dL Total Bilirubin (0.2-1.0) mg/dL AST (15-37) U/L ALT (14-59) U/L Alkaline Phosphatase (46-116) U/L Troponin I (0.00-0.056) ng/mL C-Reactive Protein (<1.0) mg/dL NT-Pro-B Natriuret Pep (0-450) pg/mL Total Protein (6.4-8.2) g/dl Albumin (3.4-5.0) g/dl Globulin gm/dL Albumin/Globulin Ratio (1-2) Med Orders - Current: Current Medications Acetaminophen (Acetaminophen 325 Mg Tab) 650 mg PO Q4H PRN PRN Reason: Pain Last Admin: 06/04/20 00:07 Dose: 325 mg Documented by: Alprazolam (Alprazolam 0.25 Mg Tab) 0.25 mg PO Q8H PRN PRN Reason: Anxiety Carvedilol (Carvedilol 12.5 Mg Tab) 12.5 mg PO BID IRVIN Last Admin: 06/04/20 07:59 Dose: 12.5 mg Documented by: Furosemide (Furosemide 40 Mg Tab) 40 mg PO DAILY [facility] Hydromorphone HCl (Hydromorphone 0.5 Mg/0.5 Ml Syringe) 0.5 mg IVPUSH Q2H PRN PRN Reason: Pain (severe 7-10) Last Admin: 06/04/20 00:14 Dose: 0.5 mg Documented by: Levalbuterol HCl (Levalbuterol Hcl 1.25 Mg/0.5 Ml Neb) 1.25 mg INH Q6H PRN PRN Reason: Shortness of Breath Levothyroxine Sodium (Levothyroxine 112 Mcg Tab) 112 mcg PO ACBREAKFAST [facility] Last Admin: 06/04/20 07:58 Dose: 112 mcg Documented by: Mometasone Furoate/Formoterol Fumar (Formoterol/Mometasone 200-5 Mcg 8.8 Gm Inhaler) 0 puff IH BID PRN PRN Reason: Shortness of Breath Nitroglycerin (Nitroglycerin 0.4 Mg Tab.Sl) 0.4 mg SL ASDIRECTED [facility] Ondansetron HCl (Ondansetron 4 Mg/2 Ml Sdv) 4 mg IVPUSH Q6H PRN PRN Reason: Nausea/Vomiting Ondansetron HCl (Ondansetron 4 Mg Tab.Dis) 8 mg PO TID PRN PRN Reason: Nausea Polyethylene Glycol (Polyethylene Glycol 3350 Powder 17 Gm Packet) 17 gm PO DAILY PRN PRN Reason: Constipation Potassium Chloride (Potassium Chloride 20 Meq Tab.Er) 20 meq PO BID [facility] Last Admin: 06/04/20 08:06 Dose: 20 meq Documented by: Senna/Docusate Sodium (Docusate Sodium/Sennosides 50-8.6 Mg Tab) 1 - 2 tab PO DAILY PRN PRN Reason: Constipation Sodium Chloride (Sodium Chloride 0.9% 10 Ml Syringe) 10 ml FLUSH ASDIRECTED [facility] Zolpidem Tartrate (Zolpidem 5 Mg Tab) 5 mg PO BEDTIME PRN PRN Reason: Insomnia Discontinued Medications Acetaminophen (Acetaminophen 325 Mg Tab) 650 mg PO Q4H PRN PRN Reason: Pain Last Admin: 06/03/20 18:55 Dose: 325 mg Documented by: Carvedilol (Carvedilol 12.5 Mg Tab) 25 mg PO BIDMEALS [facility] Hydromorphone HCl (Hydromorphone 0.5 Mg/0.5 Ml Syringe) 0.5 mg IVPUSH ONETIME ONE Stop: 06/02/20 19:35 Last Admin: 06/02/20 19:45 Dose: 0.5 mg Documented by: Hydromorphone HCl (Hydromorphone 0.5 Mg/0.5 Ml Syringe) 0.5 mg IVPUSH ONETIME ONE Stop: 06/02/20 23:05 Last Admin: 06/03/20 01:10 Dose: Not Given Documented by: Hydromorphone HCl (Hydromorphone 0.5 Mg/0.5 Ml Syringe) 0.25 mg IVPUSH Q2H PRN PRN Reason: Pain (severe 7-10) Sodium Chloride (Normal Saline) 1,000 mls @ 100 mls/hr IV ASDIRECTED [facility] Last Admin: 06/03/20 10:02 Dose: 100 mls/hr Documented by: Iopamidol (Iopamidol 755 Mg/Ml 100 Ml Bottle) 100 ml IVPUSH ONETIME ONE Stop: 06/02/20 20:20 Last Admin: 06/02/20 21:20 Dose: 100 ml Documented by: Ondansetron HCl (Ondansetron 4 Mg/2 Ml Sdv) 4 mg IVPUSH ONETIME ONE Stop: 06/02/20 19:35 Last Admin: 06/02/20 19:45 Dose: 4 mg Documented by: - Exam General: Reports: Alert, Oriented HEENT: Reports: Pupils Equal, Pupils Reactive, EOMI, Mucous Membr. Moist/[place] Neck: Reports: Supple Lungs: Reports: Clear to Auscultation, Normal Respiratory Effort Cardiovascular: Reports: Regular Rate, Regular Rhythm GI/Abdominal Exam: Normal Bowel Sounds, Soft, Non-Tender, No Organomegaly, No Distention, No Abnormal Bruit, No Mass, Pelvis Stable (Female) Exam: Deferred Rectal (Female) Exam: Deferred Back Exam: Reports: Normal Inspection, Full Range of Motion Extremities: Normal Inspection, Normal Range of Motion, No Pedal Edema, Normal Capillary Refill, Arm Pain (Left), Other (tenderness and radiculopathy of left upper extremity) Skin: Reports: Warm, Dry, Intact Wound/Incisions: Reports: Healing Well Neurological: Reports: No New Focal Deficit Psy/Mental Status: Reports: Alert, Normal Affect, Normal Mood
[2020-06-04 11:06] LABS: HEMOGLOBIN A1C 5.6 %
[2020-06-04] MEDS ORDERED: Ibuprofen 400 MG Tab PO PRN (11:31)
[2020-06-04] MEDS ORDERED: Triamcinolone Acetonide 40 MG/ML 1 ML SDV INJECT ONE (12:00)
[2020-06-04] MEDS ORDERED: Lidocaine 1% 10 ML MDV INJECT ONE (12:00)
--- NOTE | 2020-06-04 12:13 | PCM.PRNOTE ---
- Free Text/Narrative Note: 06/04/20 left ac bursa injection . after discussion and informed consent , sterile prep of posterior shoulder area and injection of 40 mg kenolog with 7.5 cc 1% lidocaine given via posterior approach. patient tolerated well bursal capsule calcified and mild dicomfort during proceedure forllowed by good releif shortly after of left shoulder and neck pain. sterile bandaid applied . boh
[2020-06-04 13:13] VITALS: PULSE 68
[2020-06-04 13:14] VITALS: BP 142/77
[2020-06-05] MEDS ORDERED: Furosemide 20 MG Tab PO SCH (09:00)
== END 2020-06-04 13:23 | disposition home or self-care (01) ==
LOC: JD.ED 18:55 → JD.MS 23:26
PROVIDERS: ADMIT Pediatrics; ATTEND Pediatrics
DX: M79.602 Pain in left arm (principal); M54.89 Other dorsalgia; R53.1 Weakness; M25.812 Other specified joint disorders, left shoulder; I72.8 Aneurysm of other specified arteries; I10 Essential (primary) hypertension; R06.00 Dyspnea, unspecified; I25.10 Atherosclerotic heart disease of native coronary artery without angina pectoris; E78.00 Pure hypercholesterolemia, unspecified; E03.9 Hypothyroidism, unspecified; R79.1 Abnormal coagulation profile; Z01.812 Encounter for preprocedural laboratory examination; Z20.822 Contact with and (suspected) exposure to COVID-19; Z88.2 Allergy status to sulfonamides; Z88.6 Allergy status to analgesic agent; Z88.8 Allergy status to other drugs, medicaments and biological substances; Z79.890 Hormone replacement therapy; Z79.899 Other long term (current) drug therapy; Z87.09 Personal history of other diseases of the respiratory system; Z95.5 Presence of coronary angioplasty implant and graft; Z98.890 Other specified postprocedural states
CPT/HCPCS: 20605; 36415; 71260; 74177; 80053; 82607; 82746; 83036; 83540; 83735; 83880; 84484; 84550; 85007; 85025; 85027; 85379; 85610; 85730; 86140; 93005; 93971; 94761; 96372; 96374; 96375; 96376; 97112; 97116; 97162; 99285; A9270; G0378; J1170; J2405; J3301; J7030; Q9967; U0002; 93010; 99284

== ENCOUNTER 2020-08-04 23:44 | Emergency (ER) | payer MEDICARE, BC ==
[2020-08-05 00:02] VITALS: PULSE 60
[2020-08-05] MEDS ORDERED: HYDROmorphone 1 MG/ML Syringe IVPUSH STA (02:04)
[2020-08-05] MEDS ORDERED: Ondansetron 4 MG/2 ML SDV IVPUSH ONE (02:04)
--- NOTE | 2020-08-05 02:10 | EDM.PDOC ---
ED HPI GENERAL MEDICAL PROBLEM - General Chief Complaint: Abdominal Pain Stated Complaint: ELENA AMB Time Seen by Provider: 08/05/20 01:46 Source of Information: Reports: Patient History Limitations: Reports: Uncooperative - History of Present Illness INITIAL COMMENTS - FREE TEXT/NARRATIVE: Mrs. Sun is a pleasant 80-year-old woman who is now brought to the ED by EMS stating that she developed left-sided abdominal and flank pain on 07/26/2020. She also reports having pain from her mid-back all the way down to her feet. She saw a physician on 07/27/2020, and was prescribed nitrofurantoin for a UTI, however, she states that her symptoms have not improved. She states that she has been taking her prescribed Dilaudid without relief. No recent fever, no recent nausea or vomiting. No recent constipation or diarrhea. Here in the ED, the patient's initial BP is found to be significantly elevated at 232/85. She is afebrile, saturating 99% on room air. She appears to be quite anxious, but in no acute distress. The patient told the triage nurse that her blood pressure is always elevated when she is in pain. Due to the patient's current condition, it is not possible to obtain a review of systems prior to Monday. The patient's PCP is Kathryn Olsen NP. Her Secretary Book Keeper is Dr. Amos Hernandez. Her Colorectal Surgeon is Dr. Joel Cruz. Her cardiology midlevel is OUMAR Singh. Her Steam Boiler Fireman is Dr. Vikram Downey. Her Orthopedic Surgeon is Dr. Lexx Sinha. - Related Data Allergies Allergy/AdvReac Type Severity Reaction Status Date / Time candesartan [From Atacand] Allergy Severe Shortness Verified 08/05/20 02:48 of Breath ibandronate sodium Allergy Severe Shortness Verified 08/05/20 02:48 [From Boniva] of Breath cephalexin monohydrate Allergy Intermediate Hives Verified 08/05/20 02:48 [From Keflex] doxycycline Allergy Intermediate Hives Verified 08/05/20 02:48 levofloxacin [From Levaquin] Allergy Intermediate Hives Verified 08/05/20 02:48 sulfamethoxazole Allergy Intermediate Hives Verified 08/05/20 02:48 pitavastatin [From Livalo] Allergy Unknown Cannot Verified 08/05/20 02:48 Remember morphine AdvReac Intermediate Other Verified 08/05/20 02:48 amlodipine AdvReac Mild Body Aches Verified 08/05/20 02:48 aspirin AdvReac Mild bloody Verified 08/05/20 02:48 noses atorvastatin calcium AdvReac Mild Muscle Verified 08/05/20 02:48 [From Lipitor] Aches bupropion HCl AdvReac Mild Other Verified 08/05/20 02:48 [From Wellbutrin] colesevelam HCl AdvReac Mild Muscle Verified 08/05/20 02:48 [From WelChol] Aches diltiazem [From Cardizem] AdvReac Mild Confusion Verified 08/05/20 02:48 duloxetine [From Cymbalta] AdvReac Mild difficultly Verified 08/05/20 02:48 walking evolocumab AdvReac Mild Muscle Verified 08/05/20 02:48 [From Repatha Pushtronex] Aches ezetimibe [From Zetia] AdvReac Mild Muscle Verified 08/05/20 02:48 Aches fluvoxamine [From Luvox] AdvReac Mild Headache Verified 08/05/20 02:48 gabapentin AdvReac Mild Blurred Verified 08/05/20 02:48 Vision hydralazine AdvReac Mild Nausea Verified 08/05/20 02:48 hydrochlorothiazide AdvReac Mild Headache Verified 08/05/20 02:48 hyoscyamine AdvReac Mild Vaginitis Verified 08/05/20 02:48 levothyroxine sodium AdvReac Mild Other Verified 08/05/20 02:48 lisinopril AdvReac Mild Cough Verified 08/05/20 02:48 losartan AdvReac Mild Headache Verified 08/05/20 02:48 mannitol [From Reclast] AdvReac Mild Confusion Verified 08/05/20 02:48 niacin AdvReac Mild Muscle Verified 08/05/20 02:48 Aches phenobarbital AdvReac Mild Other Verified 08/05/20 02:48 pravastatin sodium AdvReac Mild Muscle Verified 08/05/20 02:48 [From Pravachol] Aches prochlorperazine edisylate AdvReac Mild Tremors Verified 08/05/20 02:48 [From Compazine] prochlorperazine maleate AdvReac Mild Tremors Verified 08/05/20 02:48 [From Compazine] promethazine HCl AdvReac Mild Other Verified 08/05/20 02:48 [From Phenergan] rosuvastatin calcium AdvReac Mild Body Aches Verified 08/05/20 02:48 [From Crestor] sertraline AdvReac Mild nightmares Verified 08/05/20 02:48 sertraline HCl [From Zoloft] AdvReac Mild Other Verified 08/05/20 02:48 simvastatin [From Zocor] AdvReac Mild Muscle Verified 08/05/20 02:48 Aches trazodone AdvReac Mild Other Verified 08/05/20 02:48 water for injection,sterile AdvReac Mild Confusion Verified 08/05/20 02:48 [From Reclast] zoledronic acid AdvReac Mild Confusion Verified 08/05/20 02:48 [From Reclast] zolpidem tartrate AdvReac Mild Other Verified 08/05/20 02:48 [From Ambien] Home Meds: Home Meds polyethylene glycoL 3350 [MiraLAX] 1 scoop PO DAILY PRN 02/27/18 [History] ALPRAZolam [Xanax] 0.25 mg PO Q8H PRN 11/10/18 [History] HYDROmorphone [Dilaudid] 4 mg PO Q4H PRN 11/10/18 [History] Acetaminophen [Acetaminophen Extra Strength] 650 mg PO Q4HR PRN 09/14/19 [History] Furosemide [Lasix] 40 mg PO DAILY 09/14/19 [History] Potassium Chloride [Klor-Con 10] 20 meq PO BID 09/14/19 [History] Budesonide/Formoterol [Symbicort 160-4.5 MCG] 2 puff INH BID PRN 12/02/19 [History] Zolpidem [Ambien] 5 mg PO BEDTIME PRN 12/02/19 [History] levalbuterol HCL [Xopenex] 1.25 mg INH Q6H PRN 12/02/19 [History] Nitroglycerin [Nitrostat] 0.4 mg SL ASDIRECTED 06/02/20 [History] Ondansetron [Zofran ODT] 8 mg PO TID PRN 06/02/20 [History] Docusate Sodium/Sennosides [Senna Plus] 1 - 2 tab PO DAILY PRN 06/03/20 [History] Levothyroxine Sodium [Synthroid] 112 mcg PO ACBREAKFAST 06/03/20 [History] carvediloL [Coreg] 25 mg PO BIDMEALS 06/03/20 [History] Past Medical History HEENT History: Reports: Impaired Vision (wears glasses) Cardiovascular History: Reports: CAD, High Cholesterol, Hypertension, Other (See Below) (Giant cell arteritis) Respiratory History: Reports: Pulmonary Fibrosis (O2 2-3 L/min per NC continuously) Gastrointestinal History: Reports: Bowel Obstruction (many), Colon Polyp, GERD, Hiatal Hernia Musculoskeletal History: Reports: Osteoarthritis, Osteoporosis Neurological History: Reports: Seizure (as a child) Psychiatric History: Reports: Addiction (opioids), Anxiety, Depression, Panic Attack, Other (See Below) (Fibromyalgia, insomnia) Endocrine/Metabolic History: Reports: Hypothyroidism, Vitamin D Deficiency - Infectious Disease History Infectious Disease History: Reports: Chicken Pox, Measles, Mumps - Past Surgical History HEENT Surgical History: Reports: Cataract Surgery (bilateral), Oral Surgery (dental extractions), Other (See Below) (Right salivary gland excision) Cardiovascular Surgical History: Reports: Coronary Artery Stent (x 2) GI Surgical History: Reports: Appendectomy, Cholecystectomy (1981), Colonoscopy (x 5 or 6), EGD (x 5 or 6), Lysis of Adhesions (x 5) Female Surgical History: Reports: Breast Reduction, D&C (x 3 or 4), Hysterectomy (complete), Tubal Ligation, Other (See Below) (Rectocele and cystocele repair) Neurological Surgical History: Reports: Lumbar Spine (laminectomy x 3, fusion x 2) Musculoskeletal Surgical History: Reports: Shoulder Surgery (right, open), Other (See Below) (Right foot x 2) Social & Family History - Tobacco Use Tobacco Use Status *Q: Never Tobacco User - Caffeine Use Caffeine Use: Reports: None - Alcohol Use Alcohol Use History: No - Recreational Drug Use Recreational Drug Use: No - Living Situation & Occupation Living situation: Reports: , Alone Occupation: Retired ED ROS GENERAL - Review of Systems Review Of Systems: Unable To Obtain Reason Not Obtained: Patient condition Musculoskeletal: Reports: Back Pain (chronic) ED EXAM, GI/ABD - Physical Exam Exam: See Below Exam Limited By: No Limitations General Appearance: Alert, WD/WN, Anxious Eyes: Bilateral: Normal Appearance, EOMI Ears: Normal External Exam, Hearing Grossly Normal Nose: Normal Inspection Throat/Mouth: Normal Inspection, Normal Lips, Normal Voice, No Airway Compromise Head: Atraumatic, Normocephalic Neck: Normal Inspection, Full Range of Motion Respiratory/Chest: No Respiratory Distress, Lungs Clear, Normal Breath Sounds, No Accessory Muscle Use Cardiovascular: Normal Peripheral Pulses, Regular Rate, Rhythm, No Edema, No Gallop, No JVD, No Murmur, No Rub GI/Abdominal Exam: Normal Bowel Sounds, Soft, No Organomegaly, No Distention, No Abnormal Bruit, No Mass, Tender (Generalized, but greater on the left than the right) Back Exam: Normal Inspection, Full Range of Motion, NT Extremities: Normal Inspection, Normal Range of Motion, No Pedal Edema, Normal Capillary Refill Neurological: Alert, Oriented, Normal Cognition, No Motor/Sensory Deficits Psychiatric: Anxious Skin Exam: Warm, Dry, Intact, Normal Color, No Rash Course - Vital Signs Last Recorded V/S: Last Vital Signs Temp 36.7 C 08/04/20 23:53 Pulse 60 08/04/20 23:53 Resp 18 08/05/20 06:47 BP 187/88 H 08/05/20 06:47 Pulse Ox 95 08/05/20 06:47 - Orders/Labs/Meds Orders: Active Orders 24 hr Category Date Time Status Abdomen Pelvis w Cont [CT] Stat Exams 08/05/20 02:04 Taken Sodium Chloride 0.9% [Normal Saline] 1,000 ml Med 08/05/20 02:15 Active IV ASDIRECTED Medication Orders Sodium Chloride (Normal Saline) 1,000 mls @ 100 mls/hr IV ASDIRECTED IRVIN Last Admin: 08/05/20 06:49 Dose: 100 mls/hr Documented by: GAYATRI Labs: Laboratory Tests 08/05/20 08/05/20 08/05/20 Range/Units 00:15 03:45 03:45 WBC 10.07 H (3.98-10.04) K/mm3 RBC 4.33 (3.98-5.22) M/mm3 Hgb 13.6 D (11.2-15.7) gm/dl Hct 40.7 (34.1-44.9) % MCV 94.0 (79.4-94.8) fl MCH 31.4 (25.6-32.2) pg MCHC 33.4 (32.2-35.5) g/dl RDW Std Deviation 44.0 (36.4-46.3) fL Plt Count 272 D (182-369) K/mm3 MPV 8.7 L (9.4-12.3) fl Neutrophils % (Manual) 70 H (40-60) % Band Neutrophils % 0 (0-10) % Lymphocytes % (Manual) 22 (20-40) % Atypical Lymphs % 0 % Monocytes % (Manual) 7 (2-10) % Eosinophils % (Manual) 0 L (0.7-5.8) % Basophils % (Manual) 1 (0.1-1.2) Platelet Estimate Adequate RBC Morph Comment Normal Sodium 139 (136-145) mEq/L Potassium 4.4 (3.5-5.1) mEq/L Chloride 101 (98-107) mEq/L Carbon Dioxide 27 (21-32) mEq/L Anion Gap 15.4 H (5-15) BUN 20 H (7-18) mg/dL Creatinine 0.7 (0.55-1.02) mg/dL Est Cr Clr Drug Dosing 46.76 mL/min Estimated GFR (MDRD) > 60 (>60) mL/min BUN/Creatinine Ratio 28.6 H (14-18) Glucose 113 H (70-99) mg/dL Calcium 9.9 D (8.5-10.1) mg/dL Magnesium 2.3 (1.8-2.4) mg/dL Total Bilirubin 0.7 (0.2-1.0) mg/dL AST 13 L (15-37) U/L ALT 31 (14-59) U/L Alkaline Phosphatase 82 (46-116) U/L Total Protein 7.1 (6.4-8.2) g/dl Albumin 3.6 (3.4-5.0) g/dl Globulin 3.5 gm/dL Albumin/Globulin Ratio 1.0 (1-2) Lipase 53 L (73-393) U/L Urine Color Yellow (Yellow) Urine Appearance Clear (Clear) Urine pH 7.0 (5.0-8.0) Ur Specific [place] 1.015 (1.005-1.030) Urine Protein Negative (Negative) Urine Glucose (UA) Negative (Negative) Urine Ketones Negative (Negative) Urine Occult Blood Negative (Negative) Urine Nitrite Negative (Negative) Urine Bilirubin Negative (Negative) Urine Urobilinogen 0.2 (0.2-1.0) Ur Leukocyte Esterase Negative (Negative) Urine RBC 0-5 (0-5) /hpf Urine WBC 0-5 (0-5) /hpf Ur Squamous Epith Cells 0-5 (0-5) /hpf Urine Bacteria Rare (FEW) /hpf Urine Mucus Not seen (FEW) /hpf Meds: Medications Generic Name Dose Route Start Last Admin Trade Name Freq PRN Reason Stop Dose Admin Sodium Chloride 1,000 mls @ 100 mls/hr 08/05/20 02:15 08/05/20 06:49 Normal Saline IV 100 mls/hr ASDIRECTED IRVIN Administration Discontinued Medications Generic Name Dose Route Start Last Admin Trade Name Freq PRN Reason Stop Dose Admin Hydromorphone HCl 1 mg 08/05/20 02:04 08/05/20 03:23 Hydromorphone 1 Mg/Ml Syringe IVPUSH 08/05/20 02:05 1 mg ONETIME STA Administration Hydromorphone HCl 1 mg 08/05/20 05:42 08/05/20 05:49 Hydromorphone 1 Mg/Ml Syringe IVPUSH 08/05/20 05:43 1 mg ONETIME ONE Administration Ondansetron HCl 4 mg 08/05/20 02:04 08/05/20 03:23 Ondansetron 4 Mg/2 Ml Sdv IVPUSH 08/05/20 02:05 4 mg ONETIME ONE Administration - Re-Assessments/Exams Free Text/Narrative Re-Assessment/Exam: 08/05/20 02:08 As above, the patient developed left-sided abdominal pain and back pain extending from her mid-back down to her feet this past Monday, then was seen by Dr. Arita on Monday, where a urinalysis apparently demonstrated a UTI. She was started on nitrofurantoin. She has been taking her prescribed Dilaudid, but states that her pain has persisted despite it. A urinalysis by clean-catch, collected at triage, is unremarkable, with no suggestion of a UTI. On examination, she reports tenderness to palpation of her abdomen, probably more on the left than the right. I have ordered a work-up that includes several blood tests and a CT of the abdomen and pelvis with oral and IV contrast. The CT will also be able to look at her spine. In the meantime, the patient will be given IV Dilaudid, IV Zofran, and IV fluid. The patient's initial BP was found to be elevated at 232/85, and a repeat BP is still evident at 231/72. The patient reports that her blood pressure goes up whenever she has pain, therefore I will wait to see if her blood pressure improves following IV Dilaudid before ordering an antihypertensive. 08/05/20 04:31 The patient's CBC is remarkable for mild leukocytosis of 10.07, with remainder of her CBC being unremarkable. Her CMP is remarkable for an anion gap slightly elevated at 15.4, but with a bicarbonate normal at 27. Her BUN is slightly elevated 20, with a Cr normal at 0.7, and slight hyperglycemia of 113, with remainder of her CMP being unremarkable. Her magnesium levels within normal limits at 2.3. Her lipase is within normal limits at 53. 08/05/20 07:05 CT of the abdomen and pelvis with oral and IV contrast is read by [facility] as: 1. Mild nonspecific changes to the small intestine. This probably represents a viral enteritis or other infectious enteritis. 2. Large amount of stool in the colon. This finding can be associated with constipation. 3. Acute to subacute superior endplate fracture of T12. 08/05/20 07:20 Test results discussed with the patient. She looks and feels much better. As above, she may have mild enteritis, although she has not had any vomiting, so that is less likely. Her left-sided abdominal pain is most likely due to constipation, which in turn is most likely due to the opioids that she takes. I offered to treat her with enemas, but she would prefer to go home and take milk of magnesia. She states that she has done that in the past, to good effect. Her mid-back pain is likely due to the T12 compression fracture, which she states she has had elsewhere, as well. She would like to follow-up with Dr. Sinha for a local injection. Departure - Departure Time of Disposition: 07:25 Disposition: Home, Self-Care 01 Condition: Good Clinical Impression: Constipation, T12 compression fracture - Discharge Information *PRESCRIPTION DRUG MONITORING PROGRAM REVIEWED*: Not Applicable *COPY OF PRESCRIPTION DRUG MONITORING REPORT IN PATIENT EMMETT: Not Applicable Referrals: Kathryn Olsen NP [Ordering Only Provider] - Dawna Fay PA-C [Ordering Only Provider] - Amos Hernandez MD [Ordering Only Provider] - Joel Cruz MD [Ordering Only Provider] - Vikram Downey MD [Ordering Only Provider] - Lexx Sinha MD [Physician] - Forms: ED Department Discharge Additional Instructions: You were seen in the emergency room after developing left-sided abdominal and flank pain, along with mid-back pain that radiates all the way to your feet, on Monday. Work-up in the ER included several blood tests, a urinalysis, and a CT of your abdomen and pelvis. Your blood work and urinalysis were unremarkable. The CT of your abdomen and pelvis found a considerable amount of stool in your colon, consistent with constipation. This is most likely the cause of your left-sided abdominal pain. The CT also found an endplate fracture on the upper side of T12. This is most likely the cause of your mid back pain. Treatment of your constipation with enemas in the ER was offered, but declined. You had preferred to go home and take milk of magnesia. Please follow-up with your Orthopedic Surgeon, Dr. Lexx Sinha, for further evaluation and treatment of your back pain. If any other problems, please do not hesitate to return to the ER. Sepsis Event Note (ED) - Evaluation Sepsis Screening Result: No Definite Risk - Focused Exam Vital Signs: Vital Signs Temp Pulse Resp BP Pulse Ox 08/05/20 06:47 18 187/88 H 95 08/05/20 02:52 222/82 H 08/05/20 02:00 231/72 H 08/04/20 23:53 36.7 C 60 18 232/85 H 99 - My Orders Last 24 Hours: My Active Orders 08/05/20 02:04 Abdomen Pelvis w Cont [CT] Stat 08/05/20 02:15 Sodium Chloride 0.9% [Normal Saline] 1,000 ml IV ASDIRECTED - Assessment/Plan Last 24 Hours: My Active Orders 08/05/20 02:04 Abdomen Pelvis w Cont [CT] Stat 08/05/20 02:15 Sodium Chloride 0.9% [Normal Saline] 1,000 ml IV ASDIRECTED
[2020-08-05] MEDS ORDERED: Sodium Chloride 0.9% 1,000 ML IV SCH (02:15)
[2020-08-05] MEDS ORDERED: HYDROmorphone 1 MG/ML Syringe IVPUSH ONE ×2 (05:42→07:50)
[2020-08-05 06:48] VITALS: BP 187/88
--- NOTE | 2020-08-05 09:13 | CT ---
CT abdomen and pelvis Technique: Multiple axial sections were obtained from above the dome of the diaphragm inferiorly through the pubic symphysis. Reconstructed coronal and sagittal images were obtained. Oral contrast was given. No intravenous contrast was utilized. Comparison: Prior CT abdomen and pelvis study of 06/02/20. Findings: Small pleural-based nodule is seen within the left lung base which is stable from prior study. Minimal scarring is seen within both lung bases. Noncontrast appearance of the liver shows no focal abnormality. Spleen size is normal. Surgical clips are seen from prior cholecystectomy. Very minimal calcifications are seen along the portal vein which are felt to be stable and likely incidental. Adrenal glands show no discrete nodule. Kidneys show no hydronephrosis or discrete mass. No ureteral dilatation is seen. No abnormal calcifications are seen along the course of the ureters. Abdominal aorta shows atherosclerotic change which continues into the iliac vessels. No aneurysm is seen. No retroperitoneal adenopathy or mesenteric abnormalities are seen. No pelvic mass or adenopathy is seen. Appendix is not visualized with certainty. Mild increased stool is noted throughout the colon. Preliminary report mentions possible small bowel wall thickening which I do not believe is significant enough to mention. Bone window settings were reviewed which show previous lumbar spine surgery. Compression deformity is seen within T12 which is moderately severe which appears as an interval change from prior study compatible with fairly acute age. Impression: 1. Fairly acute compression deformity within T12. 2. Increased stool throughout the colon. 3. Other findings believed to be incidental as noted above. Diagnostic code #3 I mostly agree with preliminary report from [facility] finalized on 08/05/20, 8:02 AM CDT, code 2
== END 2020-08-05 09:10 | disposition home or self-care (01) ==
LOC: JD.ED 23:44
DX: K59.00 Constipation, unspecified (principal); S22.089A Unspecified fracture of T11-T12 vertebra, initial encounter for closed fracture; I25.10 Atherosclerotic heart disease of native coronary artery without angina pectoris; E78.00 Pure hypercholesterolemia, unspecified; I10 Essential (primary) hypertension; E03.9 Hypothyroidism, unspecified; Z79.899 Other long term (current) drug therapy; Z88.8 Allergy status to other drugs, medicaments and biological substances; Z88.1 Allergy status to other antibiotic agents; Z88.2 Allergy status to sulfonamides; X58.XXXA Exposure to other specified factors, initial encounter
CPT/HCPCS: 36415; 74177; 80053; 81001; 83690; 83735; 85007; 85027; 96374; 96375; 96376; 99284; J1170; J2405; J7030

== ENCOUNTER 2020-08-25 13:55 | Emergency (ER) | payer MEDICARE, BC ==
[2020-08-25 14:01] VITALS: BP 179/72; PULSE 62
--- NOTE | 2020-08-25 14:01 | EDM.PDOC ---
ED HPI GENERAL MEDICAL PROBLEM - General Chief Complaint: Back Pain or Injury Stated Complaint: [facility] Time Seen by Provider: 08/25/20 14:01 - History of Present Illness INITIAL COMMENTS - FREE TEXT/NARRATIVE: 80-year-old female comes in by EMS with severe back pain. This is been ongoing problem progressively getting worse over the last couple of weeks. She was identified as having a T12 compression fracture towards the end of this last month. Now she describes pain down mostly her left leg. But she has significant hip and pelvis pain as well and low back pain. She says this is as bad as it was before her low back fusion. She has significant abdominal discomfort with this but is not associated with any diarrhea nausea or vomiting. The patient had difficulty controlling her urine about a week ago this lasted about a day or 2 and has gotten better she has had no loss of bowel control. Patient has chronic what she says is nerve pain down both of her legs this is been an ongoing issue. But goes right down to the bottom of her feet. The patient denies any recent trauma. Lower Back Pain Score (Numeric/FACES): 9 - Related Data Allergies Allergy/AdvReac Type Severity Reaction Status Date / Time candesartan [From Atacand] Allergy Severe Shortness Verified 08/25/20 14:01 of Breath ibandronate sodium Allergy Severe Shortness Verified 08/25/20 14:01 [From Boniva] of Breath cephalexin monohydrate Allergy Intermediate Hives Verified 08/25/20 14:01 [From Keflex] doxycycline Allergy Intermediate Hives Verified 08/25/20 14:01 levofloxacin [From Levaquin] Allergy Intermediate Hives Verified 08/25/20 14:01 sulfamethoxazole Allergy Intermediate Hives Verified 08/25/20 14:01 pitavastatin [From Livalo] Allergy Unknown Cannot Verified 08/25/20 14:01 Remember morphine AdvReac Intermediate Other Verified 08/25/20 14:01 amlodipine AdvReac Mild Body Aches Verified 08/25/20 14:01 aspirin AdvReac Mild bloody Verified 08/25/20 14:01 noses atorvastatin calcium AdvReac Mild Muscle Verified 08/25/20 14:01 [From Lipitor] Aches bupropion HCl AdvReac Mild Other Verified 08/25/20 14:01 [From Wellbutrin] colesevelam HCl AdvReac Mild Muscle Verified 08/25/20 14:01 [From WelChol] Aches diltiazem [From Cardizem] AdvReac Mild Confusion Verified 08/25/20 14:01 duloxetine [From Cymbalta] AdvReac Mild difficultly Verified 08/25/20 14:01 walking evolocumab AdvReac Mild Muscle Verified 08/25/20 14:01 [From Repatha Pushtronex] Aches ezetimibe [From Zetia] AdvReac Mild Muscle Verified 08/25/20 14:01 Aches fluvoxamine [From Luvox] AdvReac Mild Headache Verified 08/25/20 14:01 gabapentin AdvReac Mild Blurred Verified 08/25/20 14:01 Vision hydralazine AdvReac Mild Nausea Verified 08/25/20 14:01 hydrochlorothiazide AdvReac Mild Headache Verified 08/25/20 14:01 hyoscyamine AdvReac Mild Vaginitis Verified 08/25/20 14:01 levothyroxine sodium AdvReac Mild Other Verified 08/25/20 14:01 lisinopril AdvReac Mild Cough Verified 08/25/20 14:01 losartan AdvReac Mild Headache Verified 08/25/20 14:01 mannitol [From Reclast] AdvReac Mild Confusion Verified 08/25/20 14:01 niacin AdvReac Mild Muscle Verified 08/25/20 14:01 Aches phenobarbital AdvReac Mild Other Verified 08/25/20 14:01 pravastatin sodium AdvReac Mild Muscle Verified 08/25/20 14:01 [From Pravachol] Aches prochlorperazine edisylate AdvReac Mild Tremors Verified 08/25/20 14:01 [From Compazine] prochlorperazine maleate AdvReac Mild Tremors Verified 08/25/20 14:01 [From Compazine] promethazine HCl AdvReac Mild Other Verified 08/25/20 14:01 [From Phenergan] rosuvastatin calcium AdvReac Mild Body Aches Verified 08/25/20 14:01 [From Crestor] sertraline AdvReac Mild nightmares Verified 08/25/20 14:01 sertraline HCl [From Zoloft] AdvReac Mild Other Verified 08/25/20 14:01 simvastatin [From Zocor] AdvReac Mild Muscle Verified 08/25/20 14:01 Aches trazodone AdvReac Mild Other Verified 08/25/20 14:01 water for injection,sterile AdvReac Mild Confusion Verified 08/25/20 14:01 [From Reclast] zoledronic acid AdvReac Mild Confusion Verified 08/25/20 14:01 [From Reclast] zolpidem tartrate AdvReac Mild Other Verified 08/25/20 14:01 [From Ambien] Home Meds: Home Meds polyethylene glycoL 3350 [MiraLAX] 1 scoop PO DAILY PRN 02/27/18 [History] ALPRAZolam [Xanax] 0.25 mg PO Q8H PRN 11/10/18 [History] HYDROmorphone [Dilaudid] 4 mg PO Q4H PRN 11/10/18 [History] Acetaminophen [Acetaminophen Extra Strength] 650 mg PO Q4HR PRN 09/14/19 [History] Furosemide [Lasix] 40 mg PO DAILY 09/14/19 [History] Potassium Chloride [Klor-Con 10] 20 meq PO BID 09/14/19 [History] Budesonide/Formoterol [Symbicort 160-4.5 MCG] 2 puff INH BID PRN 12/02/19 [History] Zolpidem [Ambien] 5 mg PO BEDTIME PRN 12/02/19 [History] levalbuterol HCL [Xopenex] 1.25 mg INH Q6H PRN 12/02/19 [History] Nitroglycerin [Nitrostat] 0.4 mg SL ASDIRECTED 06/02/20 [History] Ondansetron [Zofran ODT] 8 mg PO TID PRN 06/02/20 [History] Docusate Sodium/Sennosides [Senna Plus] 1 - 2 tab PO DAILY PRN 06/03/20 [History] Levothyroxine Sodium [Synthroid] 112 mcg PO ACBREAKFAST 06/03/20 [History] carvediloL [Coreg] 25 mg PO BIDMEALS 06/03/20 [History] Past Medical History HEENT History: Reports: Impaired Vision (wears glasses) Other HEENT History: Wears glasses, pt was dx with "eagles syndrome" Cardiovascular History: Reports: CAD, High Cholesterol, Hypertension, Other (See Below) (Giant cell arteritis) Other Cardiovascular History: temporal arteritis Respiratory History: Reports: Pulmonary Fibrosis (O2 2-3 L/min per NC continuously) Other Respiratory History: pulmonary asbestosis, respiratory failure with hypo taya, oxygen at 2-3L via nasal canula. Gastrointestinal History: Reports: Bowel Obstruction (many), Colon Polyp, GERD, Hiatal Hernia Other Gastrointestinal History: states esophagus doesn't work like it normally should. x10 bowel obstructions in the past with surgical intervention. herniation of rectum into vagina, diaphragmatic hernia, hiatal hernia, protein calorie malnutrition, polyp Genitourinary History: Reports: UTI, Recurrent Other Genitourinary History: dysuria [employer] ) History: Reports: Musculoskeletal History: Reports: Osteoarthritis, Osteoporosis Other Musculoskeletal History: polymyalgia rhuematica, fibromyalgia, osteoporosis, hip pain Neurological History: Reports: Seizure (as a child) Other Neuro History: as a child Psychiatric History: Reports: Addiction (opioids), Anxiety, Depression, Panic Attack, Other (See Below) (Fibromyalgia, insomnia) Other Psychiatric History: insomnia, opiod dependence, abnormal dreams Endocrine/Metabolic History: Reports: Hypothyroidism, Vitamin D Deficiency Hematologic History: Reports: Other (See Below) Other Hematologic History: Vitamin D deficiency Immunologic History: Reports: None Oncologic (Cancer) History: Reports: None Dermatologic History: Reports: Other (See Below) Other Dermatologic History: plantar wart x 2 - Infectious Disease History Infectious Disease History: Reports: Chicken Pox, Measles, Mumps - Past Surgical History HEENT Surgical History: Reports: Cataract Surgery (bilateral), Oral Surgery (dental extractions), Other (See Below) (Right salivary gland excision) Cardiovascular Surgical History: Reports: Coronary Artery Stent (x 2) GI Surgical History: Reports: Appendectomy, Cholecystectomy (1981), Colonoscopy (x 5 or 6), EGD (x 5 or 6), Lysis of Adhesions (x 5) Female Surgical History: Reports: Breast Reduction, D&C (x 3 or 4), Hysterectomy (complete), Tubal Ligation, Other (See Below) (Rectocele and cystocele repair) Neurological Surgical History: Reports: Lumbar Spine (laminectomy x 3, fusion x 2) Musculoskeletal Surgical History: Reports: Shoulder Surgery (right, open), Other (See Below) (Right foot x 2) Social & Family History - Family History Family Medical History: No Pertinent Family History Cardiac: Reports: [place] Other Cardiac Family History: [place], Bro, Bro - Heart disease Neurological: Reports: Alzheimers Disease Oncologic: Reports: Lung Other Oncologic Family History: FA - Cancer, Sis - lung cancer - Caffeine Use Caffeine Use: Reports: None - Living Situation & Occupation Living situation: Reports: , Alone Occupation: Retired ED ROS GENERAL - Review of Systems Review Of Systems: See Below Constitutional: Denies: Fever, Chills HEENT: Reports: No Symptoms Respiratory: Reports: No Symptoms Cardiovascular: Reports: No Symptoms GI/Abdominal: Reports: Abdominal Pain. Denies: Constipation, Diarrhea, Nausea, Vomiting : Reports: Flank Pain. Denies: Dysuria Musculoskeletal: Reports: Back Pain, Leg Pain Skin: Reports: No Symptoms Neurological: Denies: Confusion, Dizziness, Headache Psychiatric: Reports: No Symptoms ED EXAM, GENERAL - Physical Exam Exam: See Below Exam Limited By: No Limitations General Appearance: Other (Pain with trying to sit up) Head: Atraumatic, Normocephalic Neck: Normal Inspection, Supple, Non-Tender, Full Range of Motion Respiratory/Chest: No Respiratory Distress, Lungs Clear, Normal Breath Sounds Cardiovascular: Regular Rate, Rhythm, No Edema, No Murmur GI/Abdominal: Normal Bowel Sounds, Soft, Tender (She has some vague lower abdo theo discomfort with palpation) Back Exam: Muscle Spasm, Vertebral Tenderness (In the upper lumbar lower thoracic area recent T12 compression fracture) Extremities: Other (To do straight leg raises) Neurological: Alert, Oriented, Normal Cognition Psychiatric: Normal Affect, Normal Mood Skin Exam: Warm, Dry, Intact Course - Vital Signs Last Recorded V/S: Last Vital Signs Temp 36.5 C 08/25/20 13:59 Pulse 62 08/25/20 13:59 Resp 16 08/25/20 13:59 BP 179/72 H 08/25/20 13:59 Pulse Ox 98 08/25/20 13:59 - Orders/Labs/Meds Labs: Laboratory Tests 08/25/20 08/25/20 08/25/20 Range/Units 14:05 14:05 14:05 WBC 7.68 (3.98-10.04) K/mm3 RBC 3.91 L (3.98-5.22) M/mm3 Hgb 12.3 (11.2-15.7) gm/dl Hct 37.7 (34.1-44.9) % MCV 96.4 H (79.4-94.8) fl MCH 31.5 (25.6-32.2) pg MCHC 32.6 (32.2-35.5) g/dl RDW Std Deviation 46.7 H (36.4-46.3) fL Plt Count 283 (182-369) K/mm3 MPV 8.3 L (9.4-12.3) fl Neut % (Auto) 63.1 (34.0-71.1) % Lymph % (Auto) 28.1 (19.3-51.7) % [place] % (Auto) 7.4 (4.7-12.5) % Eos % (Auto) 0.8 (0.7-5.8) Baso % (Auto) 0.3 (0.1-1.2) % Neut # (Auto) 4.85 (1.56-6.13) K/mm3 Lymph # (Auto) 2.16 (1.18-3.74) K/mm3 [place] # (Auto) 0.57 H (0.24-0.36) K/mm3 Eos # (Auto) 0.06 (0.04-0.36) K/mm3 Baso # (Auto) 0.02 (0.01-0.08) K/mm3 ESR 23 H (0-20) mm/hr Sodium 140 (136-145) mEq/L Potassium 3.6 (3.5-5.1) mEq/L Chloride 103 (98-107) mEq/L Carbon Dioxide 28 (21-32) mEq/L Anion Gap 12.6 (5-15) BUN 19 H (7-18) mg/dL Creatinine 0.7 (0.55-1.02) mg/dL Est Cr Clr Drug Dosing 46.76 mL/min Estimated GFR (MDRD) > 60 (>60) mL/min BUN/Creatinine Ratio 27.1 H (14-18) Glucose 114 H (70-99) mg/dL Calcium 9.0 (8.5-10.1) mg/dL Total Bilirubin 0.4 (0.2-1.0) mg/dL AST 12 L (15-37) U/L ALT 24 (14-59) U/L Alkaline Phosphatase 93 (46-116) U/L C-Reactive Protein < 0.2 (<1.0) mg/dL Total Protein 6.9 (6.4-8.2) g/dl Albumin 3.4 (3.4-5.0) g/dl Globulin 3.5 gm/dL Albumin/Globulin Ratio 1.0 (1-2) Lipase 56 L (73-393) U/L Urine Color (Yellow) Urine Appearance (Clear) Urine pH (5.0-8.0) Ur Specific [place] (1.005-1.030) Urine Protein (Negative) Urine Glucose (UA) (Negative) Urine Ketones (Negative) Urine Occult Blood (Negative) Urine Nitrite (Negative) Urine Bilirubin (Negative) Urine Urobilinogen (0.2-1.0) Ur Leukocyte Esterase (Negative) U Hyaline Cast (Auto) (0-5) /lpf Urine RBC (0-5) /hpf Urine WBC (0-5) /hpf Ur Squamous Epith Cells (0-5) /hpf Urine Bacteria (FEW) /hpf Urine Mucus (FEW) /hpf 08/25/20 Range/Units 15:40 WBC (3.98-10.04) K/mm3 RBC (3.98-5.22) M/mm3 Hgb (11.2-15.7) gm/dl Hct (34.1-44.9) % MCV (79.4-94.8) fl MCH (25.6-32.2) pg MCHC (32.2-35.5) g/dl RDW Std Deviation (36.4-46.3) fL Plt Count (182-369) K/mm3 MPV (9.4-12.3) fl Neut % (Auto) (34.0-71.1) % Lymph % (Auto) (19.3-51.7) % [place] % (Auto) (4.7-12.5) % Eos % (Auto) (0.7-5.8) Baso % (Auto) (0.1-1.2) % Neut # (Auto) (1.56-6.13) K/mm3 Lymph # (Auto) (1.18-3.74) K/mm3 [place] # (Auto) (0.24-0.36) K/mm3 Eos # (Auto) (0.04-0.36) K/mm3 Baso # (Auto) (0.01-0.08) K/mm3 ESR (0-20) mm/hr Sodium (136-145) mEq/L Potassium (3.5-5.1) mEq/L Chloride (98-107) mEq/L Carbon Dioxide (21-32) mEq/L Anion Gap (5-15) BUN (7-18) mg/dL Creatinine (0.55-1.02) mg/dL Est Cr Clr Drug Dosing mL/min Estimated GFR (MDRD) (>60) mL/min BUN/Creatinine Ratio (14-18) Glucose (70-99) mg/dL Calcium (8.5-10.1) mg/dL Total Bilirubin (0.2-1.0) mg/dL AST (15-37) U/L ALT (14-59) U/L Alkaline Phosphatase (46-116) U/L C-Reactive Protein (<1.0) mg/dL Total Protein (6.4-8.2) g/dl Albumin (3.4-5.0) g/dl Globulin gm/dL Albumin/Globulin Ratio (1-2) Lipase (73-393) U/L Urine Color Yellow (Yellow) Urine Appearance Clear (Clear) Urine pH 6.0 (5.0-8.0) Ur Specific [place] 1.020 (1.005-1.030) Urine Protein Negative (Negative) Urine Glucose (UA) Negative (Negative) Urine Ketones Negative (Negative) Urine Occult Blood Trace-intact H (Negative) Urine Nitrite Negative (Negative) Urine Bilirubin Negative (Negative) Urine Urobilinogen 0.2 (0.2-1.0) Ur Leukocyte Esterase Negative (Negative) U Hyaline Cast (Auto) 5-10 H (0-5) /lpf Urine RBC 0-5 (0-5) /hpf Urine WBC Not seen (0-5) /hpf Ur Squamous Epith Cells 0-5 (0-5) /hpf Urine Bacteria Rare (FEW) /hpf Urine Mucus Few (FEW) /hpf Meds: Medications Discontinued Medications Generic Name Dose Route Start Last Admin Trade Name Freq PRN Reason Stop Dose Admin Hydromorphone HCl 1 mg 08/25/20 14:25 08/25/20 14:53 Hydromorphone 1 Mg/Ml Syringe IVPUSH 08/25/20 14:26 1 mg ONETIME ONE Administration Hydromorphone HCl 1 mg 08/25/20 16:48 08/25/20 16:54 Hydromorphone 1 Mg/Ml Syringe IVPUSH 08/25/20 16:49 1 mg ONETIME ONE Administration Hydromorphone HCl 0.5 mg 08/25/20 19:15 Hydromorphone 0.5 Mg/0.5 Ml Syringe IVPUSH 08/25/20 19:16 ONETIME ONE - Re-Assessments/Exams Free Text/Narrative Re-Assessment/Exam: 08/25/20 19:[address] discussed with the patient she would like to try her treatment at home. Patient is received 2 doses of 1 mg of of Dilaudid here and is doing much better she still has some discomfort will give half milligram and then have her use her oral Dilaudid at home every 4-6 hours rather than every 8-12 hours. Departure - Departure Time of Disposition: 19:25 Disposition: Home, Self-Care 01 Clinical Impression: Compression fracture of T12 vertebra Chronic back pain Qualifiers: Back pain laterality: left - Discharge Information Forms: ED Department Discharge Additional Instructions: Return to the emergency room with any questions problems or worsening symptoms. Use your oral Dilaudid every 6 hours as needed. Follow-up with your regular healthcare provider later this week. Sepsis Event Note (ED) - Focused Exam Vital Signs: Vital Signs Temp Pulse Resp BP Pulse Ox 08/25/20 13:59 36.5 C 62 16 179/72 H 98
[2020-08-25] MEDS ORDERED: HYDROmorphone 1 MG/ML Syringe IVPUSH ONE ×2 (14:25→16:48)
--- NOTE | 2020-08-25 16:49 | CT ---
CT lumbar spine Technique: Multiple axial sections were obtained from above the T10-11 disc through the L5-S1 disc. Multiple reconstructed sagittal and coronal images were obtained. Comparison: Previous CT of the lumbar spine performed on 09/28/17. Findings: T10-11: Posterior disc is slightly narrowed. Very minimal circumferential disc bulge is seen. No central canal stenosis or neural foraminal stenosis is seen. T11-12: Vacuum disc phenomena is seen. Slight circumferential disc bulge is noted. There is a moderate compression fracture being seen within T12 which has occurred in the interim from prior exam. Age of this is otherwise indeterminate. Posterior vertebral line along the superior aspect of this vertebral body shows posterior displacement by 4.3 mm. No central canal stenosis is seen. Neural foramina are felt to be fairly well patent. T12-L1: Posterior disc space narrowing is seen. Minimal circumferential disc bulge is seen. Mild degenerative apophyseal change is noted. No central canal stenosis or neural foraminal stenosis is seen. L1-2: Minimal circumferential disc bulge is seen. No central canal stenosis or neural foraminal stenosis is seen. Mild degenerative apophyseal change is seen. L2-3: Minimal retrolisthesis by 1-2 mm is noted. Slight circumferential disc bulge is seen. Mild degenerative apophyseal change is noted. No central canal stenosis is seen. Neural foramina are patent. L3-4: Trans-pedicle screws are seen above and below this level with posterior laminectomy. Posterior disc is preserved. No central canal stenosis or neural foraminal stenosis is seen. L4-5: Disc fusion is seen. Neural foramina are patent where the nerve roots exit. No central canal stenosis is seen. Posterior laminectomy is noted. L5-S1: There appears to be partial disc fusion. No central canal stenosis or neural foraminal stenosis is seen. Posterior laminectomy is noted. Trans-pedicle screws are noted within S1. No fracture or acute subluxation is seen. Impression: 1. Moderate to severe compression deformity of T12. This is an interval change from prior exam. Age of this is otherwise indeterminate. MRI would be needed to further age if clinically indicated. 2. Retrolisthesis is seen of the posterior vertebral line at T12 which extends into the central canal by about 4.3 mm. This does not cause any central canal stenosis. 3. Prior surgery at L3-4, L4-5 and L5-S1. 4. Other less prominent degenerative change as noted above. Diagnostic code #3
[2020-08-25] MEDS ORDERED: HYDROmorphone 0.5 MG/0.5 ML Syringe IVPUSH ONE (19:15)
== END 2020-08-25 20:57 | disposition home or self-care (01) ==
LOC: JD.ED 13:55
DX: M54.6 Pain in thoracic spine (principal); M54.5 Low back pain; G89.29 Other chronic pain; S22.089D Unspecified fracture of T11-T12 vertebra, subsequent encounter for fracture with routine healing; I25.10 Atherosclerotic heart disease of native coronary artery without angina pectoris; I10 Essential (primary) hypertension; E03.9 Hypothyroidism, unspecified; Z88.8 Allergy status to other drugs, medicaments and biological substances; Z88.1 Allergy status to other antibiotic agents; Z88.2 Allergy status to sulfonamides; Z88.5 Allergy status to narcotic agent; Z88.0 Allergy status to penicillin; Z88.6 Allergy status to analgesic agent; Z79.899 Other long term (current) drug therapy; X58.XXXD Exposure to other specified factors, subsequent encounter
CPT/HCPCS: 36415; 72131; 80053; 81001; 83690; 85025; 85652; 86140; 96374; 96376; 99284; J1170

== ENCOUNTER 2020-08-27 10:52 | Emergency (ER) | payer MEDICARE, BC ==
[2020-08-27 11:01] VITALS: BP 209/59; PULSE 66
[2020-08-27] MEDS ORDERED: Sodium Chloride 0.9% 10 ML Syringe FLUSH PRN (11:18)
[2020-08-27] MEDS ORDERED: HYDROmorphone 1 MG/ML Syringe IM ONE (11:24)
--- NOTE | 2020-08-27 11:29 | EDM.PDOC ---
ED HPI GENERAL MEDICAL PROBLEM - General Chief Complaint: Back Pain or Injury Stated Complaint: [facility] Time Seen by Provider: 08/27/20 10:59 Source of Information: Reports: Patient History Limitations: Reports: No Limitations - History of Present Illness INITIAL COMMENTS - FREE TEXT/NARRATIVE: 80-year-old female presents the emergency department via [facility] for complaints of back pain. Patient does have a significant history of back problems and was most recently seen in the emergency department on 08/25/2020. At that time she did have a CT of the lumbar spine which showed moderate to severe compression deformity of T12. This was an interval change from prior exam. Age of this is otherwise indeterminate. MRI would be needed to further age if clinically indicated. Retrolithiasis was seen in the posterior vertebral line at T12 which extends into the central canal by about 4.3 mm. This does not cause any central canal stenosis. Prior surgery at L3-L4, L4-L5, and L5-S1. The patient did receive several doses of Dilaudid while in the emergency department and was offered admit into the hospital for pain control however she declined this and requested to be sent home. She presents today as she states she woke this morning with severe low back pain and was then unable to get out of bed. She states she normally takes 4 mg of oral Dilaudid every morning however she took 6 mg this morning at 7 AM and it has not decreased her pain at all. She states she normally is ambulatory. She does have discomfort when standing still. She has not had any recent falls or injuries. She states she does have incontinence however this has been going on for quite some time and is not new. She also reports numbness and tingling to her bilateral lower extremities however she states this has been going on for quite some time as well. There are no new complaints noted today from previous ED visit other than severe back pain. She states she is having some suprapubic discomfort and is questioning whether or not she could have a urinary tract infection. She has not had any recent fever, chills, nausea, vomiting or diarrhea. She has not had any cough or shortness of breath. On previous hospital visit she was offered short-term stay at a rehab facility however she refused this as well stating that that she feels the home health care nurses for. Lower Back Pain Score (Numeric/FACES): 10 - Related Data Allergies Allergy/AdvReac Type Severity Reaction Status Date / Time candesartan [From Atacand] Allergy Severe Shortness Verified 08/25/20 14:01 of Breath cephalexin monohydrate Allergy Severe Hives Verified 08/27/20 11:02 [From Keflex] doxycycline Allergy Severe Hives Verified 08/27/20 11:02 ibandronate sodium Allergy Severe Shortness Verified 08/25/20 14:01 [From Boniva] of Breath levofloxacin [From Levaquin] Allergy Severe Hives Verified 08/27/20 11:02 pitavastatin [From Livalo] Allergy Severe Cannot Verified 08/27/20 11:02 Remember sulfamethoxazole Allergy Severe Hives Verified 08/27/20 11:02 amlodipine AdvReac Severe Body Aches Verified 08/27/20 11:02 aspirin AdvReac Severe bloody Verified 08/27/20 11:02 noses atorvastatin calcium AdvReac Severe Muscle Verified 08/27/20 11:02 [From Lipitor] Aches bupropion HCl AdvReac Severe Other Verified 08/27/20 11:02 [From Wellbutrin] colesevelam HCl AdvReac Severe Muscle Verified 08/27/20 11:02 [From WelChol] Aches diltiazem [From Cardizem] AdvReac Severe Confusion Verified 08/27/20 11:02 duloxetine [From Cymbalta] AdvReac Severe difficultly Verified 08/27/20 11:02 walking evolocumab AdvReac Severe Muscle Verified 08/27/20 11:02 [From Repatha Pushtronex] Aches ezetimibe [From Zetia] AdvReac Severe Muscle Verified 08/27/20 11:02 Aches fluvoxamine [From Luvox] AdvReac Severe Headache Verified 08/27/20 11:02 gabapentin AdvReac Severe Blurred Verified 08/27/20 11:02 Vision hydralazine AdvReac Severe Nausea Verified 08/27/20 11:02 hydrochlorothiazide AdvReac Severe Headache Verified 08/27/20 11:02 hyoscyamine AdvReac Severe Vaginitis Verified 08/27/20 11:02 levothyroxine sodium AdvReac Severe Other Verified 08/27/20 11:02 lisinopril AdvReac Severe Cough Verified 08/27/20 11:02 losartan AdvReac Severe Headache Verified 08/27/20 11:02 mannitol [From Reclast] AdvReac Severe Confusion Verified 08/27/20 11:02 morphine AdvReac Severe Other Verified 08/27/20 11:02 niacin AdvReac Severe Muscle Verified 08/27/20 11:02 Aches phenobarbital AdvReac Severe Other Verified 08/27/20 11:02 pravastatin sodium AdvReac Severe Muscle Verified 08/27/20 11:02 [From Pravachol] Aches prochlorperazine edisylate AdvReac Severe Tremors Verified 08/27/20 11:02 [From Compazine] prochlorperazine maleate AdvReac Severe Tremors Verified 08/27/20 11:02 [From Compazine] promethazine HCl AdvReac Severe Other Verified 08/27/20 11:02 [From Phenergan] rosuvastatin calcium AdvReac Severe Body Aches Verified 08/27/20 11:02 [From Crestor] sertraline AdvReac Severe nightmares Verified 08/27/20 11:02 sertraline HCl [From Zoloft] AdvReac Severe Other Verified 08/27/20 11:02 simvastatin [From Zocor] AdvReac Severe Muscle Verified 08/27/20 11:02 Aches trazodone AdvReac Severe Other Verified 08/27/20 11:02 water for injection,sterile AdvReac Severe Confusion Verified 08/27/20 11:02 [From Reclast] zoledronic acid AdvReac Severe Confusion Verified 08/27/20 11:02 [From Reclast] zolpidem tartrate AdvReac Severe Other Verified 08/27/20 11:02 [From Ambien] Home Meds: Home Meds polyethylene glycoL 3350 [MiraLAX] 1 scoop PO DAILY PRN 02/27/18 [History] ALPRAZolam [Xanax] 0.25 mg PO Q8H PRN 11/10/18 [History] HYDROmorphone [Dilaudid] 4 mg PO Q4H PRN 11/10/18 [History] Acetaminophen [Acetaminophen Extra Strength] 650 mg PO Q4HR PRN 09/14/19 [History] Furosemide [Lasix] 40 mg PO DAILY 09/14/19 [History] Potassium Chloride [Klor-Con 10] 20 meq PO BID 09/14/19 [History] Budesonide/Formoterol [Symbicort 160-4.5 MCG] 2 puff INH BID PRN 12/02/19 [History] Zolpidem [Ambien] 5 mg PO BEDTIME PRN 12/02/19 [History] levalbuterol HCL [Xopenex] 1.25 mg INH Q6H PRN 12/02/19 [History] Nitroglycerin [Nitrostat] 0.4 mg SL ASDIRECTED 06/02/20 [History] Ondansetron [Zofran ODT] 8 mg PO TID PRN 06/02/20 [History] Docusate Sodium/Sennosides [Senna Plus] 1 - 2 tab PO DAILY PRN 06/03/20 [History] Levothyroxine Sodium [Synthroid] 112 mcg PO ACBREAKFAST 06/03/20 [History] carvediloL [Coreg] 25 mg PO BIDMEALS 06/03/20 [History] Past Medical History HEENT History: Reports: Impaired Vision Other HEENT History: Wears glasses, pt was dx with "eagles syndrome" Cardiovascular History: Reports: CAD, High Cholesterol, Hypertension, Other (See Below) Other Cardiovascular History: temporal arteritis Respiratory History: Reports: Pulmonary Fibrosis Other Respiratory History: pulmonary asbestosis, respiratory failure with hypoxia, oxygen at 2-3L via nasal canula. Gastrointestinal History: Reports: Bowel Obstruction, Colon Polyp, GERD, Hiatal Hernia Other Gastrointestinal History: states esophagus doesn't work like it normally should. x10 bowel obstructions in the past with surgical intervention. 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: Musculoskeletal History: Reports: Osteoarthritis, Osteoporosis Other Musculoskeletal History: polymyalgia rhuematica, fibromyalgia, osteoporosis, hip pain Neurological History: Reports: Seizure Other Neuro History: as a child Psychiatric History: Reports: Addiction, Anxiety, Depression, Panic Attack, Other (See Below) Other Psychiatric History: insomnia, opiod dependence, abnormal dreams Endocrine/Metabolic History: Reports: Hypothyroidism, Vitamin D Deficiency Hematologic History: Reports: Other (See Below) Other Hematologic History: Vitamin D deficiency Immunologic History: Reports: None Oncologic (Cancer) History: Reports: None Dermatologic History: Reports: Other (See Below) Other Dermatologic History: plantar wart x 2 - Infectious Disease History Infectious Disease History: Reports: Chicken Pox, Measles, Mumps - Past Surgical History HEENT Surgical History: Reports: Cataract Surgery, Oral Surgery, Other (See Below) Other HEENT Surgeries/Procedures: removed right Saliva gland. 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 Social & Family History - Family History Family Medical History: No Pertinent Family History Cardiac: Reports: CA Other Cardiac Family History: MO, Bro, Bro - Heart disease Neurological: Reports: Alzheimers Disease Oncologic: Reports: Lung Other Oncologic Family History: FA - Cancer, Sis - lung cancer - Tobacco Use Tobacco Use Status *Q: Never Tobacco User - Caffeine Use Caffeine Use: Reports: None - Recreational Drug Use Recreational Drug Use: No - Living Situation & Occupation Living situation: Reports: , Alone Occupation: Retired ED ROS GENERAL - Review of Systems Review Of Systems: Comprehensive ROS is negative, except as noted in HPI. ED EXAM,LOWER BACK PAIN/INJURY - Physical Exam Exam: See Below Exam Limited By: No Limitations General Appearance: Alert, WD/WN, Moderate Distress Ears: Normal External Exam, Hearing Grossly Normal Nose: Normal Inspection Throat/Mouth: Normal Inspection, Normal Lips, Normal Voice, No Airway Compromise Head: Atraumatic, Normocephalic Neck: Normal Inspection, Supple, Non-Tender Respiratory/Chest: No Respiratory Distress, Lungs Clear, Normal Breath Sounds, No Accessory Muscle Use, Chest Non-Tender Cardiovascular: Normal Peripheral Pulses, Regular Rate, Rhythm, No Edema, No Murmur GI/Abdominal: Normal Bowel Sounds, Soft, No Distention, Tender (Suprapubic) (Female) Exam: Deferred Rectal (Female) Exam: Deferred Back Exam: Normal Inspection, Full Range of Motion Extremities: Normal Inspection, Normal Range of Motion, Non-Tender, No Pedal Edema, Normal Capillary Refill Neurological: Alert, Normal Mood/Affect, Oriented x 3 Psychiatric: Normal Affect, Normal Mood Skin Exam: Warm, Dry, Intact, Normal Color, No Rash Lymphatic: No Adenopathy Course - Vital Signs Text/Narrative:: As discussed above, patient with significant history of chronic back pain in the past. Recent CT scan recommended follow-up MRI. I have phoned the radiology department and they do have space available today to do an MRI on the patient at 230. I have discussed this with the patient and she is agreeable. We will get an IV started and give her some IV Dilaudid for pain control. Also obtain baseline labs and a UA with micro and culture if indicated. Last Recorded V/S: Last Vital Signs Temp 97.4 F 08/27/20 10:57 Pulse 66 08/27/20 10:57 Resp 16 08/27/20 10:57 BP 209/59 H 08/27/20 10:57 Pulse Ox 100 08/27/20 10:57 - Orders/Labs/Meds Orders: Active Orders 24 hr Category Date Time Status CULTURE URINE [MREF] Stat Lab 08/27/20 12:45 Received Sodium Chloride 0.9% [Saline Flush] Med 08/27/20 11:18 Active 10 ml FLUSH ASDIRECTED PRN Sodium Chloride 0.9% [Saline Flush] Med 08/27/20 14:45 Active 20 ml FLUSH ASDIRECTED Saline Lock Insert [OM.PC] Stat Oth 08/27/20 11:18 Ordered Medication Orders Sodium Chloride (Sodium Chloride 0.9% 10 Ml Syringe) 10 ml FLUSH ASDIRECTED PRN PRN Reason: Keep Vein Open Last Admin: 08/27/20 13:11 Dose: 10 ml Documented by: FRANK Sodium Chloride (Sodium Chloride 0.9% 10 Ml Syringe) 20 ml FLUSH ASDIRECTED IRVIN Last Admin: 08/27/20 14:53 Dose: 20 ml Documented by: GLORIA Labs: Laboratory Tests 0708/27/20 08/27/20 Range/Units 11:35 11:35 12:45 WBC 7.42 (3.98-10.04) K/mm3 RBC 3.82 L (3.98-5.22) M/mm3 Hgb 12.3 (11.2-15.7) gm/dl Hct 37.2 (34.1-44.9) % MCV 97.4 H (79.4-94.8) fl MCH 32.2 (25.6-32.2) pg MCHC 33.1 (32.2-35.5) g/dl RDW Std Deviation 46.9 H (36.4-46.3) fL Plt Count 292 (182-369) K/mm3 MPV 8.5 L (9.4-12.3) fl Neut % (Auto) 67.4 (34.0-71.1) % Lymph % (Auto) 24.7 (19.3-51.7) % Mcdowell % (Auto) 6.6 (4.7-12.5) % Eos % (Auto) 0.7 (0.7-5.8) Baso % (Auto) 0.3 (0.1-1.2) % Neut # (Auto) 5.01 (1.56-6.13) K/mm3 Lymph # (Auto) 1.83 (1.18-3.74) K/mm3 Mcdowell # (Auto) 0.49 H (0.24-0.36) K/mm3 Eos # (Auto) 0.05 (0.04-0.36) K/mm3 Baso # (Auto) 0.02 (0.01-0.08) K/mm3 Manual Slide Review Normal smear Sodium 140 (136-145) mEq/L Potassium 3.8 (3.5-5.1) mEq/L Chloride 102 (98-107) mEq/L Carbon Dioxide 31 (21-32) mEq/L Anion Gap 10.8 (5-15) BUN 14 (7-18) mg/dL Creatinine 0.7 (0.55-1.02) mg/dL Est Cr Clr Drug Dosing 46.76 mL/min Estimated GFR (MDRD) > 60 (>60) mL/min BUN/Creatinine Ratio 20.0 H (14-18) Glucose 97 (70-99) mg/dL Calcium 9.1 (8.5-10.1) mg/dL Magnesium 2.2 (1.8-2.4) mg/dL Total Bilirubin 0.6 (0.2-1.0) mg/dL AST 23 (15-37) U/L ALT 36 (14-59) U/L Alkaline Phosphatase 107 (46-116) U/L C-Reactive Protein 0.3 (<1.0) mg/dL Total Protein 7.0 (6.4-8.2) g/dl Albumin 3.5 (3.4-5.0) g/dl Globulin 3.5 gm/dL Albumin/Globulin Ratio 1.0 (1-2) Urine Color Yellow (Yellow) Urine Appearance Clear (Clear) Urine pH 7.5 (5.0-8.0) Ur Specific [place] 1.025 (1.005-1.030) Urine Protein Negative (Negative) Urine Glucose (UA) Negative (Negative) Urine Ketones Negative (Negative) Urine Occult Blood Trace-lysed H (Negative) Urine Nitrite Positive H (Negative) Urine Bilirubin Negative (Negative) Urine Urobilinogen 0.2 (0.2-1.0) Ur Leukocyte Esterase 1+ H (Negative) Urine RBC 0-5 (0-5) /hpf Urine WBC 0-5 (0-5) /hpf Ur Squamous Epith Cells 0-5 (0-5) /hpf Urine Bacteria Moderate H (FEW) /hpf Urine Mucus Few (FEW) /hpf Urine Yeast (Budding) Rare H (NOT SEEN) Meds: Medications Generic Name Dose Route Start Last Admin Trade Name Fregoldy PRN Reason Stop Dose Admin Sodium Chloride 10 ml 08/27/20 11:18 08/27/20 13:11 Sodium Chloride 0.9% 10 Ml Syringe FLUSH 10 ml ASDIRECTED PRN Administration Keep Vein Open Sodium Chloride 20 ml 08/27/20 14:45 08/27/20 14:53 Sodium Chloride 0.9% 10 Ml Syringe FLUSH 20 ml ASDIRECTED IRVIN Administration Discontinued Medications Generic Name Dose Route Start Last Admin Trade Name Litzy PRN Reason Stop Dose Admin Gadobenate Dimeglumine 13 ml 08/27/20 14:35 08/27/20 14:53 Gadobenate Dimeglumine 529 Mg/Ml 15 Ml Sdv IVPUSH 08/27/20 14:36 13 ml ONETIME ONE Administration Hydromorphone HCl 1 mg 08/27/20 11:24 08/27/20 11:33 Hydromorphone 1 Mg/Ml Syringe IM 08/27/20 11:25 1 mg ONETIME ONE Administration Hydromorphone HCl 0.5 mg 08/27/20 12:50 08/27/20 13:12 Hydromorphone 0.5 Mg/0.5 Ml Syringe IVPUSH 08/27/20 12:51 0.5 mg ONETIME ONE Administration Hydromorphone HCl 0.5 mg 08/27/20 15:49 08/27/20 16:04 Hydromorphone 0.5 Mg/0.5 Ml Syringe IVPUSH 08/27/20 15:50 0.5 mg ONETIME ONE Administration - Re-Assessments/Exams Free Text/Narrative Re-Assessment/Exam: 08/27/20 16:05 Hematology reveals a WBC of 7.42, hemoglobin 12.3, hematocrit 37.2, platelet count 292 Chemistry reveals a sodium of 140, potassium 3.8, carbon dioxide 31, anion gap 10.8, BUN 14, creatinine 0.7, glucose 97, magnesium 2.2, C-reactive protein 0.3 Urinalysis shows a trace of lysed occult blood, nitrate positive, leukocyte Estrace 1+, urine RBC 0-5, urine WBC 0-5, urine bacteria moderate, urine yeast rare 08/27/20 16:06 Radiologist impression MRI lumbar spine compared to prior CT lumbar spine study 08/25/2020: T10-11: Minimal circumferential disc bulge is seen. No central canal stenosis or neural foraminal stenosis is seen. T11-12: Slight circumferential disc bulge is seen. Compression deformity is noted with T12 which is shows mild retrolisthesis of the posterior vertebral line into the central canal by 5 mm. This indents the anterior thecal sac but does not cause any significant cord impingement at this time. Compression deformity at T12 shows minimal edema compatible with more remote subacute age. Neuroforamina are patent. T12-L1: Posterior disc space narrowing is seen. Slight circumferential disc bulge is seen. Posterior to space maintains a plantar margin. Mild degenerative apophyseal changes noted. No central canal stenosis is seen. Neuroforamina are patent where the nerve roots exit. L1-2: Slight posterior disc space narrowing is seen. Minimal circumferential disc bulge is noted. Posterior disc maintains a plantar margin. Mild degenerative apophyseal changes noted. No central canal stenosis or neural foraminal stenosis is seen. L2-3 transpedicle screws are noted within L3. Slight posterior disc space narrowing is seen. No central canal stenosis is noted. Neural foramina are not optimally seen but appear to be patent. L3-4: Posterior laminectomy is seen. Transpedicle screws are seen above and below this disc. Disc is slightly narrowed posteriorly. No central canal stenosis is seen. Neuroforamina are poorly seen and no comment can be made. L4- 5: Fusion is seen. No central canal stenosis is noted. Neural foramina are pa tent. Posterior laminectomy is seen. L5-S1: Fusion is seen. Posterior to space narrowing is noted. No central canal stenosis or neural foraminal stenosis is seen. Posterior laminectomy is noted. Conus medullaris and cauda equina appear within normal limits is seen. Impression: 1. Prior surgery at L3-4 through L5-S1 with transpedicle screws which are causing significant artifact. 2. Compression deformity of T12 which shows very minimal edema compatible with remote subacute age. 3. Other degenerative change as noted above. 08/27/20 16:39 I phoned [facility] call in [place] to speak to the neurosurgeon finish production manager. While I was finish production manager waiting to speak to him, the patient reports that she would like me to call [facility] neurosurgery instead. I did page them and I spoke to Dr. Sousa regarding this patient's MRI results. Dr. Sousa states that the patient would need to have documentation of a recent fracture. Radiologist report states that the fracture is remote subacute age. I have attempted to call Dr. Byrd and he has yet to return my call regarding clarification of this. Dr. Sousa also states that the patient does have to have a documentation of osteoporosis in order for her to qualify for kyphoplasty. He recommends that today I sent her home with the TLSO brace. He states that no other brace is adequate. He states that she will need to wear this for about a week and if she is not having any relief of her pain that she will need to schedule an appointment with neurosurgery at [facility]. I discussed this with the patient and she is agreeable to this plan. I called our local medical supply company and they do not have this brace on hand. They state that they will potentially be able to get this brace for her however all the medical supply companies in [place] are closed as they are an hour ahead of us. The patient has been directed to call the medical supply [employer] first thing tomorrow morning and requested that they have this brace sent to [place]. She may have to go in and be fitted for the brace and she is aware of this as well. The patient is also agreeable to this. I also spoke with the patient's son, Van, and updated him on this plan. The patient will be discharged to home. Departure - Departure Time of Disposition: 17:47 Disposition: Home, Self-Care 01 Condition: Fair Clinical Impression: T12 compression fracture Qualifiers: Encounter type: subsequent encounter Fracture healing: with routine healing Qualified Code(s): S22.080D - Wedge compression fracture of T11-T12 vertebra, subsequent encounter for fracture with routine healing - Discharge Information Instructions: Chronic Back Pain, [id number], Thoracic Spine Fracture, [id number] Referrals: Kathryn Olsen NP [Primary Care Provider] - Forms: ED Department Discharge Additional Instructions: You were seen in the emergency department today with complaints of back pain. You were given pain medications to help abort this. Keep in mind, it is unlikely that you will be able to fully have your pain subside. An MRI was completed today which did show compression deformity at T12. I did speak with the neurosurgeon on-call at [facility] in [place], Dr. Sousa, and he recommends that you obtain a TLSO back brace. As we talked about, [employer] does not have this brace in stock. You will need to call them tomorrow at [phone] and request that they have this brace sent from [place]. You may need to go in and be measured for appropriate fitting of this brace. Dr. Sousa recommends that you wear this brace for about a week. If you are still having pain after a week he recommends you call [facility] neurosurgery clinic and schedule an appointment to be seen by one of the providers. The phone number is [phone]. Continue all your current medications. Should your condition worsen or change, do not hesitate returning to the emergency department. Sepsis Event Note (ED) - Evaluation Sepsis Screening Result: No Definite Risk - Focused Exam Vital Signs: Vital Signs Temp Pulse Resp BP Pulse Ox 08/27/20 10:57 97.4 F 66 16 209/59 H 100 - My Orders Last 24 Hours: My Active Orders 08/27/20 11:18 Sodium Chloride 0.9% [Saline Flush] 10 ml FLUSH ASDIRECTED PRN Saline Lock Insert [OM.PC] Stat 08/27/20 12:45 CULTURE URINE [MREF] Stat 08/27/20 14:45 Sodium Chloride 0.9% [Saline Flush] 20 ml FLUSH ASDIRECTED - Assessment/Plan Last 24 Hours: My Active Orders 08/27/20 11:18 Sodium Chloride 0.9% [Saline Flush] 10 ml FLUSH ASDIRECTED PRN Saline Lock Insert [OM.PC] Stat 08/27/20 12:45 CULTURE URINE [MREF] Stat 08/27/20 14:45 Sodium Chloride 0.9% [Saline Flush] 20 ml FLUSH ASDIRECTED
[2020-08-27] MEDS ORDERED: HYDROmorphone 0.5 MG/0.5 ML Syringe IVPUSH ONE ×3 (12:50→18:32)
--- NOTE | 2020-08-27 12:51 | PCM.SN.2 ---
- Free Text/Narrative Note: ER called flex o writer operator to assist in starting an PIV after multiple attempts per ER RNs. Quarter Folder attempted PIV placement in right hand but unable to fully thread. Ultrasound then utilized to right upper arm to visualize vein for placement. Long 20 joselin PIV catheter placed with one attempt. Patient tolerated placement very well. No pulsating noted on ultrasound and from PIV catheter. Blood drawn from catheter easily for lab draws and flushed well without symptoms of infiltration. PIV secured with tegaderm. Luz Maria Lugo, EMERGENCY MEDICINE
[2020-08-27] MEDS ORDERED: Gadobenate Dimeglumine 529 MG/ML 15 ML SDV IVPUSH ONE (14:35)
[2020-08-27] MEDS ORDERED: Sodium Chloride 0.9% 10 ML Syringe FLUSH SCH (14:45)
--- NOTE | 2020-08-27 15:50 | MR ---
MRI lumbar spine Technique: T1 and T2 weighted axial images were obtained from above the T11-12 disc inferiorly through the L5-S1 disc. T1, T2 and fat-suppressed inversion recovery sagittal images were obtained. Comparison: Prior CT lumbar spine study of 08/25/20. Findings: T10-11:. Minimal circumferential disc bulge is seen. No central canal stenosis or neural foraminal stenosis is seen. T11-12: Slight circumferential disc bulge is seen. Compression deformity is noted within T12 which shows mild retrolisthesis of the posterior vertebral line into the central canal by 5 mm. This indents the anterior thecal sac but does not cause any significant cord impingement at this time. Compression deformity at T12 shows minimal edema compatible with more remote subacute age. Neural foramina are patent. T12-L1: Posterior disc space narrowing is seen. Slight circumferential disc bulge is seen. Posterior disc maintains a planar margin. Mild degenerative apophyseal change is noted. No central canal stenosis is seen. Neural foramina are patent where the nerve roots exit. L1-2: Slight posterior disc space narrowing is seen. Minimal circumferential disc bulge is noted. Posterior disc maintains a planar margin. Mild degenerative apophyseal change is noted. No central canal stenosis or neural foraminal stenosis is seen. L2-3: Trans-pedicle screws are noted within L3. Slight posterior disc space narrowing is seen. No central canal stenosis is noted. Neural foramina are not optimally seen but appear to be patent. L3-4: Posterior laminectomy is seen. Trans-pedicle screws are seen above and below this disc. Disc is slightly narrowed posteriorly. No central canal stenosis is seen. Neural foramina are poorly seen and no comment can be made. L4-5: Fusion is seen. No central canal stenosis is noted. Neural foramina are patent. Posterior laminectomy is seen. L5-S1: Fusion is seen. Posterior disc space narrowing is noted. No central canal stenosis or neural foraminal stenosis is seen. Posterior laminectomy is noted. Conus medullaris and cauda equina appear within normal limits as seen. Impression: 1. Prior surgery at L3-4 through L5-S1 with trans-pedicle screws which are causing significant artifact. 2. Compression deformity of T12 which shows very minimal edema compatible with remote subacute age. 3. Other degenerative change as noted above. Diagnostic code #3
== END 2020-08-27 18:45 | disposition home or self-care (01) ==
LOC: JD.ED 10:52 → JD.MRI 10:52
DX: S22.080D Wedge compression fracture of T11-T12 vertebra, subsequent encounter for fracture with routine healing (principal); I25.10 Atherosclerotic heart disease of native coronary artery without angina pectoris; E78.00 Pure hypercholesterolemia, unspecified; I10 Essential (primary) hypertension; E03.9 Hypothyroidism, unspecified; Z79.899 Other long term (current) drug therapy; Z88.1 Allergy status to other antibiotic agents; Z88.5 Allergy status to narcotic agent; Z88.6 Allergy status to analgesic agent; Z88.8 Allergy status to other drugs, medicaments and biological substances; X58.XXXA Exposure to other specified factors, initial encounter
CPT/HCPCS: 36415; 72158; 80053; 81001; 83735; 85025; 86140; 87086; 87088; 87186; 96372; 96374; 96375; 96376; 99284; A9577; J1170

== ENCOUNTER 2020-09-28 18:11 | Emergency (ER) | payer MEDICARE, BC ==
[2020-09-28 18:20] VITALS: BP 172/80; PULSE 83
[2020-09-28] MEDS ORDERED: HYDROmorphone 1 MG/ML Syringe IM ONE (19:09)
--- NOTE | 2020-09-28 19:54 | EDM.PDOC ---
ED HPI GENERAL MEDICAL PROBLEM - General Chief Complaint: Back Pain or Injury Stated Complaint: ELENA AMB Time Seen by Provider: 09/28/20 18:23 Source of Information: Reports: Patient History Limitations: Reports: No Limitations - History of Present Illness INITIAL COMMENTS - FREE TEXT/NARRATIVE: 80-year-old female presents the emergency department with complaints of low back pain. This patient is well-known to the emergency department and has a history of chronic back pain. She states that at 8:00 this morning she took 4 mg of oral Dilaudid and was doing okay. She states physical therapy came by her home today to work with her and she tolerated that fair, and then did not take the noon dose of oral Dilaudid as she states she did not have pain. She states that about 3:00 this afternoon physical therapy came by to work with her once again and she was not able to tolerate that. She states then she took a short nap and when she woke at 5 she had severe low back pain and took another 4 mg of oral Dilaudid. She states this has not worked for her and now presents to the emergency department. Of note as stated above patient has a significant history of chronic low back pain and was last seen in this ER on 27 August 2020. At that time she did have an MRI completed. Neurology was consulted regarding this patient and it was recommended that she be placed into TLSO brace. The patient states that she did obtain this brace and had been using it however it causes her to have hip pain so she switches out using a spandex brace. She states that she does have an appointment scheduled with the neurosurgeon at [facility] in [place] 3 days from now. She denies any urinary symptoms other than when she voids she states that her back muscles are so weak and it causes her discomfort in her back. She denies any frequency, burning or irritation. She denies issues with her bowels. She states that over the past few days whenever she stands or sits for any length of time she develops burning over the tops of both of her thighs which then radiates up into her hips and lower back. Lower Back Pain Score (Numeric/FACES): 9 - Related Data Allergies Allergy/AdvReac Type Severity Reaction Status Date / Time candesartan [From Atacand] Allergy Severe Shortness Verified 09/28/20 18:20 of Breath cephalexin monohydrate Allergy Severe Hives Verified 09/28/20 18:20 [From Keflex] doxycycline Allergy Severe Hives Verified 09/28/20 18:20 ibandronate sodium Allergy Severe Shortness Verified 09/28/20 18:20 [From Boniva] of Breath levofloxacin [From Levaquin] Allergy Severe Hives Verified 09/28/20 18:20 pitavastatin [From Livalo] Allergy Severe Cannot Verified 09/28/20 18:20 Remember sulfamethoxazole Allergy Severe Hives Verified 09/28/20 18:20 amlodipine AdvReac Severe Body Aches Verified 09/28/20 18:20 aspirin AdvReac Severe bloody Verified 09/28/20 18:20 noses atorvastatin calcium AdvReac Severe Muscle Verified 09/28/20 18:20 [From Lipitor] Aches bupropion HCl AdvReac Severe Other Verified 09/28/20 18:20 [From Wellbutrin] colesevelam HCl AdvReac Severe Muscle Verified 09/28/20 18:20 [From WelChol] Aches diltiazem [From Cardizem] AdvReac Severe Confusion Verified 09/28/20 18:20 duloxetine [From Cymbalta] AdvReac Severe difficultly Verified 09/28/20 18:20 walking evolocumab AdvReac Severe Muscle Verified 09/28/20 18:20 [From Repatha Pushtronex] Aches ezetimibe [From Zetia] AdvReac Severe Muscle Verified 09/28/20 18:20 Aches fluvoxamine [From Luvox] AdvReac Severe Headache Verified 09/28/20 18:20 gabapentin AdvReac Severe Blurred Verified 09/28/20 18:20 Vision hydralazine AdvReac Severe Nausea Verified 09/28/20 18:20 hydrochlorothiazide AdvReac Severe Headache Verified 09/28/20 18:20 hyoscyamine AdvReac Severe Vaginitis Verified 09/28/20 18:20 levothyroxine sodium AdvReac Severe Other Verified 09/28/20 18:20 lisinopril AdvReac Severe Cough Verified 09/28/20 18:20 losartan AdvReac Severe Headache Verified 09/28/20 18:20 mannitol [From Reclast] AdvReac Severe Confusion Verified 09/28/20 18:20 morphine AdvReac Severe Other Verified 09/28/20 18:20 niacin AdvReac Severe Muscle Verified 09/28/20 18:20 Aches phenobarbital AdvReac Severe Other Verified 09/28/20 18:20 pravastatin sodium AdvReac Severe Muscle Verified 09/28/20 18:20 [From Pravachol] Aches prochlorperazine edisylate AdvReac Severe Tremors Verified 09/28/20 18:20 [From Compazine] prochlorperazine maleate AdvReac Severe Tremors Verified 09/28/20 18:20 [From Compazine] promethazine HCl AdvReac Severe Other Verified 09/28/20 18:20 [From Phenergan] rosuvastatin calcium AdvReac Severe Body Aches Verified 09/28/20 18:20 [From Crestor] sertraline AdvReac Severe nightmares Verified 09/28/20 18:20 sertraline HCl [From Zoloft] AdvReac Severe Other Verified 09/28/20 18:20 simvastatin [From Zocor] AdvReac Severe Muscle Verified 09/28/20 18:20 Aches trazodone AdvReac Severe Other Verified 09/28/20 18:20 water for injection,sterile AdvReac Severe Confusion Verified 09/28/20 18:20 [From Reclast] zoledronic acid AdvReac Severe Confusion Verified 09/28/20 18:20 [From Reclast] zolpidem tartrate AdvReac Severe Other Verified 09/28/20 18:20 [From Ambien] Home Meds: Home Meds polyethylene glycoL 3350 [MiraLAX] 1 scoop PO DAILY PRN 02/27/18 [History] ALPRAZolam [Xanax] 0.25 mg PO Q8H PRN 11/10/18 [History] HYDROmorphone [Dilaudid] 4 mg PO Q4H PRN 11/10/18 [History] Acetaminophen [Acetaminophen Extra Strength] 650 mg PO Q4HR PRN 09/14/19 [History] Furosemide [Lasix] 40 mg PO DAILY 09/14/19 [History] Potassium Chloride [Klor-Con 10] 20 meq PO BID 09/14/19 [History] Budesonide/Formoterol [Symbicort 160-4.5 MCG] 2 puff INH BID PRN 12/02/19 [History] Zolpidem [Ambien] 5 mg PO BEDTIME PRN 12/02/19 [History] levalbuterol HCL [Xopenex] 1.25 mg INH Q6H PRN 12/02/19 [History] Nitroglycerin [Nitrostat] 0.4 mg SL ASDIRECTED 06/02/20 [History] Ondansetron [Zofran ODT] 8 mg PO TID PRN 06/02/20 [History] Docusate Sodium/Sennosides [Senna Plus] 1 - 2 tab PO DAILY PRN 06/03/20 [History] Levothyroxine Sodium [Synthroid] 112 mcg PO ACBREAKFAST 06/03/20 [History] carvediloL [Coreg] 25 mg PO BIDMEALS 06/03/20 [History] Past Medical History HEENT History: Reports: Impaired Vision Other HEENT History: Wears glasses, pt was dx with "eagles syndrome" Cardiovascular History: Reports: CAD, High Cholesterol, Hypertension, Other (See Below) Other Cardiovascular History: temporal arteritis Respiratory History: Reports: Pulmonary Fibrosis Other Respiratory History: pulmonary asbestosis, respiratory failure with hypoxia, oxygen at 2-3L via nasal canula. Gastrointestinal History: Reports: Bowel Obstruction, Colon Polyp, GERD, Hiatal Hernia Other Gastrointestinal History: states esophagus doesn't work like it normally should. x10 bowel obstructions in the past with surgical intervention. herniation of rectum into vagina, diaphragmatic hernia, hiatal hernia, protein calorie malnutrition, polyp Genitourinary History: Reports: UTI, Recurrent Other Genitourinary History: dysuria TECHNICAL SERVICE SPECIALIST History: Reports: Musculoskeletal History: Reports: Osteoarthritis, Osteoporosis Other Musculoskeletal History: polymyalgia rhuematica, fibromyalgia, osteoporosis, hip pain Neurological History: Reports: Seizure Other Neuro History: as a child Psychiatric History: Reports: Addiction, Anxiety, Depression, Panic Attack, Other (See Below) Other Psychiatric History: insomnia, opiod dependence, abnormal dreams Endocrine/Metabolic History: Reports: Hypothyroidism, Vitamin D Deficiency Hematologic History: Reports: Other (See Below) Other Hematologic History: Vitamin D deficiency Immunologic History: Reports: None Oncologic (Cancer) History: Reports: None Dermatologic History: Reports: Other (See Below) Other Dermatologic History: plantar wart x 2 - Infectious Disease History Infectious Disease History: Reports: Chicken Pox, Measles, Mumps - Past Surgical History HEENT Surgical History: Reports: Cataract Surgery, Oral Surgery, Other (See Below) Other HEENT Surgeries/Procedures: removed right Saliva gland. 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 Social & Family History - Family History Family Medical History: No Pertinent Family History Cardiac: Reports: [place] Other Cardiac Family History: [place], Bro, Bro - Heart disease Neurological: Reports: Alzheimers Disease Oncologic: Reports: Lung Other Oncologic Family History: FA - Cancer, Sis - lung cancer - Tobacco Use Tobacco Use Status *Q: Never Tobacco User - Caffeine Use Caffeine Use: Reports: None - Recreational Drug Use Recreational Drug Use: No - Living Situation & Occupation Living situation: Reports: , Alone Occupation: Retired ED ROS GENERAL - Review of Systems Review Of Systems: Comprehensive ROS is negative, except as noted in HPI. ED EXAM,LOWER BACK PAIN/INJURY - Physical Exam Exam: See Below Exam Limited By: No Limitations General Appearance: Alert, WD/WN, No Apparent Distress Ears: Normal External Exam, Hearing Grossly Normal Nose: Normal Inspection Throat/Mouth: Normal Inspection, Normal Lips, Normal Voice, No Airway Compromise Head: Atraumatic Neck: Normal Inspection, Supple, Non-Tender Respiratory/Chest: No Respiratory Distress, Lungs Clear, Normal Breath Sounds, No Accessory Muscle Use, Chest Non-Tender Cardiovascular: Normal Peripheral Pulses, Regular Rate, Rhythm, No Edema, No Murmur GI/Abdominal: Normal Bowel Sounds, Soft, Non-Tender, No Distention (Female) Exam: Deferred Rectal (Female) Exam: Deferred Back Exam: Normal Inspection, Paraspinal Tenderness (Lumbar spine), Vertebral Tenderness (Lumbar spine) Extremities: Normal Inspection, No Pedal Edema, Normal Capillary Refill Neurological: Alert, Normal Mood/Affect, Oriented x 3 Psychiatric: Normal Affect, Normal Mood Skin Exam: Warm, Dry, Intact, Normal Color, No Rash Lymphatic: No Adenopathy Course - Vital Signs Text/Narrative:: As stated above the patient presents with lumbar pain. Patient does have chronic low back pain and states she did miss a dose of her oral Dilaudid today and then worked with physical therapy. She then called the ambulance as her pain could not be controlled on oral medications. I have ordered for the patient to receive Dilaudid 1 mg IM. We will also order urinalysis with micro and culture if indicated as the patient did states she has low back pain however does not have any other urinary symptoms. Last Recorded V/S: Last Vital Signs Temp 97.1 F 09/28/20 18:18 Pulse 83 09/28/20 18:18 Resp 18 09/28/20 18:18 BP 172/80 H 09/28/20 18:18 Pulse Ox 100 09/28/20 18:18 - Orders/Labs/Meds Orders: Active Orders 24 hr Category Date Time Status CULTURE URINE [MREF] Stat Lab 09/28/20 20:25 Received Labs: Laboratory Tests 09/28/20 Range/Units 20:25 Urine Color Yellow (Yellow) Urine Appearance Slt cloudy H (Clear) Urine pH 7.0 (5.0-8.0) Ur Specific [place] 1.015 (1.005-1.030) Urine Protein Negative (Negative) Urine Glucose (UA) Negative (Negative) Urine Ketones Negative (Negative) Urine Occult Blood Negative (Negative) Urine Nitrite Positive H (Negative) Urine Bilirubin Negative (Negative) Urine Urobilinogen 0.2 (0.2-1.0) Ur Leukocyte Esterase 1+ H (Negative) Urine RBC 0-5 (0-5) /hpf Urine WBC 10-20 H (0-5) /hpf Ur Squamous Epith Cells 5-10 H (0-5) /hpf Urine Bacteria Many H (FEW) /hpf Urine Mucus Few (FEW) /hpf Meds: Medications Discontinued Medications Generic Name Dose Route Start Last Admin Trade Name Freq PRN Reason Stop Dose Admin Hydromorphone HCl 1 mg 09/28/20 19:09 09/28/20 19:20 Hydromorphone 1 Mg/Ml Syringe IM 09/28/20 19:10 1 mg ONETIME ONE Administration Hydromorphone HCl 0.5 mg 09/28/20 20:41 09/28/20 20:48 Hydromorphone 0.5 Mg/0.5 Ml Syringe IM 09/28/20 20:42 0.5 mg ONETIME ONE Administration Hydromorphone HCl 0.5 mg 09/28/20 22:14 Hydromorphone 0.5 Mg/0.5 Ml Syringe IM 09/28/20 22:15 ONETIME ONE - Re-Assessments/Exams Free Text/Narrative Re-Assessment/Exam: 09/28/20 20:41 Patient's pain was down to a 5 however nursing staff reports that patient would like more pain medication at this time. We will order another half milligram of Dilaudid IM and wait for the results of the UA. 09/28/20 22:02 Urinalysis reveals nitrite positive, leukocyte esterase 1+, urine WBC 10-20, urine squamous epithelial cells 5-10, urine bacteria many Patient does not have any urinary symptoms. Will await culture results. 09/28/20 22:07 Patient reports that her pain is still present however it is decreased. She states she would like to attempt to get up and get into the wheelchair to see if she can get home. Discussed at length the need for her to be on a scheduled regimen for her oral Dilaudid that she takes at home and she does verbalize understanding. She would like to attempt to go home as she states her home [facility] care nurse will also be at her home first thing in the morning. 09/28/20 22:24 Patient was able to get up to the bedside commode with assistance from the nursing staff and tolerated that fairly well. She is requesting 1 more shot of Dilaudid 1/2 mg IM and then she will be discharged to home. Departure - Departure Time of Disposition: 22:24 Disposition: Home, Self-Care 01 Condition: Fair Clinical Impression: Chronic back pain Qualifiers: Back pain location: low back pain Back pain laterality: midline Sciatica presence: without sciatica Qualified Code(s): M54.5 - Low back pain; G89.29 - Other chronic pain - Discharge Information Instructions: Chronic Back Pain, [id number] Referrals: PCP,None [Primary Care Provider] - Kathryn Olsen NP [Ordering Only Provider] - Forms: ED Department Discharge Additional Instructions: You were seen in the emergency department with an exacerbation of your chronic low back pain. While in the emergency department you were given Dilaudid intramuscularly which did seem to help relieve your pain. A urinalysis was collected which is questionable for urinary tract infection. Due to the fact that you are not having symptoms associated with this, we will send this for culture to see if it is recommended to start you on antibiotics. You will be called with these results. Recommend that you go home and rest in a comfortable position. Take your oral Dilaudid pain medication every 4 hours as recommended for the next couple of days. Is imperative that you get to your appointment with your neurosurgeon on . Sepsis Event Note (ED) - Evaluation Sepsis Screening Result: No Definite Risk - Focused Exam Vital Signs: Vital Signs Temp Pulse Resp BP Pulse Ox 09/28/20 18:18 97.1 F 83 18 172/80 H 100 - My Orders Last 24 Hours: My Active Orders 09/28/20 20:25 CULTURE URINE [MREF] Stat - Assessment/Plan Last 24 Hours: My Active Orders 09/28/20 20:25 CULTURE URINE [MREF] Stat
[2020-09-28] MEDS ORDERED: HYDROmorphone 0.5 MG/0.5 ML Syringe IM ONE ×2 (20:41→22:14)
== END 2020-09-28 22:35 | disposition home or self-care (01) ==
LOC: JD.ED 18:11
DX: G89.29 Other chronic pain (principal); M54.5 Low back pain; I25.10 Atherosclerotic heart disease of native coronary artery without angina pectoris; E78.00 Pure hypercholesterolemia, unspecified; I10 Essential (primary) hypertension; E03.9 Hypothyroidism, unspecified; Z88.1 Allergy status to other antibiotic agents; Z88.5 Allergy status to narcotic agent; Z88.8 Allergy status to other drugs, medicaments and biological substances; Z79.899 Other long term (current) drug therapy
CPT/HCPCS: 81001; 87086; 87088; 87186; 96372; 99283; J1170

== ENCOUNTER 2020-11-01 10:50 | Emergency (ER) | payer MEDICARE, BC ==
[2020-11-01 11:18] VITALS: BP 160/64; PULSE 61
[2020-11-01] MEDS ORDERED: Orphenadrine 100 MG Tab.ER PO STA (11:35)
--- NOTE | 2020-11-01 12:35 | CT ---
CT cervical spine Technique: Multiple axial sections were obtained from above the C1 inferiorly to the bottom of T2. Reconstructed coronal and sagittal images were obtained. Comparison: Prior MRI cervical spine study 06/04/20. Findings: Diffuse degenerative change is scattered throughout the apophyseal joints within the cervical spine which is worse on the right side. There is degenerative change seen between the dens and anterior to C1. Severe disc space narrowing is seen at C3-4, C4-5, C5-6 and C6-7. Slight posterior osteophytes are seen at C2-3, C3-4, C4-5 and C5-6. Anterior osteophytes are seen primarily at C6-7. No definite central canal stenosis or neural foraminal stenosis. No abnormal subluxation is seen. Scattered degenerative change is noted throughout the uncovertebral joints. Mild mucosal thickening is seen within the sphenoid sinus. Mastoid sinus is clear. Atherosclerotic calcification is seen within the carotid siphon. Impression: 1. Diffuse degenerative change within the apophyseal joints throughout the cervical spine as well as diffuse degenerative spurring within the uncovertebral joints. Degenerative change is also noted between the dens and anterior arch of C1. Diffuse disc space narrowing is seen throughout the cervical spine. 2. No acute fracture or subluxation is seen. 3. No definite central or neural foraminal stenosis is seen. 4. Other findings as noted above which are due to senescent change. Diagnostic code #3
[2020-11-01] MEDS ORDERED: HYDROmorphone 0.5 MG/0.5 ML Syringe IM ONE (13:02)
--- NOTE | 2020-11-01 13:41 | EDM.PDOC ---
ED HPI GENERAL MEDICAL PROBLEM - General Chief Complaint: General Stated Complaint: NECK SHOULDER AND ARM PAIN /BALANCE X 3 DAYS Time Seen by Provider: 11/01/20 11:18 Source of Information: Reports: Patient History Limitations: Reports: No Limitations - History of Present Illness INITIAL COMMENTS - FREE TEXT/NARRATIVE: 80-year-old female presents the emergency department today with complaints of pain noted to the left posterior shoulder radiating up into the neck and head and around to the anterior pectoralis muscle area. Patient states she did have back surgery on her lumbar spine approximately 3 weeks ago in [place]. She states that 2 days ago she started having discomfort noted to the left posterior shoulder area mostly in the trapezius muscle area and the pain has now radiated up into her neck on the lateral side as well as into the left shoulder and pectoralis muscles. Patient states that this morning she was unable to turn her head to the right side due to significant muscle pain and tension. She can turn it somewhat to the left however does not have full range of motion. She states she did take one of her 4 mg Dilaudid tabs as well as half of Xanax and 5 mg of baclofen at 8 AM this morning and this is not helped. She states that several months back she did have an injection of her left shoulder by her primary care provider and states that this feels similar to the discomfort she was having at that time. She states the injection to the left shoulder helped substantially. Treatments POSTAL MAIL CARRIER: Reports: Other (see below) Other Treatments POSTAL MAIL CARRIER: dilaudid Shoulder Pain Score (Numeric/FACES): 10 Left Ear Pain Score (Numeric/FACES): 3 - Related Data Allergies Allergy/AdvReac Type Severity Reaction Status Date / Time candesartan [From Atacand] Allergy Severe Shortness Verified 09/28/20 18:20 of Breath cephalexin monohydrate Allergy Severe Hives Verified 09/28/20 18:20 [From Keflex] doxycycline Allergy Severe Hives Verified 09/28/20 18:20 ibandronate sodium Allergy Severe Shortness Verified 09/28/20 18:20 [From Boniva] of Breath levofloxacin [From Levaquin] Allergy Severe Hives Verified 09/28/20 18:20 pitavastatin [From Livalo] Allergy Severe Cannot Verified 09/28/20 18:20 Remember sulfamethoxazole Allergy Severe Hives Verified 09/28/20 18:20 amlodipine AdvReac Severe Body Aches Verified 09/28/20 18:20 aspirin AdvReac Severe bloody Verified 09/28/20 18:20 noses atorvastatin calcium AdvReac Severe Muscle Verified 09/28/20 18:20 [From Lipitor] Aches bupropion HCl AdvReac Severe Other Verified 09/28/20 18:20 [From Wellbutrin] colesevelam HCl AdvReac Severe Muscle Verified 09/28/20 18:20 [From WelChol] Aches diltiazem [From Cardizem] AdvReac Severe Confusion Verified 09/28/20 18:20 duloxetine [From Cymbalta] AdvReac Severe difficultly Verified 09/28/20 18:20 walking evolocumab AdvReac Severe Muscle Verified 09/28/20 18:20 [From Repatha Pushtronex] Aches ezetimibe [From Zetia] AdvReac Severe Muscle Verified 09/28/20 18:20 Aches fluvoxamine [From Luvox] AdvReac Severe Headache Verified 09/28/20 18:20 gabapentin AdvReac Severe Blurred Verified 09/28/20 18:20 Vision hydralazine AdvReac Severe Nausea Verified 09/28/20 18:20 hydrochlorothiazide AdvReac Severe Headache Verified 09/28/20 18:20 hyoscyamine AdvReac Severe Vaginitis Verified 09/28/20 18:20 levothyroxine sodium AdvReac Severe Other Verified 09/28/20 18:20 lisinopril AdvReac Severe Cough Verified 09/28/20 18:20 losartan AdvReac Severe Headache Verified 09/28/20 18:20 mannitol [From Reclast] AdvReac Severe Confusion Verified 09/28/20 18:20 morphine AdvReac Severe Other Verified 09/28/20 18:20 niacin AdvReac Severe Muscle Verified 09/28/20 18:20 Aches phenobarbital AdvReac Severe Other Verified 09/28/20 18:20 pravastatin sodium AdvReac Severe Muscle Verified 09/28/20 18:20 [From Pravachol] Aches prochlorperazine edisylate AdvReac Severe Tremors Verified 09/28/20 18:20 [From Compazine] prochlorperazine maleate AdvReac Severe Tremors Verified 09/28/20 18:20 [From Compazine] promethazine HCl AdvReac Severe Other Verified 09/28/20 18:20 [From Phenergan] rosuvastatin calcium AdvReac Severe Body Aches Verified 09/28/20 18:20 [From Crestor] sertraline AdvReac Severe nightmares Verified 09/28/20 18:20 sertraline HCl [From Zoloft] AdvReac Severe Other Verified 09/28/20 18:20 simvastatin [From Zocor] AdvReac Severe Muscle Verified 09/28/20 18:20 Aches trazodone AdvReac Severe Other Verified 09/28/20 18:20 water for injection,sterile AdvReac Severe Confusion Verified 09/28/20 18:20 [From Reclast] zoledronic acid AdvReac Severe Confusion Verified 09/28/20 18:20 [From Reclast] zolpidem tartrate AdvReac Severe Other Verified 09/28/20 18:20 [From Ambien] Home Meds: Home Meds polyethylene glycoL 3350 [MiraLAX] 1 scoop PO DAILY PRN 02/27/18 [History] ALPRAZolam [Xanax] 0.25 mg PO Q8H PRN 11/10/18 [History] HYDROmorphone [Dilaudid] 4 mg PO Q4H PRN 11/10/18 [History] Acetaminophen [Acetaminophen Extra Strength] 650 mg PO Q4HR PRN 09/14/19 [History] Furosemide [Lasix] 40 mg PO DAILY 09/14/19 [History] Potassium Chloride [Klor-Con 10] 20 meq PO BID 09/14/19 [History] Budesonide/Formoterol [Symbicort 160-4.5 MCG] 2 puff INH BID PRN 12/02/19 [History] Zolpidem [Ambien] 5 mg PO BEDTIME PRN 12/02/19 [History] levalbuterol HCL [Xopenex] 1.25 mg INH Q6H PRN 12/02/19 [History] Nitroglycerin [Nitrostat] 0.4 mg SL ASDIRECTED 06/02/20 [History] Ondansetron [Zofran ODT] 8 mg PO TID PRN 06/02/20 [History] Docusate Sodium/Sennosides [Senna Plus] 1 - 2 tab PO DAILY PRN 06/03/20 [History] Levothyroxine Sodium [Synthroid] 112 mcg PO ACBREAKFAST 06/03/20 [History] carvediloL [Coreg] 25 mg PO BIDMEALS 06/03/20 [History] Sulfamethoxazole/Trimethoprim [Bactrim Ds Tablet] 1 each PO BID #14 tablet 10/02/20 [Rx] Past Medical History HEENT History: Reports: Impaired Vision Other HEENT History: Wears glasses, pt was dx with "eagles syndrome" Cardiovascular History: Reports: CAD, High Cholesterol, Hypertension, Other (See Below) Other Cardiovascular History: temporal arteritis Respiratory History: Reports: Pulmonary Fibrosis Other Respiratory History: pulmonary asbestosis, respiratory failure with hypoxia, oxygen at 2-3L via nasal canula. Gastrointestinal History: Reports: Bowel Obstruction, Colon Polyp, GERD, Hiatal Hernia Other Gastrointestinal History: states esophagus doesn't work like it normally should. x10 bowel obstructions in the past with surgical intervention. herniation of rectum into vagina, diaphragmatic hernia, hiatal hernia, protein calorie malnutrition, polyp Genitourinary History: Reports: UTI, Recurrent Other Genitourinary History: dysuria LEGAL AIDE History: Reports: Musculoskeletal History: Reports: Osteoarthritis, Osteoporosis Other Musculoskeletal History: polymyalgia rhuematica, fibromyalgia, osteoporosis, hip pain Neurological History: Reports: Seizure Other Neuro History: as a child Psychiatric History: Reports: Addiction, Anxiety, Depression, Panic Attack, Other (See Below) Other Psychiatric History: insomnia, opiod dependence, abnormal dreams Endocrine/Metabolic History: Reports: Hypothyroidism, Vitamin D Deficiency Hematologic History: Reports: Other (See Below) Other Hematologic History: Vitamin D deficiency Immunologic History: Reports: None Oncologic (Cancer) History: Reports: None Dermatologic History: Reports: Other (See Below) Other Dermatologic History: plantar wart x 2 - Infectious Disease History Infectious Disease History: Reports: Chicken Pox, Measles, Mumps - Past Surgical History HEENT Surgical History: Reports: Cataract Surgery, Oral Surgery, Other (See Below) Other HEENT Surgeries/Procedures: removed right Saliva gland. 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), multiple operations for SBO, repair rectocele and cystocele Female Surgical History: Reports: Breast Reduction, D&C, Hysterectomy, Tubal Ligation, Other (See Below) Other Female Surgeries/Procedures: bladder and rectal repair Endocrine Surgical History: Reports: None Neurological Surgical History: Reports: Lumbar Spine Musculoskeletal Surgical History: Reports: Shoulder Surgery, Other (See Below) Other Musculoskeletal Surgeries/Procedures:: Right shoulder, foot surgery x2; back surgery x 5 Oncologic Surgical History: Reports: None 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 Dermatological Surgical History: Reports: None Social & Family History - Family History Family Medical History: No Pertinent Family History Cardiac: Reports: PR Other Cardiac Family History: MO, Bro, Bro - Heart disease Neurological: Reports: Alzheimers Disease Oncologic: Reports: Lung Other Oncologic Family History: FA - Cancer, Sis - lung cancer - Tobacco Use Tobacco Use Status *Q: Never Tobacco User - Caffeine Use Caffeine Use: Reports: None - Recreational Drug Use Recreational Drug Use: No - Living Situation & Occupation Living situation: Reports: , Alone Occupation: Retired ED ROS GENERAL - Review of Systems Review Of Systems: Comprehensive ROS is negative, except as noted in HPI. ED EXAM, GENERAL - Physical Exam Exam: See Below Exam Limited By: No Limitations General Appearance: Alert, WD/WN, No Apparent Distress Ears: Normal External Exam. No: Hearing Grossly Normal (Patient wears hearing aids) Nose: Normal Inspection Throat/Mouth: Normal Inspection, Normal Lips, Normal Voice, No Airway Compromise Head: Atraumatic, Normocephalic Neck: Normal Inspection, Supple, Tender Lateral (On the left). No: Full Range of Motion (Unable to turn her head to the right and has decreased range of motion when turning her head to the left), Tender Midline Respiratory/Chest: No Respiratory Distress, Lungs Clear, Normal Breath Sounds, No Accessory Muscle Use. No: Chest Non-Tender (Left pectoralis area is tender from the clavicle down to the rib) Cardiovascular: Normal Peripheral Pulses, Regular Rate, Rhythm, No Murmur Peripheral Pulses: 2+: Radial (L), Radial (R) GI/Abdominal: Normal Bowel Sounds, Soft, Non-Tender, No Distention (Female) Exam: Deferred Rectal (Female) Exam: Deferred Back Exam: Normal Inspection Extremities: Normal Inspection Neurological: Alert, Oriented, Normal Cognition Psychiatric: Normal Affect, Normal Mood Skin Exam: Warm, Dry, Intact, Normal Color, No Rash Lymphatic: No Adenopathy Course - Vital Signs Text/Narrative:: As stated above, patient presents with significant history of back problems. She is well-known to this emergency department. She had surgery approximately 3 weeks ago on her lumbar spine and has been doing well until 2 days ago when she started noticing pain to her left scapular area. Pain has now begun to radiate up into her neck as well as to her left pectoralis muscle area. Upon exam, the patient is awake and alert and does not appear to be in severe distress. She has tenderness noted to the trapezius area with moderate palpation. Tenderness is also noted to the left pectoralis area. Tenderness noted to the left lateral neck area as well as the shoulder. She is unable to turn her head to the right due to muscle tension and pain. She can turn it to the left however she does not have full range of motion. She denies any history of recent injury or falling or trauma. She does not have any spinal tenderness noted to the cervical area however she does have paraspinal tenderness noted to the left cervical area. I suspect this is all muscular in origin. Will obtain a CT of the cervical spine. Patient will also receive a Norflex to see if this helps relax the tension. Last Recorded V/S: Last Vital Signs Temp 98.1 F 11/01/20 11:13 Pulse 61 11/01/20 11:13 Resp 18 11/01/20 11:13 BP 160/64 H 11/01/20 11:13 Pulse Ox 100 11/01/20 11:13 - Orders/Labs/Meds Meds: Medications Discontinued Medications Generic Name Dose Route Start Last Admin Trade Name Henryq PRN Reason Stop Dose Admin Hydromorphone HCl 0.5 mg 11/01/20 13:02 11/01/20 13:07 Hydromorphone 0.5 Mg/0.5 Ml Syringe IM 11/01/20 13:03 0.5 mg ONETIME ONE Administration Orphenadrine Citrate 100 mg 11/01/20 11:35 11/01/20 11:52 Orphenadrine 100 Mg Tab.Er PO 11/01/20 11:36 100 mg NOW STA Administration - Re-Assessments/Exams Free Text/Narrative Re-Assessment/Exam: 11/01/20 13:[address] of the cervical spine compared to MRI of cervical spine that was completed on 06/04/2020: 1. Diffuse degenerative change within the apophyseal joints throughout the cervical spine as well as diffuse degenerative spurring within the uncovertebral joints. Degenerative changes also noted between the dens and anterior arch of C1. Diffuse disc space narrowing is seen throughout the cervical spine. 2. No acute fracture or subluxation is seen. 3. No definite central or neuroforaminal stenosis is seen. 4. Other findings as noted above which are due to senescent changes. 11/01/20 14:57 Patient did receive a dose of IM Dilaudid and this did seem to help. She states her pain is much more tolerable. And when reexamined it is primarily in the trapezius muscle area causing a lot of the discomfort. She will be discharged home with recommendations that she use ice or heat for comfort. She states she has topical lidocaine that she can apply to the area as well. She will follow up with her primary care provider, Kathryn Olsen. Departure - Departure Time of Disposition: 14:58 Disposition: Home, Self-Care 01 Condition: Good Clinical Impression: Left shoulder pain Qualifiers: Chronicity: chronic Qualified Code(s): M25.512 - Pain in left shoulder; G89.29 - Other chronic pain - Discharge Information Instructions: Shoulder Pain, [id number], Musculoskeletal Pain Referrals: Kathryn Olsen NP [Primary Care Provider] - Forms: ED Department Discharge Additional Instructions: You were seen in the emergency department today with complaints of left shoulder, left-sided neck pain and left chest wall pain. CT scan of the cervical spine was completed and did not show any changes since previous MRI that was taken in May. You did receive a muscle relaxer and a shot of Dilaudid while in the emergency department and this did seem to help relieve your pain however we were not able to make it go away entirely. Recommend that you go home and rest, take your pain medications as prescribed, use topical lidocaine or Aspercreme as you stated you have this at home. May use ice or heat for comfort. Follow-up with Madonna Olsen to see if you can make any adjustments to your pain medications. Should your condition worsen or change, do not hesitate returning to the emergency department. Sepsis Event Note (ED) - Focused Exam Vital Signs: Vital Signs Temp Pulse Resp BP Pulse Ox 11/01/20 11:13 98.1 F 61 18 160/64 H 100
== END 2020-11-01 15:15 | disposition home or self-care (01) ==
LOC: JD.ED 10:50
DX: M25.512 Pain in left shoulder (principal); I25.10 Atherosclerotic heart disease of native coronary artery without angina pectoris; I10 Essential (primary) hypertension; E03.9 Hypothyroidism, unspecified; Z88.8 Allergy status to other drugs, medicaments and biological substances; Z88.1 Allergy status to other antibiotic agents; Z88.6 Allergy status to analgesic agent; Z88.5 Allergy status to narcotic agent; Z88.2 Allergy status to sulfonamides; Z79.899 Other long term (current) drug therapy; M54.2 Cervicalgia
CPT/HCPCS: 72125; 96372; 99283; A9270; J1170; 99284

== ENCOUNTER 2020-11-09 21:28 | Emergency (ER) | payer MEDICARE, BC ==
[2020-11-09 21:41] VITALS: BP 173/66; PULSE 78
[2020-11-09] MEDS ORDERED: HYDROmorphone 1 MG/ML Syringe IM ONE (22:27)
[2020-11-09] MEDS ORDERED: Orphenadrine 100 MG Tab.ER PO ONE (22:27)
--- NOTE | 2020-11-09 22:34 | EDM.PDOC ---
ED HPI GENERAL MEDICAL PROBLEM - General Chief Complaint: Back Pain or Injury Stated Complaint: [facility] Time Seen by Provider: 11/09/20 22:07 Source of Information: Reports: Patient, RN Notes Reviewed History Limitations: Reports: No Limitations - History of Present Illness INITIAL COMMENTS - FREE TEXT/NARRATIVE: Patient is an 80-year-old female who presents to this ER for the evaluation of her upper back pain. Patient was brought in by [place]. Patient had back surgery or neck surgery on October 07, 2020. States that she had a follow-up appoint with her surgeon this last week , and everything seemed to be going okay. She has been placed on oral Dilaudid, 4 mg tablets every 4 hours as needed, Xanax, and a different muscle relaxer for which she cannot recall the name of. Patient states that she took all of this today, her last dose of oral Dilaudid at around 1900 with little results. She states it is just like "drinking water". Patient's not had any fevers or chills, cough or shortness of breath, any severe nausea/vomiting/diarrhea. She is denying any trauma to the area that would have made this worse. She states that she has not called her surgeon to explain her worsening symptoms. Neck Pain Score (Numeric/FACES): 10 - Related Data Allergies Allergy/AdvReac Type Severity Reaction Status Date / Time candesartan [From Atacand] Allergy Severe Shortness Verified 11/09/20 21:41 of Breath cephalexin monohydrate Allergy Severe Hives Verified 11/09/20 21:41 [From Keflex] doxycycline Allergy Severe Hives Verified 11/09/20 21:41 ibandronate sodium Allergy Severe Shortness Verified 11/09/20 21:41 [From Boniva] of Breath levofloxacin [From Levaquin] Allergy Severe Hives Verified 11/09/20 21:41 pitavastatin [From Livalo] Allergy Severe Cannot Verified 11/09/20 21:41 Remember sulfamethoxazole Allergy Severe Hives Verified 11/09/20 21:41 prednisone Allergy Abdominal Verified 11/09/20 21:43 Pain amlodipine AdvReac Severe Body Aches Verified 11/09/20 21:41 aspirin AdvReac Severe bloody Verified 11/09/20 21:41 noses atorvastatin calcium AdvReac Severe Muscle Verified 11/09/20 21:41 [From Lipitor] Aches bupropion HCl AdvReac Severe Other Verified 11/09/20 21:41 [From Wellbutrin] colesevelam HCl AdvReac Severe Muscle Verified 11/09/20 21:41 [From WelChol] Aches diltiazem [From Cardizem] AdvReac Severe Confusion Verified 11/09/20 21:41 duloxetine [From Cymbalta] AdvReac Severe difficultly Verified 11/09/20 21:41 walking evolocumab AdvReac Severe Muscle Verified 11/09/20 21:41 [From Repatha Pushtronex] Aches ezetimibe [From Zetia] AdvReac Severe Muscle Verified 11/09/20 21:41 Aches fluvoxamine [From Luvox] AdvReac Severe Headache Verified 11/09/20 21:41 gabapentin AdvReac Severe Blurred Verified 11/09/20 21:41 Vision hydralazine AdvReac Severe Nausea Verified 11/09/20 21:41 hydrochlorothiazide AdvReac Severe Headache Verified 11/09/20 21:41 hyoscyamine AdvReac Severe Vaginitis Verified 11/09/20 21:41 levothyroxine sodium AdvReac Severe Other Verified 11/09/20 21:41 lisinopril AdvReac Severe Cough Verified 11/09/20 21:41 losartan AdvReac Severe Headache Verified 11/09/20 21:41 mannitol [From Reclast] AdvReac Severe Confusion Verified 11/09/20 21:41 morphine AdvReac Severe Other Verified 11/09/20 21:41 niacin AdvReac Severe Muscle Verified 11/09/20 21:41 Aches phenobarbital AdvReac Severe Other Verified 11/09/20 21:41 pravastatin sodium AdvReac Severe Muscle Verified 11/09/20 21:41 [From Pravachol] Aches prochlorperazine edisylate AdvReac Severe Tremors Verified 11/09/20 21:41 [From Compazine] prochlorperazine maleate AdvReac Severe Tremors Verified 11/09/20 21:41 [From Compazine] promethazine HCl AdvReac Severe Other Verified 11/09/20 21:41 [From Phenergan] rosuvastatin calcium AdvReac Severe Body Aches Verified 11/09/20 21:41 [From Crestor] sertraline AdvReac Severe nightmares Verified 11/09/20 21:41 sertraline HCl [From Zoloft] AdvReac Severe Other Verified 11/09/20 21:41 simvastatin [From Zocor] AdvReac Severe Muscle Verified 11/09/20 21:41 Aches trazodone AdvReac Severe Other Verified 11/09/20 21:41 water for injection,sterile AdvReac Severe Confusion Verified 11/09/20 21:41 [From Reclast] zoledronic acid AdvReac Severe Confusion Verified 11/09/20 21:41 [From Reclast] zolpidem tartrate AdvReac Severe Other Verified 11/09/20 21:41 [From Ambien] Home Meds: Home Meds polyethylene glycoL 3350 [MiraLAX] 1 scoop PO DAILY PRN 02/27/18 [History] ALPRAZolam [Xanax] 0.25 mg PO Q8H PRN 11/10/18 [History] HYDROmorphone [Dilaudid] 4 mg PO Q4H PRN 11/10/18 [History] Acetaminophen [Acetaminophen Extra Strength] 650 mg PO Q4HR PRN 09/14/19 [History] Furosemide [Lasix] 40 mg PO DAILY 09/14/19 [History] Potassium Chloride [Klor-Con 10] 20 meq PO BID 09/14/19 [History] Budesonide/Formoterol [Symbicort 160-4.5 MCG] 2 puff INH BID PRN 12/02/19 [History] Zolpidem [Ambien] 5 mg PO BEDTIME PRN 12/02/19 [History] levalbuterol HCL [Xopenex] 1.25 mg INH Q6H PRN 12/02/19 [History] Nitroglycerin [Nitrostat] 0.4 mg SL ASDIRECTED 06/02/20 [History] Ondansetron [Zofran ODT] 8 mg PO TID PRN 06/02/20 [History] Docusate Sodium/Sennosides [Senna Plus] 1 - 2 tab PO DAILY PRN 06/03/20 [History] Levothyroxine Sodium [Synthroid] 112 mcg PO ACBREAKFAST 06/03/20 [History] carvediloL [Coreg] 25 mg PO BIDMEALS 06/03/20 [History] Sulfamethoxazole/Trimethoprim [Bactrim Ds Tablet] 1 each PO BID #14 tablet 10/02/20 [Rx] Orphenadrine [Norflex] 100 mg PO BID PRN #20 tab 11/09/20 [Rx] Past Medical History HEENT History: Reports: Impaired Vision Other HEENT History: Wears glasses, pt was dx with "eagles syndrome" Cardiovascular History: Reports: CAD, High Cholesterol, Hypertension, Other (See Below) Other Cardiovascular History: temporal arteritis Respiratory History: Reports: Pulmonary Fibrosis Other Respiratory History: pulmonary asbestosis, respiratory failure with hypoxia, oxygen at 2-3L via nasal canula. Gastrointestinal History: Reports: Bowel Obstruction, Colon Polyp, GERD, Hiatal Hernia Other Gastrointestinal History: states esophagus doesn't work like it normally should. x10 bowel obstructions in the past with surgical intervention. herniation of rectum into vagina, diaphragmatic hernia, hiatal hernia, protein calorie malnutrition, polyp Genitourinary History: Reports: UTI, Recurrent Other Genitourinary History: dysuria [employer] History: Reports: Musculoskeletal History: Reports: Osteoarthritis, Osteoporosis Other Musculoskeletal History: polymyalgia rhuematica, fibromyalgia, osteoporosis, hip pain Neurological History: Reports: Seizure Other Neuro History: as a child Psychiatric History: Reports: Addiction, Anxiety, Depression, Panic Attack, Other (See Below) Other Psychiatric History: insomnia, opioid dependence, abnormal dreams Endocrine/Metabolic History: Reports: Hypothyroidism, Vitamin D Deficiency Hematologic History: Reports: Other (See Below) Other Hematologic History: Vitamin D deficiency Dermatologic History: Reports: Other (See Below) Other Dermatologic History: plantar wart x 2 - Infectious Disease History Infectious Disease History: Reports: Chicken Pox, Measles, Mumps - Past Surgical History HEENT Surgical History: Reports: Cataract Surgery, Oral Surgery, Other (See B elow) Other HEENT Surgeries/Procedures: removed right Saliva gland. 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), multiple operations for SBO, repair rectocele and cystocele Female Surgical History: Reports: Breast Reduction, D&C, Hysterectomy, Tubal Ligation, Other (See Below) Other Female Surgeries/Procedures: bladder and rectal repair Neurological Surgical History: Reports: Lumbar Spine Musculoskeletal Surgical History: Reports: Shoulder Surgery, Other (See Below) Other Musculoskeletal Surgeries/Procedures:: Right shoulder, foot surgery x2; back surgery x 5 Social & Family History - Family History Family Medical History: No Pertinent Family History Cardiac: Reports: [place] Other Cardiac Family History: [place], Bro, Bro - Heart disease Neurological: Reports: Alzheimers Disease Oncologic: Reports: Lung Other Oncologic Family History: FA - Cancer, Sis - lung cancer - Tobacco Use Tobacco Use Status *Q: Never Tobacco User Second Hand Smoke Exposure: No - Caffeine Use Caffeine Use: Reports: None - Recreational Drug Use Recreational Drug Use: No - Living Situation & Occupation Living situation: Reports: , Alone Occupation: Retired ED ROS GENERAL - Review of Systems Review Of Systems: Comprehensive ROS is negative, except as noted in HPI. ED EXAM, UPPER BACK/NECK PAIN - Physical Exam Exam: See Below Exam Limited By: No Limitations General Appearance: Alert, WD/WN, No Apparent Distress Neck Exam: Non-Tender, Normal Alignment, Normal Inspection, Limited Range of Motion, Muscle Spasm (on left upper shoulder and into left neck) Nexus Criteria: No: Posterior, Midline Cervical Tenderness, Evidence of Intoxication, Altered Level of Consciousness, Focal Neurological Deficit, Painful Distraction Injuries Cardiovascular/Respiratory: Regular Rate, Rhythm, No M/R/G, Normal Peripheral Pulses, No JVD, Normal Breath Sounds, No Respiratory Distress Extremities: Normal Inspection, Normal Capillary Refill Neurologic: No Motor/Sensory Deficits, Alert, Normal Mood/Affect, Oriented x 3 Psychiatric: Normal Affect, Normal Mood Skin Exam: Normal Color, Warm/Dry Course - Vital Signs Last Recorded V/S: Last Vital Signs Temp 97.9 F 11/09/20 21:36 Pulse 78 11/09/20 21:36 Resp 20 11/09/20 21:36 BP 173/66 H 11/09/20 21:36 Pulse Ox 95 11/09/20 21:36 - Orders/Labs/Meds Meds: Medications Discontinued Medications Generic Name Dose Route Start Last Admin Trade Name Freq PRN Reason Stop Dose Admin Diclofenac Sodium 1 gm 11/09/20 23:09 Diclofenac Sodium 1% Gel 100 Gm Tube TOP 11/09/20 23:10 ONETIME ONE Hydromorphone HCl 1 mg 11/09/20 22:27 11/09/20 22:44 Hydromorphone 1 Mg/Ml Syringe IM 11/09/20 22:28 1 mg ONETIME ONE Administration Ketorolac Tromethamine 60 mg 11/09/20 23:08 11/09/20 23:21 Ketorolac 60 Mg/2 Ml Sdv IM 11/09/20 23:09 60 mg ONETIME ONE Administration Orphenadrine Citrate 100 mg 11/09/20 22:27 11/09/20 22:44 Orphenadrine 100 Mg Tab.Er PO 11/09/20 22:28 100 mg ONETIME ONE Administration - Re-Assessments/Exams Free Text/Narrative Re-Assessment/Exam: 11/09/20 22:34 Patient presents to the ER for the evaluation of her neck/upper back pain. We will go ahead and give the patient 1 mg IM Dilaudid along with 100 mg p.o. Norflex for ongoing management. We will have to reassess the patient in some time to see if this is helped her, and try to at least get her an appropriate amount of pain relief. 11/09/20 23:44 Patient has gotten a total of 1 mg IM Dilaudid, 100 mg p.o. Norflex and 60 mg IM ketorolac at this time. She states that she is having some pain relief, she is still concerned because she cannot "lift her head off of the bed". I do expect the Norflex to provide more benefit for long-term duration. I did explain this to the patient and she verbalized understanding. We will go ahead and get her discharged home in another 15 or 20 minutes. Departure - Departure Time of Disposition: 23:45 Disposition: Home, Self-Care 01 Condition: Fair Clinical Impression: Muscle spasms of neck, Neck pain - Discharge Information *PRESCRIPTION DRUG MONITORING PROGRAM REVIEWED*: No *COPY OF PRESCRIPTION DRUG MONITORING REPORT IN PATIENT EMMETT: No Prescriptions: Orphenadrine [Norflex] 100 mg PO BID PRN #20 tab PRN Reason: Spasms Instructions: Muscle Cramps and Spasms, Pupp-ob-Eprd Referrals: Kathryn Olsen [employer] [Primary Care Provider] - Forms: ED Department Discharge Additional Instructions: You were evaluated in the ER today for your neck pain/spasms. You were given a few different medications in the ER, this seemed to help provide you some relief from the pain/spasms. A prescription for Norflex has been given to you for ongoing management. This medication was electronically prescribed to the [facility]. You will need to take 1 tablet 2 times a day for ongoing muscle spasms. Continue to take all other medications as previously prescribed by your regular doctors. I would highly and strongly recommend that you follow-up with your surgeon, and tell them that your situation has worsened since you had a follow- up appointment with them last . See if there is anything else that they are willing to do or can do for this. You may try ice pack/heat packs to the area to provide further pain relief. Heat might be a little bit more beneficial for you due to this being highly suspect for muscle pain or spasm. Sepsis Event Note (ED) - Evaluation Sepsis Screening Result: No Definite Risk - Focused Exam Vital Signs: Vital Signs Temp Pulse Resp BP Pulse Ox 11/09/20 21:36 97.9 F 78 20 173/66 H 95
[2020-11-09] MEDS ORDERED: Ketorolac 60 MG/2 ML SDV IM ONE (23:08)
[2020-11-09] MEDS ORDERED: Diclofenac Sodium 1% Gel 100 GM Tube TOP ONE (23:09)
== END 2020-11-10 00:25 | disposition home or self-care (01) ==
LOC: JD.ED 21:28
DX: M62.838 Other muscle spasm (principal); I25.10 Atherosclerotic heart disease of native coronary artery without angina pectoris; E78.00 Pure hypercholesterolemia, unspecified; I10 Essential (primary) hypertension; E03.9 Hypothyroidism, unspecified; Z79.899 Other long term (current) drug therapy; Z88.8 Allergy status to other drugs, medicaments and biological substances; Z88.1 Allergy status to other antibiotic agents; Z88.5 Allergy status to narcotic agent
CPT/HCPCS: 96372; 99284; A9270; J1170; J1885

== ENCOUNTER 2021-02-19 07:50 | Emergency (ER) | payer MEDICARE, BC ==
[2021-02-19] MEDS ORDERED: Ondansetron 4 MG/2 ML SDV IVPUSH ONE (08:07)
[2021-02-19] MEDS ORDERED: HYDROmorphone 0.5 MG/0.5 ML Syringe IVPUSH ONE ×2 (08:07→09:36)
--- NOTE | 2021-02-19 08:11 | EDM.PDOC ---
ED HPI GENERAL MEDICAL PROBLEM - General Chief Complaint: Gastrointestinal Problem Stated Complaint: SENT FROM RADIOLOGY Time Seen by Provider: 02/19/21 08:00 Source of Information: Reports: Patient, Provider (Tyson jarvis) History Limitations: Reports: No Limitations - History of Present Illness INITIAL COMMENTS - FREE TEXT/NARRATIVE: 80-year-old female presents to the ED from the radiology suite where she was undergoing a Lexiscan test. Patient became very nauseated with associated vomiting of mild bilious material x3. She continues to dry heave and retch in the department and therefore was brought to the emergency room for evaluation and treatment. She states at present her stomach is starting to feel a bit better but she does have a crampy feeling in both of her lower legs. She has never felt this before. Denies any central chest pain or discomfort at this time. Onset: Today, Sudden Onset Date: 02/19/21 Onset Time: 07:35 Duration: Minutes: Location: Reports: Abdomen (Nausea and vomiting after receiving Lexiscan intravenous nuclear medicine for cardiac stress test stress test) Quality: Reports: Other (Abrupt onset of nausea and vomiting after receiving intravenous Lexiscan) Severity: Moderate Improves with: Reports: None Worsens with: Reports: None Context: Reports: Other (She was in the x-ray department undergoing a cardiac stress test with the use of Lexiscan intravenously or nuclear medicine scan.). Denies: Activity, Exercise, Lifting, Sick Contact, Trauma Associated Symptoms: Reports: Diaphoresis, Loss of Appetite, Malaise, Nausea/Vomiting, Weakness. Denies: Confusion, Chest Pain, Cough, cough w sputum, Fever/Chills, Headaches, Rash, Seizure, Shortness of Breath, Syncope Treatments NECK SKEWER: Reports: Other (see below) (None.) Generalized Pain Score (Numeric/FACES): 7 - Related Data Allergies Allergy/AdvReac Type Severity Reaction Status Date / Time candesartan [From Atacand] Allergy Severe Shortness Verified 11/09/20 21:41 of Breath cephalexin monohydrate Allergy Severe Hives Verified 11/09/20 21:41 [From Keflex] doxycycline Allergy Severe Hives Verified 11/09/20 21:41 ibandronate sodium Allergy Severe Shortness Verified 11/09/20 21:41 [From Boniva] of Breath levofloxacin [From Levaquin] Allergy Severe Hives Verified 11/09/20 21:41 pitavastatin [From Livalo] Allergy Severe Cannot Verified 11/09/20 21:41 Remember sulfamethoxazole Allergy Severe Hives Verified 11/09/20 21:41 prednisone Allergy Abdominal Verified 11/09/20 21:43 Pain amlodipine AdvReac Severe Body Aches Verified 11/09/20 21:41 aspirin AdvReac Severe bloody Verified 11/09/20 21:41 noses atorvastatin calcium AdvReac Severe Muscle Verified 11/09/20 21:41 [From Lipitor] Aches bupropion HCl AdvReac Severe Other Verified 11/09/20 21:41 [From Wellbutrin] colesevelam HCl AdvReac Severe Muscle Verified 11/09/20 21:41 [From WelChol] Aches diltiazem [From Cardizem] AdvReac Severe Confusion Verified 11/09/20 21:41 duloxetine [From Cymbalta] AdvReac Severe difficultly Verified 11/09/20 21:41 walking evolocumab AdvReac Severe Muscle Verified 11/09/20 21:41 [From Repatha Pushtronex] Aches ezetimibe [From Zetia] AdvReac Severe Muscle Verified 11/09/20 21:41 Aches fluvoxamine [From Luvox] AdvReac Severe Headache Verified 11/09/20 21:41 gabapentin AdvReac Severe Blurred Verified 11/09/20 21:41 Vision hydralazine AdvReac Severe Nausea Verified 11/09/20 21:41 hydrochlorothiazide AdvReac Severe Headache Verified 11/09/20 21:41 hyoscyamine AdvReac Severe Vaginitis Verified 11/09/20 21:41 levothyroxine sodium AdvReac Severe Other Verified 11/09/20 21:41 lisinopril AdvReac Severe Cough Verified 11/09/20 21:41 losartan AdvReac Severe Headache Verified 11/09/20 21:41 mannitol [From Reclast] AdvReac Severe Confusion Verified 11/09/20 21:41 morphine AdvReac Severe Other Verified 11/09/20 21:41 niacin AdvReac Severe Muscle Verified 11/09/20 21:41 Aches phenobarbital AdvReac Severe Other Verified 11/09/20 21:41 pravastatin sodium AdvReac Severe Muscle Verified 11/09/20 21:41 [From Pravachol] Aches prochlorperazine edisylate AdvReac Severe Tremors Verified 11/09/20 21:41 [From Compazine] prochlorperazine maleate AdvReac Severe Tremors Verified 11/09/20 21:41 [From Compazine] promethazine HCl AdvReac Severe Other Verified 11/09/20 21:41 [From Phenergan] rosuvastatin calcium AdvReac Severe Body Aches Verified 11/09/20 21:41 [From Crestor] sertraline AdvReac Severe nightmares Verified 11/09/20 21:41 sertraline HCl [From Zoloft] AdvReac Severe Other Verified 11/09/20 21:41 simvastatin [From Zocor] AdvReac Severe Muscle Verified 11/09/20 21:41 Aches trazodone AdvReac Severe Other Verified 11/09/20 21:41 water for injection,sterile AdvReac Severe Confusion Verified 11/09/20 21:41 [From Reclast] zoledronic acid AdvReac Severe Confusion Verified 11/09/20 21:41 [From Reclast] zolpidem tartrate AdvReac Severe Other Verified 11/09/20 21:41 [From Ambien] Home Meds: Home Meds polyethylene glycoL 3350 [MiraLAX] 1 scoop PO DAILY PRN 02/27/18 [History] ALPRAZolam [Xanax] 0.25 mg PO Q8H PRN 11/10/18 [History] HYDROmorphone [Dilaudid] 4 mg PO Q4H PRN 11/10/18 [History] Acetaminophen [Acetaminophen Extra Strength] 650 mg PO Q4HR PRN 09/14/19 [History] Furosemide [Lasix] 40 mg PO DAILY 09/14/19 [History] Potassium Chloride [Klor-Con 10] 20 meq PO BID 09/14/19 [History] Budesonide/Formoterol [Symbicort 160-4.5 MCG] 2 puff INH BID PRN 12/02/19 [History] Zolpidem [Ambien] 5 mg PO BEDTIME PRN 12/02/19 [History] levalbuterol HCL [Xopenex] 1.25 mg INH Q6H PRN 12/02/19 [History] Nitroglycerin [Nitrostat] 0.4 mg SL ASDIRECTED 06/02/20 [History] Ondansetron [Zofran ODT] 8 mg PO TID PRN 06/02/20 [History] Docusate Sodium/Sennosides [Senna Plus] 1 - 2 tab PO DAILY PRN 06/03/20 [History] Levothyroxine Sodium [Synthroid] 112 mcg PO ACBREAKFAST 06/03/20 [History] carvediloL [Coreg] 25 mg PO BIDMEALS 06/03/20 [History] Sulfamethoxazole/Trimethoprim [Bactrim Ds Tablet] 1 each PO BID #14 tablet 10/02/20 [Rx] Orphenadrine [Norflex] 100 mg PO BID PRN #20 tab 11/09/20 [Rx] Past Medical History HEENT History: Reports: Impaired Vision Other HEENT History: Wears glasses, pt was dx with "eagles syndrome" Cardiovascular History: Reports: CAD, High Cholesterol, Hypertension, Other (See Below) Other Cardiovascular History: temporal arteritis Respiratory History: Reports: Pulmonary Fibrosis Other Respiratory History: pulmonary asbestosis, respiratory failure with hypoxia, oxygen at 2-3L via nasal canula. Gastrointestinal History: Reports: Bowel Obstruction, Colon Polyp, GERD, Hiatal Hernia Other Gastrointestinal History: states esophagus doesn't work like it normally should. x10 bowel obstructions in the past with surgical intervention. 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: Musculoskeletal History: Reports: Osteoarthritis, Osteoporosis Other Musculoskeletal History: polymyalgia rhuematica, fibromyalgia, o steoporosis, hip pain Neurological History: Reports: Seizure Other Neuro History: as a child Psychiatric History: Reports: Addiction, Anxiety, Depression, Panic Attack, Other (See Below) Other Psychiatric History: insomnia, opioid dependence, abnormal dreams Endocrine/Metabolic History: Reports: Hypothyroidism, Vitamin D Deficiency Hematologic History: Reports: Other (See Below) Other Hematologic History: Vitamin D deficiency Immunologic History: Reports: None Oncologic (Cancer) History: Reports: None Dermatologic History: Reports: Other (See Below) Other Dermatologic History: plantar wart x 2 - Infectious Disease History Infectious Disease History: Reports: Chicken Pox, Measles, Mumps - Past Surgical History HEENT Surgical History: Reports: Cataract Surgery, Oral Surgery, Other (See Below) Other HEENT Surgeries/Procedures: removed right Saliva gland. 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), multiple operations for SBO, repair rectocele and cystocele Female Surgical History: Reports: Breast Reduction, D&C, Hysterectomy, Tubal Ligation, Other (See Below) Other Female Surgeries/Procedures: bladder and rectal repair Endocrine Surgical History: Reports: None Neurological Surgical History: Reports: Lumbar Spine Musculoskeletal Surgical History: Reports: Shoulder Surgery, Other (See Below) Other Musculoskeletal Surgeries/Procedures:: Right shoulder, foot surgery x2; back surgery x 5 Oncologic Surgical History: Reports: None Other Oncologic Surgeries/Procedures: BOARD LAYER inquired if Patient had PMHx of Cancer/Radiation or Chemotherapy: Patient reported None. Dermatological Surgical History: Reports: None Social & Family History - Family History Family Medical History: No Pertinent Family History Cardiac: Reports: MO Other Cardiac Family History: MO, Bro, Bro - Heart disease Neurological: Reports: Alzheimers Disease Oncologic: Reports: Lung Other Oncologic Family History: FA - Cancer, Sis - lung cancer - Caffeine Use Caffeine Use: Reports: None - Living Situation & Occupation Living situation: Reports: , Alone Occupation: Retired ED ROS GENERAL - Review of Systems Review Of Systems: See Below Constitutional: Reports: Malaise, Weakness, Fatigue, Diaphoresis. Denies: Fever, Chills, Decreased Appetite, Weight Loss HEENT: Reports: Glasses Respiratory: Reports: Shortness of Breath, Cough (Chronic mild cough.). Denies: Wheezing, Pleuritic Chest Pain Cardiovascular: Reports: Blood Pressure Problem, Dyspnea on Exertion, Lightheadedness. Denies: Chest Pain, Claudication, Edema, Orthopnea, Palpitations (On occasion) Endocrine: Reports: Fatigue GI/Abdominal: Reports: Abdominal Pain (History of chronic abdominal pain for which she takes Dilaudid usually 3 times daily.), Diarrhea, Nausea (Intermittent), Vomiting ( nausea with vomiting) : Reports: Frequency, Incontinence (Urge component.) Musculoskeletal: Reports: Other (Generalized arthralgia particularly lower extremities knees hips lower back. Occasional neck pain and shoulder pain) Skin: Reports: Pallor Neurological: Reports: Dizziness, Headache, Weakness. Denies: Confusion, Numbness, Syncope, Tingling Psychiatric: Reports: Anxiety Hematologic/Lymphatic: Reports: No Symptoms Immunologic: Reports: No Symptoms ED EXAM, GI/ABD - Physical Exam Exam: See Below Exam Limited By: No Limitations General Appearance: Alert, WD/WN, Mild Distress, Other (Patient is quite pallid in appearance. She is alert oriented and is able to answer all questions. No dry heaving at this time.) Eyes: Bilateral: Normal Appearance (Mild blepharal pallor. No scleral icterus) Throat/Mouth: Normal Inspection, Normal Lips, Normal Oropharynx, Other (Tongue appears mildly dry.) Head: Atraumatic, Normocephalic Neck: Normal Inspection, Supple, Non-Tender, Full Range of Motion. No: Carotid Bruit, Lymphadenopathy (L), Lymphadenopathy (R) Respiratory/Chest: No Respiratory Distress, Lungs Clear, Normal Breath Sounds, No Accessory Muscle Use, Other (No clinical evidence of aspiration.) Cardiovascular: Regular Rate, Rhythm, No Edema, No Gallop, No Murmur, No Rub. No: Normal Peripheral Pulses GI/Abdominal Exam: Normal Bowel Sounds, Soft, Tender (In the epigastrium on exam. Mildly distended intubated percussion to both mild aerophagia.) Back Exam: Other (Mild kyphosis thoracic spine.) Extremities: Normal Inspection, Normal Range of Motion, Non-Tender, Other (No dependent edema) Neurological: Alert, Oriented, CN II-XII Intact, Normal Cognition Psychiatric: Normal Affect, Normal Mood Skin Exam: Warm, Dry, Intact, Normal Color, No Rash Course - Vital Signs Last Recorded V/S: Last Vital Signs Temp Pulse 62 02/19/21 08:44 Resp 16 02/19/21 08:44 BP 142/55 H 02/19/21 08:44 Pulse Ox 99 02/19/21 08:44 - Orders/Labs/Meds Orders: Active Orders 24 hr Category Date Time Status Sodium Chloride 0.9% [Normal Saline] 1,000 ml Med 02/19/21 08:15 Active IV ASDIRECTED Medication Orders Sodium Chloride (Normal Saline) 1,000 mls @ 100 mls/hr IV ASDIRECTED IRVIN Last Admin: 02/19/21 08:29 Dose: 100 mls/hr Documented by: MAYI Herberts: Medications Generic Name Dose Route Start Last Admin Trade Name Litzy PRN Reason Stop Dose Admin Sodium Chloride 1,000 mls @ 100 mls/hr 02/19/21 08:15 02/19/21 08:29 Normal Saline IV 100 mls/hr ASDIRECTED IRVIN Administration Discontinued Medications Generic Name Dose Route Start Last Admin Trade Name Litzy PRN Reason Stop Dose Admin Hydromorphone HCl 0.5 mg 02/19/21 08:07 02/19/21 08:29 Hydromorphone 0.5 Mg/0.5 Ml Syringe IVPUSH 02/19/21 08:08 0.5 mg ONETIME ONE Administration Hydromorphone HCl 0.5 mg 02/19/21 09:36 02/19/21 10:42 Hydromorphone 0.5 Mg/0.5 Ml Syringe IVPUSH 02/19/21 09:37 0.5 mg ONETIME ONE Administration Ondansetron HCl 4 mg 02/19/21 08:07 02/19/21 08:30 Ondansetron 4 Mg/2 Ml Sdv IVPUSH 02/19/21 08:08 4 mg ONETIME ONE Administration - Radiology Interpretation Free Text/Narrative:: 80-year-old female presents to the ED from the x-ray suite where she was undergoing a cardiac stress test using Lexiscan nuclear medicine only. After receiving the injection of Lexiscan she developed nausea vomiting and just would not stop. She can to have dry heaves. Emesis was bilious without blood. Associated mild diaphoresis. Patient presents to the ED with stable vital signs but quite pallid in appearance. She is alert oriented and able to answer all questions. Plan normal saline IV at 100 mils an hour. She will be given Zofran 4 mg IV and Dilaudid 0.5 mg IV for diffuse leg pain and abdominal pain. She takes Dilaudid 3-4 times daily for chronic abdominal pain and back pain. Tentatively she will will be able to go back over to the x-ray suite for Lexiscan. - Re-Assessments/Exams Free Text/Narrative Re-Assessment/Exam: 02/19/21 09:35 Theresa has completed the first portion of her Lexiscan. She still flailing some discomfort in her stomach and her legs are still hurting with a headache. Will repeat Dilaudid 0.5 mg IV as she is very tolerant to narcotics as she uses Dilaudid daily 3 times. The next portion of her Lexiscan study is to be done around 1045 hrs. this morning. At present she doesn't want anything to eat or drink. 02/19/21 11:54 Theresa has now completely finished her Lexiscan study and is feeling improved. She had a bit of toast while in the department but did not want any dinner. She will therefore be discharged home to continue all medica tions as previous. Her son will come and pick her up on the noon hour break. Departure - Departure Time of Disposition: 11:55 Disposition: Home, Self-Care 01 Condition: Fair Clinical Impression: Intractable nausea and vomiting Adverse effects of medication Qualifiers: Encounter type: initial encounter Qualified Code(s): T50.905A - Adverse effect of unspecified drugs, medicaments and biological substances, initial encounter - Discharge Information *PRESCRIPTION DRUG MONITORING PROGRAM REVIEWED*: Not Applicable *COPY OF PRESCRIPTION DRUG MONITORING REPORT IN PATIENT EMMETT: Not Applicable Referrals: Kathryn Olsen NP [Primary Care Provider] - Forms: ED Department Discharge Additional Instructions: Evaluation in the emergency room this morning in regards to adverse reaction to Lexiscan nuclear medicine dye given to you for cardiac stress test this morning. Is often does cause nausea but you also developed significant nausea and vomiting which was not easily controlled. Therefore you were brought to the emergency room for evaluation in which he received some intravenous fluids and medication to arrest vomiting. This allowed you to complete your Lexiscan this morning. The results are not yet known to me. You will have to follow-up with your primary care provider who ordered the test for the results usually by about Monday next week. Continue all medications as before. Sepsis Event Note (ED) - Focused Exam Vital Signs: Vital Signs Pulse Resp BP Pulse Ox 02/19/21 08:44 62 16 142/55 H 99 - My Orders Last 24 Hours: My Active Orders 02/19/21 08:15 Sodium Chloride 0.9% [Normal Saline] 1,000 ml IV ASDIRECTED - Assessment/Plan Last 24 Hours: My Active Orders 02/19/21 08:15 Sodium Chloride 0.9% [Normal Saline] 1,000 ml IV ASDIRECTED
[2021-02-19] MEDS ORDERED: Sodium Chloride 0.9% 1,000 ML IV SCH (08:15)
[2021-02-19 08:47] VITALS: BP 142/55; PULSE 62
== END 2021-02-19 12:09 | disposition home or self-care (01) ==
LOC: JD.ED 07:50
DX: R11.2 Nausea with vomiting, unspecified (principal); T50.905A Adverse effect of unspecified drugs, medicaments and biological substances, initial encounter; I25.10 Atherosclerotic heart disease of native coronary artery without angina pectoris; E78.00 Pure hypercholesterolemia, unspecified; I10 Essential (primary) hypertension; K21.9 Gastro-esophageal reflux disease without esophagitis; M19.90 Unspecified osteoarthritis, unspecified site; E03.9 Hypothyroidism, unspecified; Z88.1 Allergy status to other antibiotic agents; Z88.8 Allergy status to other drugs, medicaments and biological substances; Z79.899 Other long term (current) drug therapy
CPT/HCPCS: 96374; 96375; 96376; 99283; J1170; J2405; J7030

== ENCOUNTER → 2021-05-17 | Day surgery (SDC) | payer MEDICARE, BC ==
[~2021-05-17] MED LIST changes: -Albuterol 0.083% 2.5 MG/3 ML Neb Soln NEB SCH; +Lidocaine 1% 4 ML ONE; +Propofol 200 MG/20 ML SDV ONE; +Sodium Chloride 0.9% 10 ML Syringe FLUSH SCH; +fentaNYL 100 MCG/2 ML SDV ONE
[2021-05-17 11:58] VITALS: BP 145/71; PULSE 63
== END | disposition home or self-care (01) ==
LOC: JD.SDS 08:34
PROVIDERS: ATTEND Surgery
DX: Z12.11 Encounter for screening for malignant neoplasm of colon (principal); K44.9 Diaphragmatic hernia without obstruction or gangrene; K57.30 Diverticulosis of large intestine without perforation or abscess without bleeding; K64.1 Second degree hemorrhoids; K29.50 Unspecified chronic gastritis without bleeding; K21.00 Gastro-esophageal reflux disease with esophagitis, without bleeding; E03.9 Hypothyroidism, unspecified; I25.10 Atherosclerotic heart disease of native coronary artery without angina pectoris; G47.00 Insomnia, unspecified; F32.A Depression, unspecified; E78.2 Mixed hyperlipidemia; I10 Essential (primary) hypertension; H54.7 Unspecified visual loss; E78.00 Pure hypercholesterolemia, unspecified; F41.0 Panic disorder [episodic paroxysmal anxiety]; M19.90 Unspecified osteoarthritis, unspecified site; E55.9 Vitamin D deficiency, unspecified; Z88.8 Allergy status to other drugs, medicaments and biological substances; Z88.1 Allergy status to other antibiotic agents; Z88.6 Allergy status to analgesic agent; Z88.3 Allergy status to other anti-infective agents; Z88.4 Allergy status to anesthetic agent; Z95.5 Presence of coronary angioplasty implant and graft; Z90.49 Acquired absence of other specified parts of digestive tract; Z90.711 Acquired absence of uterus with remaining cervical stump; Z79.899 Other long term (current) drug therapy; Z98.890 Other specified postprocedural states; Z79.890 Hormone replacement therapy
CPT/HCPCS: 43239; 45380; J2704; J3010; J7120; 00813; 99100

== ENCOUNTER 2021-07-25 11:29 | Emergency (ER) | payer MEDICARE, BC ==
[2021-07-25 11:56] VITALS: BP 110/94; PULSE 69
[2021-07-25] MEDS ORDERED: HYDROmorphone 1 MG/ML Syringe IM ONE (12:37)
== END 2021-07-25 14:15 | disposition home or self-care (01) ==
LOC: JD.ED 11:29
DX: M54.50 Low back pain, unspecified (principal); I25.10 Atherosclerotic heart disease of native coronary artery without angina pectoris; I10 Essential (primary) hypertension; K21.9 Gastro-esophageal reflux disease without esophagitis; E03.9 Hypothyroidism, unspecified; Z90.49 Acquired absence of other specified parts of digestive tract; Z90.710 Acquired absence of both cervix and uterus; Z79.899 Other long term (current) drug therapy; Z88.1 Allergy status to other antibiotic agents; Z88.8 Allergy status to other drugs, medicaments and biological substances; Z88.6 Allergy status to analgesic agent
CPT/HCPCS: 96372; 99283; J1170

== ENCOUNTER 2021-09-10 07:19 | Emergency (ER) | payer MEDICARE, BC ==
[2021-09-10] MEDS ORDERED: Acetaminophen 325 MG Tab PO ONE (09:15)
[2021-09-10 11:32] VITALS: BP 235/104; PULSE 70
== END 2021-09-10 11:05 | disposition home or self-care (01) ==
LOC: JD.ED 07:19
DX: N39.0 Urinary tract infection, site not specified (principal); I25.10 Atherosclerotic heart disease of native coronary artery without angina pectoris; I10 Essential (primary) hypertension; Z88.1 Allergy status to other antibiotic agents; Z88.8 Allergy status to other drugs, medicaments and biological substances; Z88.2 Allergy status to sulfonamides; Z88.6 Allergy status to analgesic agent; Z79.899 Other long term (current) drug therapy; Z90.49 Acquired absence of other specified parts of digestive tract; Z90.710 Acquired absence of both cervix and uterus; Z20.822 Contact with and (suspected) exposure to COVID-19
CPT/HCPCS: 81001; 87086; 87088; 87186; 99283; U0002

== ENCOUNTER 2021-09-18 09:21 | Emergency (ER) | payer MEDICARE, BC ==
[2021-09-18] MEDS ORDERED: Ondansetron 4 MG/2 ML SDV IVPUSH ONE (09:41)
[2021-09-18] MEDS ORDERED: HYDROmorphone 1 MG/ML Syringe IVPUSH ONE ×2 (09:44→11:20)
[2021-09-18] MEDS ORDERED: Pantoprazole 40 MG Vial IVPUSH ONE (09:44)
[2021-09-18] MEDS ORDERED: Sodium Chloride 0.9% 1,000 ML IV SCH (09:45)
[2021-09-18] MEDS ORDERED: Iopamidol 612 MG/ML 100 ML Bottle IVPUSH ONE (09:52)
[2021-09-18] MEDS: Sodium Chloride 0.9% 10 ML Syringe FLUSH PRN ×2 (09:59→10:51)
[2021-09-18] MEDS ORDERED: HYDROmorphone 0.5 MG/0.5 ML Syringe IVPUSH ONE (13:00)
[2021-09-18 15:51] VITALS: BP 117/68; PULSE 54
== END 2021-09-18 15:21 | disposition home or self-care (01) ==
LOC: JD.ED 09:21
DX: K92.2 Gastrointestinal hemorrhage, unspecified (principal); K52.9 Noninfective gastroenteritis and colitis, unspecified; I25.10 Atherosclerotic heart disease of native coronary artery without angina pectoris; I10 Essential (primary) hypertension; Z88.8 Allergy status to other drugs, medicaments and biological substances; Z88.1 Allergy status to other antibiotic agents; Z88.2 Allergy status to sulfonamides; Z88.6 Allergy status to analgesic agent; Z79.899 Other long term (current) drug therapy; Z90.49 Acquired absence of other specified parts of digestive tract; Z90.710 Acquired absence of both cervix and uterus
CPT/HCPCS: 36415; 71045; 74177; 80053; 81001; 83690; 84484; 85025; 85610; 85730; 93005; 96361; 96374; 96375; 96376; 99285; C9113; J1170; J2405; J3490; J7030; Q9967

== ENCOUNTER 2021-10-25 16:24 | Emergency (ER) | payer MEDICARE, BC ==
[2021-10-25] MEDS ORDERED: HYDROmorphone 1 MG/ML Syringe IVPUSH ONE (17:47)
[2021-10-25] MEDS ORDERED: diphenhydrAMINE 50 MG/ML SDV IVPUSH ONE (17:48)
[2021-10-25] MEDS ORDERED: Meclizine 12.5 MG Tab PO ONE (17:48)
[2021-10-25] MEDS ORDERED: LORazepam 0.5 MG Tab PO ONE (17:54)
[2021-10-25] MEDS ORDERED: Ondansetron 4 MG/2 ML SDV IVPUSH ONE (17:54)
[2021-10-25] MEDS ORDERED: Dextrose 5%-Lactated Ringers 1,000 ML IV SCH (18:00)
[2021-10-25] MEDS ORDERED: hydrALAZINE 20 MG/ML SDV IVPUSH ONE (19:14)
[2021-10-25 19:32] LABS: ESTIMATED GFR 89 mL/min (>60)
[2021-10-25 21:31] VITALS: BP 136/54; PULSE 63
== END 2021-10-25 21:30 | disposition home or self-care (01) ==
LOC: JD.ED 16:24
DX: H81.12 Benign paroxysmal vertigo, left ear (principal); I10 Essential (primary) hypertension; I25.10 Atherosclerotic heart disease of native coronary artery without angina pectoris; E78.00 Pure hypercholesterolemia, unspecified; K21.9 Gastro-esophageal reflux disease without esophagitis; M19.90 Unspecified osteoarthritis, unspecified site; E03.9 Hypothyroidism, unspecified; Z88.1 Allergy status to other antibiotic agents; Z88.5 Allergy status to narcotic agent; Z88.2 Allergy status to sulfonamides; Z88.8 Allergy status to other drugs, medicaments and biological substances; Z79.899 Other long term (current) drug therapy
CPT/HCPCS: 36415; 71045; 80053; 83735; 83880; 84443; 85025; 86140; 93005; 96361; 96374; 96375; 99285; A9270; J0360; J1170; J1200; J2405; J7121; 93010; 99284

== ENCOUNTER 2022-02-11 13:54 | Emergency (ER) | payer MEDICARE, BC ==
[2022-02-11 14:16] VITALS: PULSE 70
[2022-02-11] MEDS ORDERED: Metoclopramide 10 MG/2 ML SDV IVPUSH ONE (14:26)
[2022-02-11] MEDS ORDERED: HYDROmorphone 1 MG/ML Syringe IVPUSH ONE ×2 (14:26→14:48)
[2022-02-11] MEDS ORDERED: Sodium Chloride 0.9% 1,000 ML IV SCH ×2 (14:30→14:45)
[2022-02-11] MEDS ORDERED: Dextrose 5%-0.9% NaCl 1,000 ML IV SCH (14:30)
[2022-02-11 16:48] LABS: ESTIMATED GFR 89 mL/min (>60)
[2022-02-11] MEDS ORDERED: HYDROmorphone 0.5 MG/0.5 ML Syringe IVPUSH ONE (17:21)
== END 2022-02-11 18:18 | disposition home or self-care (01) ==
LOC: JD.ED 13:54
DX: M25.571 Pain in right ankle and joints of right foot (principal); M25.561 Pain in right knee; M25.532 Pain in left wrist; M25.531 Pain in right wrist; M25.522 Pain in left elbow; M25.521 Pain in right elbow; I25.10 Atherosclerotic heart disease of native coronary artery without angina pectoris; E78.00 Pure hypercholesterolemia, unspecified; I10 Essential (primary) hypertension; E03.9 Hypothyroidism, unspecified; K21.9 Gastro-esophageal reflux disease without esophagitis; Z88.1 Allergy status to other antibiotic agents; Z88.8 Allergy status to other drugs, medicaments and biological substances; Z88.5 Allergy status to narcotic agent; Z79.899 Other long term (current) drug therapy
CPT/HCPCS: 80053; 81001; 82550; 83735; 83880; 84560; 85025; 85652; 86140; 86430; 96361; 96374; 96375; 96376; 99283; J1170; J2765; J7030

== ENCOUNTER 2022-03-31 23:58 | Emergency (ER) | payer MEDICARE, BC ==
[2022-04-01] MEDS ORDERED: HYDROmorphone 1 MG/ML Syringe IVPUSH ONE ×5 (00:19→05:21)
[2022-04-01] MEDS ORDERED: Metoclopramide 10 MG/2 ML SDV IVPUSH ONE (00:20)
[2022-04-01] MEDS ORDERED: Dextrose 5%-0.9% NaCl 1,000 ML IV SCH (00:30)
[2022-04-01] MEDS ORDERED: Ondansetron 4 MG/2 ML SDV IVPUSH ONE ×3 (01:25→05:42)
[2022-04-01] MEDS ORDERED: Lidocaine 2% 11 ML Jelly Filled Syringe MUCMEM ONE (03:32)
[2022-04-01] MEDS ORDERED: LORazepam 2 MG/ML SDV IVPUSH ONE (03:35)
[2022-04-01 04:20] VITALS: BP 130/79; PULSE 76
[2022-04-01 04:52] LABS: CORONAVIRUS COVID-19 NAA NEGATIVE (NEGATIVE)
[2022-04-01] MEDS ORDERED: Dextrose 5%-Lactated Ringers 1,000 ML IV SCH (06:30)
== END 2022-04-01 07:00 ==
LOC: JD.ED 23:58
DX: J43.1 Panlobular emphysema (principal); K56.609 Unspecified intestinal obstruction, unspecified as to partial versus complete obstruction; M48.55XA Collapsed vertebra, not elsewhere classified, thoracolumbar region, initial encounter for fracture; G89.4 Chronic pain syndrome; I25.10 Atherosclerotic heart disease of native coronary artery without angina pectoris; I10 Essential (primary) hypertension; E78.00 Pure hypercholesterolemia, unspecified; K21.9 Gastro-esophageal reflux disease without esophagitis; E03.9 Hypothyroidism, unspecified; Z88.8 Allergy status to other drugs, medicaments and biological substances; Z88.1 Allergy status to other antibiotic agents; Z88.2 Allergy status to sulfonamides; Z88.5 Allergy status to narcotic agent; Z20.822 Contact with and (suspected) exposure to COVID-19
CPT/HCPCS: 0241U; 36415; 71045; 74177; 80053; 81001; 83605; 83690; 83735; 83880; 85025; 85610; 85730; 86140; 87086; 87088; 87186; 93005; 96361; 96374; 96375; 96376; 99285; A9270; J1170; J2060; J2405; J7042; J7121

== ENCOUNTER 2022-06-13 16:16 | Emergency (ER) | payer MEDICARE, BC ==
[2022-06-13] MEDS ORDERED: HYDROmorphone 0.5 MG/0.5 ML Syringe IVPUSH ONE (17:54)
[2022-06-13] MEDS ORDERED: Ondansetron 4 MG/2 ML SDV IVPUSH ONE (17:55)
[2022-06-13] MEDS ORDERED: Iopamidol 612 MG/ML 100 ML Bottle IVPUSH ONE (18:18)
[2022-06-13 19:08] LABS: ESTIMATED GFR 88 mL/min (>60)
[2022-06-13 21:33] VITALS: BP 184/63; PULSE 63
== END 2022-06-13 21:29 | disposition home or self-care (01) ==
LOC: JD.ED 16:16
DX: K59.00 Constipation, unspecified (principal); I25.10 Atherosclerotic heart disease of native coronary artery without angina pectoris; I10 Essential (primary) hypertension; K21.9 Gastro-esophageal reflux disease without esophagitis; E03.9 Hypothyroidism, unspecified; Z88.8 Allergy status to other drugs, medicaments and biological substances; Z88.1 Allergy status to other antibiotic agents; Z88.2 Allergy status to sulfonamides; Z88.5 Allergy status to narcotic agent; Z91.048 Other nonmedicinal substance allergy status; Z79.899 Other long term (current) drug therapy
CPT/HCPCS: 36415; 74019; 74177; 80053; 81001; 83690; 83735; 84484; 85025; 86140; 87086; 87088; 87186; 96374; 96375; 99284; J1170; J2405; Q9967; 93010

== ENCOUNTER 2022-06-28 09:08 | Emergency (ER) | payer MEDICARE, BC ==
[2022-06-28] MEDS ORDERED: Sodium Chloride 0.9% 1,000 ML IV SCH (09:30)
[2022-06-28] MEDS: Nitroglycerin 0.4 MG Tab.SL SL PRN ×2 (09:36→09:42)
[2022-06-28 10:03] LABS: BASOPHILS ABSOLUTE AUTO 0.03 K/mm3 (0.01-0.08); BASOPHILS PERCENT AUTO 0.5 % (0.1-1.2); EOSINOPHILS ABSOLUTE AUTO 0.12 K/mm3 (0.04-0.36); EOSINOPHILS PERCENT AUTO 1.8 (0.7-5.8); HEMATOCRIT 35.7 % (34.1-44.9); IMMATURE GRAN ABSOLUTE AUTO 0.01 K/mm3 (0.00-0.10); IMMATURE GRAN PERCENT AUTO 0.2 % (<=1.0); LYMPHOCYTES ABSOLUTE AUTO 2.07 K/mm3 (1.18-3.74); LYMPHOCYTES PERCENT AUTO 31.2 % (19.3-51.7); MEAN CORPUSCULAR HEMOGLOBIN 30.5 pg (25.6-32.2); MEAN CORPUSCULAR HGB CONC 33.6 g/dl (32.2-35.5); MEAN CORPUSCULAR VOLUME 90.6 fl (79.4-94.8); MEAN PLATELET VOLUME 9.3 fl (9.4-12.3); MONOCYTES ABSOLUTE AUTO 0.52 K/mm3 (0.24-0.36); MONOCYTES PERCENT AUTO 7.8 % (4.7-12.5); NEUTROPHILS ABSOLUTE AUTO 3.89 K/mm3 (1.56-6.13); NEUTROPHILS PERCENT AUTO 58.5 % (34.0-71.1); PLATELET COUNT,PLT 152 K/mm3 (182-369); RED BLOOD CELL COUNT 3.94 M/mm3 (3.98-5.22); WHITE BLOOD CELL COUNT,WBC 6.64 K/mm3 (3.98-10.04)
[2022-06-28 10:21] LABS: INR 0.94; PROTHROMBIN TIME 10.1 SECONDS (9.7-12.0)
[2022-06-28 10:22] LABS: PTT,PARTIAL THROMBOPLSTIN TIME 27.5 SECONDS (21.7-31.4)
[2022-06-28 10:33] LABS: ALBUMIN 3.5 g/dl (3.4-5.0); ANION GAP 9.5 (5-15); BILIRUBIN TOTAL 0.7 mg/dL (0.2-1.0); BUN/CREATININE RATIO 18.6 (14-18); CALCIUM 9.1 mg/dL (8.5-10.1); CREATININE 0.7 mg/dL (0.55-1.02); EST CRCL DRUG DOSING (CG) 45.14 mL/min; POTASSIUM,K 3.5 mEq/L (3.5-5.1); PROTEIN TOTAL,TP 7.2 g/dl (6.4-8.2)
[2022-06-28] MEDS ORDERED: Carvedilol 12.5 MG Tab PO ONE ×3 (11:39→13:21)
[2022-06-28] MEDS ORDERED: Alum Hydrox/Mag Hydrox/Simeth 30 ML, Lidocaine 2% 15 ML PO ONE ×2 (12:36)
[2022-06-28 14:10] VITALS: BP 170/65; PULSE 60
[2022-06-28] MEDS ORDERED: Sucralfate Suspension 1 GM/10 ML Cup PO ONE (15:19)
== END 2022-06-28 16:17 | disposition home or self-care (01) ==
LOC: JD.ED 09:08
DX: R07.89 Other chest pain (principal); R10.13 Epigastric pain; I44.0 Atrioventricular block, first degree; I25.10 Atherosclerotic heart disease of native coronary artery without angina pectoris; I10 Essential (primary) hypertension; E03.9 Hypothyroidism, unspecified; Z88.8 Allergy status to other drugs, medicaments and biological substances; Z88.1 Allergy status to other antibiotic agents; Z88.2 Allergy status to sulfonamides; Z88.5 Allergy status to narcotic agent; Z79.899 Other long term (current) drug therapy
CPT/HCPCS: 36415; 71045; 80053; 84484; 85025; 85610; 85730; 93005; 99285; A9270; J7030; 93010; 99284

== ENCOUNTER 2022-09-18 19:49 | Emergency (ER) | payer MEDICARE, BC ==
[2022-09-18 21:16] VITALS: BP 122/74; PULSE 74
== END 2022-09-18 21:55 | disposition home or self-care (01) ==
LOC: JD.ED 19:49
DX: S93.602A Unspecified sprain of left foot, initial encounter (principal); E78.00 Pure hypercholesterolemia, unspecified; K21.9 Gastro-esophageal reflux disease without esophagitis; I10 Essential (primary) hypertension; E03.9 Hypothyroidism, unspecified; I25.10 Atherosclerotic heart disease of native coronary artery without angina pectoris; Z79.899 Other long term (current) drug therapy; Z88.0 Allergy status to penicillin; Z88.1 Allergy status to other antibiotic agents; Z88.5 Allergy status to narcotic agent; Z88.6 Allergy status to analgesic agent; Z88.8 Allergy status to other drugs, medicaments and biological substances; Z91.018 Allergy to other foods; Z91.048 Other nonmedicinal substance allergy status; Z91.09 Other allergy status, other than to drugs and biological substances; Z88.2 Allergy status to sulfonamides; X50.0XXA Overexertion from strenuous movement or load, initial encounter
CPT/HCPCS: 73630-26-LT; 73630-LT; 99283

== ENCOUNTER 2022-09-25 05:59 | Emergency (ER) | payer MEDICARE, BC ==
[2022-09-25 06:43] LABS: BASOPHILS ABSOLUTE AUTO 0.03 K/mm3 (0.01-0.08); BASOPHILS PERCENT AUTO 0.4 % (0.1-1.2); EOSINOPHILS ABSOLUTE AUTO 0.14 K/mm3 (0.04-0.36); HEMATOCRIT 34.7 % (34.1-44.9); HEMOGLOBIN 11.4 gm/dl (11.2-15.7); IMMATURE GRAN ABSOLUTE AUTO 0.01 K/mm3 (0.00-0.10); IMMATURE GRAN PERCENT AUTO 0.1 % (<=1.0); LYMPHOCYTES ABSOLUTE AUTO 1.82 K/mm3 (1.18-3.74); LYMPHOCYTES PERCENT AUTO 26.1 % (19.3-51.7); MEAN CORPUSCULAR HEMOGLOBIN 30.3 pg (25.6-32.2); MEAN CORPUSCULAR HGB CONC 32.9 g/dl (32.2-35.5); MEAN CORPUSCULAR VOLUME 92.3 fl (79.4-94.8); MONOCYTES PERCENT AUTO 8.6 % (4.7-12.5); NEUTROPHILS ABSOLUTE AUTO 4.37 K/mm3 (1.56-6.13); NEUTROPHILS PERCENT AUTO 62.8 % (34.0-71.1); PLATELET COUNT,PLT 140 K/mm3 (182-369); RED BLOOD CELL COUNT 3.76 M/mm3 (3.98-5.22); WHITE BLOOD CELL COUNT,WBC 6.97 K/mm3 (3.98-10.04)
[2022-09-25 07:08] LABS: A/G RATIO 0.9 (1-2); ALBUMIN 3.4 g/dl (3.4-5.0); BILIRUBIN TOTAL 0.5 mg/dL (0.2-1.0); BUN/CREATININE RATIO 16.7 (14-18); CALCIUM 9.3 mg/dL (8.5-10.1); CREATININE 0.6 mg/dL (0.55-1.02); EST CRCL DRUG DOSING (CG) 52.67 mL/min; PROTEIN TOTAL,TP 7.1 g/dl (6.4-8.2)
[2022-09-25] MEDS ORDERED: Sodium Chloride 0.9% 1,000 ML IV SCH (07:15)
[2022-09-25 07:17] LABS: APPEARANCE,URINE SLT CLOUDY (Clear); BILIRUBIN,URINE NEGATIVE (Negative); COLOR,URINE YELLOW (Yellow); GLUCOSE,URINE NEGATIVE (Negative); KETONES,URINE NEGATIVE (Negative); LEUKOCYTE ESTERASE,URINE 1+ (Negative); NITRITE,URINE POSITIVE (Negative); OCCULT BLOOD,URINE TRACE-INTACT (Negative); PROTEIN,URINE TRACE (Negative); UROBILINOGEN,URINE 0.2 (0.2-1.0)
[2022-09-25] MEDS ORDERED: Ondansetron 4 MG/2 ML SDV IVPUSH ONE (07:18)
[2022-09-25] MEDS ORDERED: HYDROmorphone 0.5 MG/0.5 ML Syringe IVPUSH ONE ×2 (07:18→10:26)
[2022-09-25 07:31] LABS: BACTERIA,URINE MANY /hpf (FEW); MUCUS,URINE MODERATE /hpf (FEW); RBC,URINE 0-5 /hpf (0-5); SQUAMOUS EPITHELIAL CELLS,UR 0-5 /hpf (0-5)
[2022-09-25] MEDS ORDERED: Sodium Chloride 0.9% 10 ML Syringe FLUSH ONE (09:10)
[2022-09-25] MEDS ORDERED: Iopamidol 612 MG/ML 100 ML Bottle IVPUSH ONE (09:10)
[2022-09-25] MEDS ORDERED: Diatrizoate Meglumine/Diatrizoate Sodium 37% 120 ML Bottle PO ONE (09:10)
[2022-09-25 20:00] VITALS: BP 165/73; PULSE 65
== END 2022-09-25 12:43 | disposition home or self-care (01) ==
LOC: JD.ED 05:59
DX: K59.00 Constipation, unspecified (principal); E03.9 Hypothyroidism, unspecified; I25.10 Atherosclerotic heart disease of native coronary artery without angina pectoris; I10 Essential (primary) hypertension; Z79.899 Other long term (current) drug therapy; Z88.8 Allergy status to other drugs, medicaments and biological substances; Z88.1 Allergy status to other antibiotic agents; Z88.6 Allergy status to analgesic agent; Z91.041 Radiographic dye allergy status; Z88.2 Allergy status to sulfonamides; Z88.5 Allergy status to narcotic agent
CPT/HCPCS: 36415; 74019; 74177; 80053; 81001; 83690; 85025; 87086; 87088; 87186; 96374; 96375; 99285; J1170; J2405; J7030; Q9963; Q9967; 99284

== ENCOUNTER 2022-10-02 10:04 | Emergency (ER) | payer MEDICARE, BC ==
[2022-10-02] MEDS ORDERED: Sodium Chloride 0.9% 1,000 ML IV STA (10:47)
[2022-10-02] MEDS ORDERED: Sodium Chloride 0.9% 10 ML Syringe FLUSH PRN (10:47)
[2022-10-02] MEDS ORDERED: Ondansetron 4 MG/2 ML SDV IVPUSH ONE (10:47)
[2022-10-02] MEDS ORDERED: HYDROmorphone 0.5 MG/0.5 ML Syringe IVPUSH ONE ×2 (10:49→14:41)
[2022-10-02 11:45] LABS: BASOPHILS ABSOLUTE AUTO 0.03 K/mm3 (0.01-0.08); BASOPHILS PERCENT AUTO 0.5 % (0.1-1.2); EOSINOPHILS ABSOLUTE AUTO 0.07 K/mm3 (0.04-0.36); EOSINOPHILS PERCENT AUTO 1.2 (0.7-5.8); HEMATOCRIT 36.7 % (34.1-44.9); HEMOGLOBIN 12.4 gm/dl (11.2-15.7); LYMPHOCYTES ABSOLUTE AUTO 1.44 K/mm3 (1.18-3.74); LYMPHOCYTES PERCENT AUTO 23.9 % (19.3-51.7); MEAN CORPUSCULAR HEMOGLOBIN 30.6 pg (25.6-32.2); MEAN CORPUSCULAR HGB CONC 33.8 g/dl (32.2-35.5); MEAN CORPUSCULAR VOLUME 90.6 fl (79.4-94.8); MEAN PLATELET VOLUME 9.2 fl (9.4-12.3); MONOCYTES ABSOLUTE AUTO 0.37 K/mm3 (0.24-0.36); MONOCYTES PERCENT AUTO 6.1 % (4.7-12.5); NEUTROPHILS ABSOLUTE AUTO 4.11 K/mm3 (1.56-6.13); NEUTROPHILS PERCENT AUTO 68.3 % (34.0-71.1); PLATELET COUNT,PLT 169 K/mm3 (182-369); RED BLOOD CELL COUNT 4.05 M/mm3 (3.98-5.22); WHITE BLOOD CELL COUNT,WBC 6.02 K/mm3 (3.98-10.04)
[2022-10-02 12:02] LABS: APPEARANCE,URINE CLEAR (Clear); BILIRUBIN,URINE NEGATIVE (Negative); COLOR,URINE LIGHT YELLOW (Yellow); GLUCOSE,URINE NEGATIVE (Negative); KETONES,URINE TRACE (Negative); LEUKOCYTE ESTERASE,URINE NEGATIVE (Negative); NITRITE,URINE NEGATIVE (Negative); OCCULT BLOOD,URINE TRACE-INTACT (Negative); PROTEIN,URINE NEGATIVE (Negative); UROBILINOGEN,URINE 0.2 (0.2-1.0)
[2022-10-02 12:06] LABS: ALANINE AMINOTRANSFERASE,ALT 15 U/L (14-59); ALBUMIN 3.8 g/dl (3.4-5.0); ALKALINE PHOSPHATASE 76 U/L (46-116); ANION GAP 12.7 (5-15); ASPARTATE AMNIOTRANSFERASE,AST 17 U/L (15-37); BILIRUBIN TOTAL 0.5 mg/dL (0.2-1.0); BLOOD UREA NITROGEN,BUN 8 mg/dL (7-18); BUN/CREATININE RATIO 13.3 (14-18); CALCIUM 9.6 mg/dL (8.5-10.1); CARBON DIOXIDE,CO2 27 mEq/L (21-32); CHLORIDE,CL 100 mEq/L (98-107); CREATININE 0.6 mg/dL (0.55-1.02); ESTIMATED GFR 88 mL/min (>60); GLUCOSE RANDOM 92 mg/dL (70-99); POTASSIUM,K 3.7 mEq/L (3.5-5.1); PROTEIN TOTAL,TP 7.6 g/dl (6.4-8.2); SODIUM,NA 136 mEq/L (136-145)
[2022-10-02 12:13] LABS: BACTERIA,URINE RARE /hpf (FEW); MUCUS,URINE MANY /hpf (FEW); RBC,URINE 0-5 /hpf (0-5); SQUAMOUS EPITHELIAL CELLS,UR 0-5 /hpf (0-5); WBC,URINE NOT SEEN /hpf (0-5)
[2022-10-02] MEDS ORDERED: Dicyclomine 10 MG Cap PO ONE (14:59)
[2022-10-02 15:23] VITALS: BP 168/89; PULSE 61
== END 2022-10-02 15:25 | disposition home or self-care (01) ==
LOC: JD.ED 10:04
DX: R10.84 Generalized abdominal pain (principal); R11.2 Nausea with vomiting, unspecified; M54.50 Low back pain, unspecified; I25.10 Atherosclerotic heart disease of native coronary artery without angina pectoris; I10 Essential (primary) hypertension; E03.9 Hypothyroidism, unspecified; Z88.8 Allergy status to other drugs, medicaments and biological substances; Z88.1 Allergy status to other antibiotic agents; Z88.2 Allergy status to sulfonamides; Z88.5 Allergy status to narcotic agent; Z88.6 Allergy status to analgesic agent; Z79.899 Other long term (current) drug therapy
CPT/HCPCS: 36415; 74176; 80053; 81001; 85025; 96361; 96374; 96375; 96376; 99284; A9270; J1170; J2405; J7030

== ENCOUNTER 2022-11-01 19:18 | Emergency (ER) | payer MEDICARE, BC ==
[2022-11-01] MEDS ORDERED: Iopamidol 612 MG/ML 100 ML Bottle IVPUSH ONE (19:42)
[2022-11-01] MEDS ORDERED: Iopamidol 612 MG/ML 30 ML SDV IVPUSH ONE (19:42)
[2022-11-01] MEDS ORDERED: Sodium Chloride 0.9% 10 ML Syringe FLUSH PRN (19:42)
[2022-11-01] MEDS ORDERED: HYDROmorphone 0.5 MG/0.5 ML Syringe IM ONE ×2 (20:57→22:32)
[2022-11-01] MEDS ORDERED: Ondansetron 4 MG/2 ML SDV IVPUSH ONE (21:52)
[2022-11-01 23:22] VITALS: BP 180/100; PULSE 73
== END 2022-11-01 23:18 | disposition home or self-care (01) ==
LOC: JD.ED 19:18
DX: M54.6 Pain in thoracic spine (principal); M54.2 Cervicalgia; I25.10 Atherosclerotic heart disease of native coronary artery without angina pectoris; E78.00 Pure hypercholesterolemia, unspecified; I10 Essential (primary) hypertension; K21.9 Gastro-esophageal reflux disease without esophagitis; E03.9 Hypothyroidism, unspecified; Z95.5 Presence of coronary angioplasty implant and graft; Z79.899 Other long term (current) drug therapy; Z88.0 Allergy status to penicillin; Z88.1 Allergy status to other antibiotic agents; Z88.2 Allergy status to sulfonamides; Z88.5 Allergy status to narcotic agent; Z88.6 Allergy status to analgesic agent; Z88.8 Allergy status to other drugs, medicaments and biological substances; Z91.048 Other nonmedicinal substance allergy status; Z91.09 Other allergy status, other than to drugs and biological substances; W19.XXXA Unspecified fall, initial encounter
CPT/HCPCS: 70450; 71260; 72125; 72128; 74177; 96372; 96374; 99284; J1170; J2405; Q9967; 99282

== ENCOUNTER 2023-01-31 13:58 | Emergency (ER) | payer MEDICARE, BC ==
[2023-01-31 15:36] LABS: BILIRUBIN,URINE NEGATIVE (Negative); COLOR,URINE YELLOW (Yellow); GLUCOSE,URINE NEGATIVE (Negative); KETONES,URINE NEGATIVE (Negative); LEUKOCYTE ESTERASE,URINE TRACE (Negative); NITRITE,URINE POSITIVE (Negative); OCCULT BLOOD,URINE 1+ (Negative); PH,URINE 6.5 (5.0-8.0); PROTEIN,URINE NEGATIVE (Negative); UROBILINOGEN,URINE 0.2 (0.2-1.0)
[2023-01-31 15:55] LABS: APPEARANCE,URINE SLT CLOUDY (Clear)
[2023-01-31 15:56] LABS: BACTERIA,URINE MANY /hpf (FEW); MUCUS,URINE FEW /hpf (FEW)
[2023-01-31 16:30] LABS: BASOPHILS ABSOLUTE AUTO 0.1 K/mm3 (0.0-0.2); BASOPHILS PERCENT AUTO 0.8 % (0.0-1.0); EOSINOPHILS ABSOLUTE AUTO 0.1 K/mm3 (0.0-0.4); EOSINOPHILS PERCENT AUTO 1.5 % (0.0-6.0); HEMATOCRIT 36.3 % (37.0-47.0); HEMOGLOBIN 12.5 gm/dl (12.0-16.0); IMMATURE GRAN ABSOLUTE AUTO 0.02 K/mm3 (0.00-0.05); IMMATURE GRAN PERCENT AUTO 0.3 % (0.0-0.4); LYMPHOCYTES ABSOLUTE AUTO 1.8 K/mm3 (1.0-4.8); LYMPHOCYTES PERCENT AUTO 27.7 % (24.0-44.0); MEAN CORPUSCULAR HEMOGLOBIN 32.2 pg (28.0-32.0); MEAN CORPUSCULAR HGB CONC 34.4 g/dl (32.0-36.0); MEAN CORPUSCULAR VOLUME 93.6 fl (83.0-99.0); MEAN PLATELET VOLUME 8.4 fl (9.4-12.3); MONOCYTES ABSOLUTE AUTO 0.5 K/mm3 (0.0-0.8); MONOCYTES PERCENT AUTO 7.8 % (0.0-8.0); NEUTROPHILS ABSOLUTE AUTO 4.1 K/mm3 (1.8-7.7); NEUTROPHILS PERCENT AUTO 61.9 % (41.0-71.0); PLATELET COUNT,PLT 227 K/mm3 (150-400); RED BLOOD CELL COUNT 3.88 M/mm3 (4.10-5.30); WHITE BLOOD CELL COUNT,WBC 6.65 K/mm3 (3.9-11.3)
[2023-01-31] MEDS ORDERED: Azithromycin 250 MG Tab PO ONE (16:53)
[2023-01-31 16:59] LABS: A/G RATIO 0.9 (1-2); ALBUMIN 3.7 g/dl (3.4-5.0); ANION GAP 10.8 (5-15); BILIRUBIN TOTAL 0.7 mg/dL (0.2-1.0); CREATININE 0.6 mg/dL (0.55-1.02); EST CRCL DRUG DOSING (CG) 57.74 mL/min; POTASSIUM,K 3.8 mEq/L (3.5-5.1); PROTEIN TOTAL,TP 7.9 g/dl (6.4-8.2)
[2023-01-31 18:16] VITALS: BP 195/78; PULSE 70
== END 2023-01-31 17:54 | disposition home or self-care (01) ==
LOC: JD.ED 13:58
DX: N30.01 Acute cystitis with hematuria (principal); I10 Essential (primary) hypertension; I25.10 Atherosclerotic heart disease of native coronary artery without angina pectoris; Z90.49 Acquired absence of other specified parts of digestive tract; Z90.710 Acquired absence of both cervix and uterus; Z88.1 Allergy status to other antibiotic agents; Z88.8 Allergy status to other drugs, medicaments and biological substances; Z88.2 Allergy status to sulfonamides; Z88.5 Allergy status to narcotic agent; Z79.2 Long term (current) use of antibiotics; Z79.899 Other long term (current) drug therapy
CPT/HCPCS: 0352U; 36415; 80053; 81001; 85025; 87086; 99283; A9270; 87088; 87186; 99284

== ENCOUNTER 2023-03-25 10:16 | Emergency (ER) | payer MEDICARE, BC ==
[2023-03-25 11:03] LABS: BASOPHILS ABSOLUTE AUTO 0.1 K/mm3 (0.0-0.2); BASOPHILS PERCENT AUTO 0.7 % (0.0-1.0); EOSINOPHILS ABSOLUTE AUTO 0.1 K/mm3 (0.0-0.4); EOSINOPHILS PERCENT AUTO 1.3 % (0.0-6.0); HEMATOCRIT 32.8 % (37.0-47.0); HEMOGLOBIN 11.4 gm/dl (12.0-16.0); IMMATURE GRAN ABSOLUTE AUTO 0.01 K/mm3 (0.00-0.05); IMMATURE GRAN PERCENT AUTO 0.1 % (0.0-0.4); MEAN CORPUSCULAR HEMOGLOBIN 32.3 pg (28.0-32.0); MEAN CORPUSCULAR HGB CONC 34.8 g/dl (32.0-36.0); MEAN CORPUSCULAR VOLUME 92.9 fl (83.0-99.0); MEAN PLATELET VOLUME 9.1 fl (9.4-12.3); MONOCYTES ABSOLUTE AUTO 0.5 K/mm3 (0.0-0.8); MONOCYTES PERCENT AUTO 6.4 % (0.0-8.0); NEUTROPHILS ABSOLUTE AUTO 3.5 K/mm3 (1.8-7.7); NEUTROPHILS PERCENT AUTO 49.5 % (41.0-71.0); PLATELET COUNT,PLT 209 K/mm3 (150-400); RED BLOOD CELL COUNT 3.53 M/mm3 (4.10-5.30); WHITE BLOOD CELL COUNT,WBC 7.07 K/mm3 (3.9-11.3)
[2023-03-25 11:21] LABS: ALBUMIN 3.8 g/dl (3.4-5.0); ANION GAP 13.9 (5-15); BILIRUBIN TOTAL 0.7 mg/dL (0.2-1.0); CALCIUM 9.4 mg/dL (8.5-10.1); CREATININE 0.6 mg/dL (0.55-1.02); EST CRCL DRUG DOSING (CG) 52.67 mL/min; POTASSIUM,K 3.9 mEq/L (3.5-5.1); PROTEIN TOTAL,TP 7.5 g/dl (6.4-8.2)
[2023-03-25] MEDS: Cyclobenzaprine 10 MG Tab PO ONE (11:31)
[2023-03-25 12:31] VITALS: BP 153/55; PULSE 54
== END 2023-03-25 12:20 | disposition home or self-care (01) ==
LOC: JD.ED 10:16
DX: M62.830 Muscle spasm of back (principal); R07.89 Other chest pain; I10 Essential (primary) hypertension; I25.10 Atherosclerotic heart disease of native coronary artery without angina pectoris; E03.9 Hypothyroidism, unspecified; Z95.5 Presence of coronary angioplasty implant and graft; Z88.8 Allergy status to other drugs, medicaments and biological substances; Z91.048 Other nonmedicinal substance allergy status; Z88.5 Allergy status to narcotic agent; Z88.6 Allergy status to analgesic agent; Z88.1 Allergy status to other antibiotic agents; Z88.2 Allergy status to sulfonamides; Z79.899 Other long term (current) drug therapy
CPT/HCPCS: 36415; 71046; 80053; 83880; 84484; 85025; 93005; 99285; A9270; 93010; 99284

== ENCOUNTER 2023-08-29 20:17 | Emergency (ER) | payer MEDICARE, BC ==
[2023-08-29 20:31] VITALS: PULSE 68
[2023-08-29] MEDS ORDERED: Sodium Chloride 0.9% 10 ML Syringe FLUSH PRN (20:44)
[2023-08-29] MEDS ORDERED: HYDROmorphone 0.5 MG/0.5 ML Syringe IVPUSH ONE (20:45)
[2023-08-29] MEDS: Albuterol/Ipratropium 3.0-0.5 MG/3 ML Neb Soln NEB ONE (21:07)
[2023-08-29 21:24] LABS: BASOPHILS ABSOLUTE AUTO 0.1 K/mm3 (0.0-0.2); BASOPHILS PERCENT AUTO 0.4 % (0.0-1.0); EOSINOPHILS PERCENT AUTO 0.3 % (0.0-6.0); HEMATOCRIT 36.8 % (37.0-47.0); HEMOGLOBIN 12.4 gm/dl (12.0-16.0); IMMATURE GRAN ABSOLUTE AUTO 0.05 K/mm3 (0.00-0.05); IMMATURE GRAN PERCENT AUTO 0.4 % (0.0-0.4); LYMPHOCYTES ABSOLUTE AUTO 2.2 K/mm3 (1.0-4.8); LYMPHOCYTES PERCENT AUTO 19.2 % (24.0-44.0); MEAN CORPUSCULAR HEMOGLOBIN 32.4 pg (28.0-32.0); MEAN CORPUSCULAR HGB CONC 33.7 g/dl (32.0-36.0); MEAN CORPUSCULAR VOLUME 96.1 fl (83.0-99.0); MEAN PLATELET VOLUME 8.5 fl (9.4-12.3); MONOCYTES ABSOLUTE AUTO 0.7 K/mm3 (0.0-0.8); MONOCYTES PERCENT AUTO 6.1 % (0.0-8.0); NEUTROPHILS ABSOLUTE AUTO 8.6 K/mm3 (1.8-7.7); NEUTROPHILS PERCENT AUTO 73.6 % (41.0-71.0); PLATELET COUNT,PLT 228 K/mm3 (150-400); RED BLOOD CELL COUNT 3.83 M/mm3 (4.10-5.30); WHITE BLOOD CELL COUNT,WBC 11.64 K/mm3 (3.9-11.3)
[2023-08-29] MEDS: HYDROmorphone 1 MG/ML Syringe IM ONE (21:29)
[2023-08-29 21:48] LABS: A/G RATIO 1.1 (1-2); ALANINE AMINOTRANSFERASE,ALT 19 U/L (14-59); ALBUMIN 3.5 g/dl (3.4-5.0); ALKALINE PHOSPHATASE 55 U/L (46-116); ASPARTATE AMNIOTRANSFERASE,AST 11 U/L (15-37); BILIRUBIN TOTAL 0.3 mg/dL (0.2-1.0); BLOOD UREA NITROGEN,BUN 22 mg/dL (7-18); BUN/CREATININE RATIO 27.5 (14-18); CALCIUM 9.9 mg/dL (8.5-10.1); CARBON DIOXIDE,CO2 28 mEq/L (21-32); CHLORIDE,CL 99 mEq/L (98-107); CREATININE 0.8 mg/dL (0.55-1.02); ESTIMATED GFR 72 mL/min (>60); GLUCOSE RANDOM 100 mg/dL (70-99); PROTEIN TOTAL,TP 6.8 g/dl (6.4-8.2); SODIUM,NA 136 mEq/L (136-145)
[2023-08-29 21:56] LABS: TROPONIN I HIGH SENSITIVITY < 4 pg/mL (<=51)
[2023-08-29 22:08] VITALS: BP 155/57
== END 2023-08-29 23:05 | disposition home or self-care (01) ==
LOC: JD.ED 20:17
DX: R07.89 Other chest pain (principal); R06.02 Shortness of breath; I25.10 Atherosclerotic heart disease of native coronary artery without angina pectoris; I10 Essential (primary) hypertension; E03.9 Hypothyroidism, unspecified; Z90.49 Acquired absence of other specified parts of digestive tract; Z90.710 Acquired absence of both cervix and uterus; Z79.899 Other long term (current) drug therapy; Z79.890 Hormone replacement therapy; Z79.52 Long term (current) use of systemic steroids; Z88.8 Allergy status to other drugs, medicaments and biological substances; Z88.1 Allergy status to other antibiotic agents; Z88.5 Allergy status to narcotic agent; Z88.6 Allergy status to analgesic agent; Z88.2 Allergy status to sulfonamides; Z91.048 Other nonmedicinal substance allergy status
CPT/HCPCS: 36415; 71045; 80053; 84484; 85025; 93005; 94640; 96372; 99285; J1170; 93010; 99284; J7620-GY

== ENCOUNTER 2023-12-18 16:27 | Emergency (ER) | payer MEDICARE, BC ==
[2023-12-18 17:44] LABS: BASOPHILS PERCENT AUTO 0.6 % (0.0-1.0); EOSINOPHILS ABSOLUTE AUTO 0.1 K/mm3 (0.0-0.4); EOSINOPHILS PERCENT AUTO 1.5 % (0.0-6.0); HEMATOCRIT 31.1 % (37.0-47.0); HEMOGLOBIN 10.8 gm/dl (12.0-16.0); IMMATURE GRAN ABSOLUTE AUTO 0.02 K/mm3 (0.00-0.05); IMMATURE GRAN PERCENT AUTO 0.3 % (0.0-0.4); LYMPHOCYTES PERCENT AUTO 29.2 % (24.0-44.0); MEAN CORPUSCULAR HEMOGLOBIN 32.9 pg (28.0-32.0); MEAN CORPUSCULAR HGB CONC 34.7 g/dl (32.0-36.0); MEAN CORPUSCULAR VOLUME 94.8 fl (83.0-99.0); MEAN PLATELET VOLUME 8.5 fl (9.4-12.3); MONOCYTES ABSOLUTE AUTO 0.5 K/mm3 (0.0-0.8); NEUTROPHILS ABSOLUTE AUTO 4.1 K/mm3 (1.8-7.7); NEUTROPHILS PERCENT AUTO 60.4 % (41.0-71.0); PLATELET COUNT,PLT 244 K/mm3 (150-400); RED BLOOD CELL COUNT 3.28 M/mm3 (4.10-5.30); WHITE BLOOD CELL COUNT,WBC 6.77 K/mm3 (3.9-11.3)
[2023-12-18 18:00] LABS: INR 0.96; PROTHROMBIN TIME 10.2 SECONDS (9.7-12.0)
[2023-12-18 18:12] LABS: ALBUMIN 3.4 g/dl (3.4-5.0); ANION GAP 12.9 (5-15); BILIRUBIN TOTAL 0.4 mg/dL (0.2-1.0); BUN/CREATININE RATIO 21.7 (14-18); CALCIUM 9.4 mg/dL (8.5-10.1); CREATININE 0.6 mg/dL (0.55-1.02); EST CRCL DRUG DOSING (CG) 51.73 mL/min; MAGNESIUM 1.9 mg/dL (1.8-2.4); POTASSIUM,K 3.9 mEq/L (3.5-5.1); PROTEIN TOTAL,TP 6.7 g/dl (6.4-8.2)
[2023-12-18 19:45] VITALS: PULSE 62
[2023-12-18 21:08] VITALS: BP 177/63
== END 2023-12-18 20:52 | disposition home or self-care (01) ==
LOC: JD.ED 16:27
DX: R07.89 Other chest pain (principal); I10 Essential (primary) hypertension; E78.00 Pure hypercholesterolemia, unspecified; Z88.1 Allergy status to other antibiotic agents; Z88.2 Allergy status to sulfonamides; Z88.5 Allergy status to narcotic agent; Z88.8 Allergy status to other drugs, medicaments and biological substances; Z79.890 Hormone replacement therapy; Z79.899 Other long term (current) drug therapy; Z90.49 Acquired absence of other specified parts of digestive tract; Z90.710 Acquired absence of both cervix and uterus
CPT/HCPCS: 36415; 71045; 71045-26; 80053; 83690; 83735; 83880; 84484; 85025; 85610; 93005; 93010; 99284; 99285

== ENCOUNTER 2024-03-25 16:03 | Emergency (ER) | payer MEDICARE, BC ==
[2024-03-25] MEDS: Albuterol/Ipratropium 3.0-0.5 MG/3 ML Neb Soln NEB ONE (16:30)
[2024-03-25] MEDS: Acetaminophen 325 MG Tab PO ONE (17:02)
[2024-03-25 18:29] VITALS: BP 103/69; PULSE 159
== END 2024-03-25 18:28 | disposition home or self-care (01) ==
LOC: JD.ED 16:03
DX: J45.909 Unspecified asthma, uncomplicated (principal); F41.9 Anxiety disorder, unspecified; I10 Essential (primary) hypertension; E78.00 Pure hypercholesterolemia, unspecified; I25.10 Atherosclerotic heart disease of native coronary artery without angina pectoris; E03.9 Hypothyroidism, unspecified; Z88.6 Allergy status to analgesic agent; Z88.1 Allergy status to other antibiotic agents; Z88.8 Allergy status to other drugs, medicaments and biological substances; Z88.5 Allergy status to narcotic agent; Z79.01 Long term (current) use of anticoagulants; Z79.899 Other long term (current) drug therapy; Z79.890 Hormone replacement therapy
CPT/HCPCS: 71045; 93005; 94640; 99285; A9270; J7620-GY

== ENCOUNTER 2024-10-08 11:15 | Inpatient (IN) | payer MEDICARE, BC ==
[2024-10-08 11:56] LABS: BASOPHILS ABSOLUTE AUTO 0.0 K/mm3 (0.0-0.2); BASOPHILS PERCENT AUTO 0.5 % (0.0-1.0); EOSINOPHILS ABSOLUTE AUTO 0.0 K/mm3 (0.0-0.4); EOSINOPHILS PERCENT AUTO 0.1 % (0.0-6.0); IMMATURE GRAN ABSOLUTE AUTO 0.03 K/mm3 (0.00-0.05); IMMATURE GRAN PERCENT AUTO 0.4 % (0.0-0.4); LYMPHOCYTES ABSOLUTE AUTO 0.8 K/mm3 (1.0-4.8); LYMPHOCYTES PERCENT AUTO 10.2 % (24.0-44.0); MEAN PLATELET VOLUME 8.8 fl (9.4-12.3); MONOCYTES ABSOLUTE AUTO 1.0 K/mm3 (0.0-0.8); MONOCYTES PERCENT AUTO 13.1 % (0.0-8.0); NEUTROPHILS ABSOLUTE AUTO 5.9 K/mm3 (1.8-7.7); NEUTROPHILS PERCENT AUTO 75.7 % (41.0-71.0); NRBC ABSOLUTE 0.00 (0.00-0.02); NRBC PERCENT 0.0 % (0.0-0.2); PLATELET COUNT,PLT 218 K/mm3 (150-400); RED BLOOD CELL COUNT 3.61 M/mm3 (4.10-5.30); WHITE BLOOD CELL COUNT,WBC 7.84 K/mm3 (3.9-11.3)
[2024-10-08 12:17] LABS: A/G RATIO 0.8 (1-2); ALANINE AMINOTRANSFERASE,ALT 29.0 U/L (14-59); ASPARTATE AMNIOTRANSFERASE,AST 62.0 U/L (15-37); BILIRUBIN TOTAL 0.6 mg/dL (0.2-1.0); BLOOD UREA NITROGEN,BUN 13.0 mg/dL (7-18); CARBON DIOXIDE,CO2 29.0 mEq/L (21-32); CHLORIDE,CL 97.0 mEq/L (98-107); CREATININE 0.7 mg/dL (0.55-1.02); EST CRCL DRUG DOSING (CG) 43.53 mL/min; ESTIMATED GFR 84.0 mL/min (>60); GLUCOSE RANDOM 94.0 mg/dL (70-99); POTASSIUM,K 3.9 mEq/L (3.5-5.1); PROTEIN TOTAL,TP 7.3 g/dl (6.4-8.2); SODIUM,NA 134.0 mEq/L (136-145)
[2024-10-08] MEDS: Sodium Chloride 0.9% 10 ML Syringe FLUSH PRN (12:20)
[2024-10-08 12:59] LABS: APPEARANCE,URINE CLEAR (Clear); GLUCOSE,URINE NEGATIVE (Negative); OCCULT BLOOD,URINE 1+ (Negative)
[2024-10-08 13:11] LABS: EPITHELIAL CELLS,URINE 0-5 /hpf (0-5)
[2024-10-08] MEDS ORDERED: Labetalol 100 MG/20 ML MDV IVPUSH PRN (16:35)
[2024-10-08] MEDS ORDERED: Acetaminophen/HYDROcodone 325-5 MG Tab PO PRN (16:42)
[2024-10-08] MEDS ORDERED: Ondansetron 4 MG/2 ML SDV IV PRN (16:42)
[2024-10-08] MEDS ORDERED: Sennosides/Docusate Sodium 50-8.6 MG Tab PO PRN (16:42)
[2024-10-08] MEDS: Ondansetron 4 MG Tab.DIS PO PRN (20:53)
[2024-10-09 04:25] LABS: BASOPHILS ABSOLUTE AUTO 0.0 K/mm3 (0.0-0.2); BASOPHILS PERCENT AUTO 0.3 % (0.0-1.0); EOSINOPHILS ABSOLUTE AUTO 0.0 K/mm3 (0.0-0.4); EOSINOPHILS PERCENT AUTO 0.0 % (0.0-6.0); IMMATURE GRAN ABSOLUTE AUTO 0.02 K/mm3 (0.00-0.05); IMMATURE GRAN PERCENT AUTO 0.5 % (0.0-0.4); LYMPHOCYTES ABSOLUTE AUTO 0.4 K/mm3 (1.0-4.8); LYMPHOCYTES PERCENT AUTO 10.2 % (24.0-44.0); MEAN PLATELET VOLUME 9.0 fl (9.4-12.3); MONOCYTES ABSOLUTE AUTO 0.1 K/mm3 (0.0-0.8); MONOCYTES PERCENT AUTO 2.7 % (0.0-8.0); NEUTROPHILS ABSOLUTE AUTO 3.2 K/mm3 (1.8-7.7); NEUTROPHILS PERCENT AUTO 86.3 % (41.0-71.0); NRBC ABSOLUTE 0.00 (0.00-0.02); NRBC PERCENT 0.0 % (0.0-0.2); PLATELET COUNT,PLT 181 K/mm3 (150-400); RED BLOOD CELL COUNT 3.61 M/mm3 (4.10-5.30); WHITE BLOOD CELL COUNT,WBC 3.74 K/mm3 (3.9-11.3)
[2024-10-09 04:51] LABS: A/G RATIO 0.8 (1-2); ALANINE AMINOTRANSFERASE,ALT 35.0 U/L (14-59); ASPARTATE AMNIOTRANSFERASE,AST 78.0 U/L (15-37); BILIRUBIN TOTAL 0.3 mg/dL (0.2-1.0); BLOOD UREA NITROGEN,BUN 12.0 mg/dL (7-18); CARBON DIOXIDE,CO2 25.0 mEq/L (21-32); CHLORIDE,CL 101.0 mEq/L (98-107); CREATININE 0.6 mg/dL (0.55-1.02); EST CRCL DRUG DOSING (CG) 50.79 mL/min; ESTIMATED GFR 87.0 mL/min (>60); GLUCOSE RANDOM 122.0 mg/dL (70-99); PHOSPHORUS 3.7 mg/dL (2.6-4.7); POTASSIUM,K 4.2 mEq/L (3.5-5.1); PROTEIN TOTAL,TP 6.5 g/dl (6.4-8.2); SODIUM,NA 136.0 mEq/L (136-145)
[2024-10-09] MEDS ORDERED: Naloxone 0.4 MG/ML SDV NAS PRN (16:28)
[2024-10-09] MEDS ORDERED: Nitroglycerin 0.4 MG Tab.SL SL PRN ×2 (16:28→16:54)
[2024-10-09] MEDS ORDERED: Naloxone 0.4 MG/ML SDV IVPUSH PRN (16:52)
[2024-10-11 08:08] LABS: A/G RATIO 0.9 (1-2); ALANINE AMINOTRANSFERASE,ALT 34.0 U/L (14-59); ASPARTATE AMNIOTRANSFERASE,AST 56.0 U/L (15-37); BILIRUBIN TOTAL 0.2 mg/dL (0.2-1.0); BLOOD UREA NITROGEN,BUN 12.0 mg/dL (7-18); CARBON DIOXIDE,CO2 27.0 mEq/L (21-32); CHLORIDE,CL 104.0 mEq/L (98-107); CREATININE 0.5 mg/dL (0.55-1.02); EST CRCL DRUG DOSING (CG) 60.95 mL/min; ESTIMATED GFR 91.0 mL/min (>60); GLUCOSE RANDOM 105.0 mg/dL (70-99); POTASSIUM,K 3.3 mEq/L (3.5-5.1); PROTEIN TOTAL,TP 6.2 g/dl (6.4-8.2); SODIUM,NA 138.0 mEq/L (136-145)
[2024-10-11] MEDS ORDERED: Benzocaine/Cetylpyridinium/Menthol Lozenge MUCMEM PRN (10:18)
[2024-10-11] MEDS: Potassium Chloride 20 MEQ Tab.ER PO SCH (10:28)
[2024-10-11] MEDS: hydrALAZINE 20 MG/ML SDV IVPUSH PRN (12:32)
[2024-10-12] MEDS: Carboxymethylcellulose Sodium 1% Ophth Gel 15 ML Bottle EYEBOTH PRN (10:29)
[2024-10-17 09:11] VITALS: BP 163/98
[2024-10-17 11:30] VITALS: PULSE 68
== END 2024-10-17 10:10 | DRG 178 ==
LOC: JD.ED 11:15 → JD.MS 14:48
PROVIDERS: ADMIT Student in an Organized Health Care Education/Training Program; ATTEND Student in an Organized Health Care Education/Training Program
PROC: XW033E5 Introduction of Remdesivir Anti-infective into Peripheral Vein, Percutaneous Approach, New Technology Group 5 (ICD-10-PCS; principal; 2024-10-08)
DX: U07.1 COVID-19 (principal); J96.11 Chronic respiratory failure with hypoxia; N30.01 Acute cystitis with hematuria; G89.4 Chronic pain syndrome; M35.3 Polymyalgia rheumatica; I25.2 Old myocardial infarction; H54.7 Unspecified visual loss; I25.10 Atherosclerotic heart disease of native coronary artery without angina pectoris; Z66 Do not resuscitate; E78.00 Pure hypercholesterolemia, unspecified; Z79.890 Hormone replacement therapy; I10 Essential (primary) hypertension; Z88.6 Allergy status to analgesic agent; Z88.1 Allergy status to other antibiotic agents; K21.9 Gastro-esophageal reflux disease without esophagitis; M81.0 Age-related osteoporosis without current pathological fracture; M19.90 Unspecified osteoarthritis, unspecified site; R56.9 Unspecified convulsions; M25.552 Pain in left hip; J84.10 Pulmonary fibrosis, unspecified; F41.9 Anxiety disorder, unspecified; F32.A Depression, unspecified; E03.9 Hypothyroidism, unspecified; E55.9 Vitamin D deficiency, unspecified; D64.9 Anemia, unspecified; Z98.49 Cataract extraction status, unspecified eye; Z95.5 Presence of coronary angioplasty implant and graft; Z90.49 Acquired absence of other specified parts of digestive tract; Z98.890 Other specified postprocedural states; Z90.710 Acquired absence of both cervix and uterus; Z98.51 Tubal ligation status; Z99.81 Dependence on supplemental oxygen; Z79.891 Long term (current) use of opiate analgesic; Z88.8 Allergy status to other drugs, medicaments and biological substances; Z79.899 Other long term (current) drug therapy; Z79.52 Long term (current) use of systemic steroids
CPT/HCPCS: 36415; 71046; 71046-26; 73502-26-LT; 73502-LT; 80053; 81001; 83735; 84100; 85025; 85652; 86140; 87086; 87088; 87186; 87426-QW; 93005; 93010; 94640; 94760; 94761; 96361; 96374; 96375; 97110-GP; 97116-GP; 97162-GP; 97166-GO; 97530-GO; 97530-GP; 97535-GO; 99285; 99285-25; A9270-GY; C1758; J0248; J0360; J0696; J1171; J1650; J7030; J7050; J7512; J8540

== ENCOUNTER 2024-12-01 19:40 | Emergency (ER) | payer MEDICARE, BC ==
[2024-12-01 19:43] VITALS: PULSE 78
[2024-12-01] MEDS: Acetaminophen/HYDROcodone 325-5 MG Tab PO ONE (20:54)
[2024-12-01 21:35] VITALS: BP 174/74
== END 2024-12-01 21:34 | disposition home or self-care (01) ==
LOC: JD.ED 19:40
DX: Z76.0 Encounter for issue of repeat prescription (principal); G89.29 Other chronic pain; I25.10 Atherosclerotic heart disease of native coronary artery without angina pectoris; I10 Essential (primary) hypertension; K21.9 Gastro-esophageal reflux disease without esophagitis; E03.9 Hypothyroidism, unspecified; Z88.8 Allergy status to other drugs, medicaments and biological substances; Z88.1 Allergy status to other antibiotic agents; Z88.2 Allergy status to sulfonamides; Z88.5 Allergy status to narcotic agent; Z88.6 Allergy status to analgesic agent; Z79.899 Other long term (current) drug therapy; Z79.890 Hormone replacement therapy; Z95.5 Presence of coronary angioplasty implant and graft; Z90.49 Acquired absence of other specified parts of digestive tract; Z90.710 Acquired absence of both cervix and uterus
CPT/HCPCS: 99282; A9270